=== PATIENT | male | born 1950 | race Caucasian/White ===

== ENCOUNTER 2017-08-05 08:34 | Day surgery (SDC) | payer MEDICARE, OTHER ==
[2017-08-05] MEDS ORDERED: DEXMEDETOMIDINE INJ 80 MCG/20 ML VIAL IV ONE (08:43)
[2017-08-05] MEDS ORDERED: PROPOFOL INJ 200 MG/20 ML VIAL IV ONE ×2 (08:43→10:27)
[2017-08-05] MEDS ORDERED: ONDANSETRON HCL INJ/PF 4 MG/2 ML SDV ONE (10:26)
[2017-08-05] MEDS ORDERED: LIDOCAINE 2% INJ-PF (20 MG/ML) 10 ML AMPUL ONE (10:26)
[2017-08-05] MEDS ORDERED: FENTANYL CITRATE INJ/PF 100 MCG/2 ML AMPUL IV PRN ×3 (11:52)
[2017-08-05] MEDS ORDERED: PROMETHAZINE HCL INJ 25 MG/1 ML VIAL IV PRN (11:52)
[2017-08-05] MEDS ORDERED: DIPHENHYDRAMINE HCL 50 MG/ML VIAL IV PRN (11:52)
--- NOTE | 2017-08-05 12:07 | Operative Report ---
Operative Report DATE OF SURGERY: 08/05/17 Operative Report: The risks, benefits and alternatives of the procedure including risks of bleeding, perforation requiring surgery are explained to the patient in detail and informed consent is obtained. Patient was taken back to the operating room and placed in the left, lateral decubital position. Timeout was called. Propofol medications administered. A rectal examination is done which did not reveal any masses, tears or fissures. An Olympus videoscope was inserted into the patient's rectum. The scope was then carefully advanced all the way to the cecum. The cecum was identified by the usual anatomical landmarks including the ileocecal valve as well as the appendiceal office. Photodocumentation is obtained. The scope was then sequentially pulled back via the various segments of the colon including the ascending colon, hepatic flexure, transverse colon, splenic flexure, descending colon finding to the rectosigmoid portions of the colon. Retroflexion maneuvers performed. PREOPERATIVE DIAGNOSIS: Personal history of polyps POSTOPERATIVE DIAGNOSIS: Ascending colon polyp status post removal and retrieved OPERATION: Colonoscopy with snare polypectomy SURGEON: LEANN ESPOSITO ANESTHESIA: LMAC TISSUE REMOVED OR ALTERED: As noted above. COMPLICATIONS: None. ESTIMATED BLOOD LOSS: None. INTRAOPERATIVE FINDINGS: As noted above. PROCEDURE: Patient tolerated the procedure well. No immediate postprocedure complications are noted. Patient discharged in good condition. Discharge date 08/05/2017. Discharge diet: Regular. Discharge activity: Regular. 2-3 week follow-up to discuss findings. 3-5 year surveillance colonoscopy. Patient is instructed call the office or proceed to the emergency room should there be any further problems or questions. We will wait on pathology.
[2017-08-05 13:49] VITALS: BP 138/79
== END 2017-08-05 13:49 | disposition home or self-care (01) ==
LOC: OROUT 08:34
PROVIDERS: ATTEND Internal Medicine Gastroenterology
PROC: 0DBK8ZX Excision of Ascending Colon, Via Natural or Artificial Opening Endoscopic, Diagnostic (ICD-10-PCS; principal; 2017-08-05 11:00)
DX: Z12.11 Encounter for screening for malignant neoplasm of colon (principal); D12.2 Benign neoplasm of ascending colon; I10 Essential (primary) hypertension; F17.210 Nicotine dependence, cigarettes, uncomplicated; Z79.51 Long term (current) use of inhaled steroids; Z79.899 Other long term (current) drug therapy
CPT/HCPCS: 45385; 88305 ×2; J2405; J2704; J3490 ×2; 811

== ENCOUNTER 2018-05-06 15:33 | Emergency (ER) | payer MEDICARE, OTHER ==
[2018-05-06] MEDS ORDERED: FUROSEMIDE INJ/PF 40 MG/4 ML SDV IV ONE (17:07)
[2018-05-06 17:25] LABS: ABSOLUTE LYMPHOCYTES (AUTO) 0.4 10^3/uL (0.5-4.7); ABSOLUTE MONOCYTES (AUTO) 0.2 10^3/uL (0.1-1.4); BASOPHILS % (AUTO) 0.5 % (0-2); EOSINOPHILS % (AUTO) 0.3 % (0-6); HEMATOCRIT 44.2 % (37.9-51.0); LYMPHOCYTES % (AUTO) 7.1 % (13-45); MEAN CORPUSCULAR HEMOGLOBIN 35.9 pg (27.0-33.4); MEAN CORPUSCULAR HGB CONC 33.8 g/dL (32.0-36.0); MEAN CORPUSCULAR VOLUME 106 fl (80-97); MONOCYTES % (AUTO) 3.7 % (3-13); PLATELET COUNT 265 10^3/uL (150-450); RED BLOOD COUNT 4.16 10^6/uL (4.35-5.55); RED CELL DISTRIBUTION WIDTH 14.8 % (11.5-14.0); SEGMENTED NEUTROPHILS % (AUTO) 88.4 % (42-78); TOTAL CELLS COUNTED % (AUTO) 100 %; WHITE BLOOD COUNT 5.6 10^3/uL (4.0-10.5)
--- NOTE | 2018-05-06 17:34 | ER Document Report ---
ED General - General Chief Complaint: Edema Stated Complaint: BODY SWELLING Time Seen by Provider: 05/06/18 17:05 Notes: Patient has been experiencing difficulty breathing and shortness of breath for the past 6 weeks or so. Now, he is noticing swelling of his lower extremities for the past 4 or 5 days. One contributing factor may be the fact that he is on a special diet off and on over the last month and the diet requires him to drink 64 ounces of water or liquid a day. Patient has been seen by his primary care provider in [place] and was there today and it was noted that he gained 21 pounds in the past 3 weeks and his legs were significantly swollen. His shortness of breath and difficulty breathing is worsened by exertion. He has had a significant cough with congestion and phlegm produced, although it is clear. Denies any chest pains at any time. Denies any fever. Patient is a cigarette smoker of about a pack a day, but says he stopped on Saturday, 3 days ago. History of a cardiac cath 2-3 years ago without significant findings. No stents placed. Hypertension. History of appendectomy and right testicular surgery. Significant abdominal trauma as a child requiring surgical procedure. TRAVEL OUTSIDE OF THE [place] IN LAST 30 DAYS: No - Related Data Allergies/Adverse Reactions: No Known Allergies Allergy (Verified 05/06/18 15:34) Past Medical History - Social History Smoking Status: Current Every Day Smoker - Stopped 3 days ago. Family History: Reviewed & Not Pertinent Patient has suicidal ideation: No Patient has homicidal ideation: No - Past Medical History Cardiac Medical History: Reports: Hx Hypertension, Other - Palpitations - Immunizations Hx Diphtheria, Pertussis, Tetanus Vaccination: No Review of Systems - Review of Systems Notes: REVIEW OF SYSTEMS: CONSTITUTIONAL : Denies fever. EENT: Denies eye, ear, nose or mouth or throat pain or other symptoms. CARDIOVASCULAR: Denies chest pain. Swelling of both lower extremities, see HPI. RESPIRATORY: Denies cough, chest congestion, or shortness of breath. GASTROINTESTINAL: Denies abdominal pain or nausea, vomiting, or diarrhea. GENITOURINARY: Denies difficulty or painful urinating, urinary frequency, blood in urine. MUSCULOSKELETAL: Denies back or neck pain. Denies joint pain or swelling. SKIN: Denies rash or skin lesions. NEUROLOGICAL: Denies LOC or altered mental status. Denies headache. Denies sensory loss or motor deficits. ALL OTHER SYSTEMS REVIEWED AND NEGATIVE. Physical Exam - Vital signs Vitals: Temp Pulse Resp BP Pulse Ox 97.7 F 107 H 20 138/84 H 96 05/06/18 15:38 05/06/18 15:38 05/06/18 15:38 05/06/18 15:38 05/06/18 15:38 Interpretation: Normal, Tachycardic - Minimal at 107. - General General appearance: Appears well, Alert In distress: None - HEENT Head: Normocephalic, Atraumatic Pupils: PERRL - Respiratory Respiratory status: No respiratory distress Chest status: Nontender Breath sounds: Normal, Rales - few in right base - Cardiovascular Rhythm: Regular, Tachycardia - rate 107 Heart sounds: Normal auscultation - Abdominal Inspection: Normal Distension: No distension Bowel sounds: Normal Tenderness: Nontender - Back Back: Normal, Nontender - Extremities General lower extremity: Edema - diffuse bilateral lower leg edema, +2, +3, extends to upper thighs, Normal temperature - good DP and PT pulses bilaterally. No: Normal color - distal feet and toes purple both feet--patient says been that way for long time, Stoero's sign - Neurological Neuro grossly intact: Yes Orientation: AAOx4 Speech: Normal - Psychological Associated symptoms: Normal affect, Normal mood - Skin Skin Temperature: Warm Skin Turgor: Tight Course - Re-evaluation Re-evalutation: 05/06/18 17:35 I got a call from this patient's primary care provider, Dr. Pineda in [place] and he is sending the patient here for some IV diuretic. Plans are to check labs and make sure patient does not have a condition that requires him to be admitted to the hospital. I have given him 40 mg of Lasix IV and plan to send him out on few Lasix for a few days. Also going to advise him to stop drinking so much water with the diet that he is on. 05/06/18 18:45 Patient has had a good diuresis, 1500 mL already. Went over all of his lab studies and results. Patient's troponin was 0.077, indeterminate. Patient does not have symptoms that make me think he is having an [place]. I do not think it is necessary to repeat this study. His EKG shows a complete left bundle branch block, but has had this finding on previous EKG. Patient's BNP is slightly elevated but not very much. Patient's chest x-ray shows right pleural effusion and radiologist as he cannot tell whether there is an infiltrate present or not. I told the patient and told him I do not think he has pneumonia. He has no fever. He has no elevation of his white count. Patient already has Lasix and I told him that he should probably take 40 mg every other day for the next week and then may be 3 times a week for another week after that, as needed to get rid of some of this fluid accumulation. I have strongly encouraged him to not go back to smoking. Also recommended he start some aerobic exercise program. I have advised the patient and his that the patient needs to have another chest x-ray done in a couple weeks to see that this fluid is cleared out of his lungs and that there is nothing residual. - Vital Signs Vital signs: Temp Pulse Resp BP Pulse Ox 97.7 F 107 H 23 H 141/108 H 91 L 05/06/18 15:38 05/06/18 15:38 05/06/18 18:01 05/06/18 18:01 05/06/18 18:01 - Laboratory Result Diagrams: 05/06/18 17:08 05/06/18 17:08 Laboratory results interpreted by me: 05/06/18 05/06/18 05/06/18 17:08 17:08 17:08 RBC 4.16 L MCV 106 H MCH 35.9 H RDW 14.8 H Seg Neutrophils % 88.4 H Lymphocytes % 7.1 L Absolute Lymphocytes 0.4 L Total Bilirubin 1.7 H Direct Bilirubin 0.6 H NT-Pro-B Natriuret Pep 4020 H Urine Ketones 05/06/18 17:48 RBC MCV MCH RDW Seg Neutrophils % Lymphocytes % Absolute Lymphocytes Total Bilirubin Direct Bilirubin NT-Pro-B Natriuret Pep Urine Ketones TRACE H - Diagnostic Test Radiology results interpreted by me: 05/06/18 18:47 Chest x-ray with mild cardiomegaly. Right pleural effusion. - EKG Interpretation by Me EKG shows normal: Sinus rhythm Rate: Tachycardia - Very slight at 104. Rhythm: NSR [place]/QRS: LBBB Additional EKG results interpreted by me: 05/06/18 18:44 Patient's EKG is not significantly different than a previous EKG in 2013. Patient has a left bundle branch block. Discharge - Discharge Clinical Impression: Peripheral edema Condition: Stable Disposition: HOME, SELF-CARE Additional Instructions: Edema, Peripheral You have swelling in your legs. This is called peripheral edema. It can be caused by "leaky capillaries," inflammation, disease of the leg veins, or excess salt and water in your body. Edema may be a sign of heart, kidney, or liver disease. A medical evaluation can determine if there is a serious underlying cause for your edema. Avoid prolonged standing. If you must sit for a long time, occasionally get up and walk around or elevate your legs. Support stockings can be helpful in limiting swelling. Often diuretic or water pills are used to remove excess salt and water from your body. Call the doctor or return if you develop increased swelling, pain, or redness, shortness of breath, chest pain, or any other significant change. Mild congestive Heart Failure You have been diagnosed as having congestive heart failure (CHF). CHF occurs when the heart is unable to pump blood efficiently, leading to fluid buildup in the veins and lungs. Typical symptoms are swelling of the legs, shortness of breath on minor exertion, and fatigue. CHF is treated with salt restriction, medicine to eliminate excess water and salt from the body, and medication to help the heart contract more efficiently. Eliminate added salt and salty foods in your diet. Decrease your activity until excess fluid has been eliminated. It will also be helpful to raise the head of your bed so you can sleep more easily. Keep a daily record of your weight. This will help your physician monitor your progress. Once extra water has been eliminated, light aerobic exercise daily -- such as walking -- will be helpful (unless your physician has told you to restrict activity for other reasons). Be sure to follow up with the physician as instructed. Contact the doctor at once if you worsen in any way. You have some mild congestive heart failure and fluid accumulation in your lower extremities and also in your lungs. Do not drink as much fluid as you have been drinking. With your special diet. Take your Lasix pills every other day, not every day in a row. It may take a week or 2 to get this excess fluid back to a manageable amount. At that time, starting light exercise program of walking short distances and increasing those distances each week or so. Stop Smoking You should stop smoking. The tar and chemicals in cigarette smoke are harmful. Smoking has been shown to cause: Emphysema and chronic bronchitis Lung cancer Cancer of the mouth, larynx, stomach, and pancreas Heart disease and stroke Stillbirths and miscarriage Premature aging In addition, smoking increases the chances of respiratory infections and ear infections in children of smokers, and increases the risk of cancer in persons exposed to second-hand smoke. Classes are available to help you stop smoking. If you are serious about wanting to quit, we can help arrange this therapy for you, or you can contact the local lung or cancer association. Follow-up with Dr. Pineda and have a repeat chest x-ray done in about 2 weeks. At any time, if you get worsening swelling, worsening shortness of breath, chest pains, etc., come back for us to reassess your situation. Referrals: LV PINEDA MD [Primary Care Provider] - Follow up as needed
[2018-05-06 17:40] LABS: ALANINE AMINOTRANSFERASE 24 U/L (21-72); ALBUMIN 3.9 g/dL (3.5-5.0); ALKALINE PHOSPHATASE 78 U/L (38-126); ANION GAP 12 (5-19); ASPARTATE AMINO TRANSFERASE 29 U/L (17-59); BILIRUBIN,DIRECT 0.6 mg/dL (0.0-0.4); BILIRUBIN,TOTAL 1.7 mg/dL (0.2-1.3); BLOOD UREA NITROGEN 17 mg/dL (7-20); CALCIUM 9.5 mg/dL (8.4-10.2); CARBON DIOXIDE 26 mmol/L (22-30); CHLORIDE 103 mmol/L (98-107); GLUCOSE 98 mg/dL (75-110); SODIUM 141.3 mmol/L (137-145); TOTAL PROTEIN 6.9 g/dL (6.3-8.2)
--- NOTE | 2018-05-06 17:55 | RADIOLOGY REPORT (SQ) ---
EXAM DESCRIPTION: CHEST 2 VIEWS COMPLETED DATE/TIME: 05/06/2018 5:42 pm REASON FOR STUDY: Short of breath, 20 pound weight gain in 3 weeks COMPARISON: None. EXAM PARAMETERS: NUMBER OF VIEWS: two views TECHNIQUE: Digital Frontal and Lateral radiographic views of the chest acquired. RADIATION DOSE: NA LIMITATIONS: none FINDINGS: LUNGS AND PLEURA: Right pleural effusion. There is ill-defined opacification in the right base. MEDIASTINUM AND HILAR STRUCTURES: No masses or contour abnormalities. HEART AND VASCULAR STRUCTURES: Cardiomegaly. BONES: No acute findings. HARDWARE: None in the chest. OTHER: No other significant finding. IMPRESSION: Cardiomegaly without [place] pulmonary edema. Right pleural effusion. Can't exclude limi sotero right lower lobe pneumonia. TECHNICAL DOCUMENTATION: JOB ID: [id number] [employer]- All Rights Reserved Reading location - IP/workstation name: [email or web address]
[2018-05-06 18:01] LABS: TROPONIN I 0.077 ng/mL
[2018-05-06 18:11] LABS: APPEARANCE,URINE CLEAR; BILIRUBIN,URINE NEGATIVE (NEGATIVE); COLOR,URINE STRAW; GLUCOSE, URINE NEGATIVE (NEGATIVE); KETONES,URINE TRACE mg/dL (NEGATIVE); LEUKOCYTE ESTERASE,URINE NEGATIVE (NEGATIVE); NITRITE,URINE NEGATIVE (NEGATIVE); PROTEIN,URINE NEGATIVE (NEGATIVE); URINE SPECIFIC GRAVITY 1.006; UROBILINOGEN,URINE NEGATIVE mg/dL (<2.0)
[2018-05-06 18:25] VITALS: BP 141/108
--- NOTE | 2018-05-06 21:07 | EKG REPORT ---
SEVERITY:- ABNORMAL ECG - SINUS TACHYCARDIA PROBABLE LEFT ATRIAL ABNORMALITY LEFT BUNDLE BRANCH BLOCK : Confirmed by: Angeli Cummings MD 06-May-2018 21:06:46
== END 2018-05-06 19:00 | disposition home or self-care (01) ==
LOC: ER 15:33
DX: I11.9 Hypertensive heart disease without heart failure (principal); R60.0 Localized edema; J90 Pleural effusion, not elsewhere classified; R06.02 Shortness of breath; R05 Cough; R00.0 Tachycardia, unspecified; R09.89 Other specified symptoms and signs involving the circulatory and respiratory systems; I44.7 Left bundle-branch block, unspecified; Z87.891 Personal history of nicotine dependence
CPT/HCPCS: 93005; 99285; 96374; 36415; 85025; 80053; 81001; 84484; 83880; 71046; 93010; J1940

== ENCOUNTER 2018-05-23 13:21 | Observation (INO) | payer MEDICARE, OTHER ==
[2018-05-23] MEDS ORDERED: ASPIRIN 81 MG TABLET, CHEWABLE PO ONE (13:38)
--- NOTE | 2018-05-23 13:45 | ER Document Report ---
ED Medical Screen (RME) - General Chief Complaint: CHF Exacerbation Stated Complaint: SHORTNESS OF BREATH Time Seen by Provider: 05/23/18 13:37 Mode of Arrival: Ambulatory Information source: Patient Notes: 68 years old male was brought into the ED because of bilateral lower leg swelling. He was sent over here by the primary care physician for" IV Lasix". He has not been having any shortness of breath or chest pain. No fever chills or other constitutional symptoms. Bilateral lower leg shows some erythema and 3+ pitting edema. Slightly warm to touch. Lungs clear TRAVEL OUTSIDE OF THE [place] IN LAST 30 DAYS: No - Related Data Allergies/Adverse Reactions: No Known Allergies Allergy (Verified 05/23/18 13:23) Past Medical History - Past Medical History Cardiac Medical History: Reports: Hx Congestive Heart Failure, Hx Hypertension Renal/ Medical History: Denies: Hx Peritoneal Dialysis - Immunizations Hx Diphtheria, Pertussis, Tetanus Vaccination: No Physical Exam - Vital signs Vitals: Temp Pulse Resp BP Pulse Ox 97.6 F 98 24 H 123/91 H 98 05/23/18 13:25 05/23/18 13:25 05/23/18 13:25 05/23/18 13:25 05/23/18 13:25 Course - Vital Signs Vital signs: Temp Pulse Resp BP Pulse Ox 97.6 F 98 24 H 123/91 H 98 05/23/18 13:25 05/23/18 13:25 05/23/18 13:25 05/23/18 13:25 05/23/18 13:25 Doctor's Discharge - Discharge Referrals: LV PINEDA MD [Primary Care Provider] - Follow up as needed
[2018-05-23 14:11] LABS: ABSOLUTE BASOPHILS # (AUTO) 0.1 10^3/uL (0.0-0.2); ABSOLUTE EOSINOPHILS # (AUTO) 0.1 10^3/uL (0.0-0.6); ABSOLUTE LYMPHOCYTES (AUTO) 1.2 10^3/uL (0.5-4.7); ABSOLUTE MONOCYTES (AUTO) 0.8 10^3/uL (0.1-1.4); ABSOLUTE NEUT (AUTO) 3.7 10^3/uL (1.7-8.2); EOSINOPHILS % (AUTO) 1.5 % (0-6); HEMATOCRIT 43.4 % (37.9-51.0); HEMOGLOBIN 14.7 g/dL (13.5-17.0); LYMPHOCYTES % (AUTO) 21.1 % (13-45); MEAN CORPUSCULAR HEMOGLOBIN 35.5 pg (27.0-33.4); MEAN CORPUSCULAR HGB CONC 33.9 g/dL (32.0-36.0); MEAN CORPUSCULAR VOLUME 105 fl (80-97); MONOCYTES % (AUTO) 13.7 % (3-13); PLATELET COUNT 215 10^3/uL (150-450); RED BLOOD COUNT 4.15 10^6/uL (4.35-5.55); RED CELL DISTRIBUTION WIDTH 15.8 % (11.5-14.0); SEGMENTED NEUTROPHILS % (AUTO) 62.7 % (42-78); TOTAL CELLS COUNTED % (AUTO) 100 %; WHITE BLOOD COUNT 5.9 10^3/uL (4.0-10.5)
[2018-05-23 14:18] LABS: INTERNATIONAL RATION (INR) 1.17; PROTHROMBIN TIME 15.5 SEC (11.4-15.4)
--- NOTE | 2018-05-23 14:18 | RADIOLOGY REPORT (SQ) ---
EXAM DESCRIPTION: CHEST SINGLE VIEW COMPLETED DATE/TIME: 05/23/2018 2:07 pm REASON FOR STUDY: sob COMPARISON: Two-view chest 05/06/2018 EXAM PARAMETERS: NUMBER OF VIEWS: One view. TECHNIQUE: Single frontal radiographic view of the chest acquired. RADIATION DOSE: NA LIMITATIONS: None. FINDINGS: LUNGS AND PLEURA: Decrease in right pleural effusion compared to 05/06/2018. Minimal bibasilar atelectasis. No pleural effusions, no pneumothorax MEDIASTINUM AND HILAR STRUCTURES: No masses. Contour normal. HEART AND VASCULAR STRUCTURES: Stable moderate to marked cardiomegaly BONES: Old left lateral and right lower lateral rib fractures HARDWARE: None in the chest. OTHER: No other significant finding. IMPRESSION: Decrease in right pleural effusion compared to 05/06/2018 Mild bibasilar atelectasis TECHNICAL DOCUMENTATION: JOB ID: [id number] [employer]- All Rights Reserved Reading location - IP/workstation name: [email or web address]
[2018-05-23 14:44] LABS: CREATINE KINASE MB 1.07 ng/mL (<4.55)
[2018-05-23 14:47] LABS: TROPONIN I 0.098 ng/mL
[2018-05-23 15:03] LABS: ALANINE AMINOTRANSFERASE 24 U/L (21-72); ALBUMIN 3.9 g/dL (3.5-5.0); ALKALINE PHOSPHATASE 91 U/L (38-126); ANION GAP 12 (5-19); ASPARTATE AMINO TRANSFERASE 24 U/L (17-59); BILIRUBIN,DIRECT 0.5 mg/dL (0.0-0.4); BILIRUBIN,TOTAL 1.8 mg/dL (0.2-1.3); BLOOD UREA NITROGEN 24 mg/dL (7-20); CARBON DIOXIDE 34 mmol/L (22-30); CHLORIDE 98 mmol/L (98-107); CREATINE KINASE 32 U/L (55-170); GLUCOSE 120 mg/dL (75-110); POTASSIUM 4.8 mmol/L (3.6-5.0); SODIUM 143.6 mmol/L (137-145); TOTAL PROTEIN 6.7 g/dL (6.3-8.2)
[2018-05-23] MEDS ORDERED: FUROSEMIDE INJ/PF 40 MG/4 ML SDV IV ONE (15:06)
--- NOTE | 2018-05-23 15:12 | ER Document Report ---
ED Cardiac - General Chief Complaint: CHF Exacerbation Stated Complaint: SHORTNESS OF BREATH Time Seen by Provider: 05/23/18 13:37 Mode of Arrival: Ambulatory Notes: Patient is a 68-year-old male who presents with chief complaints of increasing lower extremity edema and shortness of breath. He reports that he was seen at Dr. Carias's office for a routine appointment today. He states that Dr. Carias directed him to come to the ER for admission and IV Lasix as he states that the p.o. Lasix is not helping. Patient was newly diagnosed with CHF approximately 3 weeks ago. Patient denies any fever or chest pain. TRAVEL OUTSIDE OF THE [place] IN LAST 30 DAYS: No - Related Data Allergies/Adverse Reactions: No Known Allergies Allergy (Verified 05/23/18 13:23) Past Medical History - General Information source: Patient - Social History Smoking Status: Current Every Day Smoker Family History: Reviewed & Not Pertinent Patient has suicidal ideation: No Patient has homicidal ideation: No - Past Medical History Cardiac Medical History: Reports: Hx Congestive Heart Failure, Hx Hypertension Renal/ Medical History: Denies: Hx Peritoneal Dialysis - Immunizations Hx Diphtheria, Pertussis, Tetanus Vaccination: No Review of Systems - Review of Systems Cardiovascular: Orthopnea Respiratory: Short of breath Musculoskeletal: Ankle swelling - Bilateral Physical Exam - Vital signs Vitals: Temp Pulse Resp BP Pulse Ox 97.6 F 98 24 H 123/91 H 98 05/23/18 13:25 05/23/18 13:25 05/23/18 13:25 05/23/18 13:25 05/23/18 13:25 - Notes Notes: PHYSICAL EXAMINATION: GENERAL: Well-appearing, well-nourished and in no acute distress. HEAD: Atraumatic, normocephalic. EYES: Pupils equal round and reactive to light, extraocular movements intact, sclera anicteric, conjunctiva are normal. ENT: Nares patent, oropharynx clear without exudates. Moist mucous membranes. NECK: Normal range of motion, supple without lymphadenopathy LUNGS: Breath sounds clear to auscultation bilaterally and equal. No wheezes rales or rhonchi. HEART: Regular rate and rhythm without murmurs ABDOMEN: Soft, nontender, nondistended abdomen. No guarding, no rebound. No masses appreciated. Musculoskeletal: Normal range of motion, 2+ pitting edema to bilateral lower extremities. No cyanosis. NEUROLOGICAL: Cranial nerves grossly intact. Normal speech, normal gait. Normal sensory, motor exams PSYCH: Normal mood, normal affect. SKIN: Warm, Dry, normal turgor, no rashes or lesions noted. 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 Apparently patient has been treated outpatient without success as evidenced by a 17 pound weight gain over the last 3 weeks despite taking 20 mg of IV Lasix twice daily. BNP 7,700, Trop 0.098, all labs unremarkable otherwise. Chest x-ray is clear without any evidence of CHF. Patient denies any acute complaints at this time. Vital signs are all stable, will consult hospitalist for admission. 05/23/18 15:35 Dr. Stone accepting patient for admission. He requests that we hold the IV lasix until he sees the patient. - Vital Signs Vital signs: Temp Pulse Resp BP Pulse Ox 97.6 F 98 24 H 123/91 H 98 05/23/18 13:25 05/23/18 13:25 05/23/18 13:25 05/23/18 13:25 05/23/18 14:17 - Laboratory Result Diagrams: 05/23/18 13:55 05/23/18 14:20 Laboratory results interpreted by me: 05/23/18 05/23/18 05/23/18 13:55 13:55 13:55 RBC 4.15 L MCV 105 H MCH 35.5 H RDW 15.8 H Monocytes % 13.7 H PT 15.5 H Carbon Dioxide BUN Glucose Total Bilirubin Direct Bilirubin Creatine Kinase NT-Pro-B Natriuret Pep 7770 H 05/23/18 14:20 RBC MCV MCH RDW Monocytes % PT Carbon Dioxide 34 H BUN 24 H Glucose 120 H Total Bilirubin 1.8 H Direct Bilirubin 0.5 H Creatine Kinase 32 L NT-Pro-B Natriuret Pep Discharge - Discharge Clinical Impression: Orthopnea CHF exacerbation Qualifiers: Heart failure type: unspecified Qualified Code(s): I50.9 - Heart failure, unspecified Condition: Stable Disposition: ADMITTED INPATIENT Admitting Provider: Hospitalist Unit Admitted: Telemetry Referrals: LV PINEDA MD [Primary Care Provider] - Follow up as needed
--- NOTE | 2018-05-23 19:15 | XCELERA REPORT ---
[address] [address] Transthoracic Echocardiogram Report Name: ROBIN ANN Age: 68 yrs Gender: Male : 1950 Patient Status: Inpatient Patient Location: [place] [address]^A Study Date: 05/23/2018 05:33 PM Height: 70 in Weight: 240 lb BSA: 2.3 m2 Reason For Study: CHF exacerbation Ordering Physician: BISI DAHL Performed By: Edilia Sheikh Interpretation Summary Very poor study due to pt's body habitus, respiratory technician did her best. Dilated LV, dilated LA, dilated RA. Low flow through AV. Elevated LVEDP (B notch on AML/MV) LVEF Likely severely diminished. RVSP >45 mm Hg Dilated CM likely diffuse , but unable to visualize all LV segments to assess if globally abnormal or segmentally abnormal. Recommend TONG for more details, or Cardiac MRI and RH cath for [place] catheter monitoring during Rx of CHF. MMode/2D Measurements & Calculations RVDd: 3.0 cm LVIDd: 6.3 cm FS: 10.7 % LA dimension: 4.0 cm IVSd: 1.1 cm LVIDs: 5.7 cm EDV(Teich): 203.9 ml LVPWd: 1.0 cm ESV(Teich): 157.3 ml EF(Teich): 22.8 % Doppler Measurements & Calculations MV E max alan: MV P1/2t max alan: Ao V2 max: LV V1 max P.7 cm/sec 83.3 cm/sec 84.2 cm/sec 1.5 mmHg MV A max alan: MV P1/2t: 59.2 msec Ao max PG: LV V1 max: 54.3 cm/sec MVA(P1/2t): 3.7 cm2 2.8 mmHg 60.9 cm/sec MV E/A: 1.1 MV dec slope: 411.8 cm/sec2 MV dec time: 0.11 sec PA V2 max: PI end-d alan: TR max alan: MV P1/2t-pr_phl: 82.5 cm/sec 131.2 cm/sec 274.2 cm/sec 59.2 msec PA max PG: TR max P.7 mmHg 30.1 mmHg Left Ventricle The left ventricle is severely dilated. LVESD 57mm. Left ventricular systolic function is severely reduced. LVEDP is increased. Doppler measurements suggest pseudonormalized left ventricular relaxation, which is associated with grade II/IV or mild to moderate diastolic dysfunction. Not all wall segments were well visualized. Wall motion cannot be accurately commented on, but no definite regional wall motion abnormalities noted. Very poor visualisation of LV in PLAX, A$ chamber view, and Ap 2 chamber view due to pt 240#, with emphysema,from COPD. The left ventricular apex is not well visualized. Right Ventricle The right ventricle is not well visualized secondary to technical limitations. Atria The right atrium is dilated. The left atrium is severely dilated. M-Mode measured 53mm, no apical 4 and no apical 2 chamber view to visualize.or calculate SHALA. There is no Doppler evidence for an interatrial shunt. Mitral Valve The mitral valve is not well visualized. There is no evidence of mitral valve prolapse. There is no mitral valve stenosis. unable to assess MR by color flow, assumed MR based on LA dilated to 53 mm by m-mode. Aortic Valve The aortic valve is not well visualized secondary to technical limitations. Cannot exclude aortic valvular vegetation. No hemodynamically significant valvular aortic stenosis. normal cusp separation suggest no , peak volcity if sampled correctly at 0.8 m/sec suggest low CO output. No aortic regurgitation is present. Tricuspid Valve The tricuspid valve is not well visualized secondary to technical limitations. RSVP is equal to >45mm Hg. RA mean assumed 15mm due to dilated RA and dilated IVC. Pulmonic Valve There is a trace or physiologic amount of pulmonic regurgitation. Great Vessels The aortic root is not well visualized but is probably normal size. The inferior vena cava appeared dilated and decreased < 50% with respiration (RAP 15-20 mmHg). Effusions Minimal pericardial effusion. I WMSI = 2.67 % Normal = 0 Segments Size X - Cannot 2 - 4 - 1-2 small Interpret 1 - Normal Hypokinetic 3 - AkineticDyskinetic 3-5 moderate 5 - 6-14 large Aneurysmal 15-16 diffuse : BISI DAHL > Dominick Carias
--- NOTE | 2018-05-23 20:50 | PDOC H&P ---
History of Present Illness Admission Date/PCP: 05/23/18 16:42 LV PINEDA MD Patient complains of: SOB History of Present Illness: ROBIN ANN is a 68 year old male Past Medical History Cardiac Medical History: Reports: Congestive Heart Failure, Hypertension Hematology: Denies: Anemia, Sickle Cell Disease Social History Smoking Status: Current Every Day Smoker Family History Family History: Reviewed & Not Pertinent Parental Family History Reviewed: Yes - no premature CAD Children Family History Reviewed: No Sibling(s) Family History Reviewed.: No Medication/Allergy Home Medications: Albuterol Sulfate [Proair HFA Inhalation Aerosol 8.5 gm MDI] 2 puff IH Q6HP PRN 05/23/18 Atorvastatin Calcium [Lipitor 40 mg Tablet] 40 mg PO QHS 05/23/18 Clonidine HCl [Catapres 0.2 mg Tablet] 0.2 mg PO DAILY 05/23/18 Furosemide [Lasix 40 mg Tablet] 40 mg PO .AFTERNOON 05/23/18 Furosemide [Lasix 40 mg Tablet] 60 mg PO QAM 05/23/18 Ipratropium/Albuterol Sulfate [Duoneb 3 ml Ampul] 3 ml NEB Q6 05/23/18 Metformin HCl [Glucophage 500 mg Tablet] 500 mg PO DAILY 05/23/18 Metoprolol Tartrate [Lopressor 50 mg Tablet] 50 mg PO DAILY 05/23/18 Potassium Chloride [Klor-Con M10] 20 meq PO DAILY 05/23/18 Allergies/Adverse Reactions: No Known Allergies Allergy (Verified 05/23/18 13:23) Physical Exam Vital Signs: Temp Pulse Resp BP Pulse Ox 97.6 F 98 31 H 103/88 H 97 05/23/18 13:25 05/23/18 13:25 05/23/18 19:00 05/23/18 18:01 05/23/18 19:00 Results Laboratory Results: 05/23/18 18:48 Troponin I 0.096 Impressions: Chest X-Ray 05/23/18 13:38 IMPRESSION: Decrease in right pleural effusion compared to 05/06/2018 Mild bibasilar atelectasis
--- NOTE | 2018-05-23 20:51 | PDOC TRANSFER SUMMARY ---
General Admission Date/PCP: 05/23/18 16:42 LV PINEDA MD - Transfer Diagnosis (1) CHF exacerbation Is this a current diagnosis for this admission?: Yes - Transfer Medications Home Medications: Albuterol Sulfate [Proair HFA Inhalation Aerosol 8.5 gm MDI] 2 puff IH Q6HP PRN 05/23/18 Atorvastatin Calcium [Lipitor 40 mg Tablet] 40 mg PO QHS 05/23/18 Clonidine HCl [Catapres 0.2 mg Tablet] 0.2 mg PO DAILY 05/23/18 Furosemide [Lasix 40 mg Tablet] 40 mg PO .AFTERNOON 05/23/18 Furosemide [Lasix 40 mg Tablet] 60 mg PO QAM 05/23/18 Ipratropium/Albuterol Sulfate [Duoneb 3 ml Ampul] 3 ml NEB Q6 05/23/18 Metformin HCl [Glucophage 500 mg Tablet] 500 mg PO DAILY 05/23/18 Metoprolol Tartrate [Lopressor 50 mg Tablet] 50 mg PO DAILY 05/23/18 Potassium Chloride [Klor-Con M10] 20 meq PO DAILY 05/23/18 Transfer Medications: Current Medications Furosemide (Lasix Inj/Pf 40 Mg/4 Ml Sdv) 40 mg IV DAILY RITU Stop: 06/23/18 09:59 Heparin Sodium (Porcine) (Heparin Inj 5,000 Units/Ml 1 Ml Syringe) 5,000 unit SUBCUT Q8 RITU Stop: 06/22/18 21:59 Potassium Chloride (Klor-Con 10 Meq Capsule Er) 20 meq PO DAILY RITU Stop: 06/23/18 09:59 Sodium Chloride (Saline Flush 2.5 Ml Monoject Prefil Syrin) 2.5 ml IV Q8 RITU Stop: 06/22/18 21:59 - Allergies Allergies/Adverse Reactions: No Known Allergies Allergy (Verified 05/23/18 13:23) Hospital Course Hospital Course: Mr. Rehman is a 68 yr old male with a past medical history of CAD with prior But no intervention or stenting done, hypertension, history of asbestos exposure and reportedly recent diagnosis of CHF. Patient was apparently lost to follow-up with Dr. Carias, 1 of the local cardiologists and [place]. Patient has been seeing his PCP and has been complaining of worsening pedal edema and increasing shortness of breath in the past 4 months. He was sent back to Dr. Tian who saw him in the clinic today. He was noted to have grade 3 pedal edema and abdominal and lumbar swelling. His set up mechanic stamping machines sent him to the ER for diuresis. Discussed with Dr. Tian and as an echo was ordered. Per Dr. Carias, echo was suboptimal but showed severely reduced ejection fraction and dilated RA and pulmonary hypertension. Cardio recommended transferring patient to tertiary center for right-sided catheterization and also recommended judicious use of diuretics due to suspicion of both left and right-sided heart failure exacerbation. Discussed with Dr. Banks, set up mechanic stamping machines at [facility] who accepted the transfer. Discussed with Dr. Ambriz, accepting hospitalist. Physical Exam Vital Signs: Temp Pulse Resp BP Pulse Ox 97.4 F 100 20 126/94 H 98 05/23/18 19:45 05/23/18 19:45 05/23/18 19:45 05/23/18 19:45 05/23/18 19:45 Intake & Output 05/22/18 05/23/18 05/24/18 06:59 06:59 06:59 Weight 241 lb 6.499 oz General appearance: PRESENT: no acute distress, obese Head exam: PRESENT: atraumatic, normocephalic Eye exam: PRESENT: conjunctiva pink, EOMI, PERRLA. ABSENT: scleral icterus Ear exam: PRESENT: normal external ear exam Mouth exam: PRESENT: moist, tongue midline Neck exam: ABSENT: carotid bruit, JVD, lymphadenopathy, thyromegaly Respiratory exam: PRESENT: rales - Mild rales on the basis. ABSENT: rhonchi, wheezes Cardiovascular exam: PRESENT: RRR, systolic murmur Pulses: PRESENT: normal dorsalis pedis pul GI/Abdominal exam: PRESENT: distended - Slightly distended, normal bowel sounds , soft, other - Number of lumbosacral edema. ABSENT: guarding, mass, organolmegaly, rebound, tenderness Rectal exam: PRESENT: deferred Extremities exam: PRESENT: other - 3+ bilateral edema Neurological exam: PRESENT: alert, awake, oriented to person, oriented to place , oriented to time, oriented to situation, CN II-XII grossly intact. ABSENT: motor sensory deficit Results Laboratory Results: 05/23/18 18:48 Troponin I 0.096 Impressions: Chest X-Ray 05/23/18 13:38 IMPRESSION: Decrease in right pleural effusion compared to 05/06/2018 Mild bibasilar atelectasis
[2018-05-23] MEDS ORDERED: HEPARIN SOD (PORCINE) 5,000 UNIT/ML 1 ML SYRINGE SUBCUT SCH (22:00)
[2018-05-23 23:51] VITALS: BP 110/85
[2018-05-24] MEDS ORDERED: NICOTINE 7 MG/24 HR PATCH.TD24 TD ONE (00:30)
--- NOTE | 2018-05-24 09:10 | EKG REPORT ---
SEVERITY:- ABNORMAL ECG - SINUS RHYTHM PROBABLE LEFT ATRIAL ABNORMALITY LEFT BUNDLE BRANCH BLOCK : Confirmed by: Madeleine Raymond 24-May-2018 09:10:07
[2018-05-24] MEDS ORDERED: POTASSIUM CHLORIDE 10 MEQ CAPSULE.ER PO SCH (10:00)
[2018-05-24] MEDS ORDERED: FUROSEMIDE INJ/PF 40 MG/4 ML SDV IV SCH (10:00)
== END 2018-05-24 01:15 | disposition short-term general hospital (02) ==
LOC: ER 13:21 → EH 16:42 → INTOOBSV 16:42 → 5 19:55
PROVIDERS: ADMIT Internal Medicine; ATTEND Internal Medicine
DX: I11.0 Hypertensive heart disease with heart failure (principal); I50.9 Heart failure, unspecified; I25.10 Atherosclerotic heart disease of native coronary artery without angina pectoris; I27.20 Pulmonary hypertension, unspecified; F17.200 Nicotine dependence, unspecified, uncomplicated; Z77.090 Contact with and (suspected) exposure to asbestos; Z79.899 Other long term (current) drug therapy; Z79.84 Long term (current) use of oral hypoglycemic drugs
CPT/HCPCS: 93005; 99285; 36415; 82553; 82550; 85025; 85610; 80053; 84484; 83880; 93306; 71045; 93010; G0378 ×3; A9270; J1644; J3490 ×2

== ENCOUNTER → 2018-06-06 | Outpatient (CLI) | payer MEDICARE, OTHER ==
--- NOTE | 2018-06-06 08:24 | RADIOLOGY REPORT (SQ) ---
EXAM DESCRIPTION: CHEST 2 VIEWS COMPLETED DATE/TIME: 06/06/2018 7:58 am REASON FOR STUDY: LLL ABSENT BREATH SOUNDS COMPARISON: Chest films 05/23/2018, 05/06/2018 EXAM PARAMETERS: NUMBER OF VIEWS: two views TECHNIQUE: Digital Frontal and Lateral radiographic views of the chest acquired. RADIATION DOSE: NA LIMITATIONS: none FINDINGS: LUNGS AND PLEURA: No opacities, masses or pneumothorax. No pleural effusion. MEDIASTINUM AND HILAR STRUCTURES: No masses or contour abnormalities. HEART AND VASCULAR STRUCTURES: Heart normal size. No evidence for failure. BONES: Old healed left lateral rib fractures HARDWARE: None in the chest. OTHER: No other significant finding. IMPRESSION: NO ACUTE RADIOGRAPHIC FINDING IN THE CHEST. TECHNICAL DOCUMENTATION: JOB ID: [id number] [employer]- All Rights Reserved Reading location - IP/workstation name: [email or web address]
== END ==
LOC: RAD 07:42
PROVIDERS: ATTEND Internal Medicine Cardiovascular Disease
DX: R09.89 Other specified symptoms and signs involving the circulatory and respiratory systems (principal)
CPT/HCPCS: 71046

== ENCOUNTER → 2018-06-18 | Outpatient (CLI) | payer MEDICARE, OTHER ==
[2018-06-18 08:55] LABS: ALANINE AMINOTRANSFERASE 37 U/L (21-72); ALBUMIN 4.6 g/dL (3.5-5.0); ALKALINE PHOSPHATASE 81 U/L (38-126); ANION GAP 14 (5-19); ASPARTATE AMINO TRANSFERASE 36 U/L (17-59); BILIRUBIN,DIRECT 0.3 mg/dL (0.0-0.4); BILIRUBIN,TOTAL 1.3 mg/dL (0.2-1.3); BLOOD UREA NITROGEN 53 mg/dL (7-20); CALCIUM 10.5 mg/dL (8.4-10.2); CARBON DIOXIDE 25 mmol/L (22-30); CHLORIDE 93 mmol/L (98-107); GLUCOSE 123 mg/dL (75-110); POTASSIUM 5.3 mmol/L (3.6-5.0); SODIUM 132.3 mmol/L (137-145); URIC ACID 5.1 mg/dL (3.5-8.5)
== END ==
LOC: LAB 08:01
PROVIDERS: ATTEND Internal Medicine Cardiovascular Disease
DX: I11.0 Hypertensive heart disease with heart failure (principal); I50.22 Chronic systolic (congestive) heart failure; M10.271 Drug-induced gout, right ankle and foot; Z79.899 Other long term (current) drug therapy; R06.02 Shortness of breath
CPT/HCPCS: 36415; 80048; 80076; 83735; 83880; 84550

== ENCOUNTER → 2018-06-23 | Outpatient (CLI) | payer MEDICARE, OTHER ==
[2018-06-24 09:14] LABS: ANION GAP 12 (5-19); BLOOD UREA NITROGEN 39 mg/dL (7-20); CARBON DIOXIDE 29 mmol/L (22-30); CHLORIDE 91 mmol/L (98-107); GLUCOSE 113 mg/dL (75-110); SODIUM 131.5 mmol/L (137-145)
== END ==
LOC: LAB 08:25
PROVIDERS: ATTEND Internal Medicine Cardiovascular Disease
DX: I10 Essential (primary) hypertension (principal)
CPT/HCPCS: 36415; 80048

== ENCOUNTER → 2018-09-03 | Outpatient (CLI) | payer MEDICARE, OTHER ==
--- NOTE | 2018-09-03 09:54 | RADIOLOGY REPORT (SQ) ---
EXAM DESCRIPTION: U/S LTD DUPLEX ART/HARI FLOW COMPLETED DATE/TIME: 09/03/2018 9:25 am REASON FOR STUDY: I50.9 HEART FAILURE, UNSPECIFIED I50.9 HEART FAILURE, UNSPECIFIED COMPARISON: None. TECHNIQUE: Realtime and static grayscale images acquired. Selected color Doppler, velocities and spe ctral images recorded. LIMITATIONS: None. FINDINGS: RIGHT KIDNEY: RENAL ARTERY VELOCITIES: 201 cm/sec. Segmental artery velocity 100 cm/sec. RENAL VEIN: Color doppler flow present, patent. VELOCITY RATIO: 2.5. Normal waveforms. KIDNEY: Normal size. No significant pathology. LEFT KIDNEY: RENAL ARTERY VELOCITIES: 124 cm/sec. Segmental artery velocity 91 cm/sec. RENAL VEIN: Color doppler flow present, patent. VELOCITY RATIO: 1.6. Normal waveforms. KIDNEY: Normal size. No significant pathology. BLADDER: Normal. OTHER: No other significant finding. IMPRESSION: NO DOPPLER EVIDENCE OF HEMODYNAMICALLY SIGNIFICANT RENAL ARTERY STENOSIS. COMMENT: NORMAL RENAL ARTERY/AORTA VELOCITY RATIO IS LESS THAN OR EQUAL TO 3.5. TECHNICAL DOCUMENTATION: JOB ID: [id number] [employer]- All Rights Reserved Reading location - IP/workstation name: [email or web address]
== END ==
LOC: RAD 08:10
PROVIDERS: ATTEND Family Medicine
DX: I50.9 Heart failure, unspecified (principal)
CPT/HCPCS: 93976

== ENCOUNTER → 2018-09-25 | Outpatient (CLI) | payer MEDICARE, OTHER ==
[2018-09-25 09:35] LABS: ANION GAP 10 (5-19); BLOOD UREA NITROGEN 20 mg/dL (7-20); CALCIUM 9.8 mg/dL (8.4-10.2); CARBON DIOXIDE 27 mmol/L (22-30); CHLORIDE 102 mmol/L (98-107); GLUCOSE 93 mg/dL (75-110); POTASSIUM 4.2 mmol/L (3.6-5.0); SODIUM 138.8 mmol/L (137-145)
== END ==
LOC: LAB 08:55
PROVIDERS: ATTEND Internal Medicine Cardiovascular Disease
DX: R60.9 Edema, unspecified (principal); I50.22 Chronic systolic (congestive) heart failure; R06.02 Shortness of breath
CPT/HCPCS: 36415; 80048; 83880

== ENCOUNTER → 2018-11-06 | Outpatient (CLI) | payer MEDICARE, OTHER ==
[2018-11-06 10:08] LABS: ALANINE AMINOTRANSFERASE 33 U/L (21-72); ALBUMIN 4.5 g/dL (3.5-5.0); ALKALINE PHOSPHATASE 72 U/L (38-126); ANION GAP 13 (5-19); ASPARTATE AMINO TRANSFERASE 29 U/L (17-59); BILIRUBIN,DIRECT 0.3 mg/dL (0.0-0.4); BILIRUBIN,TOTAL 0.8 mg/dL (0.2-1.3); BLOOD UREA NITROGEN 27 mg/dL (7-20); CALCIUM 10.2 mg/dL (8.4-10.2); CARBON DIOXIDE 24 mmol/L (22-30); CHLORIDE 102 mmol/L (98-107); CHOLESTEROL 133.96 mg/dL (0-200); GLUCOSE 78 mg/dL (75-110); POTASSIUM 4.5 mmol/L (3.6-5.0); SODIUM 138.6 mmol/L (137-145); TOTAL PROTEIN 7.3 g/dL (6.3-8.2); TRIGLYCERIDES 99 mg/dL (<150)
[2018-11-06 10:32] LABS: DIRECT LDL 78 mg/dL (<100)
== END ==
LOC: LAB 09:05
PROVIDERS: ATTEND Internal Medicine Cardiovascular Disease
DX: I11.0 Hypertensive heart disease with heart failure (principal); I50.22 Chronic systolic (congestive) heart failure; E78.5 Hyperlipidemia, unspecified; Z79.899 Other long term (current) drug therapy
CPT/HCPCS: 36415; 80048; 80061; 80076; 83880

== ENCOUNTER → 2019-01-07 | Outpatient (CLI) | payer MEDICARE, OTHER ==
[2019-01-07 08:07] LABS: ALANINE AMINOTRANSFERASE 34 U/L (21-72); ALBUMIN 4.6 g/dL (3.5-5.0); ALKALINE PHOSPHATASE 57 U/L (38-126); ASPARTATE AMINO TRANSFERASE 28 U/L (17-59); BILIRUBIN,DIRECT 0.3 mg/dL (0.0-0.4); BILIRUBIN,TOTAL 0.9 mg/dL (0.2-1.3); CHOLESTEROL 131.55 mg/dL (0-200); TOTAL PROTEIN 7.2 g/dL (6.3-8.2); TRIGLYCERIDES 171 mg/dL (<150)
[2019-01-07 08:18] LABS: DIRECT LDL 61 mg/dL (<100)
[2019-01-07 08:22] LABS: VLDL CHOLESTEROL 34.2 mg/dL (10-31)
== END ==
LOC: LAB 07:38
PROVIDERS: ATTEND Internal Medicine Cardiovascular Disease
DX: E78.5 Hyperlipidemia, unspecified (principal); Z79.899 Other long term (current) drug therapy
CPT/HCPCS: 36415; 80061; 80076

== ENCOUNTER 2019-07-03 15:31 | Inpatient (IN) | payer MEDICARE, OTHER ==
[2019-07-03] MEDS ORDERED: NORMAL SALINE 1000 ML 1,000 ML IV PRN (15:38)
[2019-07-03] MEDS ORDERED: NORMAL SALINE 1000 ML 1,000 ML IV ONE ×2 (16:01→17:08)
[2019-07-03] MEDS ORDERED: LORAZEPAM INJ 2 MG/1 ML VIAL IV ONE (16:02)
--- NOTE | 2019-07-03 16:20 | ER Document Report ---
ED Syncope and Near Syncope - General Chief Complaint: Syncope Stated Complaint: POSSIBLE SYNCOPE Primary Care Provider: BRAD WEI MD [EMERITUS] - Follow up as needed Mode of Arrival: Medic Information source: Patient, Relative - Notes: 69-year-old man presents to the emergency department history of seen at a local physician's office in [facility], patient apparently was noted to have some shaking and then unresponsiveness. EMS was called to the scene and found the patient to be hypotensive. Patient admits to heavy drinking and no intake of alcohol since yesterday. He has had a history of withdrawal in the past and thinks that he is withdrawing now. There is also been a history of some blood noted in his stools. He denies pain at this time and is shaky. TRAVEL OUTSIDE OF THE [place] IN LAST 30 DAYS: No - Related Data Allergies/Adverse Reactions: No Known Allergies Allergy (Verified 05/23/18 13:23) Past Medical History - Social History Smoking Status: Current Every Day Smoker Family History: Reviewed & Not Pertinent - Past Medical History Cardiac Medical History: Reports: Hx Congestive Heart Failure, Hx Hypertension Renal/ Medical History: Denies: Hx Peritoneal Dialysis Psychiatric Medical History: Denies: Hx Depression - Immunizations Hx Diphtheria, Pertussis, Tetanus Vaccination: No Review of Systems - Review of Systems Notes: Constitutional: Negative for fever. HENT: Negative for sore throat. Eyes: Negative for visual changes. Cardiovascular: Negative for chest pain. Respiratory: Negative for shortness of breath. Gastrointestinal: + Dark stools, specks of red noted, negative abdominal pain, vomiting or diarrhea. Genitourinary: Negative for dysuria. Musculoskeletal: Negative for back pain. Skin: Negative for rash. Neurological: + Shakiness +jitteriness 10 point ROS negative except as marked above and in HPI. Physical Exam - Vital signs Vitals: Resp Pulse Ox 27 H 100 07/03/19 15:38 07/03/19 15:38 - Notes Notes: PHYSICAL EXAMINATION: Physical Exam: General: Chronically ill-appearing 69-year-old male in no acute distress HEENT: NC/AT, pupils equal round and reactive to light, MM moist,nares clear, Neck: supple, no adenopathy, no masses. Lungs: clear, no wheezing, no rales no rhonchi CVS: Regular rate and rhythm no murmur gallop or rub Abdomen: Soft active nontender, no masses, no hepatosplenomegaly, heme positive brown stool Ext: No edema clubbing or cyanosis. Neuro: Alert and responsive, moving all 4 extremities on command, cranial nerves intact, tremulous, shakiness, jitteriness. Skin: Intact no open lesions, no rash PSYCH: Normal mood, normal affect. Course - Re-evaluation Re-evalutation: 07/03/19 18:51 Differential diagnosis Electrolyte imbalance, alcohol withdrawal, alcohol withdrawal seizure, DTs, GI bleed 07/03/19 20:24 Discussed the patient with the hospitalist, requests further test be done troponin, also concerns regarding the patient going onto the floor due to withdrawals and elevated baseline troponin and history of cardiac disease. The landscape horticulture instructor is contacted a review of the patient condition was discussed and the patient will be seen in the emergency department. - Vital Signs Vital signs: Temp Pulse Resp BP Pulse Ox 25 H 105/84 98 07/03/19 19:31 07/03/19 19:31 07/03/19 19:31 - Laboratory Result Diagrams: 07/03/19 15:38 07/03/19 15:38 Laboratory results interpreted by me: 07/03/19 07/03/19 07/03/19 15:38 15:38 19:38 WBC 3.9 L RBC 3.37 L MCV 118 H MCH 39.9 H RDW 15.9 H Plt Count 105 L Seg Neuts % (Manual) 40 L Band Neutrophils % 1 L Monocytes % (Manual) 26 H Abs Neuts (Manual) 1.6 L Sodium 134.9 L Chloride 89 L BUN 65 H Creatinine 2.60 H Est GFR ( Amer) 30 L Est GFR (MDRD) Non-Af 25 L Direct Bilirubin 0.6 H AST 137 H Urine Protein 30 H Urine Glucose (UA) 50 H Urine Ketones 20 H Urine Blood MODERATE H - Diagnostic Test Radiology reviewed: Pending - CT head noncontrast: Chronic atrophic changes with microvascular disease, no acute CVA or hemorrhage. Chest x-ray: No acute infiltrate or effusion., Image reviewed, Reports reviewed - EKG Interpretation by Me EKG shows normal: Sinus rhythm - No acute findings. Discharge - Discharge Clinical Impression: BELLA (acute kidney injury), Guaiac positive stools Syncope Qualifiers: Syncope type: unspecified Qualified Code(s): R55 - Syncope and collapse Alcohol withdrawal Qualifiers: Complication of substance-induced condition: uncomplicated Qualified Code(s): F10.230 - Alcohol dependence with withdrawal, uncomplicated Condition: Good Disposition: ADMITTED INPATIENT Admitting Provider: Aung (Oil Dispatcher) Unit Admitted: ICU Referrals: BRAD WEI MD [EMERITUS] - Follow up as needed
[2019-07-03 16:37] LABS: INTERNATIONAL RATION (INR) 0.96; PARTIAL THROMBOPLASTIN TIME 27.7 SEC (23.5-35.8); PROTHROMBIN TIME 12.7 SEC (11.4-15.4)
[2019-07-03 16:40] LABS: HEMATOCRIT 39.7 % (37.9-51.0); HEMOGLOBIN 13.5 g/dL (13.5-17.0); MEAN CORPUSCULAR HEMOGLOBIN 39.9 pg (27.0-33.4); MEAN CORPUSCULAR HGB CONC 33.9 g/dL (32.0-36.0); PLATELET COUNT 105 10^3/uL (150-450); RED BLOOD COUNT 3.37 10^6/uL (4.35-5.55); RED CELL DISTRIBUTION WIDTH 15.9 % (11.5-14.0); WHITE BLOOD COUNT 3.9 10^3/uL (4.0-10.5)
[2019-07-03 16:50] LABS: ALBUMIN 3.9 g/dL (3.5-5.0); ALKALINE PHOSPHATASE 89 U/L (38-126); ANION GAP 18 (5-19); ASPARTATE AMINO TRANSFERASE 137 U/L (17-59); BILIRUBIN,DIRECT 0.6 mg/dL (0.0-0.4); BILIRUBIN,TOTAL 0.6 mg/dL (0.2-1.3); BLOOD UREA NITROGEN 65 mg/dL (7-20); CALCIUM 9.5 mg/dL (8.4-10.2); CARBON DIOXIDE 28 mmol/L (22-30); CHLORIDE 89 mmol/L (98-107); GLUCOSE 88 mg/dL (75-110); POTASSIUM 4.4 mmol/L (3.6-5.0); TOTAL PROTEIN 6.9 g/dL (6.3-8.2)
[2019-07-03 16:54] LABS: ALCOHOL < 10 mg/dL (NONE DETECTED)
[2019-07-03 16:59] LABS: ABSOLUTE LYMPHOCYTES# (MANUAL) 1.3 10^3/uL (0.5-4.7); BAND NEUTROPHILS % (MANUAL) 1 % (3-5); BASOPHILS % (MANUAL) 0 % (0-2); EOSINOPHILS % (MANUAL) 0 % (0-6); LYMPHOCYTES % (MANUAL) 31 % (13-45); SEGMENTED NEUTROPHILS % (MAN) 40 % (42-78); TOTAL CELLS COUNTED 100
[2019-07-03 17:01] LABS: ANISOCYTOSIS 1+; STOMATOCYTES 1+
[2019-07-03 17:02] LABS: MEAN CORPUSCULAR VOLUME 118 fl (80-97); MONOCYTES % (MANUAL) 26 % (3-13); PLATELET COMMENT DECREASED
--- NOTE | 2019-07-03 17:21 | RADIOLOGY REPORT (SQ) ---
EXAM DESCRIPTION: CT HEAD WITHOUT COMPLETED DATE/TIME: 07/03/2019 5:11 pm REASON FOR STUDY: syncope COMPARISON: None. TECHNIQUE: Axial images acquired through the brain without intravenous contrast. Images reviewed wi th bone, brain and subdural windows. Additional sagittal and coronal reconstructions were generated. Images stored on PACS. All CT scanners at this facility use dose modulation, iterative reconstruction, and/or weight based d osing when appropriate to reduce radiation dose to as low as reasonably achievable (ALARA). [facility]: Dose Right [facility]: CareDose [facility]: Dose Right [facility]: Teradose 4D [facility]: [email or web address] RADIATION DOSE: CT Rad equipment meets quality standard of care and radiation dose reduction techniq ues were employed. CTDIvol: 53.2 mGy. DLP: 1044 mGy-cm. mGy. LIMITATIONS: Patient motion. FINDINGS: VENTRICLES: Prominent. CEREBRUM: No masses. No hemorrhage. No midline shift. Areas of low density in the white matter mos t likely due to chronic micro-vascular ischemic change. No evidence for acute infarction. CEREBELLUM: No masses. No hemorrhage. No alteration of density. No evidence for acute infarction. EXTRAAXIAL SPACES: Mild age-related involutional change. No fluid collections. No masses. ORBITS AND GLOBE: No intra- or extraconal masses. Normal contour of globe without masses. CALVARIUM: No fracture. PARANASAL SINUSES: No fluid or mucosal thickening. SOFT TISSUES: No mass or hematoma. OTHER: No other significant finding. IMPRESSION: MILD CHRONIC CHANGES OF ATROPHY AND MICROVASCULAR ISCHEMIA. NO ACUTE PROCESS. EVIDENCE OF ACUTE STROKE: NO. TECHNICAL DOCUMENTATION: JOB ID: [id number] Quality ID # [id number]: Final reports with documentation of one or more dose reduction techniques (e.g., Au tomated exposure control, adjustment of the mA and/or kV according to patient size, use of iterative reconstruction technique) 2010 [employer]- All Rights Reserved Reading location - IP/workstation name: [email or web address]
--- NOTE | 2019-07-03 17:26 | RADIOLOGY REPORT (SQ) ---
EXAM DESCRIPTION: CHEST SINGLE VIEW COMPLETED DATE/TIME: 07/03/2019 5:08 pm REASON FOR STUDY: syncope COMPARISON: 06/06/2018 EXAM PARAMETERS: NUMBER OF VIEWS: One view. TECHNIQUE: Single frontal radiographic view of the chest acquired. RADIATION DOSE: NA LIMITATIONS: None. FINDINGS: LUNGS AND PLEURA: No opacities, masses or pneumothorax. No pleural effusion. MEDIASTINUM AND HILAR STRUCTURES: No masses. Contour normal. HEART AND VASCULAR STRUCTURES: Heart normal in size. Normal vasculature. BONES: No acute findings. HARDWARE: None in the chest. OTHER: No other significant finding. IMPRESSION: NO ACUTE RADIOGRAPHIC FINDING IN THE CHEST. TECHNICAL DOCUMENTATION: JOB ID: [id number] [employer]- All Rights Reserved Reading location - IP/workstation name: [email or web address]
[2019-07-03] MEDS ORDERED: NORMAL SALINE 1000 ML 1,000 ML with POTASSIUM CHLORIDE 20 MEQ, MAGNESIUM SULFATE 8 MEQ,... IV SCH ×5 (18:00)
[2019-07-03] MEDS ORDERED: NICOTINE 14 MG/24 HR PATCH.TD24 TD ONE (18:17)
[2019-07-03] MEDS ORDERED: THIAMINE HCL INJ 200 MG/2 ML VIAL IM ONE (19:10)
[2019-07-03 19:54] LABS: APPEARANCE,URINE CLEAR; BILIRUBIN,URINE NEGATIVE (NEGATIVE); COLOR,URINE YELLOW; GLUCOSE, URINE 50 mg/dL (NEGATIVE); KETONES,URINE 20 mg/dL (NEGATIVE); LEUKOCYTE ESTERASE,URINE NEGATIVE (NEGATIVE); NITRITE,URINE NEGATIVE (NEGATIVE); PROTEIN,URINE 30 mg/dL (NEGATIVE); URINE SPECIFIC GRAVITY 1.011; UROBILINOGEN,URINE NEGATIVE mg/dL (<2.0)
[2019-07-03 20:04] LABS: CREATINE KINASE MB 1.54 ng/mL (<4.55)
[2019-07-03 20:06] LABS: TROPONIN I 0.116 ng/mL
[2019-07-03 20:13] LABS: URINE AMPHETAMINES SCREEN NEGATIVE; URINE BARBITURATES SCREEN NEGATIVE; URINE BENZODIAZEPINES SCREEN NEGATIVE; URINE COCAINE SCREEN NEGATIVE; URINE MARIJUANA (THC) SCREEN NEGATIVE; URINE METHADONE SCREEN NEGATIVE; URINE PHENCYCLIDINE SCREEN NEGATIVE
[2019-07-03] MEDS ORDERED: RINGERS SOLUTION,LACTATED 1,000 ML IV PRN (21:15)
--- NOTE | 2019-07-03 21:23 | EKG REPORT ---
SEVERITY:- ABNORMAL ECG - SINUS RHYTHM LEFT BUNDLE BRANCH BLOCK : Confirmed by: Angeli Cummings MD 03-Jul-2019 21:22:25
--- NOTE | 2019-07-03 21:24 | EKG REPORT ---
SEVERITY:- DEFECTIVE ECG - ATRIAL FIBRILLATION VENTRICULAR BIGEMINY NONSPECIFIC INTRAVENTRICULAR CONDUCTION DELAY PROBABLE LVH WITH SECONDARY REPOL ABNRM SEVERE BASELINE ARTIFACT : Confirmed by: Angeli Cummings MD 03-Jul-2019 21:23:35
[2019-07-03] MEDS ORDERED: NORMAL SALINE 1000 ML 1,000 ML with POTASSIUM CHLORIDE 20 MEQ, MAGNESIUM SULFATE 8 MEQ,... IV ONE ×5 (21:30)
[2019-07-03] MEDS ORDERED: LORAZEPAM INJ 2 MG/1 ML VIAL IV PRN (21:39)
[2019-07-03 22:12] LABS: PHOSPHORUS 3.7 mg/dL (2.5-4.5)
[2019-07-04] MEDS: LORAZEPAM INJ 2 MG/1 ML VIAL IV PRN ×7 (00:02→23:43)
[2019-07-04] MEDS: HEPARIN SOD (PORCINE) 5,000 UNIT/ML 1 ML VIAL SUBCUT SCH ×4 (00:06→21:47)
[2019-07-04] MEDS: MAGNESIUM SULFATE/D5W 1 GM/100 ML RTUPB IV SCH ×6 (00:17→21:47)
[2019-07-04] MEDS ORDERED: LORAZEPAM INJ 2 MG/1 ML VIAL ONE ×3 (00:29→06:15)
[2019-07-04 01:39] LABS: ABSOLUTE LYMPHOCYTES (AUTO) 0.8 10^3/uL (0.5-4.7); ABSOLUTE MONOCYTES (AUTO) 0.5 10^3/uL (0.1-1.4); ABSOLUTE NEUT (AUTO) 1.8 10^3/uL (1.7-8.2); BASOPHILS % (AUTO) 0.7 % (0-2); EOSINOPHILS % (AUTO) 1.1 % (0-6); HEMATOCRIT 32.8 % (37.9-51.0); LYMPHOCYTES % (AUTO) 25.4 % (13-45); MEAN CORPUSCULAR HEMOGLOBIN 40.4 pg (27.0-33.4); MEAN CORPUSCULAR HGB CONC 34.7 g/dL (32.0-36.0); MEAN CORPUSCULAR VOLUME 117 fl (80-97); MONOCYTES % (AUTO) 16.1 % (3-13); RED BLOOD COUNT 2.82 10^6/uL (4.35-5.55); RED CELL DISTRIBUTION WIDTH 15.7 % (11.5-14.0); SEGMENTED NEUTROPHILS % (AUTO) 56.7 % (42-78); TOTAL CELLS COUNTED % (AUTO) 100 %; WHITE BLOOD COUNT 3.1 10^3/uL (4.0-10.5)
[2019-07-04 01:41] LABS: HEMOGLOBIN 11.4 g/dL (13.5-17.0); PLATELET COUNT 69 10^3/uL (150-450)
[2019-07-04] MEDS ORDERED: LORAZEPAM INJ 2 MG/1 ML VIAL IV ONE ×3 (01:43→06:16)
[2019-07-04 02:00] LABS: ANISOCYTOSIS 1+; PLATELET COMMENT DECREASED
[2019-07-04 02:31] LABS: ALBUMIN 2.9 g/dL (3.5-5.0); ALKALINE PHOSPHATASE 69 U/L (38-126); ANION GAP 13 (5-19); ASPARTATE AMINO TRANSFERASE 107 U/L (17-59); BILIRUBIN,DIRECT 0.5 mg/dL (0.0-0.4); BILIRUBIN,TOTAL 0.5 mg/dL (0.2-1.3); BLOOD UREA NITROGEN 58 mg/dL (7-20); CALCIUM 7.5 mg/dL (8.4-10.2); CARBON DIOXIDE 25 mmol/L (22-30); CHLORIDE 97 mmol/L (98-107); GLUCOSE 107 mg/dL (75-110); POTASSIUM 3.5 mmol/L (3.6-5.0); TOTAL PROTEIN 5.7 g/dL (6.3-8.2)
--- NOTE | 2019-07-04 03:55 | CRITICAL CARE ADMISSION REPORT ---
HPI Date:: 07/04/19 Time:: 00:15 Reason for ICU Reason:: ETOH withdrawal, withdrawal seizure, hypotension HPI: Mr. Rehman is a 69yr old M with PMHx of chonic daily ETOH abuse with reported 2L daily drinking, heart failure with stenting in 05/2018, CHF, HTN, remoted his of trach with decannulation at age 11 from pneumonia, likely SAGAR per and pt reports previous hx of withdrawal seizures that he is just admitting to on exam to this provider with family in the room. states that she was with pt to see his PCP today when she witnessed pt "stiffen up" and fall back in the chair and become unresponsive for 15-20 seconds. Pt was hypotensive when EMS arrived. Pt states he recently decided to quit drinking and has cut down on is intake from 2L to 1L per day recently and did not drink anything this AM. On assessment in the ED, and daughter at bedside. Pt is sitting up in bed eating a sandwich with assistance from . Pt has visible tremors and when asked he states he has had these tremors for ~3yrs; states they are only slightly worse today. Pt dose admit to previous withdrawal seizures but states he has never attempted to quit drinking before, only tried to decrease the amount of intake. He states he wants to quit drinking and go to rehab. states he is noncompliant with his angular js developer in regards to appointments and testing recomm endations; TONG, echo, sleep study, follow up appointments, etc. Pt states he takes him medications daily. Pt will be admitted to ICU for treatment of alcohol withdrawal, hypotension and monitoring for withdrawal seizures. History obtained from:: patient and family - Diagnosis/Plan (1) Withdrawal seizures Is this a current diagnosis for this admission?: Yes (2) Hypotension Is this a current diagnosis for this admission?: Yes (3) Alcohol dependence Is this a current diagnosis for this admission?: Yes (4) BELLA (acute kidney injury) Is this a current diagnosis for this admission?: Yes (5) Alcohol withdrawal Qualifiers: Complication of substance-induced condition: uncomplicated Qualified Code(s): F10.230 - Alcohol dependence with withdrawal, uncomplicated Is this a current diagnosis for this admission?: Yes (6) CHF exacerbation Qualifiers: Heart failure type: unspecified Qualified Code(s): I50.9 - Heart failure, unspecified Is this a current diagnosis for this admission?: Yes - . Plan Summary: Pulm: * maintain continuous pulse ox monitoring - provide supplemental O2 if needed * repeat chest Xray in the AM to monitor * likely hx of SAGAR - monitor closely with the use of benzos and assess the need for HFNC or BiPAP CV: * Continuous tele * hx of HF with low EF - most recent echo at this facility in 05/2018 with EF of ~25% - echo and carotid dopplers pending * Hx of CHF - avoid unnecessary IV fluids, continue diuretics as needed * Hx of HTN - currently hypotensive - monitor for rebound tachycardia while home meds held, restart when able * follow trops - elevated on initial in ED Neuro: * ETOH abuse/dependence with witnessed seizure - alcohol level in ED negative, CIWA with ativan Q2h, thiamine, folate, seizure precautions * CT head negative * neuro assessments Q2h to monitor for acute changes - and pt report tremors have been present X3yrs * Ammonia level stable on admission Renal: * BELLA - Cr 2.6 with baseline ~0.6 - continue IV fluids and monitor response * Strict I&O, trend renal indices, replace lytes PRN * Mag 1.1 replaced - pending redraw * continue diuretics as needed while monitoring renal indices GI: * elevated lipase/amylase - Abd US pending * NPO at this time * no indication for GI ppx at this time Endo: * monitor POC BG while NPO to avoid episodes of hypoglycemia * elevated TSH without known hx of thyroid diagnosis - T3 and T4 pending ID: * no acute concerns - will continue to monitor Msk/skin * reported concerns with developing pressure sore on lateral right ankle and lateral right hip as pt lays on this side mostly - continue to monitor * Turn Q2 Dispo: pt expressed a desire to go to inpatient rehab facility and a desire to stop drinking Past Medical History Past Medical History: as per HPI Cardiac Medical History: Reports: Congestive Heart Failure, Hypertension Psychiatric Medical History: Denies: Depression Hematology: Denies: Anemia, Sickle Cell Disease Social/Family History - Social History Smoking Status: Current Every Day Smoker Frequency of Alcohol Use: Heavy Hx Recreational Drug Use: No Drugs: None Hx Prescription Drug Abuse: No - Medication/Allergies Home Medications: Albuterol Sulfate [Proair HFA Inhalation Aerosol 8.5 gm MDI] 2 puff IH Q6HP PRN 05/23/18 Atorvastatin Calcium [Lipitor 40 mg Tablet] 40 mg PO QHS 05/23/18 Furosemide [Lasix 40 mg Tablet] 40 mg PO QAM 05/23/18 Metformin HCl [Glucophage 500 mg Tablet] 500 mg PO BID 05/23/18 Allopurinol [Zyloprim 300 mg Tablet] 300 mg PO DAILY 07/03/19 Aspirin [Ecotrin 81 mg EC Tablet] 81 mg PO DAILY 07/03/19 Cyanocobalamin (Vitamin B-12) [Vitamin B-12] 1,000 mcg PO BID 07/03/19 Ezetimibe 10 mg PO DAILY 07/03/19 Ibuprofen [Advil] 400 mg PO DAILY 07/03/19 Ibuprofen/Diphenhydramine HCl [Advil Pm Liqui-Gels] 1 each PO QHS 07/03/19 Metoprolol Succinate [Toprol Xl 25 mg Tab.sr] 25 mg PO DAILY 07/03/19 Sacubitril/Valsartan [Entresto 24 mg/26 mg Tablet] 1 tab PO Q12 07/03/19 Spironolactone [Aldactone 25 mg Tablet] 25 mg PO DAILY 07/03/19 Allergies/Adverse Reactions: No Known Allergies Allergy (Verified 05/23/18 13:23) Review of Systems All systems: reviewed and no additional remarkable complaints except as stated - as stated in HPI and plan of care Physical Exam Vital Signs: Temp Pulse Resp BP Pulse Ox 98.9 F 19 95/72 L 98 07/03/19 22:55 07/03/19 22:51 07/03/19 22:51 07/03/19 22:51 Intake & Output 07/02/19 07/03/19 07/04/19 06:59 06:59 06:59 Intake Total 2000 Output Total 620 Balance 1380 Weight 92.8 kg Weight/Height Weight 92.8 kg Height 5 ft 10 in General appearance: PRESENT: no acute distress, obese Head exam: PRESENT: atraumatic, normocephalic Eye exam: PRESENT: conjunctiva pale, EOMI, PERRLA Ear exam: PRESENT: normal external ear exam Mouth exam: PRESENT: moist, other - tremulous tongue Neck exam: PRESENT: JVD, other - previous trach decannulation with small amount of exudate and erythema from the area. ABSENT: tracheal deviation Respiratory exam: PRESENT: crackles - bilateral, tachypnea. ABSENT: accessory muscle use, chest wall tenderness, wheezes Cardiovascular exam: PRESENT: RRR, +S1, +S2 Pulses: PRESENT: normal radial pulses, normal dorsalis pedis pul Vascular exam: PRESENT: normal capillary refill GI/Abdominal exam: PRESENT: distended, normal bowel sounds, soft. ABSENT: orga nolmegaly, tenderness Rectal exam: PRESENT: deferred Extremities exam: PRESENT: +1 edema Neurological exam: PRESENT: alert, awake, oriented to person, oriented to place, oriented to time, oriented to situation, other - moderate tremors to bilaterally arms and face Psychiatric exam: PRESENT: normal mood Skin exam: PRESENT: dry, warm Laboratory/Radiographs Laboratory Results: 07/03/19 15:38 07/03/19 15:38 07/03/19 07/03/19 07/03/19 15:38 15:38 15:38 WBC 3.9 L RBC 3.37 L Hgb 13.5 Hct 39.7 MCV 118 H MCH 39.9 H MCHC 33.9 RDW 15.9 H Plt Count 105 L Seg Neutrophils % Not Reportable Sodium 134.9 L Potassium 4.4 Chloride 89 L Carbon Dioxide 28 Anion Gap 18 BUN 65 H Creatinine 2.60 H Est GFR ( Amer) 30 L Glucose 88 Calcium 9.5 Phosphorus Magnesium Total Bilirubin 0.6 AST 137 H Alkaline Phosphatase 89 Ammonia Total Protein 6.9 Albumin 3.9 Amylase Lipase TSH Urine Color Urine Appearance Urine pH Ur Specific [place] Urine Protein Urine Glucose (UA) Urine Ketones Urine Blood Urine Nitrite Ur Leukocyte Esterase Urine WBC (Auto) Urine RBC (Auto) Blood Type A NEGATIVE Antibody Screen NEGATIVE 07/03/19 07/03/19 07/03/19 15:38 15:38 19:38 WBC RBC Hgb Hct MCV MCH MCHC RDW Plt Count Seg Neutrophils % Sodium Potassium Chloride Carbon Dioxide Anion Gap BUN Creatinine Est GFR ( Amer) Glucose Calcium Phosphorus 3.7 Magnesium 1.1 L* Total Bilirubin AST Alkaline Phosphatase Ammonia Total Protein Albumin Amylase 123 H Lipase 1138.0 H TSH 7.92 H Urine Color YELLOW Urine Appearance CLEAR Urine pH 6.0 Ur Specific [place] 1.011 Urine Protein 30 H Urine Glucose (UA) 50 H Urine Ketones 20 H Urine Blood MODERATE H Urine Nitrite NEGATIVE Ur Leukocyte Esterase NEGATIVE Urine WBC (Auto) 4 Urine RBC (Auto) 0 Blood Type Antibody Screen 07/03/19 23:42 WBC RBC Hgb Hct MCV MCH MCHC RDW Plt Count Seg Neutrophils % Sodium Potassium Chloride Carbon Dioxide Anion Gap BUN Creatinine Est GFR ( Amer) Glucose Calcium Phosphorus Magnesium Total Bilirubin AST Alkaline Phosphatase Ammonia < 8.7 L Total Protein Albumin Amylase Lipase TSH Urine Color Urine Appearance Urine pH Ur Specific [place] Urine Protein Urine Glucose (UA) Urine Ketones Urine Blood Urine Nitrite Ur Leukocyte Esterase Urine WBC (Auto) Urine RBC (Auto) Blood Type Antibody Screen 07/03/19 07/03/19 15:38 15:38 Creatine Kinase 107 CK-MB (CK-2) 1.54 Troponin I 0.116 Impressions: Chest X-Ray 07/03/19 16:17 IMPRESSION: NO ACUTE RADIOGRAPHIC FINDING IN THE CHEST. Head CT 07/03/19 16:17 IMPRESSION: MILD CHRONIC CHANGES OF ATROPHY AND MICROVASCULAR ISCHEMIA. NO ACUTE PROCESS. EVIDENCE OF ACUTE STROKE: NO. Critical Time Critical Time (minutes): 45 -: The care of a critically ill patient is dynamic. This note represents a static moment in the admission process. Orders and treatments may be given simultaneously and urgently, and time is not benefits representative of the treatment process. This patient requires Critical Care secondary to life threatening organ or limb dysfunction. Without Critical Care services, the patient is at risk for increased mortality and morbidity.
[2019-07-04] MEDS ORDERED: DEXTROSE 50%-WATER 25 GM/50 ML DISP.SYRIN IV PRN ×2 (03:56)
[2019-07-04] MEDS ORDERED: GLUCAGON,HUMAN RECOMB 1 MG INJ SUBCUT PRN (03:56)
[2019-07-04] MEDS ORDERED: DEXTROSE 40% GEL 15 GM TUBE PO PRN ×2 (03:56)
--- NOTE | 2019-07-04 05:28 | RADIOLOGY REPORT (SQ) ---
EXAM DESCRIPTION: US ABDOMEN COMPLETED DATE/TME: 07/04/2019 00:00 CLINICAL HISTORY: 69 years Male, ? pancreatitis Comparison: None. LIMITATIONS: None. FINDINGS: Gallbladder is decompressed/partially obscured, negative sonographic Sargent's test, moderate hepatic steatosis, a 0.3-cm diameter common bile duct, no intrahepatic ductal dilation, hepatopetal patent flow of the portal vein, mildly heterogeneous spleen, 12-cm left kidney, 12-cm right kidney, partially obscured echogenic pancreas, visualized vasculature/abdominal aorta, and no significant ascites appear otherwise unremarkable. IMPRESSION: No acute findings. Hepatic steatosis. Limitation.
[2019-07-04 06:07] LABS: ABSOLUTE EOSINOPHILS # (AUTO) 0.1 10^3/uL (0.0-0.6); ABSOLUTE LYMPHOCYTES (AUTO) 0.8 10^3/uL (0.5-4.7); ABSOLUTE MONOCYTES (AUTO) 0.4 10^3/uL (0.1-1.4); ABSOLUTE NEUT (AUTO) 2.1 10^3/uL (1.7-8.2); BASOPHILS % (AUTO) 0.7 % (0-2); EOSINOPHILS % (AUTO) 2.3 % (0-6); HEMATOCRIT 33.5 % (37.9-51.0); HEMOGLOBIN 11.6 g/dL (13.5-17.0); LYMPHOCYTES % (AUTO) 22.9 % (13-45); MEAN CORPUSCULAR HEMOGLOBIN 40.3 pg (27.0-33.4); MEAN CORPUSCULAR HGB CONC 34.5 g/dL (32.0-36.0); MEAN CORPUSCULAR VOLUME 117 fl (80-97); MONOCYTES % (AUTO) 11.3 % (3-13); RED BLOOD COUNT 2.87 10^6/uL (4.35-5.55); RED CELL DISTRIBUTION WIDTH 15.5 % (11.5-14.0); SEGMENTED NEUTROPHILS % (AUTO) 62.8 % (42-78); TOTAL CELLS COUNTED % (AUTO) 100 %; WHITE BLOOD COUNT 3.4 10^3/uL (4.0-10.5)
[2019-07-04 06:12] LABS: PLATELET COUNT 75 10^3/uL (150-450)
[2019-07-04 06:14] LABS: INTERNATIONAL RATION (INR) 0.94; PROTHROMBIN TIME 12.5 SEC (11.4-15.4)
[2019-07-04 06:15] LABS: PARTIAL THROMBOPLASTIN TIME 28.2 SEC (23.5-35.8)
[2019-07-04] MEDS ORDERED: RINGERS SOLUTION,LACTATED 1,000 ML IV PRN ×3 (06:26→20:23)
[2019-07-04 06:32] LABS: ANISOCYTOSIS 1+; PLATELET COMMENT DECREASED
[2019-07-04 06:34] LABS: ALBUMIN 2.9 g/dL (3.5-5.0); ALKALINE PHOSPHATASE 76 U/L (38-126); ANION GAP 12 (5-19); ASPARTATE AMINO TRANSFERASE 106 U/L (17-59); BILIRUBIN,DIRECT 0.4 mg/dL (0.0-0.4); BILIRUBIN,TOTAL 0.4 mg/dL (0.2-1.3); BLOOD UREA NITROGEN 52 mg/dL (7-20); CALCIUM 7.4 mg/dL (8.4-10.2); CARBON DIOXIDE 27 mmol/L (22-30); CHLORIDE 97 mmol/L (98-107); GLUCOSE 96 mg/dL (75-110); PHOSPHORUS 2.8 mg/dL (2.5-4.5); POTASSIUM 3.5 mmol/L (3.6-5.0); TOTAL PROTEIN 5.7 g/dL (6.3-8.2)
[2019-07-04 06:41] LABS: CREATINE KINASE MB 2.95 ng/mL (<4.55); TROPONIN I 0.071 ng/mL
[2019-07-04 06:48] LABS: FREE T3 2.28 pg/mL (2.77-5.27); FREE T4 (FREE THYROXINE) 0.74 ng/dL (0.78-2.19)
--- NOTE | 2019-07-04 09:05 | RADIOLOGY REPORT (SQ) ---
EXAM DESCRIPTION: CHEST SINGLE VIEW COMPLETED DATE/TIME: 07/04/2019 5:50 am REASON FOR STUDY: abnormal breath sounds COMPARISON: 07/03/2019 EXAM PARAMETERS: NUMBER OF VIEWS: One view. TECHNIQUE: Single frontal radiographic view of the chest acquired. RADIATION DOSE: NA LIMITATIONS: None. FINDINGS: LUNGS AND PLEURA: No opacities, masses or pneumothorax. No pleural effusion. MEDIASTINUM AND HILAR STRUCTURES: No masses. Contour normal. HEART AND VASCULAR STRUCTURES: Heart normal in size. Normal vasculature. BONES: No acute findings. HARDWARE: None in the chest. OTHER: No other significant finding. IMPRESSION: NO ACUTE RADIOGRAPHIC FINDING IN THE CHEST. TECHNICAL DOCUMENTATION: JOB ID: [id number] [employer]- All Rights Reserved Reading location - IP/workstation name: [email or web address]
[2019-07-04] MEDS ORDERED: POTASSIUM CHLORIDE 10 MEQ TABLET.ER PO ONE (09:30)
[2019-07-04] MEDS ORDERED: LEVOTHYROXINE SODIUM 0.025 MG TABLET PO SCH (10:00)
[2019-07-04] MEDS ORDERED: THIAMINE HCL 100 MG, FOLIC ACID 1 MG in NORMAL SALINE 250 ML IV SCH (10:00)
[2019-07-04] MEDS ORDERED: THIAMINE HCL 100 MG in NORMAL SALINE 50 ML IV SCH (10:00)
[2019-07-04] MEDS ORDERED: FOLIC ACID INJ 5 MG/1 ML 10 ML VIAL IV SCH (10:00)
[2019-07-04] MEDS ORDERED: FOLIC ACID 1 MG in NORMAL SALINE 50 ML IV SCH (10:00)
[2019-07-04] MEDS: POTASSI CL 20 MEQ/50 ML RIDER 20 MEQ/50 ML RTUPB IV SCH ×2 (11:42→12:57)
[2019-07-04 19:04] LABS: ANION GAP 12 (5-19); CALCIUM 7.4 mg/dL (8.4-10.2); CARBON DIOXIDE 26 mmol/L (22-30); CHLORIDE 98 mmol/L (98-107); GLUCOSE 80 mg/dL (75-110); POTASSIUM 3.7 mmol/L (3.6-5.0)
[2019-07-04 19:19] LABS: BLOOD UREA NITROGEN 32 mg/dL (7-20)
[2019-07-05] MEDS: LORAZEPAM INJ 2 MG/1 ML VIAL IV PRN ×6 (04:34→21:47)
[2019-07-05 05:02] LABS: ANION GAP 13 (5-19); BLOOD UREA NITROGEN 23 mg/dL (7-20); CARBON DIOXIDE 30 mmol/L (22-30); CHLORIDE 95 mmol/L (98-107); GLUCOSE 85 mg/dL (75-110); PHOSPHORUS 1.6 mg/dL (2.5-4.5); POTASSIUM 3.4 mmol/L (3.6-5.0)
[2019-07-05 05:15] LABS: CALCIUM 6.9 mg/dL (8.4-10.2)
[2019-07-05] MEDS: HEPARIN SOD (PORCINE) 5,000 UNIT/ML 1 ML VIAL SUBCUT SCH ×3 (06:20→21:45)
[2019-07-05] MEDS: MAGNESIUM SULFATE/D5W 1 GM/100 ML RTUPB IV SCH ×6 (06:26→21:44)
[2019-07-05] MEDS ORDERED: NORMAL SALINE IV ONE (08:00)
[2019-07-05] MEDS ORDERED: POTASSIUM PHOS M BASIC D BASIC IV ONE (08:00)
[2019-07-05] MEDS ORDERED: CALCIUM CHLORIDE 10% PF/INJ 1000 MG/10 ML SDV IV PRN (08:40)
[2019-07-05] MEDS: NYSTATIN CREAM 15 GM TP SCH ×2 (10:00→17:32)
[2019-07-05] MEDS: RINGERS SOLUTION,LACTATED 1,000 ML IV PRN (10:10)
--- NOTE | 2019-07-05 10:18 | PDOC CRITICAL CARE PROG REPORT ---
General Date:: 07/05/19 ICU Day:: 2 Resuscitation Status: Full Code Events in the past 12 to 24 Hours:: Patient continues to be treated for his alcohol withdrawal. He has a very noticeable tremor that the reports he has at baseline. In addition, he has had slurred speech for a while and an ataxic gate. Overnight he received 2mg Ativan multiple times which keeps him sedated but arousable. Reason for ICU Addmission:: ETOH withdrawal, withdrawal seizure, hypotension - Medications: Medications reviewed and adjusted accordingly: Yes Physical Exam Vital Signs: Temp Pulse Resp BP Pulse Ox 100.8 F H 101 H 29 H 94/77 L 100 07/05/19 07:48 07/05/19 07:48 07/05/19 07:48 07/05/19 07:48 07/05/19 07:48 Intake & Output 07/04/19 07/05/19 07/06/19 06:59 06:59 06:59 Intake Total 4403 671.2 100 Output Total 620 4035 25 Balance 3783 -3363.8 75 Weight 96.3 kg 92.2 kg Weight/Height Weight 92.2 kg Height 5 ft 10 in General appearance: PRESENT: mild distress Head exam: PRESENT: atraumatic, normocephalic Eye exam: PRESENT: conjunctiva pale, EOMI, PERRLA. ABSENT: nystagmus, scleral icterus Ear exam: PRESENT: normal external ear exam Mouth exam: PRESENT: moist, tongue midline Throat exam: ABSENT: post pharyngeal erythema Neck exam: PRESENT: full ROM, other - skin at healed trach site with erythematous, plaque covered rash concerning for fungal infection. ABSENT: carotid bruit, JVD, lymphadenopathy Respiratory exam: PRESENT: crackles, symmetrical. ABSENT: accessory muscle use, chest wall tenderness, rales, retraction, rhonchi, stridor, unlabored, wheezes Cardiovascular exam: PRESENT: tachycardia. ABSENT: diastolic murmur, systolic murmur Pulses: PRESENT: normal carotid pulses, normal femoral pulses Vascular exam: PRESENT: normal capillary refill GI/Abdominal exam: PRESENT: distended, normal bowel sounds, soft. ABSENT: guarding, tenderness Rectal exam: PRESENT: deferred Gentrourinary exam: PRESENT: indwelling catheter Extremities exam: PRESENT: full ROM. ABSENT: calf tenderness, pedal edema Musculoskeletal exam: PRESENT: full ROM Neurological exam: PRESENT: altered, awake, oriented to person, oriented to place, CN II-XII grossly intact, other - noticeable tremor with very uncoordinated movements. ABSENT: oriented to time, oriented to situation Skin exam: PRESENT: dry, rash - erythematous, splotchy, fungal type rash on feet and in old, healed trach site., warm Laboratory/Radiographs Laboratory Results: 07/04/19 05:55 07/05/19 04:22 07/04/19 07/05/19 18:36 04:22 Sodium 135.8 L 137.8 Potassium 3.7 3.4 L Chloride 98 95 L Carbon Dioxide 26 30 Anion Gap 12 13 BUN 32 H D 23 H Creatinine 0.99 0.80 Est GFR ( Amer) > 60 > 60 Glucose 80 85 Calcium 7.4 L 6.9 L* Phosphorus 1.6 L Magnesium 1.5 L 1.5 L 07/03/19 07/03/19 07/04/19 15:38 15:38 05:55 Creatine Kinase 107 233 H CK-MB (CK-2) 1.54 Troponin I 0.116 07/04/19 05:55 Creatine Kinase CK-MB (CK-2) 2.95 Troponin I 0.071 Impressions: Head CT 07/03/19 16:17 IMPRESSION: MILD CHRONIC CHANGES OF ATROPHY AND MICROVASCULAR ISCHEMIA. NO ACUTE PROCESS. EVIDENCE OF ACUTE STROKE: NO. Abdomen Ultrasound 07/04/19 00:00 IMPRESSION: No acute findings. Hepatic steatosis. Limitation. All labs, radiographs, diagnostic studies and EKGs were personally reviewed: Yes In addition, reports of radiographic and diagnostic studies were read: Yes Assessment and Plan - Diagnosis (1) Wernicke encephalopathy Is this a current diagnosis for this admission?: Yes Plan: Patient's describes a constant tremor recently along with ataxic gate/more frequent falls. Additoinally, his speech has become more garbled and difficult to understand. He has an extensive alchol history and there is concern for wernicke's encephalopathy. All of these symptoms were present even before he stopped drinking alcohol. Will change thiamine to high dose (500mg) TID. Taper over the next few days. (2) BELLA (acute kidney injury) Is this a current diagnosis for this admission?: Yes Plan: resolved--creatinine normal today with copious urine output (3) Alcohol dependence Qualifiers: Substance use status: in withdrawal Complication of substance-induced condition: with delirium Qualified Code(s): F10.231 - Alcohol dependence with withdrawal delirium Is this a current diagnosis for this admission?: Yes Plan: Continue ativan and close monitoring in ICU. See plan below. (4) Alcohol withdrawal Qualifiers: Complication of substance-induced condition: with delirium Qualified Code(s): F10.231 - Alcohol dependence with withdrawal delirium Is this a current diagnosis for this admission?: Yes Plan: Patient continues to be mildly agitated but is fairly comfortable on current ativan regimen. He is not alert enough to transition to oral meds. Will monitor closely and adjust CIWA dosing should it be necessary. Patient has expressed desire to enter a treatment program the last few weeks while at home and social work has been made aware. (5) Guaiac positive stools Is this a current diagnosis for this admission?: Yes Plan: NTD at this time. Positive sample was done via [facility] in ER so may have been false positive related to traumatic collection. Patient put on GI ulcer ppx and hemoglobin stable. Follow up with PCM after hospital stay. (6) Hypotension Qualifiers: Hypotension type: unspecified hypotension type Qualified Code(s): I95.9 - Hypotension, unspecified Is this a current diagnosis for this admission?: Yes Plan: Fluid hyrdation and electrolyed correction has helped return pressure to a more normal range. Will continue monitoring closely. (7) Syncope Qualifiers: Syncope type: unspecified Qualified Code(s): R55 - Syncope and collapse Is this a current diagnosis for this admission?: Yes Plan: Occurred in outpatient office. No recurrence since admission. (8) Withdrawal seizures Is this a current diagnosis for this admission?: Yes Plan: Occurred just before ER arrival--no recurrence in hospital. Will monitor closely and increase ativan dosing should they recur. Critical Time Critical Time (minutes): 60 Level of Care: ICU -: 1. The care of a critical patient is a dynamic process. This note is a textile machinery sales representative synopsis but static in nature. The timeframe for treatments given in order is not necessarily the actual time these treatments may have been done. 2. This patient requires critical care secondary to ongoing requirements for therapy not offered or safe outside the critical care environment. Transfer to a lower level of care will result in altered life or limb morbidity and mortality. 3. Multidisciplinary rounds completed. 4. ABCDE bundle addressed.
--- NOTE | 2019-07-05 10:28 | RADIOLOGY REPORT (SQ) ---
EXAM DESCRIPTION: CHEST SINGLE VIEW COMPLETED DATE/TIME: 07/05/2019 6:18 am REASON FOR STUDY: abnormal breath sounds COMPARISON: 07/04/2019 NUMBER OF VIEWS: One view. TECHNIQUE: Single frontal radiographic view of the chest acquired. LIMITATIONS: None. FINDINGS: LUNGS AND PLEURA: No opacities, masses or pneumothorax. No pleural effusion. MEDIASTINUM AND HILAR STRUCTURES: No masses. Contour normal. HEART AND VASCULAR STRUCTURES: Heart normal in size. Normal vasculature. BONES: No acute findings. HARDWARE: None in the chest. OTHER: No other significant finding. IMPRESSION: NO SIGNIFICANT RADIOGRAPHIC FINDING IN THE CHEST. TECHNICAL DOCUMENTATION: JOB ID: [id number] [employer]- All Rights Reserved Reading location - IP/workstation name: [email or web address]
[2019-07-05] MEDS: PANTOPRAZOLE SODIUM 40 MG VIAL IV SCH (10:46)
[2019-07-05] MEDS: THIAMINE HCL 500 MG in NORMAL SALINE 250 ML IV SCH ×3 (11:09→17:32)
[2019-07-05 11:11] LABS: ARTERIAL BLOOD BASE EXCESS 5.6 mmol/L; ARTERIAL BLOOD FIO2 2L; ARTERIAL BLOOD H2CO3 1.36 mmol/L (1.05-1.35); ARTERIAL BLOOD HCO3 30.4 mmol/L (20-24); ARTERIAL BLOOD O2 SATURATION 96.4 % (94-98); ARTERIAL BLOOD PCO2 45.3 mmHg (35-45); ARTERIAL BLOOD PH 7.45 (7.35-7.45); ARTERIAL BLOOD TOTAL CO2 31.8 mmol/L (23-27)
[2019-07-05] MEDS ORDERED: CALCIUM GLUCONATE 1000 MG/10 ML INJ IV ONE ×2 (11:18→19:15)
[2019-07-05 12:28] LABS: ANION GAP 10 (5-19); BLOOD UREA NITROGEN 17 mg/dL (7-20); CARBON DIOXIDE 34 mmol/L (22-30); CHLORIDE 93 mmol/L (98-107); GLUCOSE 110 mg/dL (75-110); PHOSPHORUS 2.4 mg/dL (2.5-4.5); POTASSIUM 3.6 mmol/L (3.6-5.0)
[2019-07-05 12:39] LABS: CALCIUM 6.8 mg/dL (8.4-10.2)
[2019-07-05] MEDS ORDERED: POTASSIUM PHOS,M-BASIC-D-BASIC 40 MMOL in NORMAL SALINE 1000 ML 1,000 ML IV ONE ×2 (12:56→14:00)
[2019-07-05] MEDS ORDERED: FUROSEMIDE INJ/PF 40 MG/4 ML SDV IV ONE (15:45)
[2019-07-05 18:21] LABS: ANION GAP 11 (5-19); BLOOD UREA NITROGEN 15 mg/dL (7-20); CARBON DIOXIDE 33 mmol/L (22-30); CHLORIDE 93 mmol/L (98-107); GLUCOSE 101 mg/dL (75-110); PHOSPHORUS 3.5 mg/dL (2.5-4.5); POTASSIUM 3.6 mmol/L (3.6-5.0)
[2019-07-05 18:33] LABS: CALCIUM 6.5 mg/dL (8.4-10.2)
[2019-07-05] MEDS: POTASSI CL 20 MEQ/50 ML RIDER 20 MEQ/50 ML RTUPB IV SCH ×2 (19:28→21:06)
[2019-07-05] MEDS ORDERED: ALBUTEROL SULFATE 0.083% NEB 2.5 MG/3 ML AMPUL NEB PRN (19:44)
[2019-07-05] MEDS ORDERED: GLYCOPYRROLATE INJ 0.4 MG/2 ML VIAL IM ONE (19:51)
[2019-07-05] MEDS: IPRATROPIUM/ALBUTEROL 0.5-2.5 MG/3 ML AMPUL NEB SCH (20:34)
[2019-07-05] MEDS ORDERED: GLYCOPYRROLATE INJ 0.4 MG/2 ML VIAL ONE (20:59)
[2019-07-05] MEDS ORDERED: MORPHINE SULFATE 10 MG/ML INJ IV ONE (21:50)
[2019-07-06 01:15] LABS: ANION GAP 9 (5-19); BLOOD UREA NITROGEN 13 mg/dL (7-20); CARBON DIOXIDE 33 mmol/L (22-30); CHLORIDE 96 mmol/L (98-107); GLUCOSE 103 mg/dL (75-110); PHOSPHORUS 3.2 mg/dL (2.5-4.5); POTASSIUM 3.8 mmol/L (3.6-5.0)
[2019-07-06 01:40] LABS: CALCIUM 6.6 mg/dL (8.4-10.2)
[2019-07-06] MEDS: IPRATROPIUM/ALBUTEROL 0.5-2.5 MG/3 ML AMPUL NEB SCH ×4 (02:53→20:45)
[2019-07-06] MEDS: RINGERS SOLUTION,LACTATED 1,000 ML IV PRN ×2 (04:56→20:12)
[2019-07-06] MEDS: LORAZEPAM INJ 2 MG/1 ML VIAL IV PRN (05:08)
[2019-07-06] MEDS: HEPARIN SOD (PORCINE) 5,000 UNIT/ML 1 ML VIAL SUBCUT SCH ×3 (05:11→21:46)
[2019-07-06 07:05] LABS: ANION GAP 11 (5-19); BLOOD UREA NITROGEN 12 mg/dL (7-20); CARBON DIOXIDE 33 mmol/L (22-30); CHLORIDE 94 mmol/L (98-107); GLUCOSE 106 mg/dL (75-110); PHOSPHORUS 2.5 mg/dL (2.5-4.5)
[2019-07-06 07:21] LABS: CALCIUM 6.6 mg/dL (8.4-10.2)
[2019-07-06] MEDS ORDERED: CALCIUM GLUCONATE 1000 MG/10 ML INJ IV ONE (07:38)
--- NOTE | 2019-07-06 08:36 | RADIOLOGY REPORT (SQ) ---
EXAM DESCRIPTION: CHEST SINGLE VIEW COMPLETED DATE/TIME: 07/06/2019 6:11 am REASON FOR STUDY: abnormal breath sounds COMPARISON: None. EXAM PARAMETERS: NUMBER OF VIEWS: One view. TECHNIQUE: An AP view of the chest was obtained. RADIATION DOSE: NA LIMITATIONS: None. FINDINGS: LUNGS AND PLEURA: Low inspiratory lung volumes with patchy opacities in the inferior left hemithorax that could represent either atelectasis or pneumonia. There is no sizable pleural effusio n or pneumothorax. MEDIASTINUM AND HILAR STRUCTURES: No mediastinal or hilar contour abnormality. HEART AND VASCULAR STRUCTURES: The cardiac silhouette is borderline enlarged. The pulmonary vasculat ure is within normal limits. BONES: Chronic fracture deformity of the left posterior 7th rib. HARDWARE: None in the chest. OTHER: No other finding. IMPRESSION: Low inspiratory lung volumes with patchy opacities in the inferior left hemithorax that could represent either atelectasis or pneumonia. TECHNICAL DOCUMENTATION: JOB ID: [id number] [employer]- All Rights Reserved Reading location - IP/workstation name: [email or web address]
--- NOTE | 2019-07-06 08:53 | PDOC CRITICAL CARE PROG REPORT ---
General Date:: 07/06/19 ICU Day:: 2 Hospital Day:: 2 Resuscitation Status: Full Code Events in the past 12 to 24 Hours:: Less agitated, no seizures noted. Review of systems relevant to events:: Neuro, CV Reason for ICU Addmission:: ETOH withdrawal, withdrawal seizure, hypotension. Concern for cardiac status. - Medications: Medications reviewed and adjusted accordingly: Yes Vasopressors:: None Sedation:: None. Physical Exam Vital Signs: Temp Pulse Resp BP Pulse Ox 102.0 F H 105 H 27 H 112/80 99 07/06/19 08:00 07/06/19 08:00 07/06/19 08:00 07/06/19 08:00 07/06/19 08:00 Intake & Output 07/05/19 07/06/19 07/07/19 06:59 06:59 06:59 Intake Total 771.2 4159.3333 Output Total 4035 3350 170 Balance -3263.8 809.3333 -170 Weight 92.2 kg 91.3 kg Weight/Height Weight 91.3 kg Height 5 ft 10 in General appearance: PRESENT: no acute distress Head exam: PRESENT: atraumatic, normocephalic Eye exam: PRESENT: conjunctiva pink, EOMI, PERRLA. ABSENT: scleral icterus Ear exam: PRESENT: normal external ear exam Mouth exam: PRESENT: dry mucosa Respiratory exam: PRESENT: crackles - at R base. Clears with cough. Cardiovascular exam: PRESENT: tachycardia Vascular exam: PRESENT: normal capillary refill GI/Abdominal exam: PRESENT: normal bowel sounds, soft. ABSENT: distended, guarding, mass, organolmegaly, rebound, tenderness Rectal exam: PRESENT: deferred Gentrourinary exam: PRESENT: indwelling catheter Extremities exam: PRESENT: full ROM. ABSENT: calf tenderness, clubbing, pedal edema Musculoskeletal exam: PRESENT: normal inspection Neurological exam: PRESENT: altered, other - Sedated with ativan. Skin exam: PRESENT: dry, intact, warm. ABSENT: cyanosis, rash Laboratory/Radiographs Laboratory Results: 07/04/19 05:55 07/06/19 06:30 07/05/19 07/05/19 07/05/19 10:57 11:53 17:48 Carbonic Acid 1.36 H HCO3/H2CO3 Ratio 22:1 ABG pH 7.45 ABG pCO2 45.3 H ABG pO2 82.0 ABG HCO3 30.4 H ABG O2 Saturation 96.4 ABG Base Excess 5.6 FiO2 2L Sodium 137.4 136.7 L Potassium 3.6 3.6 Chloride 93 L 93 L Carbon Dioxide 34 H 33 H Anion Gap 10 11 BUN 17 15 Creatinine 0.70 0.69 Est GFR ( Amer) > 60 > 60 Glucose 110 101 Calcium 6.8 L* 6.5 L* Ionized Calcium Chuck Phosphorus 2.4 L 3.5 Magnesium 1.9 1.3 L 07/05/19 07/06/19 07/06/19 17:48 00:38 06:30 Carbonic Acid HCO3/H2CO3 Ratio ABG pH ABG pCO2 ABG pO2 ABG HCO3 ABG O2 Saturation ABG Base Excess FiO2 Sodium 137.9 138.3 Potassium 3.8 4.0 Chloride 96 L 94 L Carbon Dioxide 33 H 33 H Anion Gap 9 11 BUN 13 12 Creatinine 0.69 0.66 Est GFR ( Amer) > 60 > 60 Glucose 103 106 Calcium 6.6 L* 6.6 L* Ionized Calcium Chukc 0.88 L Phosphorus 3.2 2.5 Magnesium 1.7 1.3 L 07/03/19 07/03/19 07/04/19 15:38 15:38 05:55 Creatine Kinase 107 233 H CK-MB (CK-2) 1.54 Troponin I 0.116 07/04/19 05:55 Creatine Kinase CK-MB (CK-2) 2.95 Troponin I 0.071 Impressions: Head CT 07/03/19 16:17 IMPRESSION: MILD CHRONIC CHANGES OF ATROPHY AND MICROVASCULAR ISCHEMIA. NO ACUTE PROCESS. EVIDENCE OF ACUTE STROKE: NO. Abdomen Ultrasound 07/04/19 00:00 IMPRESSION: No acute findings. Hepatic steatosis. Limitation. Chest X-Ray 07/06/19 06:00 IMPRESSION: Low inspiratory lung volumes with patchy opacities in the inferior left hemithorax that could represent either atelectasis or pneumonia. All labs, radiographs, diagnostic studies and EKGs were personally reviewed: Yes In addition, reports of radiographic and diagnostic studies were read: Yes Assessment and Plan - Diagnosis (1) Alcohol dependence Qualifiers: Substance use status: in withdrawal Complication of substance-induced cond ition: with delirium Qualified Code(s): F10.231 - Alcohol dependence with withdrawal delirium Is this a current diagnosis for this admission?: Yes Plan: Patient has been drinking heavily for fourty years or more according to daughter. When stable with WD, he wishes rehab. Not ready yet. Still needs ICU until mental status improves. (2) Alcohol withdrawal Qualifiers: Complication of substance-induced condition: with delirium Qualified Code(s): F10.231 - Alcohol dependence with withdrawal delirium Is this a current diagnosis for this admission?: Yes Plan: Seems to be doing well with ativan. No apparent seizures. (3) Hypomagnesemia Is this a current diagnosis for this admission?: Yes Plan: Magnesium 4G ordered. (4) Hypophosphatemia Is this a current diagnosis for this admission?: Yes Plan: Patient to get Pot-phos. today. (5) Hypocalcemia Is this a current diagnosis for this admission?: Yes Plan: Total and ionized calcium low. To receive 2 gms today. (6) Nutrition deficiency due to insufficient food Is this a current diagnosis for this admission?: Yes Plan: Patient has been essentially NPO going into 3rd day. May need supplementation if this state continues more than a day or 2. (7) Aspiration into airway Qualifiers: Encounter type: initial encounter Qualified Code(s): T17.908A - Unspecified foreign body in respiratory tract, part unspecified causing other injury, initial encounter Is this a current diagnosis for this admission?: Yes Plan: This is presumed. Given his mental status and no other obvious source, his fever of 102 may be due to occult aspiration as evidenced by R basilar lung crackles. (8) BELLA (acute kidney injury) Is this a current diagnosis for this admission?: Yes Plan: Resolved (9) Hypotension Qualifiers: Hypotension type: unspecified hypotension type Qualified Code(s): I95.9 - Hypotension, unspecified Is this a current diagnosis for this admission?: Yes Plan: Resolved (10) Wernicke encephalopathy Is this a current diagnosis for this admission?: Yes Plan: Difficult to assess in his present state. Continue high dose thiamine. Plan Summary: IV and PO ativan when appropriate. Feed or supplement in the next few days. Critical Time Critical Time (minutes): 35 Level of Care: ICU Anticipated discharge: Other - Alcohol rehab Within: Other - When stable from medical detox. -: 1. The care of a critical patient is a dynamic process. This note is a metals sales representative synopsis but static in nature. The timeframe for treatments given in order is not necessarily the actual time these treatments may have been done. 2. This patient requires critical care secondary to ongoing requirements for t herapy not offered or safe outside the critical care environment. Transfer to a lower level of care will result in altered life or limb morbidity and mortality. 3. Multidisciplinary rounds completed. 4. ABCDE bundle addressed.
[2019-07-06] MEDS ORDERED: MAGNESIUM SULFATE 4 GM/100 ML RTUPB IV ONE (09:00)
[2019-07-06] MEDS: THIAMINE HCL 500 MG in NORMAL SALINE 250 ML IV SCH ×3 (09:12→17:52)
[2019-07-06] MEDS: NYSTATIN CREAM 15 GM TP SCH ×2 (09:14→18:31)
[2019-07-06] MEDS: PANTOPRAZOLE SODIUM 40 MG VIAL IV SCH (09:14)
[2019-07-06] MEDS ORDERED: CALCIUM GLUCONATE 2,000 MG in DEXTROSE 5%-WATER 100 ML IV ONE (09:30)
[2019-07-06] MEDS ORDERED: POTASSIUM PHOS,M-BASIC-D-BASIC 30 MMOL in NORMAL SALINE 500 ML IV ONE (09:30)
[2019-07-06 11:34] LABS: PATH REVIEW PATHOLOGIST REVIEWED
[2019-07-06] MEDS: FOLIC ACID 1 MG in NORMAL SALINE 50 ML IV SCH (13:03)
[2019-07-06] MEDS: ACETAMINOPHEN 650 MG SUPP.RECT PR PRN ×2 (18:30→22:42)
--- NOTE | 2019-07-06 19:29 | RADIOLOGY REPORT (SQ) ---
EXAM DESCRIPTION: CAROTID DOPPLER COMPLETED DATE/TIME: 07/06/2019 7:17 pm REASON FOR STUDY: Seizure/unresponsive COMPARISON: None. TECHNIQUE: Grayscale ultrasound, Doppler velocity and spectra, and color Doppler images acquired of the extra-cranial carotid and vertebral arteries. Images stored on PACS. LIMITATIONS: None. FINDINGS: RIGHT CAROTID CCA Velocities: Within normal limits. ICA Velocities Peak systolic 78 cm/s. End diastolic 33 cm/s. Proximal ICA/CCA peak systolic ratio 1.7. Soft plaque is noted. Tortuous ICA. LEFT CAROTID CCA Velocities: Within normal limits. ICA Velocities Peak systolic 82 cm/s. End diastolic 39 cm/s. Proximal ICA/CCA peak systolic ratio 1.6. Soft plaque. Tortuous ICA. VERTEBRAL ARTERIES: Antegrade flow. Normal waveforms. SUBCLAVIAN ARTERIES: No finding. OTHER: No other significant finding. IMPRESSION: NO HEMODYNAMICALLY SIGNIFICANT STENOSIS. COMMENT: Quality ID #[id number]: Velocity criteria are extrapolated from the diameter data as defined by t he Society of Radiologists in Ultrasound Consensus Conference. Radiology 2003: 229; 340-346. TECHNICAL DOCUMENTATION: JOB ID: [id number] [employer]- All Rights Reserved Reading location - IP/workstation name: [email or web address]
[2019-07-06] MEDS ORDERED: DEXMEDETOMIDINE IN 0.9 % NACL 400 MCG/100 ML RTUPB IV ONE (23:17)
[2019-07-06] MEDS: DEXMEDETOMIDINE IN 0.9 % NACL 400 MCG/100 ML RTUPB IV PRN (23:33)
[2019-07-07] MEDS ORDERED: LORAZEPAM INJ 2 MG/1 ML VIAL IV ONE ×2 (01:54→03:08)
[2019-07-07] MEDS ORDERED: LORAZEPAM INJ 2 MG/1 ML VIAL ONE (02:03)
[2019-07-07] MEDS: IPRATROPIUM/ALBUTEROL 0.5-2.5 MG/3 ML AMPUL NEB SCH ×4 (02:17→20:52)
[2019-07-07] MEDS: LORAZEPAM INJ 2 MG/1 ML VIAL IV PRN (03:10)
[2019-07-07 04:28] LABS: ABSOLUTE LYMPHOCYTES (AUTO) 0.5 10^3/uL (0.5-4.7); ABSOLUTE MONOCYTES (AUTO) 0.5 10^3/uL (0.1-1.4); ABSOLUTE NEUT (AUTO) 2.8 10^3/uL (1.7-8.2); BASOPHILS % (AUTO) 0.5 % (0-2); EOSINOPHILS % (AUTO) 0.6 % (0-6); HEMATOCRIT 35.5 % (37.9-51.0); HEMOGLOBIN 12.1 g/dL (13.5-17.0); MEAN CORPUSCULAR HEMOGLOBIN 39.7 pg (27.0-33.4); MEAN CORPUSCULAR HGB CONC 34.2 g/dL (32.0-36.0); MEAN CORPUSCULAR VOLUME 116 fl (80-97); MONOCYTES % (AUTO) 13.8 % (3-13); RED BLOOD COUNT 3.06 10^6/uL (4.35-5.55); RED CELL DISTRIBUTION WIDTH 16.1 % (11.5-14.0); SEGMENTED NEUTROPHILS % (AUTO) 73.1 % (42-78); TOTAL CELLS COUNTED % (AUTO) 100 %; WHITE BLOOD COUNT 3.8 10^3/uL (4.0-10.5)
[2019-07-07 04:34] LABS: ANION GAP 8 (5-19); BLOOD UREA NITROGEN 11 mg/dL (7-20); CARBON DIOXIDE 33 mmol/L (22-30); CHLORIDE 98 mmol/L (98-107); GLUCOSE 114 mg/dL (75-110); PLATELET COUNT 98 10^3/uL (150-450); POTASSIUM 4.3 mmol/L (3.6-5.0)
[2019-07-07 04:37] LABS: ANISOCYTOSIS 2+; OVALOCYTES 1+; PLATELET COMMENT DECREASED; POIKILOCYTOSIS 1+; TEAR DROP CELLS SLIGHT; TOXIC GRANULATION 1+
[2019-07-07] MEDS ORDERED: CALCIUM GLUCONATE 1000 MG/10 ML INJ IV ONE (04:52)
[2019-07-07 04:59] LABS: CALCIUM 6.8 mg/dL (8.4-10.2)
[2019-07-07] MEDS ORDERED: CALCIUM GLUCONATE 1000 MG/10 ML INJ IV PRN (05:16)
[2019-07-07] MEDS: HEPARIN SOD (PORCINE) 5,000 UNIT/ML 1 ML VIAL SUBCUT SCH ×3 (05:30→21:10)
[2019-07-07] MEDS ORDERED: DEXTROSE 5% IV ONE (05:30)
[2019-07-07] MEDS ORDERED: CALCIUM GLUCONATE IV ONE (05:30)
[2019-07-07] MEDS ORDERED: WATER IV ONE (05:30)
[2019-07-07] MEDS: MAGNESIUM SULFATE/D5W 1 GM/100 ML RTUPB IV SCH ×4 (05:30→11:01)
[2019-07-07] MEDS: DEXMEDETOMIDINE IN 0.9 % NACL 400 MCG/100 ML RTUPB IV PRN (05:47)
[2019-07-07] MEDS: RINGERS SOLUTION,LACTATED 1,000 ML IV PRN (06:29)
[2019-07-07] MEDS ORDERED: SODIUM PHOS,M-BASIC-D-BASIC 30 MMOL in NORMAL SALINE 250 ML IV ONE ×2 (08:00→10:00)
--- NOTE | 2019-07-07 09:15 | PDOC CRITICAL CARE PROG REPORT ---
General Date:: 07/07/19 ICU Day:: 5 Hospital Day:: 5 Resuscitation Status: Full Code Events in the past 12 to 24 Hours:: Still needs occasional ativan. Also on precedex. Review of systems relevant to events:: Neuro and CV. Reason for ICU Addmission:: ETOH withdrawal, withdrawal seizure, hypotension. Concern for cardiac status. - Medications: Medications reviewed and adjusted accordingly: Yes Vasopressors:: None Sedation:: Precedex. Physical Exam Vital Signs: Temp Pulse Resp BP Pulse Ox 101.7 F H 114 H 36 H 101/74 99 07/07/19 08:00 07/07/19 08:52 07/07/19 08:52 07/07/19 08:00 07/07/19 08:52 Intake & Output 07/06/19 07/07/19 07/08/19 06:59 06:59 06:59 Intake Total 4159.3333 2684 3 Output Total 3350 2175 150 Balance 809.3333 509 -147 Weight 91.3 kg 93 kg Weight/Height Weight 93 kg Height 5 ft 10 in General appearance: PRESENT: no acute distress Head exam: PRESENT: atraumatic, normocephalic Eye exam: PRESENT: conjunctiva pink, EOMI, PERRLA. ABSENT: scleral icterus Ear exam: PRESENT: normal external ear exam Mouth exam: PRESENT: dry mucosa Respiratory exam: PRESENT: decreased breath sounds, rhonchi, other - Exhibiting some mild Josse-Cohen breathing with stimulation. Cardiovascular exam: PRESENT: tachycardia GI/Abdominal exam: PRESENT: normal bowel sounds, soft. ABSENT: distended, guarding, mass, organolmegaly, rebound, tenderness Rectal exam: PRESENT: deferred Gentrourinary exam: PRESENT: indwelling catheter Extremities exam: PRESENT: full ROM. ABSENT: calf tenderness, clubbing, pedal edema Musculoskeletal exam: PRESENT: normal inspection Neurological exam: PRESENT: altered Psychiatric exam: PRESENT: agitated - Occassionally Skin exam: PRESENT: dry, intact, warm. ABSENT: cyanosis, rash Laboratory/Radiographs Laboratory Results: 07/07/19 03:54 07/07/19 03:54 07/07/19 07/07/19 07/07/19 03:54 03:54 03:54 WBC RBC Hgb Hct MCV MCH MCHC RDW Plt Count Seg Neutrophils % Sodium 138.5 Potassium 4.3 Chloride 98 Carbon Dioxide 33 H Anion Gap 8 BUN 11 Creatinine 0.64 Est GFR ( Amer) > 60 Glucose 114 H Calcium 6.8 L* Ionized Calcium Chuck 0.90 L Phosphorus 2.7 Magnesium 1.2 L* 07/07/19 03:54 WBC 3.8 L RBC 3.06 L Hgb 12.1 L Hct 35.5 L MCV 116 H MCH 39.7 H MCHC 34.2 RDW 16.1 H Plt Count 98 L Seg Neutrophils % 73.1 Sodium Potassium Chloride Carbon Dioxide Anion Gap BUN Creatinine Est GFR ( Amer) Glucose Calcium Ionized Calcium Chuck Phosphorus Magnesium 07/03/19 07/03/19 07/04/19 15:38 15:38 05:55 Creatine Kinase 107 233 H CK-MB (CK-2) 1.54 Troponin I 0.116 07/04/19 05:55 Creatine Kinase CK-MB (CK-2) 2.95 Troponin I 0.071 Impressions: Head CT 07/03/19 16:17 IMPRESSION: MILD CHRONIC CHANGES OF ATROPHY AND MICROVASCULAR ISCHEMIA. NO ACUTE PROCESS. EVIDENCE OF ACUTE STROKE: NO. Abdomen Ultrasound 07/04/19 00:00 IMPRESSION: No acute findings. Hepatic steatosis. Limitation. Carotid Doppler Study 07/06/19 00:00 IMPRESSION: NO HEMODYNAMICALLY SIGNIFICANT STENOSIS. Chest X-Ray 07/06/19 06:00 IMPRESSION: Low inspiratory lung volumes with patchy opacities in the inferior left hemithorax that could represent either atelectasis or pneumonia. All labs, radiographs, diagnostic studies and EKGs were personally reviewed: Yes In addition, reports of radiographic and diagnostic studies were read: Yes Assessment and Plan - Diagnosis (1) Alcohol dependence Qualifiers: Substance use status: in withdrawal Complication of substance-induced condition: with delirium Qualified Code(s): F10.231 - Alcohol dependence with withdrawal delirium Is this a current diagnosis for this admission?: Yes Plan: confirms >40 years of problem/alcoholic drinking and his desire to quit. (2) Alcohol withdrawal Qualifiers: Complication of substance-induced condition: with delirium Qualified Code(s): F10.231 - Alcohol dependence with withdrawal delirium Is this a current diagnosis for this admission?: Yes Plan: Still requiring ativan and precedex. Said to be more oriented when more awake. (3) Hypomagnesemia Is this a current diagnosis for this admission?: Yes Plan: Still low after 4gms. 8 ordered for later. (4) Hypophosphatemia Is this a current diagnosis for this admission?: Yes Plan: Currently resolved (5) Hypocalcemia Is this a current diagnosis for this admission?: Yes Plan: Both ionized and total still low. 4 gms ordered. (6) Nutrition deficiency due to insufficient food Is this a current diagnosis for this admission?: Yes Plan: It does not appear he carmen be awake enough to eat today. Will try TF if he will keep NG in. (7) Aspiration into airway Qualifiers: Encounter type: initial encounter Qualified Code(s): T17.908A - Unspecified foreign body in respiratory tract, part unspecified causing other injury, initial encounter Is this a current diagnosis for this admission?: Yes Plan: This does not appear to be the case. Fever due to alcohol WD. No infectious source identified. (8) BELLA (acute kidney injury) Is this a current diagnosis for this admission?: Yes (9) Hypotension Qualifiers: Hypotension type: unspecified hypotension type Qualified Code(s): I95.9 - Hypotension, unspecified Is this a current diagnosis for this admission?: Yes Plan: Resolved (10) Wernicke encephalopathy Is this a current diagnosis for this admission?: Yes Plan: Continue thiamine Plan Summary: Start NG feeds. Not safe for the floor. Critical Time Critical Time (minutes): 35 Level of Care: ICU Anticipated discharge: SNF Within: Other - Too soon to tell. -: 1. The care of a critical patient is a dynamic process. This note is a cash application representative synopsis but static in nature. The timeframe for treatments given in order is not necessarily the actual time these treatments may have been done. 2. This patient requires critical care secondary to ongoing requirements for therapy not offered or safe outside the critical care environment. Transfer to a lower level of care will result in altered life or limb morbidity and mortality. 3. Multidisciplinary rounds completed. 4. ABCDE bundle addressed.
[2019-07-07] MEDS: THIAMINE HCL 500 MG in NORMAL SALINE 250 ML IV SCH ×3 (09:58→17:46)
[2019-07-07] MEDS: PANTOPRAZOLE SODIUM 40 MG VIAL IV SCH (10:00)
[2019-07-07] MEDS: NYSTATIN CREAM 15 GM TP SCH ×2 (10:01→17:46)
[2019-07-07] MEDS ORDERED: RINGERS SOLUTION,LACTATED 1,000 ML IV PRN (10:23)
[2019-07-07] MEDS ORDERED: PHARMACY COMMUNICATION ORDER MC NR (10:30)
[2019-07-07] MEDS ORDERED: MAGNESIUM SULFATE 4 GM/100 ML RTUPB IV ONE (12:00)
[2019-07-07] MEDS: FOLIC ACID 1 MG in NORMAL SALINE 50 ML IV SCH (12:32)
--- NOTE | 2019-07-07 12:34 | RADIOLOGY REPORT (SQ) ---
EXAM DESCRIPTION: KUB/ABDOMEN (SINGLE VIEW) COMPLETED DATE/TIME: 07/07/2019 11:43 am REASON FOR STUDY: Check Placement of NG Tube COMPARISON: None. NUMBER OF VIEWS: One view. TECHNIQUE: Supine radiographic image of the upper abdomen acquired. LIMITATIONS: None. FINDINGS: BOWEL GAS PATTERN: Normal bowel gas pattern. No dilated loops. CALCIFICATIONS: No suspicious calcifications. SOFT TISSUES: No gross mass or suggestion of organomegaly. HARDWARE: Nasogastric tube, distal end in the stomach. BONES: No acute fracture. Degenerative changes in the spine. No worrisome bone lesions. OTHER: No other significant finding. IMPRESSION: DISTAL END OF THE NASOGASTRIC TUBE IS IN THE STOMACH. TECHNICAL DOCUMENTATION: JOB ID: [id number] [employer]- All Rights Reserved Reading location - IP/workstation name: [email or web address]
--- NOTE | 2019-07-07 18:56 | XCELERA REPORT ---
[address] [address] Transthoracic Echocardiogram Report Name: ROBIN ANN Age: 69 yrs Gender: Male : 1950 Patient Status: Inpatient Patient Location: ICU^601^A Study Date: 07/06/2019 05:05 PM Height: 70 in Weight: 204 lb BSA: 2.1 m2 Reason For Study: hx of poor EF, reported seizure today Ordering Physician: GANESH HOWELL Performed By: Edilia Sheikh Interpretation Summary Very poor study, with poor Apical 4 and very poor Apical 2 chamber views such that no biplane EF can be drawn nor canit be visually estimated. On basis of one PLAX view, the LVEF may be guestimated as <<35%. Min post pericardial effusion. Ao root is sclerotic,not enlarged. AV is mild sclerosis, no stenosis, trace AR, and severe LV enlargement LVESD 52 mm. MV showed no MS, no MVP, and only mild mitral annular calcification, and no LA enlargement per PLAX view. LV is severely diseased and enlarged with multiple akinetic segments (IVS, basal PW, Inferior wall, and hypokinetic lateral and ant wall, not all segments can be evaluated. LVEF is severe systolic dysfunction and there is diastolic dysfunction. RH is also poorly visualised, mild TR with no pulm hypertension based on sampled TR, R heart sizeappears enlarged from PLAX view. Summary= severe LVSD, with severe LV enlargement, multiple segmental wall motion akinesis raising suspicion of ischemic and non-ischemic (ETOH by history) CM. MMode/2D Measurements & Calculations RVDd: 2.2 cm LVIDd: 6.3 cm FS: 17.5 % Ao root diam: 3.6 cm IVSd: 1.0 cm LVIDs: 5.2 cm EDV(Teich): 201.1 ml LVPWd: 0.98 cm ESV(Teich): 129.3 ml Ao root area: 9.9 cm2 LA dimension: 2.6 cm EF(Teich): 35.7 % Doppler Measurements & Calculations MV E max alan: MV P1/2t max alan: Ao V2 max: LV V1 max P.0 cm/sec 128.0 cm/sec 126.0 cm/sec 3.7 mmHg MV P1/2t: 53.0 msec Ao max PG: LV V1 max: MVA(P1/2t): 4.2 cm2 6.3 mmHg 95.8 cm/sec MV dec slope: 707.3 cm/sec2 MV dec time: 0.11 sec PA V2 max: PI end-d alan: TR max alan: MV P1/2t-pr_phl: 93.1 cm/sec 128.0 cm/sec 268.6 cm/sec 53.0 msec PA max P.5 mmHg TR max P.9 mmHg I WMSI = 2.63 % Normal = 0 Segments Size X - Cannot 2 - 4 - 1-2 small Interpret 1 - Normal Hypokinetic 3 - AkineticDyskinetic 3-5 moderate 5 - 6-14 large Aneurysmal 15-16 diffuse : GANESH HOWELL Andre
[2019-07-07] MEDS ORDERED: PROPRANOLOL HCL 10 MG TABLET NG ONE (21:00)
[2019-07-07] MEDS: ACETAMINOPHEN SOLN 325 MG/10.15 ML UDCUP NG PRN (23:47)
[2019-07-08] MEDS ORDERED: LORAZEPAM 1 MG TABLET NG ONE (00:31)
[2019-07-08] MEDS ORDERED: ALBUMIN HUMAN 500 ML IV ONE ×4 (01:25→23:07)
[2019-07-08 01:46] LABS: ANION GAP 7 (5-19); BLOOD UREA NITROGEN 13 mg/dL (7-20); CALCIUM 7.5 mg/dL (8.4-10.2); CARBON DIOXIDE 31 mmol/L (22-30); CHLORIDE 100 mmol/L (98-107); GLUCOSE 137 mg/dL (75-110); PHOSPHORUS 2.4 mg/dL (2.5-4.5); POTASSIUM 4.4 mmol/L (3.6-5.0)
[2019-07-08 01:48] LABS: URINE CREATININE 254.1 mg/dL (22-328)
[2019-07-08] MEDS: MAGNESIUM SULFATE/D5W 1 GM/100 ML RTUPB IV SCH ×2 (02:45→03:35)
[2019-07-08] MEDS: IPRATROPIUM/ALBUTEROL 0.5-2.5 MG/3 ML AMPUL NEB SCH ×4 (02:46→20:17)
[2019-07-08] MEDS: PHOSPHORUS #1 250 MG TABLET NG SCH ×4 (03:35→21:21)
[2019-07-08] MEDS: HEPARIN SOD (PORCINE) 5,000 UNIT/ML 1 ML VIAL SUBCUT SCH ×3 (05:24→21:21)
[2019-07-08] MEDS ORDERED: SODIUM PHOS,M-BASIC-D-BASIC 30 MMOL in NORMAL SALINE 250 ML IV ONE ×2 (08:00→09:00)
[2019-07-08 09:00] LABS: ALBUMIN 2.9 g/dL (3.5-5.0); ALKALINE PHOSPHATASE 87 U/L (38-126); ANION GAP 8 (5-19); ASPARTATE AMINO TRANSFERASE 46 U/L (17-59); BILIRUBIN,DIRECT 0.8 mg/dL (0.0-0.4); BILIRUBIN,TOTAL 1.1 mg/dL (0.2-1.3); BLOOD UREA NITROGEN 16 mg/dL (7-20); CALCIUM 7.7 mg/dL (8.4-10.2); CARBON DIOXIDE 33 mmol/L (22-30); CHLORIDE 99 mmol/L (98-107); GLUCOSE 150 mg/dL (75-110); POTASSIUM 4.5 mmol/L (3.6-5.0)
[2019-07-08] MEDS: THIAMINE HCL 500 MG in NORMAL SALINE 250 ML IV SCH ×3 (09:18→17:33)
[2019-07-08] MEDS: NYSTATIN CREAM 15 GM TP SCH ×2 (09:19→17:32)
[2019-07-08] MEDS: PANTOPRAZOLE SODIUM 40 MG VIAL IV SCH (09:19)
--- NOTE | 2019-07-08 11:21 | PDOC CRITICAL CARE PROG REPORT ---
General Date:: 07/08/19 ICU Day:: 5 Hospital Day:: 5 Resuscitation Status: Full Code Events in the past 12 to 24 Hours:: No ativan. Still sleepy. Review of systems relevant to events:: Neurological, CV. Reason for ICU Addmission:: ETOH withdrawal, withdrawal seizure, hypotension. Concern for cardiac status. - Medications: Medications reviewed and adjusted accordingly: Yes Vasopressors:: None Sedation:: PRN ativan Physical Exam Vital Signs: Temp Pulse Resp BP Pulse Ox 100.2 F 107 H 34 H 91/66 L 98 07/08/19 10:00 07/08/19 10:00 07/08/19 10:00 07/08/19 10:00 07/08/19 10:00 Intake & Output 07/07/19 07/08/19 07/09/19 06:59 06:59 06:59 Intake Total 2989 3772.2 Output Total 2175 1635 65 Balance 814 2137.2 -65 Weight 93 kg 96.4 kg Weight/Height Weight 96.4 kg Height 5 ft 10 in General appearance: PRESENT: no acute distress Head exam: PRESENT: atraumatic, normocephalic Eye exam: PRESENT: conjunctiva pink, EOMI, PERRLA. ABSENT: scleral icterus Ear exam: PRESENT: normal external ear exam Mouth exam: PRESENT: moist, tongue midline Respiratory exam: PRESENT: clear to auscultation nathaniel, decreased breath sounds, tachypnea Cardiovascular exam: PRESENT: tachycardia Vascular exam: PRESENT: normal capillary refill GI/Abdominal exam: PRESENT: normal bowel sounds, soft. ABSENT: distended, guarding, mass, organolmegaly, rebound, tenderness Rectal exam: PRESENT: deferred Gentrourinary exam: PRESENT: indwelling catheter Extremities exam: PRESENT: full ROM. ABSENT: calf tenderness, clubbing, pedal edema Musculoskeletal exam: PRESENT: normal inspection Neurological exam: PRESENT: altered, other - More sedated than would be expected with no ativan X 36 hours. Psychiatric exam: PRESENT: unusual affect Skin exam: PRESENT: dry, intact, warm. ABSENT: cyanosis, rash Laboratory/Radiographs Laboratory Results: 07/07/19 03:54 07/08/19 08:33 07/08/19 07/08/19 07/08/19 01:16 01:16 08:33 Sodium 137.7 139.7 Potassium 4.4 4.5 Chloride 100 99 Carbon Dioxide 31 H 33 H Anion Gap 7 8 BUN 13 16 Creatinine 0.67 0.63 Est GFR ( Amer) > 60 > 60 Glucose 137 H 150 H Calcium 7.5 L 7.7 L Ionized Calcium Chuck 1.07 L Phosphorus 2.4 L Magnesium 1.9 Total Bilirubin 1.1 AST 46 Alkaline Phosphatase 87 Ammonia Total Protein 6.0 L Albumin 2.9 L 07/08/19 08:33 Sodium Potassium Chloride Carbon Dioxide Anion Gap BUN Creatinine Est GFR ( Amer) Glucose Calcium Ionized Calcium Chuck Phosphorus Magnesium Total Bilirubin AST Alkaline Phosphatase Ammonia 23.7 Total Protein Albumin 07/03/19 07/03/19 07/04/19 15:38 15:38 05:55 Creatine Kinase 107 233 H CK-MB (CK-2) 1.54 Troponin I 0.116 07/04/19 05:55 Creatine Kinase CK-MB (CK-2) 2.95 Troponin I 0.071 Impressions: Head CT 07/03/19 16:17 IMPRESSION: MILD CHRONIC CHANGES OF ATROPHY AND MICROVASCULAR ISCHEMIA. NO ACUTE PROCESS. EVIDENCE OF ACUTE STROKE: NO. Abdomen Ultrasound 07/04/19 00:00 IMPRESSION: No acute findings. Hepatic steatosis. Limitation. Carotid Doppler Study 07/06/19 00:00 IMPRESSION: NO HEMODYNAMICALLY SIGNIFICANT STENOSIS. Chest X-Ray 07/06/19 06:00 IMPRESSION: Low inspiratory lung volumes with patchy opacities in the inferior left hemithorax that could represent either atelectasis or pneumonia. KUB X-Ray 07/07/19 10:18 IMPRESSION: DISTAL END OF THE NASOGASTRIC TUBE IS IN THE STOMACH. All labs, radiographs, diagnostic studies and EKGs were personally reviewed: Yes In addition, reports of radiographic and diagnostic studies were read: Yes Assessment and Plan - Diagnosis (1) Alcohol dependence Qualifiers: Substance use status: in withdrawal Complication of substance-induced condition: with delirium Qualified Code(s): F10.231 - Alcohol dependence with withdrawal delirium Is this a current diagnosis for this admission?: Yes Plan: Drinking X 40 years and is in a prolonged WD state. (2) Alcohol withdrawal Qualifiers: Complication of substance-induced condition: with delirium Qualified Code(s): F10.231 - Alcohol dependence with withdrawal delirium Is this a current diagnosis for this admission?: Yes Plan: His withdrawal is prolonged certainly due to the length of drinking history. He has normal LFTs and low ammonia. He is not acting like a stroke but we will check a dry CT of head today. (3) Hypomagnesemia Is this a current diagnosis for this admission?: Yes Plan: Up somewhat today with tube feeds started yesterday. Beware of refeeding syndrome. Check levels again in AM. (4) Hypophosphatemia Is this a current diagnosis for this admission?: Yes Plan: Again recheck levels in AM looking for refeeding syndrome. (5) Hypocalcemia Is this a current diagnosis for this admission?: Yes Plan: Recheck levels in AM. (6) Nutrition deficiency due to insufficient food Is this a current diagnosis for this admission?: Yes Plan: So far he is tolerating TF. Increase to 50cc/hr for goal. (7) Aspiration into airway Qualifiers: Encounter type: initial encounter Qualified Code(s): T17.908A - Unspecified foreign body in respiratory tract, part unspecified causing other injury, initial encounter Is this a current diagnosis for this admission?: Yes Plan: CXR clear. No aspiration. (8) Wernicke encephalopathy Is this a current diagnosis for this admission?: Yes Plan: Despite high dose thiamine and folate this is a risk and may be impacting his mental status. Plan Summary: Labs normal, check CT and try to avoid further mind altering substances. Critical Time Critical Time (minutes): 35 Level of Care: ICU Anticipated discharge: Other - Alcohol rehab. Within: Other - When more lucid. -: 1. The care of a critical patient is a dynamic process. This note is a solar manufacturer's representative synopsis but static in nature. The timeframe for treatments given in order is not necessarily the actual time these treatments may have been done. 2. This patient requires critical care secondary to ongoing requirements for therapy not offered or safe outside the critical care environment. Transfer to a lower level of care will result in altered life or limb morbidity and mortality. 3. Multidisciplinary rounds completed. 4. ABCDE bundle addressed.
[2019-07-08] MEDS: FOLIC ACID 1 MG in NORMAL SALINE 50 ML IV SCH (11:48)
--- NOTE | 2019-07-08 13:49 | RADIOLOGY REPORT (SQ) ---
EXAM DESCRIPTION: CT HEAD WITHOUT COMPLETED DATE/TIME: 07/08/2019 1:32 pm REASON FOR STUDY: Alcohol WD. Not waking up no NH3 or ativan. COMPARISON: 07/03/2019 TECHNIQUE: Axial images acquired through the brain without intravenous contrast. Images reviewed wi th bone, brain and subdural windows. Additional sagittal and coronal reconstructions were generated. Images stored on PACS. All CT scanners at this facility use dose modulation, iterative reconstruction, and/or weight based d osing when appropriate to reduce radiation dose to as low as reasonably achievable (ALARA). [facility]: Dose Right [facility]: CareDose [facility]: Dose Right [facility]: Teradose 4D [facility]: PharmaGen RADIATION DOSE: CT Rad equipment meets quality standard of care and radiation dose reduction techniq ues were employed. CTDIvol: 48.7 mGy. DLP: 1028 mGy-cm. mGy. LIMITATIONS: None. FINDINGS: VENTRICLES: Prominent. CEREBRUM: No masses. No hemorrhage. No midline shift. Areas of low density in the white matter mos t likely due to chronic micro-vascular ischemic change. No evidence for acute infarction. CEREBELLUM: No masses. No hemorrhage. No alteration of density. No evidence for acute infarction. EXTRAAXIAL SPACES: Mild age-related involutional change. No fluid collections. No masses. ORBITS AND GLOBE: No intra- or extraconal masses. Normal contour of globe without masses. CALVARIUM: No fracture. PARANASAL SINUSES: No fluid or mucosal thickening. SOFT TISSUES: No mass or hematoma. OTHER: No other significant finding. IMPRESSION: MILD CHRONIC CHANGES OF ATROPHY AND MICROVASCULAR ISCHEMIA. NO ACUTE PROCESS. EVIDENCE OF ACUTE STROKE: NO. TECHNICAL DOCUMENTATION: JOB ID: [id number] Quality ID # [id number]: Final reports with documentation of one or more dose reduction techniques (e.g., Au tomated exposure control, adjustment of the mA and/or kV according to patient size, use of iterative reconstruction technique) 2010 [employer]- All Rights Reserved Reading location - IP/workstation name: [email or web address]
[2019-07-08 14:27] LABS: ARTERIAL BLOOD FIO2 5 L; ARTERIAL BLOOD H2CO3 2.66 mmol/L (1.05-1.35); ARTERIAL BLOOD HCO3 33.9 mmol/L (20-24); ARTERIAL BLOOD O2 SATURATION 92.2 % (94-98); ARTERIAL BLOOD PO2 79.5 mmHg (80-100); ARTERIAL BLOOD TOTAL CO2 36.6 mmol/L (23-27)
[2019-07-08 14:29] LABS: ARTERIAL BLOOD PCO2 88.5 mmHg (35-45)
[2019-07-08] MEDS ORDERED: ETOMIDATE INJ/PF 20 MG/10 ML SDV IV ONE ×2 (14:49→15:05)
[2019-07-08] MEDS ORDERED: DEXMEDETOMIDINE IN 0.9 % NACL 400 MCG/100 ML RTUPB IV ONE (15:00)
[2019-07-08] MEDS ORDERED: DEXMEDETOMIDINE IN 0.9 % NACL 400 MCG/100 ML RTUPB IV PRN (15:11)
[2019-07-08] MEDS ORDERED: PHARMACY COMMUNICATION ORDER MC NR (15:15)
--- NOTE | 2019-07-08 16:13 | RADIOLOGY REPORT (SQ) ---
EXAM DESCRIPTION: CHEST SINGLE VIEW COMPLETED DATE/TIME: 07/08/2019 3:55 pm REASON FOR STUDY: S/P intubation COMPARISON: 07/06/2019 EXAM PARAMETERS: NUMBER OF VIEWS: One view. TECHNIQUE: Single frontal radiographic view of the chest acquired. RADIATION DOSE: NA LIMITATIONS: None. FINDINGS: LUNGS AND PLEURA: Endotracheal tube and NG tube are now in place. Both are in satisfactor y position. There is linear atelectasis in the left base. No pneumothorax. MEDIASTINUM AND HILAR STRUCTURES: No masses. Contour normal. HEART AND VASCULAR STRUCTURES: Stable in appearance. BONES: No acute findings. HARDWARE: None in the chest. OTHER: No other significant finding. IMPRESSION: Interval placement of endotracheal tube and NG tube. Both are in satisfactory position. Endotracheal tube tip lies 3.5 cm above the isaac. TECHNICAL DOCUMENTATION: JOB ID: [id number] [employer]- All Rights Reserved Reading location - IP/workstation name: [email or web address]
[2019-07-08] MEDS: RINGERS SOLUTION,LACTATED 1,000 ML IV PRN ×2 (16:38→21:22)
--- NOTE | 2019-07-08 17:19 | Progress Note ---
Provider Note Provider Note: Patients ABG shows pH 7.2 with pCO2 88. Due to aspiration risk with bipap patient intubated with no sedation with a #8 ETT and placed on SIMV. CXR shows tube high barely in chest cavity despite being at 25cm at lips. Tube advanced 2 cm. No air leak, breath sounds bilateral. Critical care time 30 minutes.
[2019-07-08 17:21] LABS: ARTERIAL BLOOD BASE EXCESS 3.7 mmol/L; ARTERIAL BLOOD H2CO3 1.38 mmol/L (1.05-1.35); ARTERIAL BLOOD HCO3 28.8 mmol/L (20-24); ARTERIAL BLOOD O2 SATURATION 94.6 % (94-98); ARTERIAL BLOOD PCO2 45.8 mmHg (35-45); ARTERIAL BLOOD PH 7.42 (7.35-7.45); ARTERIAL BLOOD TOTAL CO2 30.2 mmol/L (23-27)
[2019-07-08 17:22] LABS: ARTERIAL BLOOD FIO2 45
[2019-07-08] MEDS: ACETAMINOPHEN SOLN 325 MG/10.15 ML UDCUP NG PRN (17:30)
[2019-07-08] MEDS ORDERED: MIDAZOLAM 2 MG/2 ML INJ ONE (19:48)
[2019-07-08] MEDS ORDERED: MIDAZOLAM 2 MG/2 ML INJ IV ONE (20:00)
[2019-07-08] MEDS ORDERED: FENTANYL CITRATE INJ/PF 100 MCG/2 ML AMPUL ONE (20:32)
[2019-07-08] MEDS ORDERED: FENTANYL CITRATE INJ/PF 100 MCG/2 ML AMPUL IV ONE (20:45)
[2019-07-08] MEDS: FENTANYL CITRATE/PF 600 MCG/60 ML BAG IV PRN (23:19)
[2019-07-09 02:55] LABS: ARTERIAL BLOOD BASE EXCESS 0.7 mmol/L; ARTERIAL BLOOD H2CO3 1.26 mmol/L (1.05-1.35); ARTERIAL BLOOD HCO3 25.6 mmol/L (20-24); ARTERIAL BLOOD O2 SATURATION 98.4 % (94-98); ARTERIAL BLOOD PCO2 41.8 mmHg (35-45); ARTERIAL BLOOD PH 7.41 (7.35-7.45); ARTERIAL BLOOD PO2 119.9 mmHg (80-100); ARTERIAL BLOOD TOTAL CO2 26.9 mmol/L (23-27)
[2019-07-09 02:56] LABS: HEMATOCRIT 33.5 % (37.9-51.0); HEMOGLOBIN 11.3 g/dL (13.5-17.0); MEAN CORPUSCULAR HEMOGLOBIN 39.7 pg (27.0-33.4); MEAN CORPUSCULAR HGB CONC 33.8 g/dL (32.0-36.0); MEAN CORPUSCULAR VOLUME 117 fl (80-97); PLATELET COUNT 113 10^3/uL (150-450); RED BLOOD COUNT 2.85 10^6/uL (4.35-5.55); RED CELL DISTRIBUTION WIDTH 15.8 % (11.5-14.0); WHITE BLOOD COUNT 3.5 10^3/uL (4.0-10.5)
[2019-07-09 03:02] LABS: ARTERIAL BLOOD FIO2 45%
[2019-07-09] MEDS: IPRATROPIUM/ALBUTEROL 0.5-2.5 MG/3 ML AMPUL NEB SCH ×4 (03:04→20:38)
[2019-07-09 03:11] LABS: ANION GAP 10 (5-19); BLOOD UREA NITROGEN 23 mg/dL (7-20); CALCIUM 7.5 mg/dL (8.4-10.2); CARBON DIOXIDE 30 mmol/L (22-30); CHLORIDE 101 mmol/L (98-107); CREATINE KINASE 144 U/L (55-170); GLUCOSE 123 mg/dL (75-110); PHOSPHORUS 3.2 mg/dL (2.5-4.5); POTASSIUM 4.1 mmol/L (3.6-5.0)
[2019-07-09 03:17] LABS: ANISOCYTOSIS 1+; PLATELET COMMENT DECREASED
[2019-07-09] MEDS ORDERED: RINGERS SOLUTION,LACTATED 250 ML IV ONE (03:41)
[2019-07-09] MEDS: MAGNESIUM SULFATE/D5W 1 GM/100 ML RTUPB IV SCH ×3 (04:12→05:55)
[2019-07-09] MEDS: RINGERS SOLUTION,LACTATED 1,000 ML IV PRN ×3 (04:13→18:46)
[2019-07-09] MEDS: HEPARIN SOD (PORCINE) 5,000 UNIT/ML 1 ML VIAL SUBCUT SCH ×3 (05:55→21:38)
[2019-07-09] MEDS: PHOSPHORUS #1 250 MG TABLET NG SCH ×3 (05:55→17:32)
--- NOTE | 2019-07-09 07:39 | EKG REPORT ---
SEVERITY:- ABNORMAL ECG - SINUS TACHYCARDIA INCOMPLETE LEFT BUNDLE BRANCH BLOCK LOW VOLTAGE IN FRONTAL LEADS : Confirmed by: Dominick Carias MD 09-Jul-2019 07:38:35
--- NOTE | 2019-07-09 09:31 | PDOC CRITICAL CARE PROG REPORT ---
General Date:: 07/09/19 ICU Day:: 6 Ventilator Day:: 1 Hospital Day:: 6 Resuscitation Status: Full Code Events in the past 12 to 24 Hours:: Intubated. Now on fentanyl. Review of systems relevant to events:: Neurologic, CV. Reason for ICU Addmission:: ETOH withdrawal, withdrawal seizure, hypotension. Concern for cardiac status. - Medications: Medications reviewed and adjusted accordingly: Yes Vasopressors:: None. Sedation:: Fentanyl drip. Physical Exam Vital Signs: Temp Pulse Resp BP Pulse Ox 98.8 F 121 H 20 94/69 L 97 07/09/19 05:13 07/09/19 07:59 07/09/19 07:59 07/09/19 05:59 07/09/19 07:59 Intake & Output 07/08/19 07/09/19 07/10/19 06:59 06:59 06:59 Intake Total 3772.2 4250.2 Output Total 1635 450 Balance 2137.2 3800.2 Weight 96.4 kg 96 kg Weight/Height Weight 96 kg Height 5 ft 10 in General appearance: PRESENT: no acute distress Head exam: PRESENT: atraumatic, normocephalic Eye exam: PRESENT: conjunctiva pink, EOMI, PERRLA. ABSENT: scleral icterus Ear exam: PRESENT: normal external ear exam Mouth exam: PRESENT: other - ETT & NG Respiratory exam: PRESENT: crackles, decreased breath sounds, rhonchi Cardiovascular exam: PRESENT: tachycardia GI/Abdominal exam: PRESENT: normal bowel sounds, soft. ABSENT: distended, guarding, mass, organolmegaly, rebound, tenderness Rectal exam: PRESENT: deferred Extremities exam: PRESENT: full ROM. ABSENT: calf tenderness, clubbing, pedal edema Musculoskeletal exam: PRESENT: normal inspection Neurological exam: PRESENT: altered, other - Sedated. Skin exam: PRESENT: dry, intact, warm. ABSENT: cyanosis, rash Tubes/Lines: PRESENT: Endotracheal Tube, Nasogastic Tube Laboratory/Radiographs Laboratory Results: 07/09/19 02:30 07/09/19 02:30 07/07/19 07/08/19 07/08/19 03:54 08:33 08:33 WBC RBC Hgb Hct MCV MCH MCHC RDW Plt Count Seg Neutrophils % Carbonic Acid HCO3/H2CO3 Ratio ABG pH ABG pCO2 ABG pO2 ABG HCO3 ABG O2 Saturation ABG Base Excess FiO2 Sodium 139.7 Potassium 4.5 Chloride 99 Carbon Dioxide 33 H Anion Gap 8 BUN 16 Creatinine 0.63 Est GFR ( Amer) > 60 Glucose 150 H Lactic Acid Calcium 7.7 L Ionized Calcium Chuck Phosphorus Magnesium 1.2 L* Total Bilirubin 1.1 AST 46 Alkaline Phosphatase 87 Ammonia 23.7 Total Protein 6.0 L Albumin 2.9 L 07/08/19 07/08/19 07/09/19 14:20 17:04 02:15 WBC RBC Hgb Hct MCV MCH MCHC RDW Plt Count Seg Neutrophils % Carbonic Acid 2.66 H 1.38 H HCO3/H2CO3 Ratio 12:1 20:1 ABG pH 7.20 L* 7.42 ABG pCO2 88.5 H* 45.8 H ABG pO2 79.5 L 72.0 L ABG HCO3 33.9 H 28.8 H ABG O2 Saturation 92.2 L 94.6 ABG Base Excess 3.0 3.7 FiO2 5 L 45 Sodium Potassium Chloride Carbon Dioxide Anion Gap BUN Creatinine Est GFR ( Amer) Glucose Lactic Acid Calcium Ionized Calcium Chuck Phosphorus Magnesium Total Bilirubin AST Alkaline Phosphatase Ammonia Total Protein Albumin 07/09/19 07/09/19 07/09/19 02:30 02:30 02:30 WBC 3.5 L RBC 2.85 L Hgb 11.3 L Hct 33.5 L MCV 117 H MCH 39.7 H MCHC 33.8 RDW 15.8 H Plt Count 113 L Seg Neutrophils % Not Reportable Carbonic Acid HCO3/H2CO3 Ratio ABG pH ABG pCO2 ABG pO2 ABG HCO3 ABG O2 Saturation ABG Base Excess FiO2 Sodium Potassium Chloride Carbon Dioxide Anion Gap BUN Creatinine Est GFR ( Amer) Glucose Lactic Acid Calcium Cancelled Ionized Calcium Chuck 1.03 L Phosphorus Magnesium Total Bilirubin AST Alkaline Phosphatase Ammonia Total Protein Albumin 07/09/19 07/09/19 07/09/19 02:30 02:30 02:46 WBC RBC Hgb Hct MCV MCH MCHC RDW Plt Count Seg Neutrophils % Carbonic Acid 1.26 HCO3/H2CO3 Ratio 20:1 ABG pH 7.41 ABG pCO2 41.8 ABG pO2 119.9 H ABG HCO3 25.6 H ABG O2 Saturation 98.4 H ABG Base Excess 0.7 FiO2 45% Sodium 141.2 Potassium 4.1 Chloride 101 Carbon Dioxide 30 Anion Gap 10 BUN 23 H Creatinine 0.82 Est GFR ( Amer) > 60 Glucose 123 H Lactic Acid 2.0 Calcium 7.5 L Ionized Calcium Chuck Phosphorus 3.2 Magnesium 1.7 Total Bilirubin AST Alkaline Phosphatase Ammonia Total Protein Albumin 07/03/19 07/03/19 07/04/19 15:38 15:38 05:55 Creatine Kinase 107 233 H CK-MB (CK-2) 1.54 Troponin I 0.116 07/04/19 07/09/19 07/09/19 05:55 02:30 02:30 Creatine Kinase 144 CK-MB (CK-2) 2.95 Troponin I 0.071 0.065 Impressions: Abdomen Ultrasound 07/04/19 00:00 IMPRESSION: No acute findings. Hepatic steatosis. Limitation. Carotid Doppler Study 07/06/19 00:00 IMPRESSION: NO HEMODYNAMICALLY SIGNIFICANT STENOSIS. KUB X-Ray 07/07/19 10:18 IMPRESSION: DISTAL END OF THE NASOGASTRIC TUBE IS IN THE STOMACH. Chest X-Ray 07/08/19 00:00 IMPRESSION: Interval placement of endotracheal tube and NG tube. Both are in satisfactory position. Endotracheal tube tip lies 3.5 cm above the isaac. Head CT 07/08/19 00:00 IMPRESSION: MILD CHRONIC CHANGES OF ATROPHY AND MICROVASCULAR ISCHEMIA. NO ACUTE PROCESS. EVIDENCE OF ACUTE STROKE: NO. All labs, radiographs, diagnostic studies and EKGs were personally reviewed: Yes In addition, reports of radiographic and diagnostic studies were read: Yes Assessment and Plan - Diagnosis (1) Alcohol dependence Qualifiers: Substance use status: in withdrawal Complication of substance-induced condition: with delirium Qualified Code(s): F10.231 - Alcohol dependence with withdrawal delirium Is this a current diagnosis for this admission?: Yes Plan: I believe he has been through the worst of WD. We are lightening up his ativan. Precedex stopped. (2) Alcohol withdrawal Qualifiers: Complication of substance-induced condition: with delirium Qualified Code(s): F10.231 - Alcohol dependence with withdrawal delirium Is this a current diagnosis for this admission?: Yes Plan: Same. (3) Hypomagnesemia Is this a current diagnosis for this admission?: Yes Plan: In normal range for now. Does not seem to be refeeding. Restart TF. (4) Hypophosphatemia Is this a current diagnosis for this admission?: Yes (5) Hypocalcemia Is this a current diagnosis for this admission?: Yes Plan: Still low bolus 2 gms. (6) Nutrition deficiency due to insufficient food Is this a current diagnosis for this admission?: Yes Plan: Tube feeds to continue. (7) Aspiration into airway Qualifiers: Encounter type: initial encounter Qualified Code(s): T17.908A - Unspecified foreign body in respiratory tract, part unspecified causing other injury, initial encounter Is this a current diagnosis for this admission?: Yes Plan: Resolved (8) Wernicke encephalopathy Is this a current diagnosis for this admission?: Yes Plan: Does not seem to be the case with his pCO2 at 88 before intubation. (9) Acute respiratory failure Qualifiers: Respiratory failure complication: hypercapnia Qualified Code(s): J96.02 - Acute respiratory failure with hypercapnia Is this a current diagnosis for this admission?: Yes Plan: With a pH 7.2 and a PCO2 of 88 he qualifies for acute respiratory failure. Mst likely from undiagnosed COPD and the shifting of the PCO2 curve to a higher level than it normally is. (10) COPD (chronic obstructive pulmonary disease) Qualifiers: COPD type: emphysema Emphysema type: centrilobular Qualified Code(s): J43.2 - Centrilobular emphysema Is this a current diagnosis for this admission?: Yes Plan: He has smoked for 45 years and has decreased BS. Both hallmarks of COPD. His hypercabia was likely aggravated by ativan which he needed. Plan Summary: Lighten up and wean. Probably not extubatable today. Continue to asses neuro status. Critical Time Critical Time (minutes): 40 Level of Care: ICU Anticipated discharge: Home Within: Other - Too soon to tell. -: 1. The care of a critical patient is a dynamic process. This note is a medical sales representative synopsis but static in nature. The timeframe for treatments given in order is not necessarily the actual time these treatments may have been done. 2. This patient requires critical care secondary to ongoing requirements for therapy not offered or safe outside the critical care environment. Transfer to a lower level of care will result in altered life or limb morbidity and mortality. 3. Multidisciplinary rounds completed. 4. ABCDE bundle addressed.
[2019-07-09] MEDS: THIAMINE HCL 500 MG in NORMAL SALINE 250 ML IV SCH ×3 (10:08→17:31)
[2019-07-09] MEDS: PANTOPRAZOLE SODIUM 40 MG VIAL IV SCH (10:09)
[2019-07-09] MEDS: LORAZEPAM INJ 2 MG/1 ML VIAL IV PRN ×4 (10:09→22:32)
[2019-07-09] MEDS: NYSTATIN CREAM 15 GM TP SCH ×2 (10:16→17:32)
[2019-07-09] MEDS: QUETIAPINE FUMARATE 25 MG TABLET PO SCH (10:35)
[2019-07-09] MEDS: FOLIC ACID 1 MG in NORMAL SALINE 50 ML IV SCH (11:57)
[2019-07-09] MEDS: FENTANYL CITRATE/PF 600 MCG/60 ML BAG IV PRN ×2 (14:06→23:47)
[2019-07-09] MEDS ORDERED: VANCOMYCIN HCL INJ 1000 MG VIAL IV ONE (15:35)
[2019-07-09] MEDS: VANCOMYCIN HCL 1,500 MG in DEXTROSE 5%-WATER 250 ML IV SCH (21:38)
[2019-07-09] MEDS ORDERED: METOPROLOL TARTRATE PF/INJ 5 MG/5 ML SDV IV ONE ×2 (22:59→23:59)
[2019-07-10] MEDS: IPRATROPIUM/ALBUTEROL 0.5-2.5 MG/3 ML AMPUL NEB SCH ×4 (02:31→21:19)
[2019-07-10] MEDS: RINGERS SOLUTION,LACTATED 1,000 ML IV PRN ×3 (03:05→23:00)
[2019-07-10] MEDS: ACETAMINOPHEN SOLN 325 MG/10.15 ML UDCUP NG PRN (03:11)
[2019-07-10 04:50] LABS: CALCIUM 7.1 mg/dL (8.4-10.2); PHOSPHORUS 2.6 mg/dL (2.5-4.5)
[2019-07-10] MEDS: HEPARIN SOD (PORCINE) 5,000 UNIT/ML 1 ML VIAL SUBCUT SCH ×3 (05:34→21:55)
[2019-07-10] MEDS ORDERED: ACETAMINOPHEN 1,000 MG/100 ML RTUPB IV ONE ×2 (06:00→20:30)
[2019-07-10] MEDS: FENTANYL CITRATE/PF 600 MCG/60 ML BAG IV PRN (07:09)
[2019-07-10] MEDS: PANTOPRAZOLE SODIUM 40 MG VIAL IV SCH (09:47)
[2019-07-10] MEDS: THIAMINE HCL 500 MG in NORMAL SALINE 250 ML IV SCH ×3 (09:47→17:22)
[2019-07-10] MEDS: VANCOMYCIN HCL 1,500 MG in DEXTROSE 5%-WATER 250 ML IV SCH (09:48)
[2019-07-10] MEDS: QUETIAPINE FUMARATE 25 MG TABLET PO SCH (09:48)
[2019-07-10] MEDS: NYSTATIN CREAM 15 GM TP SCH ×2 (09:49→17:23)
[2019-07-10] MEDS: PHOSPHORUS #1 250 MG TABLET NG SCH ×3 (09:49→21:55)
--- NOTE | 2019-07-10 11:22 | PDOC CRITICAL CARE PROG REPORT ---
General Date:: 07/10/19 ICU Day:: 6 Ventilator Day:: 2 Hospital Day:: 6 Resuscitation Status: Full Code Events in the past 12 to 24 Hours:: Only on fentanyl. Sputum C7S MSSA Review of systems relevant to events:: Respiratory, CV, Neuro. Reason for ICU Addmission:: ETOH withdrawal, withdrawal seizure, hypotension. Concern for cardiac status. - Medications: Medications reviewed and adjusted accordingly: Yes Vasopressors:: None. Sedation:: Fentanyl Physical Exam Vital Signs: Temp Pulse Resp BP Pulse Ox 100.8 F H 104 H 29 H 100/62 93 07/10/19 10:00 07/10/19 10:00 07/10/19 10:00 07/10/19 10:00 07/10/19 10:00 Intake & Output 07/09/19 07/10/19 07/11/19 06:59 06:59 06:59 Intake Total 4250.2 4165.2 1000 Output Total 450 1120 100 Balance 3800.2 3045.2 900 Weight 96 kg 102.8 kg Weight/Height Weight 102.8 kg Height 5 ft 10 in General appearance: PRESENT: no acute distress, obese Head exam: PRESENT: atraumatic, normocephalic Eye exam: PRESENT: conjunctiva pink, EOMI, PERRLA. ABSENT: scleral icterus Ear exam: PRESENT: normal external ear exam Mouth exam: PRESENT: moist, tongue midline Respiratory exam: PRESENT: clear to auscultation nathaniel, other - Some rhonchi before suctioning.. ABSENT: rales, rhonchi, wheezes Cardiovascular exam: PRESENT: tachycardia Vascular exam: PRESENT: normal capillary refill GI/Abdominal exam: PRESENT: normal bowel sounds, soft. ABSENT: distended, guarding, mass, organolmegaly, rebound, tenderness Rectal exam: PRESENT: deferred Gentrourinary exam: PRESENT: indwelling catheter Extremities exam: PRESENT: pedal edema, other - Patchy areas of reddish porlonged capillary refill. Warm. Neurological exam: PRESENT: altered, other - Sedated. Skin exam: PRESENT: mottled - Both legs mottled in a honeycomb pattern with cooling blanket. Reddish area that sumi with prolonged capillary refill. Tubes/Lines: PRESENT: Endotracheal Tube, Nasogastic Tube Laboratory/Radiographs Laboratory Results: 07/09/19 02:30 07/09/19 02:30 07/08/19 07/10/19 07/10/19 01:16 04:02 04:02 Calcium 7.1 L Ionized Calcium Chuck 1.00 L Phosphorus 2.6 Magnesium 1.7 Calcitonin <2.0 07/08/19 20:00 Hu Catheter Urine Culture - Final NO GROWTH 2 DAYS 07/08/19 19:14 Sputum Gram Stain - Final 07/03/19 07/03/19 07/04/19 15:38 15:38 05:55 Creatine Kinase 107 233 H CK-MB (CK-2) 1.54 Troponin I 0.116 07/04/19 07/09/19 07/09/19 05:55 02:30 02:30 Creatine Kinase 144 CK-MB (CK-2) 2.95 Troponin I 0.071 0.065 Impressions: Abdomen Ultrasound 07/04/19 00:00 IMPRESSION: No acute findings. Hepatic steatosis. Limitation. Carotid Doppler Study 07/06/19 00:00 IMPRESSION: NO HEMODYNAMICALLY SIGNIFICANT STENOSIS. KUB X-Ray 07/07/19 10:18 IMPRESSION: DISTAL END OF THE NASOGASTRIC TUBE IS IN THE STOMACH. Chest X-Ray 07/08/19 00:00 IMPRESSION: Interval placement of endotracheal tube and NG tube. Both are in satisfactory position. Endotracheal tube tip lies 3.5 cm above the isaac. Head CT 07/08/19 00:00 IMPRESSION: MILD CHRONIC CHANGES OF ATROPHY AND MICROVASCULAR ISCHEMIA. NO ACUTE PROCESS. EVIDENCE OF ACUTE STROKE: NO. All labs, radiographs, diagnostic studies and EKGs were personally reviewed: Yes In addition, reports of radiographic and diagnostic studies were read: Yes Assessment and Plan - Diagnosis (1) Alcohol dependence Qualifiers: Substance use status: in withdrawal Complication of substance-induced condition: with delirium Qualified Code(s): F10.231 - Alcohol dependence with withdrawal delirium Is this a current diagnosis for this admission?: Yes Plan: To speak to him about desire far alcohol rehab. (2) Alcohol withdrawal Qualifiers: Complication of substance-induced condition: with delirium Qualified Code(s): F10.231 - Alcohol dependence with withdrawal delirium Is this a current diagnosis for this admission?: Yes Plan: Seems to have largely run its course minimize ativan and lighten fentanyl. (3) Hypomagnesemia Is this a current diagnosis for this admission?: Yes Plan: Resolved (4) Hypophosphatemia Is this a current diagnosis for this admission?: Yes Plan: Resolved (5) Hypocalcemia Is this a current diagnosis for this admission?: Yes Plan: Still slightly low. (6) Nutrition deficiency due to insufficient food Is this a current diagnosis for this admission?: Yes Plan: Continue TF at 30cc/hr which is goal. (7) Aspiration into airway Qualifiers: Encounter type: initial encounter Qualified Code(s): T17.908A - Unspecified foreign body in respiratory tract, part unspecified causing other injury, initial encounter Is this a current diagnosis for this admission?: Yes Plan: Resolved (8) Wernicke encephalopathy Is this a current diagnosis for this admission?: Yes Plan: A possibility, continue thiamine. (9) Acute respiratory failure Qualifiers: Respiratory failure complication: hypercapnia Qualified Code(s): J96.02 - Acute respiratory failure with hypercapnia Is this a current diagnosis for this admission?: Yes (10) COPD (chronic obstructive pulmonary disease) Qualifiers: COPD type: emphysema Emphysema type: centrilobular Qualified Code(s): J43.2 - Centrilobular emphysema Is this a current diagnosis for this admission?: Yes Plan: Again, presumed. No wheezing. No high vent pressures. (11) Pneumonia of both lungs due to methicillin susceptible Staphylococcus aureus (MSSA) Qualifiers: Lung location: unspecified part of lung Qualified Code(s): J15.211 - Pneumonia due to Methicillin susceptible Staphylococcus aureus Is this a current diagnosis for this admission?: Yes Plan: With continued fever and presumed end point of alcohol WD, I believe his cont inued fever is from an actual infection. Cultur of sputum now showing MSSA. Vanco changed to cefazolin 2gms IV q8. Plan Summary: Lighten up sedation. Secretions are limiting extubation along with mental status. Keep on antibiotics, cefazolin, and he should defervesce. Critical Time Critical Time (minutes): 40 Level of Care: ICU Anticipated discharge: SNF Within: Other - Too soon to tell. -: 1. The care of a critical patient is a dynamic process. This note is a scheduling representative synopsis but static in nature. The timeframe for treatments given in order is not necessarily the actual time these treatments may have been done. 2. This patient requires critical care secondary to ongoing requirements for therapy not offered or safe outside the critical care environment. Transfer to a lower level of care will result in altered life or limb morbidity and mortality. 3. Multidisciplinary rounds completed. 4. ABCDE bundle addressed.
[2019-07-10] MEDS: FOLIC ACID 1 MG in NORMAL SALINE 50 ML IV SCH (12:19)
[2019-07-10] MEDS: CEFAZOLIN SODIUM 2 GM in DEXTROSE 5%-WATER 100 ML IV SCH ×2 (13:38→22:10)
[2019-07-11] MEDS: IPRATROPIUM/ALBUTEROL 0.5-2.5 MG/3 ML AMPUL NEB SCH ×4 (02:10→19:40)
[2019-07-11] MEDS: PHOSPHORUS #1 250 MG TABLET NG SCH ×4 (04:09→21:08)
[2019-07-11] MEDS: FENTANYL CITRATE/PF 600 MCG/60 ML BAG IV PRN (05:24)
[2019-07-11] MEDS: CEFAZOLIN SODIUM 2 GM in DEXTROSE 5%-WATER 100 ML IV SCH ×3 (06:52→21:08)
[2019-07-11] MEDS: HEPARIN SOD (PORCINE) 5,000 UNIT/ML 1 ML VIAL SUBCUT SCH ×3 (06:53→21:08)
[2019-07-11] MEDS ORDERED: VANCOMYCIN HCL INJ 1000 MG VIAL IV ONE (08:08)
[2019-07-11] MEDS: THIAMINE HCL 500 MG in NORMAL SALINE 250 ML IV SCH ×3 (09:33→17:03)
[2019-07-11] MEDS: ACETAMINOPHEN SOLN 325 MG/10.15 ML UDCUP NG PRN ×2 (09:34→20:02)
[2019-07-11] MEDS: QUETIAPINE FUMARATE 100 MG TABLET PO SCH (09:35)
[2019-07-11] MEDS: PANTOPRAZOLE SODIUM 40 MG VIAL IV SCH (09:35)
[2019-07-11] MEDS: NYSTATIN CREAM 15 GM TP SCH ×2 (09:36→17:02)
[2019-07-11 10:22] LABS: VANCOMYCIN,TROUGH 7.8 ug/mL (5.0-20.0)
[2019-07-11] MEDS: FOLIC ACID 1 MG in NORMAL SALINE 50 ML IV SCH (11:16)
[2019-07-11] MEDS: VANCOMYCIN HCL 1,500 MG in DEXTROSE 5%-WATER 250 ML IV SCH ×2 (11:16→22:45)
--- NOTE | 2019-07-11 12:22 | PDOC CRITICAL CARE PROG REPORT ---
General Date:: 07/11/19 ICU Day:: 8 Ventilator Day:: 4 Hospital Day:: 8 Resuscitation Status: Full Code Events in the past 12 to 24 Hours:: Secretions still high, lower fever, not waking up much, off fentanyl. Review of systems relevant to events:: Neurologic and pulmonary. Reason for ICU Addmission:: ETOH withdrawal, withdrawal seizure, hypotension. Concern for cardiac status. Physical Exam Vital Signs: Temp Pulse Resp BP Pulse Ox 102.0 F H 99 29 H 120/73 94 07/11/19 12:00 07/11/19 10:00 07/11/19 12:00 07/11/19 11:52 07/11/19 12:00 Intake & Output 07/10/19 07/11/19 07/12/19 06:59 06:59 06:59 Intake Total 4165.2 4071.2 Output Total 1120 1890 800 Balance 3045.2 2181.2 -800 Weight 102.8 kg 106.2 kg Weight/Height Weight 106.2 kg Height 5 ft 10 in General appearance: PRESENT: no acute distress Head exam: PRESENT: atraumatic Eye exam: PRESENT: conjunctiva pink, EOMI, PERRLA. ABSENT: scleral icterus Ear exam: PRESENT: normal external ear exam Respiratory exam: PRESENT: crackles, decreased breath sounds, rhonchi Cardiovascular exam: PRESENT: tachycardia GI/Abdominal exam: PRESENT: normal bowel sounds, soft. ABSENT: distended, guarding, mass, organolmegaly, rebound, tenderness Rectal exam: PRESENT: deferred Gentrourinary exam: PRESENT: indwelling catheter Extremities exam: PRESENT: pedal edema Neurological exam: PRESENT: altered Skin exam: PRESENT: dry, erythema Tubes/Lines: PRESENT: Endotracheal Tube, Nasogastic Tube Laboratory/Radiographs Laboratory Results: 07/09/19 02:30 07/09/19 02:30 07/08/19 19:14 Sputum Gram Stain - Final 07/08/19 19:14 Sputum Sputum Culture - Final Staphylococcus Aureus Reduced Normal Araceli 07/08/19 20:00 Hu Catheter Urine Culture - Final NO GROWTH 2 DAYS 07/03/19 07/03/19 07/04/19 15:38 15:38 05:55 Creatine Kinase 107 233 H CK-MB (CK-2) 1.54 Troponin I 0.116 07/04/19 07/09/1907/09/20 05:55 02:30 02:30 Creatine Kinase 144 CK-MB (CK-2) 2.95 Troponin I 0.071 0.065 Impressions: Abdomen Ultrasound 07/04/19 00:00 IMPRESSION: No acute findings. Hepatic steatosis. Limitation. Carotid Doppler Study 07/06/19 00:00 IMPRESSION: NO HEMODYNAMICALLY SIGNIFICANT STENOSIS. KUB X-Ray 07/07/19 10:18 IMPRESSION: DISTAL END OF THE NASOGASTRIC TUBE IS IN THE STOMACH. Chest X-Ray 07/08/19 00:00 IMPRESSION: Interval placement of endotracheal tube and NG tube. Both are in satisfactory position. Endotracheal tube tip lies 3.5 cm above the isaac. Head CT 07/08/19 00:00 IMPRESSION: MILD CHRONIC CHANGES OF ATROPHY AND MICROVASCULAR ISCHEMIA. NO ACUTE PROCESS. EVIDENCE OF ACUTE STROKE: NO. All labs, radiographs, diagnostic studies and EKGs were personally reviewed: Yes In addition, reports of radiographic and diagnostic studies were read: Yes Assessment and Plan - Diagnosis (1) Alcohol dependence Qualifiers: Substance use status: in withdrawal Complication of substance-induced condition: with delirium Qualified Code(s): F10.231 - Alcohol dependence with withdrawal delirium Is this a current diagnosis for this admission?: Yes Plan: Same, awaiting recovery for rehab. (2) Alcohol withdrawal Qualifiers: Complication of substance-induced condition: with delirium Qualified Code(s): F10.231 - Alcohol dependence with withdrawal delirium Is this a current diagnosis for this admission?: Yes Plan: I believe this has run most of its course now. (3) Hypomagnesemia Is this a current diagnosis for this admission?: Yes Plan: Resolved for now. (4) Hypophosphatemia Is this a current diagnosis for this admission?: Yes Plan: Resolved for now. (5) Hypocalcemia Is this a current diagnosis for this admission?: Yes Plan: Ionized and total calcium still low. Add replacement. (6) Nutrition deficiency due to insufficient food Is this a current diagnosis for this admission?: Yes Plan: Continue TF (7) Aspiration into airway Qualifiers: Encounter type: initial encounter Qualified Code(s): T17.908A - Unspecified foreign body in respiratory tract, part unspecified causing other injury, initial encounter Is this a current diagnosis for this admission?: Yes (8) Wernicke encephalopathy Is this a current diagnosis for this admission?: Yes (9) Acute respiratory failure Qualifiers: Respiratory failure complication: hypercapnia Qualified Code(s): J96.02 - Acute respiratory failure with hypercapnia Is this a current diagnosis for this admission?: Yes Plan: Sill needs ventilator support due to mental status and secretions. (10) COPD (chronic obstructive pulmonary disease) Qualifiers: COPD type: emphysema Emphysema type: centrilobular Qualified Code(s): J43.2 - Centrilobular emphysema Is this a current diagnosis for this admission?: Yes Plan: Stable, no wheezing. (11) Pneumonia of both lungs due to methicillin susceptible Staphylococcus aureus (MSSA) Qualifiers: Lung location: unspecified part of lung Qualified Code(s): J15.211 - Pneumonia due to Methicillin susceptible Staphylococcus aureus Is this a current diagnosis for this admission?: Yes Plan: Vancomycin readded due to continued secretions and fever on cefazolin. Plan Summary: Stop fentanyl to assess awake state with no medications. Critical Time Critical Time (minutes): 35 Level of Care: ICU Anticipated discharge: SNF Within: Other - Too soon to tell. -: 1. The care of a critical patient is a dynamic process. This note is a sales and service representative synopsis but static in nature. The timeframe for treatments given in order is not necessarily the actual time these treatments may have been done. 2. This patient requires critical care secondary to ongoing requirements for therapy not offered or safe outside the critical care environment. Transfer to a lower level of care will result in altered life or limb morbidity and mortality. 3. Multidisciplinary rounds completed. 4. ABCDE bundle addressed.
[2019-07-11] MEDS: RINGERS SOLUTION,LACTATED 1,000 ML IV PRN (14:45)
[2019-07-11 15:36] LABS: C DIFFICILE GDH POSITIVE (NEGATIVE)
[2019-07-11] MEDS ORDERED: METOPROLOL TARTRATE PF/INJ 5 MG/5 ML SDV IV PRN (16:51)
[2019-07-11] MEDS ORDERED: METOPROLOL TARTRATE PF/INJ 5 MG/5 ML SDV IV ONE (16:51)
[2019-07-11] MEDS ORDERED: RINGERS SOLUTION,LACTATED 1,000 ML IV PRN (19:51)
[2019-07-11] MEDS: AMINO AC/PROTEIN HYDR/WHEY PRO 11 GM/45 ML PKT NG SCH (21:06)
[2019-07-12] MEDS: IPRATROPIUM/ALBUTEROL 0.5-2.5 MG/3 ML AMPUL NEB SCH ×4 (02:01→19:38)
[2019-07-12] MEDS: PHOSPHORUS #1 250 MG TABLET NG SCH ×4 (02:02→23:33)
[2019-07-12 02:25] LABS: ABSOLUTE LYMPHOCYTES (AUTO) 0.6 10^3/uL (0.5-4.7); ABSOLUTE MONOCYTES (AUTO) 0.4 10^3/uL (0.1-1.4); BASOPHILS % (AUTO) 0.5 % (0-2); EOSINOPHILS % (AUTO) 0.5 % (0-6); HEMATOCRIT 27.8 % (37.9-51.0); HEMOGLOBIN 9.8 g/dL (13.5-17.0); LYMPHOCYTES % (AUTO) 12.3 % (13-45); MEAN CORPUSCULAR HEMOGLOBIN 40.3 pg (27.0-33.4); MEAN CORPUSCULAR HGB CONC 35.3 g/dL (32.0-36.0); MONOCYTES % (AUTO) 7.2 % (3-13); PLATELET COUNT 129 10^3/uL (150-450); RED BLOOD COUNT 2.44 10^6/uL (4.35-5.55); RED CELL DISTRIBUTION WIDTH 16.3 % (11.5-14.0); SEGMENTED NEUTROPHILS % (AUTO) 79.5 % (42-78); TOTAL CELLS COUNTED % (AUTO) 100 %; WHITE BLOOD COUNT 5.1 10^3/uL (4.0-10.5)
[2019-07-12 02:27] LABS: MEAN CORPUSCULAR VOLUME 114 fl (80-97)
[2019-07-12 02:31] LABS: ANISOCYTOSIS 1+; POIKILOCYTOSIS 1+; TOXIC GRANULATION 1+; TOXIC VACUOLATION PRESENT
[2019-07-12 02:32] LABS: OVALOCYTES SLIGHT; PLATELET COMMENT ADEQUATE; TEAR DROP CELLS SLIGHT
[2019-07-12] MEDS ORDERED: CALCIUM GLUCONATE 1000 MG/10 ML INJ IV ONE (03:00)
[2019-07-12 05:27] LABS: ANION GAP 9 (5-19); BLOOD UREA NITROGEN 18 mg/dL (7-20); CALCIUM 7.8 mg/dL (8.4-10.2); CARBON DIOXIDE 28 mmol/L (22-30); CHLORIDE 100 mmol/L (98-107); GLUCOSE 81 mg/dL (75-110); PHOSPHORUS 4.2 mg/dL (2.5-4.5); POTASSIUM 3.2 mmol/L (3.6-5.0)
[2019-07-12] MEDS: CEFAZOLIN SODIUM 2 GM in DEXTROSE 5%-WATER 100 ML IV SCH ×3 (05:28→22:29)
[2019-07-12] MEDS: HEPARIN SOD (PORCINE) 5,000 UNIT/ML 1 ML VIAL SUBCUT SCH ×3 (05:28→22:29)
[2019-07-12] MEDS: MAGNESIUM SULFATE/D5W 1 GM/100 ML RTUPB IV SCH ×6 (06:42→13:00)
[2019-07-12] MEDS: POTASSIUM CHLORIDE 20 MEQ PACKET NG SCH ×2 (06:42→12:52)
[2019-07-12] MEDS: VANCOMYCIN HCL 1,500 MG in DEXTROSE 5%-WATER 250 ML IV SCH ×3 (08:59→23:23)
[2019-07-12] MEDS: QUETIAPINE FUMARATE 100 MG TABLET PO SCH (08:59)
[2019-07-12] MEDS: AMINO AC/PROTEIN HYDR/WHEY PRO 11 GM/45 ML PKT NG SCH ×3 (09:00→20:33)
--- NOTE | 2019-07-12 12:05 | PDOC CRITICAL CARE PROG REPORT ---
General Date:: 07/12/19 ICU Day:: 9 Ventilator Day:: 5 Hospital Day:: 9 Resuscitation Status: Full Code Events in the past 12 to 24 Hours:: Slowly awakening. Still not extubatable. Review of systems relevant to events:: Neurological and respiratory. Reason for ICU Addmission:: ETOH withdrawal, withdrawal seizure, hypotension. Concern for cardiac status. Still on ventilator for 5 days. - Medications: Medications reviewed and adjusted accordingly: Yes Vasopressors:: None Sedation:: None Physical Exam Vital Signs: Temp Pulse Resp BP Pulse Ox 102.4 F H 102 H 31 H 122/75 94 07/12/19 10:00 07/12/19 08:08 07/12/19 10:00 07/12/19 09:52 07/12/19 10:00 Intake & Output 07/11/19 07/12/19 07/13/19 06:59 06:59 06:59 Intake Total 4071.2 2715.2 100 Output Total 1890 2780 400 Balance 2181.2 -64.8 -300 Weight 106.2 kg 106.1 kg Weight/Height Weight 106.1 kg Height 5 ft 10 in General appearance: PRESENT: no acute distress Head exam: PRESENT: atraumatic, normocephalic Eye exam: PRESENT: conjunctiva pink, EOMI, PERRLA. ABSENT: scleral icterus Ear exam: PRESENT: normal external ear exam Mouth exam: PRESENT: moist, tongue midline Respiratory exam: PRESENT: clear to auscultation nathaniel, crackles - Crackles heard louder over L base as opposed to L.. ABSENT: rales, rhonchi, wheezes Cardiovascular exam: PRESENT: tachycardia GI/Abdominal exam: PRESENT: normal bowel sounds, soft. ABSENT: distended, guarding, mass, organolmegaly, rebound, tenderness Rectal exam: PRESENT: deferred Gentrourinary exam: PRESENT: indwelling catheter Extremities exam: PRESENT: pedal edema Musculoskeletal exam: PRESENT: normal inspection Neurological exam: PRESENT: altered, other - Sedated. Skin exam: PRESENT: dry, pallor Tubes/Lines: PRESENT: Endotracheal Tube, Nasogastic Tube Laboratory/Radiographs Laboratory Results: 07/12/19 01:56 07/12/19 04:40 07/11/19 07/12/19 07/12/19 10:45 01:56 01:56 WBC 5.1 RBC 2.44 L Hgb 9.8 L Hct 27.8 L MCV 114 H MCH 40.3 H MCHC 35.3 RDW 16.3 H Plt Count 129 L Seg Neutrophils % 79.5 H Sodium Cancelled Potassium Cancelled Chloride Cancelled Carbon Dioxide Cancelled Anion Gap Cancelled BUN Cancelled Creatinine Cancelled Est GFR ( Amer) Cancelled Est GFR (Non-Af Amer) Cancelled Glucose Cancelled Calcium Cancelled Ionized Calcium Chuck Phosphorus Cancelled Magnesium Cancelled Stl C.difficile Tox PCR NEGATIVE 07/12/19 07/12/19 07/12/19 01:56 03:23 04:40 WBC RBC Hgb Hct MCV MCH MCHC RDW Plt Count Seg Neutrophils % Sodium Cancelled 137.4 Potassium Cancelled 3.2 L Chloride Cancelled 100 Carbon Dioxide Cancelled 28 Anion Gap Cancelled 9 BUN Cancelled 18 Creatinine Cancelled 0.77 Est GFR ( Amer) Cancelled > 60 Est GFR (Non-Af Amer) Cancelled Glucose Cancelled 81 Calcium Cancelled 7.8 L Ionized Calcium Chuck 0.83 L Phosphorus Cancelled 4.2 Magnesium Cancelled 1.3 L Stl C.difficile Tox PCR 07/03/19 07/03/19 07/04/19 15:38 15:38 05:55 Creatine Kinase 107 233 H CK-MB (CK-2) 1.54 Troponin I 0.116 07/04/19 07/09/19 07/09/19 05:55 02:30 02:30 Creatine Kinase 144 CK-MB (CK-2) 2.95 Troponin I 0.071 0.065 Impressions: Abdomen Ultrasound 07/04/19 00:00 IMPRESSION: No acute findings. Hepatic steatosis. Limitation. Carotid Doppler Study 07/06/19 00:00 IMPRESSION: NO HEMODYNAMICALLY SIGNIFICANT STENOSIS. KUB X-Ray 07/07/19 10:18 IMPRESSION: DISTAL END OF THE NASOGASTRIC TUBE IS IN THE STOMACH. Chest X-Ray 07/08/19 00:00 IMPRESSION: Interval placement of endotracheal tube and NG tube. Both are in satisfactory position. Endotracheal tube tip lies 3.5 cm above the isaac. Head CT 07/08/19 00:00 IMPRESSION: MILD CHRONIC CHANGES OF ATROPHY AND MICROVASCULAR ISCHEMIA. NO ACUTE PROCESS. EVIDENCE OF ACUTE STROKE: NO. All labs, radiographs, diagnostic studies and EKGs were personally reviewed: Yes In addition, reports of radiographic and diagnostic studies were read: Yes Assessment and Plan - Diagnosis (1) Alcohol dependence Qualifiers: Substance use status: in withdrawal Complication of substance-induced condition: with delirium Qualified Code(s): F10.231 - Alcohol dependence with withdrawal delirium Is this a current diagnosis for this admission?: Yes Plan: [facility] and wanting rehab after this. He will likely need physical rehab before alcohol rehab. (2) Alcohol withdrawal Qualifiers: Complication of substance-induced condition: with delirium Qualified Code(s): F10.231 - Alcohol dependence with withdrawal delirium Is this a current diagnosis for this admission?: Yes Plan: I think pretty much this has run course (3) Hypomagnesemia Is this a current diagnosis for this admission?: Yes Plan: Once again low and being repleted. (4) Hypophosphatemia Is this a current diagnosis for this admission?: Yes Plan: Still in normal range. (5) Hypocalcemia Is this a current diagnosis for this admission?: Yes Plan: Ionized calcium and total still low, needs repletion. (6) Nutrition deficiency due to insufficient food Is this a current diagnosis for this admission?: Yes Plan: Continue TF. (7) Aspiration into airway Qualifiers: Encounter type: initial encounter Qualified Code(s): T17.908A - Unspecified foreign body in respiratory tract, part unspecified causing other injury, initial encounter Is this a current diagnosis for this admission?: Yes Plan: Resolved (8) Wernicke encephalopathy Is this a current diagnosis for this admission?: Yes (9) Acute respiratory failure Qualifiers: Respiratory failure complication: hypercapnia Qualified Code(s): J96.02 - Acute respiratory failure with hypercapnia Is this a current diagnosis for this admission?: Yes Plan: He can still not protect airway well. Has weak cough and much secretions. In this regard he will fail extubation although bt ABG he is not in respiratory failure. (10) COPD (chronic obstructive pulmonary disease) Qualifiers: COPD type: emphysema Emphysema type: centrilobular Qualified Code(s): J43.2 - Centrilobular emphysema Is this a current diagnosis for this admission?: Yes Plan: Stable (11) Pneumonia of both lungs due to methicillin susceptible Staphylococcus aureus (MSSA) Qualifiers: Lung location: unspecified part of lung Qualified Code(s): J15.211 - Pneumonia due to Methicillin susceptible Staphylococcus aureus Is this a current diagnosis for this admission?: Yes Plan: No doubt this is the cause of secretions worsened by COPD Plan Summary: Continue to hold sedation as he is waking up slowly. Keep intubated until secretions are down and he can better able to protect airway. Critical Time Critical Time (minutes): 35 Level of Care: ICU Anticipated discharge: SNF Within: Other - Too soon to tell -: 1. The care of a critical patient is a dynamic process. This note is a clearance representative synopsis but static in nature. The timeframe for treatments given in order is not necessarily the actual time these treatments may have been done. 2. This patient requires critical care secondary to ongoing requirements for therapy not offered or safe outside the critical care environment. Transfer to a lower level of care will result in altered life or limb morbidity and mortality. 3. Multidisciplinary rounds completed. 4. ABCDE bundle addressed.
[2019-07-12] MEDS: ACETAMINOPHEN SOLN 325 MG/10.15 ML UDCUP NG PRN ×2 (12:55→22:50)
[2019-07-12] MEDS: FOLIC ACID 1 MG in NORMAL SALINE 50 ML IV SCH (12:56)
[2019-07-12] MEDS ORDERED: FUROSEMIDE INJ/PF 40 MG/4 ML SDV IV ONE (14:56)
[2019-07-12] MEDS ORDERED: SODIUM BICARBONATE 8.4% INJ 50 MEQ/50 ML DISP.SYRIN IV ONE (21:00)
[2019-07-12] MEDS ORDERED: LIPASE/PROTEASE/AMYLASE 1 CAP CAPSULE.DR PO ONE (21:00)
[2019-07-12] MEDS ORDERED: MIDAZOLAM 2 MG/2 ML INJ ONE (21:53)
[2019-07-12] MEDS ORDERED: MIDAZOLAM 2 MG/2 ML INJ IV ONE (22:40)
[2019-07-12 22:58] LABS: VANCOMYCIN,TROUGH 14.6 ug/mL (5.0-20.0)
--- NOTE | 2019-07-12 23:13 | RADIOLOGY REPORT (SQ) ---
EXAM DESCRIPTION: XR ABDOMEN 1 VIEW (KUB) COMPLETED DATE/TME: 07/12/2019 00:00 CLINICAL HISTORY: 69 years, Male, new feeding tube placement confirmation COMPARISON: None. NUMBER OF VIEWS: 1 TECHNIQUE: AP abdomen LIMITATIONS: None. FINDINGS: Duotube with the distal tip likely in the distal stomach or proximal small bowel, to the right of midline. The bowel gas pattern is nonspecific IMPRESSION: Tip of the duotube in the distal stomach or proximal small bowel copyright 2011 [employer]- All Rights Reserved
[2019-07-13] MEDS: IPRATROPIUM/ALBUTEROL 0.5-2.5 MG/3 ML AMPUL NEB SCH ×4 (01:37→19:29)
[2019-07-13 05:01] LABS: ANION GAP 7 (5-19); BLOOD UREA NITROGEN 18 mg/dL (7-20); CALCIUM 7.4 mg/dL (8.4-10.2); CARBON DIOXIDE 32 mmol/L (22-30); CHLORIDE 96 mmol/L (98-107); GLUCOSE 93 mg/dL (75-110); POTASSIUM 3.3 mmol/L (3.6-5.0)
[2019-07-13] MEDS ORDERED: POTASSIUM CHLORIDE 20 MEQ PACKET NG ONE (05:37)
[2019-07-13] MEDS ORDERED: MAGNESIUM SULFATE/D5W 2 GM/200 ML RTUPB IV ONE (05:44)
[2019-07-13] MEDS: MAGNESIUM SULFATE/D5W 1 GM/100 ML RTUPB IV SCH ×2 (06:04→08:37)
[2019-07-13] MEDS: CEFAZOLIN SODIUM 2 GM in DEXTROSE 5%-WATER 100 ML IV SCH ×3 (06:04→21:13)
[2019-07-13] MEDS: HEPARIN SOD (PORCINE) 5,000 UNIT/ML 1 ML VIAL SUBCUT SCH ×3 (06:04→21:13)
[2019-07-13] MEDS: MULTIVITAMIN TABLET PO SCH ×2 (10:12→10:14)
[2019-07-13] MEDS: THIAMINE HCL 100 MG TABLET PO SCH (10:12)
[2019-07-13] MEDS: FOLIC ACID 1 MG TABLET PO SCH (10:12)
--- NOTE | 2019-07-13 10:27 | RADIOLOGY REPORT (SQ) ---
EXAM DESCRIPTION: VENOUS BILATERAL UPPER COMPLETED DATE/TIME: 07/13/2019 10:08 am REASON FOR STUDY: BUE edema; left erythematous; r/o DVT COMPARISON: None. TECHNIQUE: Dynamic and static chao scale and color images acquired of the right and left arm venous system. Selected spectral images acquired with additional compression and augmentation maneuvers. The contralateral subclavian vein and internal jugular vein were also imaged. Images stored on PACS. LIMITATIONS: None. FINDINGS: INTERNAL JUGULAR VEIN: Normal phasicity, compression, augmentation. No visualized echogeni c material on chao scale. No defects on color images. Comparison opposite side normal. SUBCLAVIAN VEIN: Normal compression, augmentation. No visualized echogenic material on chao scale. No defects on color images. AXILLARY VEIN: Normal compression, augmentation. No visualized echogenic material on chao scale. No d efects on color images. BRACHIAL VEIN: Normal compression, augmentation. No visualized echogenic material on chao scale. No d efects on color images. BASILIC VEIN: Normal compression, augmentation. No visualized echogenic material on chao scale. No de fects on color images. CEPHALIC VEIN: There is acute thrombus in both the right and left cephalic veins. OTHER: No other significant finding. CONTRALATERAL SUBCLAVIAN VEIN AND INTERNAL JUGULAR VEIN: Normal phasicity, compression and augmentation. No visualized echogenic material on chao scale. No de fects on color images. IMPRESSION: Short segment acute SVT involving the right and left cephalic veins. Deep venous system is patent bilaterally. COMMENT: This report was called to the patient's nurse [id number] hours on 07/13/2019. The report was c alled by the ophthalmic medical technologist. TECHNICAL DOCUMENTATION: JOB ID: [id number] [employer]- All Rights Reserved Reading location - IP/workstation name: CLINICAL [email or web address] [email or web address]
--- NOTE | 2019-07-13 10:38 | PDOC CRITICAL CARE PROG REPORT ---
General Date:: 07/13/19 - Critical Care Attending Note Resuscitation Status: Full Code Events in the past 12 to 24 Hours:: Pt has been extubated. Remains confused. DHT inserted overnight. Reason for ICU Addmission:: ETOH withdrawal, withdrawal seizure, hypotension. Concern for cardiac status. Still on ventilator for 5 days. Physical Exam Vital Signs: Temp Pulse Resp BP Pulse Ox 101.5 F H 95 26 H 110/78 97 07/13/19 08:00 07/13/19 09:16 07/13/19 09:16 07/13/19 08:00 07/13/19 09:16 Intake & Output 07/12/19 07/13/19 07/14/19 06:59 06:59 06:59 Intake Total 2715.2 2350.2 100 Output Total 2780 4425 175 Balance -64.8 -2074.8 -75 Weight 106.1 kg 100.1 kg Weight/Height Weight 100.1 kg Height 5 ft 10 in General appearance: PRESENT: no acute distress, well-developed, well-nourished, other - awake, lethargic, confused Head exam: PRESENT: atraumatic, normocephalic Respiratory exam: PRESENT: rhonchi, unlabored Cardiovascular exam: PRESENT: RRR GI/Abdominal exam: PRESENT: soft Gentrourinary exam: PRESENT: indwelling catheter Extremities exam: PRESENT: +1 edema Neurological exam: PRESENT: other - confused, lethargic Laboratory/Radiographs Laboratory Results: 07/12/19 01:56 07/13/19 04:17 07/13/19 07/13/19 04:17 04:17 Sodium 135.3 L Potassium 3.3 L Chloride 96 L Carbon Dioxide 32 H Anion Gap 7 BUN 18 Creatinine 0.78 Est GFR ( Amer) > 60 Glucose 93 Calcium 7.4 L Ionized Calcium Chuck 1.06 L Magnesium 1.8 07/03/19 07/03/19 07/04/19 15:38 15:38 05:55 Creatine Kinase 107 233 H CK-MB (CK-2) 1.54 Troponin I 0.116 07/04/19 07/09/19 07/09/19 05:55 02:30 02:30 Creatine Kinase 144 CK-MB (CK-2) 2.95 Troponin I 0.071 0.065 Impressions: Abdomen Ultrasound 07/04/19 00:00 IMPRESSION: No acute findings. Hepatic steatosis. Limitation. Carotid Doppler Study 07/06/19 00:00 IMPRESSION: NO HEMODYNAMICALLY SIGNIFICANT STENOSIS. Head CT 07/08/19 00:00 IMPRESSION: MILD CHRONIC CHANGES OF ATROPHY AND MICROVASCULAR ISCHEMIA. NO ACUTE PROCESS. EVIDENCE OF ACUTE STROKE: NO. KUB X-Ray 07/12/19 00:00 IMPRESSION: Tip of the duotube in the distal stomach or proximal small bowel copyright 2010 [employer]- All Rights Reserved Assessment and Plan - Diagnosis (1) Acute respiratory failure Qualifiers: Respiratory failure complication: hypercapnia Qualified Code(s): J96.02 - Acute respiratory failure with hypercapnia Is this a current diagnosis for this admission?: Yes (2) Pneumonia of both lungs due to methicillin susceptible Staphylococcus aureus (MSSA) Qualifiers: Lung location: unspecified part of lung Qualified Code(s): J15.211 - Pneumonia due to Methicillin susceptible Staphylococcus aureus Is this a current diagnosis for this admission?: Yes (3) Alcohol withdrawal Qualifiers: Complication of substance-induced condition: with delirium Qualified Code(s): F10.231 - Alcohol dependence with withdrawal delirium Is this a current diagnosis for this admission?: Yes (4) COPD (chronic obstructive pulmonary disease) Qualifiers: COPD type: emphysema Emphysema type: centrilobular Qualified Code(s): J43.2 - Centrilobular emphysema Is this a current diagnosis for this admission?: Yes (5) Encephalopathy Is this a current diagnosis for this admission?: Yes Plan Summary: Assessment: Critically ill 69yo man with acute respiratory failure, MSSA PNA, alcohol withdrawal, encephalopathy, COPD, thromboytopenia, aspiration. Plan: 1. Respiratory: acute respiratory failure. Pt extubated 07/12. Is on nasal cannula. Still with copious respiratory secretions. Continue pulmonary toiletin g. 2. Pulmonary: MSSA PNA, COPD. Continue ancef and duonebs. Will check CXR. 3. CV: heart rate and BP acceptable 4. ID: MSSA PNA. Continue Ancef, d/c vanc 5. Pscyh: ETOH withdrawal, encephalopathy. MVI, folic acid, thiamine 6. Nutrition: tube feeds via DHT. Repeat swallow eval when mental status imp roves 7. Endocrine: repeat thyroid studies. SSI 8. Prophylaxis: sq heparin 9. PT/OT consulted 10. Continue to monitor in ICU 11. at bedside. Updated on pt condition and plan of care. Critical Time Critical Time (minutes): 0 - no critical care time billed today. Level 3 hospital follow-up Level of Care: ICU -: 1. The care of a critical patient is a dynamic process. This note is a commercial representative synopsis but static in nature. The timeframe for treatments given in order is not necessarily the actual time these treatments may have been done. 2. This patient requires critical care secondary to ongoing requirements for therapy not offered or safe outside the critical care environment. Transfer to a lower level of care will result in altered life or limb morbidity and mortality. 3. Multidisciplinary rounds completed. 4. ABCDE bundle addressed.
--- NOTE | 2019-07-13 11:17 | RADIOLOGY REPORT (SQ) ---
EXAM DESCRIPTION: CHEST SINGLE VIEW COMPLETED DATE/TIME: 07/13/2019 10:33 am REASON FOR STUDY: PNA COMPARISON: 07/08/2019 EXAM PARAMETERS: NUMBER OF VIEWS: One view. TECHNIQUE: Single frontal radiographic view of the chest acquired. RADIATION DOSE: NA LIMITATIONS: None. FINDINGS: LUNGS AND PLEURA: The patient has been extubated. Enteric tube remains in place. Bluntin g of both costophrenic angles consistent with small effusions. Bibasilar atelectasis. MEDIASTINUM AND HILAR STRUCTURES: No masses. Contour normal. HEART AND VASCULAR STRUCTURES: Heart normal in size. Normal vasculature. BONES: No acute findings. HARDWARE: None in the chest. OTHER: No other significant finding. IMPRESSION: Small effusions and basilar atelectasis following extubation. TECHNICAL DOCUMENTATION: JOB ID: [id number] [employer]- All Rights Reserved Reading location - IP/workstation name: [email or web address]
[2019-07-13] MEDS: ACETAMINOPHEN SOLN 325 MG/10.15 ML UDCUP NG PRN ×2 (11:22→22:41)
[2019-07-13 14:46] LABS: PATH REVIEW PATHOLOGIST REVIEWED
[2019-07-14] MEDS: IPRATROPIUM/ALBUTEROL 0.5-2.5 MG/3 ML AMPUL NEB SCH ×4 (02:00→21:00)
[2019-07-14 05:06] LABS: HEMATOCRIT 28.1 % (37.9-51.0); HEMOGLOBIN 9.8 g/dL (13.5-17.0); MEAN CORPUSCULAR HEMOGLOBIN 39.8 pg (27.0-33.4); MEAN CORPUSCULAR HGB CONC 34.9 g/dL (32.0-36.0); MEAN CORPUSCULAR VOLUME 114 fl (80-97); PLATELET COUNT 156 10^3/uL (150-450); RED BLOOD COUNT 2.46 10^6/uL (4.35-5.55); RED CELL DISTRIBUTION WIDTH 16.3 % (11.5-14.0); WHITE BLOOD COUNT 5.3 10^3/uL (4.0-10.5)
[2019-07-14 05:24] LABS: ANION GAP 7 (5-19); BLOOD UREA NITROGEN 17 mg/dL (7-20); CALCIUM 7.8 mg/dL (8.4-10.2); CARBON DIOXIDE 32 mmol/L (22-30); CHLORIDE 95 mmol/L (98-107); GLUCOSE 85 mg/dL (75-110); POTASSIUM 3.5 mmol/L (3.6-5.0)
[2019-07-14 05:40] LABS: FREE T4 (FREE THYROXINE) 0.96 ng/dL (0.78-2.19)
[2019-07-14] MEDS: CEFAZOLIN SODIUM 2 GM in DEXTROSE 5%-WATER 100 ML IV SCH ×3 (05:45→21:33)
[2019-07-14] MEDS: HEPARIN SOD (PORCINE) 5,000 UNIT/ML 1 ML VIAL SUBCUT SCH ×3 (05:45→21:33)
[2019-07-14 05:54] LABS: THYROID STIMULATING HORMONE 5.23 uIU/mL (0.47-4.68)
[2019-07-14] MEDS ORDERED: POTASSIUM CHLORIDE 20 MEQ PACKET PO ONE (08:30)
[2019-07-14] MEDS ORDERED: FUROSEMIDE INJ/PF 40 MG/4 ML SDV IV ONE (08:33)
[2019-07-14] MEDS: METOPROLOL TARTRATE 25 MG TABLET PO SCH ×2 (09:46→21:33)
[2019-07-14] MEDS: ASPIRIN 81 MG TABLET, CHEWABLE PO SCH (09:46)
[2019-07-14] MEDS: THIAMINE HCL 100 MG TABLET PO SCH (09:46)
[2019-07-14] MEDS: FOLIC ACID 1 MG TABLET PO SCH (09:46)
[2019-07-14] MEDS: SPIRONOLACTONE 25 MG TABLET PO SCH (09:46)
[2019-07-14] MEDS: MULTIVITAMIN TABLET PO SCH (09:47)
--- NOTE | 2019-07-14 10:23 | PDOC CRITICAL CARE PROG REPORT ---
General Date:: 07/14/19 - Critical Care Attending Note Resuscitation Status: Full Code Events in the past 12 to 24 Hours:: Pt continues to have fevers. Is more awake and alert this am. Had some h ypertension overnight. Reason for ICU Addmission:: ETOH withdrawal, withdrawal seizure, hypotension. Concern for cardiac status. Still on ventilator for 5 days. - Medications: Medications reviewed and adjusted accordingly: Yes Physical Exam Vital Signs: Temp Pulse Resp BP Pulse Ox 101.3 F H 91 25 H 143/90 H 99 07/14/19 08:00 07/14/19 08:00 07/14/19 08:00 07/14/19 08:00 07/14/19 08:00 Intake & Output 07/13/19 07/14/19 07/15/19 06:59 06:59 06:59 Intake Total 2350.2 2919 Output Total 4425 1840 150 Balance -2074.8 1079 -150 Weight 100.1 kg 100.5 kg Weight/Height Weight 100.5 kg Height 5 ft 10 in General appearance: PRESENT: no acute distress, well-developed, well-nourished Respiratory exam: PRESENT: rhonchi, unlabored Cardiovascular exam: PRESENT: RRR GI/Abdominal exam: PRESENT: soft Extremities exam: PRESENT: +1 edema Neurological exam: PRESENT: alert, altered Laboratory/Radiographs Laboratory Results: 07/14/19 04:16 07/14/19 04:16 07/14/19 07/14/19 07/14/19 04:16 04:16 04:16 WBC 5.3 RBC 2.46 L Hgb 9.8 L Hct 28.1 L MCV 114 H MCH 39.8 H MCHC 34.9 RDW 16.3 H Plt Count 156 Sodium 134.4 L Potassium 3.5 L Chloride 95 L Carbon Dioxide 32 H Anion Gap 7 BUN 17 Creatinine 0.65 Est GFR ( Amer) > 60 Glucose 85 Calcium 7.8 L TSH 5.23 H Free T4 0.96 07/08/19 19:52 Blood Blood Culture - Final NO GROWTH IN 5 DAYS 07/08/19 19:05 Blood Blood Culture - Final NO GROWTH IN 5 DAYS 07/03/19 07/03/19 07/04/19 15:38 15:38 05:55 Creatine Kinase 107 233 H CK-MB (CK-2) 1.54 Troponin I 0.116 07/04/19 07/09/19 07/09/19 05:55 02:30 02:30 Creatine Kinase 144 CK-MB (CK-2) 2.95 Troponin I 0.071 0.065 Impressions: Abdomen Ultrasound 07/04/19 00:00 IMPRESSION: No acute findings. Hepatic steatosis. Limitation. Carotid Doppler Study 07/06/19 00:00 IMPRESSION: NO HEMODYNAMICALLY SIGNIFICANT STENOSIS. Head CT 07/08/19 00:00 IMPRESSION: MILD CHRONIC CHANGES OF ATROPHY AND MICROVASCULAR ISCHEMIA. NO ACUTE PROCESS. EVIDENCE OF ACUTE STROKE: NO. KUB X-Ray 07/12/19 00:00 IMPRESSION: Tip of the duotube in the distal stomach or proximal small bowel copyright 2010 [employer]- All Rights Reserved Venous Doppler Study 07/13/19 00:00 IMPRESSION: Short segment acute SVT involving the right and left cephalic veins. Deep venous system is patent bilaterally. Chest X-Ray 07/13/19 08:47 IMPRESSION: Small effusions and basilar atelectasis following extubation. Assessment and Plan - Diagnosis (1) Acute respiratory failure Qualifiers: Respiratory failure complication: hypercapnia Qualified Code(s): J96.02 - Acute respiratory failure with hypercapnia Is this a current diagnosis for this admission?: Yes (2) Pneumonia of both lungs due to methicillin susceptible Staphylococcus aureus (MSSA) Qualifiers: Lung location: unspecified part of lung Qualified Code(s): J15.211 - Pneumonia due to Methicillin susceptible Staphylococcus aureus Is this a current diagnosis for this admission?: Yes (3) Alcohol withdrawal Qualifiers: Complication of substance-induced condition: with delirium Qualified Code(s): F10.231 - Alcohol dependence with withdrawal delirium Is this a current diagnosis for this admission?: Yes (4) COPD (chronic obstructive pulmonary disease) Qualifiers: COPD type: emphysema Emphysema type: centrilobular Qualified Code(s): J43.2 - Centrilobular emphysema Is this a current diagnosis for this admission?: Yes (5) Encephalopathy Is this a current diagnosis for this admission?: Yes Plan Summary: Assessment: Critically ill 69yo man with acute respiratory failure, MSSA PNA, alcohol withdrawal, encephalopathy, COPD, thromboytopenia, aspiration. Plan: 1. Respiratory: acute respiratory failure. Pt extubated 07/12. Stable on nasal cannula. Wean to RA as tolerated. 2. Pulmonary: MSSA PNA, COPD. Continue ancef and duonebs. 3. CV: HTN, h/o CHF. Will give lasix today. Restart home meds: spironolactone, entresto, lopressor. Will consult his workforce development vice president per 's request. 4. ID: MSSA PNA. Continue ancef. Remains febrile. Will repeat blood cultures. 5. Pscyh: ETOH withdrawal, encephalopathy-resolving.. MVI, folic acid, thiamine 6. Nutrition: tube feeds via DHT. speech therapy for swallow eval 7. Endocrine: SSI. TSH mildly elevated, T4 normal. 8. Vascular: bilateral superficial venous thrombosis involving bilateral cephalic veins. No need for anticoagulation. 8. Prophylaxis: sq heparin 9. PT/OT consulted 10. Stable for transfer to [facility] 11. at bedside. Updated on pt condition and plan of care. Critical Time Critical Time (minutes): 0 Level of Care: [facility] -: 1. The care of a critical patient is a dynamic process. This note is a training representative synopsis but static in nature. The timeframe for treatments given in order is not necessarily the actual time these treatments may have been done. 2. This patient requires critical care secondary to ongoing requirements for therapy not offered or safe outside the critical care environment. Transfer to a lower level of care will result in altered life or limb morbidity and mortality. 3. Multidisciplinary rounds completed. 4. ABCDE bundle addressed.
[2019-07-14] MEDS: SACUBITRIL/VALSARTAN 24 MG/26 MG TABLET PO SCH ×2 (12:35→18:23)
--- NOTE | 2019-07-14 19:56 | PDOC CONSULTATION ---
Consultation Consult Date: 07/14/19 Provider Consulted: SLOAN CLEMENT Consult reason:: Heart Failure, Alcoholic Cardiomyopathy History of Present Illness Admission Date/PCP: 07/03/19 21:12 LV PINEDA MD History of Present Illness: ROBIN ANN is a 69 year old male admitted approximately 2 weeks ago after syncopal episode while at PCP office. Was noted that patient was shaking and had reportedly abstained from etoh since the day prior. He is well known to me from our cardiology office. Longstanding history of alcohol abuse and CHF. For months now, his HF has been stable on Toprol ER 25 daily and Entresto 24-26 bid and his BP has been stable. ETOH has been his biggest problem of late and was recently advised to enter into a rehab program. Was to return in the next week for follow up. Today, HF is stable and is about to be started back on his Entresto. Is awaiting bed in step-down unit. He is alert but confused and is at bedside. 07/06/19 Echo - Poor study. Poor apical 4 & apical 2 chamber views, such that no biplane EF could be visually estimated. Min PPE. Ao root is sclerotic, not enlarged. Mild AV sclerosis, no stenosis. Trace AR and severe LVE, LVESD 52mm No MS, no MVP, only mild mitral annular calcification, and no LAE, per PLAX view. LV is severely diseased w/multiple akinetic segs-IVS, basal PW, and hypokinetic lateral and ant wall. Not all segs can be evaluated. Severe systolic & diastolic dysfunction. RH poorly visualized. Mild TR w/no PHTN based on sampled TR. RH size appears enlarged from PLAX view. SUMMARY: Severe LVSD w/severe LVE. Multiple seg wall motion akinesis raising suspicion of ischemic and non-ischemic CM (ETOH by hx) 08/27/18- Holter- Basic rhythm was sinuses with HR 72-117 BPM. Rare PAC's, no PAT, no PA fib. PVC's frequent during hours 11pm -> 6 am. &9-215/hour and less frequent at other hours, no NSVT. no symptom. low PVC burden <1% will tolerate. Summary: Frequent PVC's during sleep hours rule out SAGAR. Total PVC burden as low <1% no medical treament or AAD. 08/15/18-IV OLYA- Myocardial perfusion imaging is very abnormal in terms of severe cardiomegaly. There is no reversible ischemia but a large fixed perfusion defect in the inferior wall. Overall left ventricular systolic function was severely reduced to 14 %. EF 14%, TID 0.90. No prior study for comparison. RECOMMENDATION: to rule out multivessel disease by left heart catheterization, then treat as heart failure with reduced ejection fraction. 05/26/18 R&L HC - Mildly reduced Raul cardiac output @ 4.76, and index of 2.12. Markedly elevated LVEDP of 38 and PAP 52/30 w/mean of 37. Mod PHTN secondary to elevated L heart filling pressures. RCA(dom) w/PDA and mod PLV branch. Minor luminal irreg in RCA. LM (NL), LAD min luminal irreg w/30% stenosis before D3, similar to prior angio. LCx min luminal irreg. No sig CAD. Minor nonobst dis in all three vessels 11/17/14 Cath showed mild CAD 30-40% stenosis, but LVSD EF 45% and global hypokinesis, LVEDP 24mm hence need diuretics and Rx HF and based on his ETOH consumption Past Medical History Cardiac Medical History: Reports: Congestive Heart Failure, Hypertension Psychiatric Medical History: Denies: Depression Hematology: Denies: Anemia, Sickle Cell Disease Social History Smoking Status: Current Every Day Smoker Electronic Cigarette use?: Yes - Quit using Last Time Smoked: 07/03/19 Frequency of Alcohol Use: Heavy Hx Recreational Drug Use: No Drugs: None Hx Prescription Drug Abuse: No - Advance Directive Resuscitation Status: Full Code Family History Family History: Reviewed & Not Pertinent Parental Family History Reviewed: Yes Children Family History Reviewed: Yes Sibling(s) Family History Reviewed.: Yes Medication/Allergy Home Medications: Albuterol Sulfate [Proair HFA Inhalation Aerosol 8.5 gm MDI] 2 puff IH Q6HP PRN 05/23/18 Atorvastatin Calcium [Lipitor 40 mg Tablet] 40 mg PO QHS 05/23/18 Furosemide [Lasix 40 mg Tablet] 40 mg PO QAM 05/23/18 Metformin HCl [Glucophage 500 mg Tablet] 500 mg PO BID 05/23/18 Allopurinol [Zyloprim 300 mg Tablet] 300 mg PO DAILY 07/03/19 Aspirin [Ecotrin 81 mg EC Tablet] 81 mg PO DAILY 07/03/19 Cyanocobalamin (Vitamin B-12) [Vitamin B-12] 1,000 mcg PO BID 07/03/19 Ezetimibe 10 mg PO DAILY 07/03/19 Ibuprofen [Advil] 400 mg PO DAILY 07/03/19 Ibuprofen/Diphenhydramine HCl [Advil Pm Liqui-Gels] 1 each PO QHS 07/03/19 Metoprolol Succinate [Toprol Xl 25 mg Tab.sr] 25 mg PO DAILY 07/03/19 Sacubitril/Valsartan [Entresto 24 mg/26 mg Tablet] 1 tab PO Q12 07/03/19 Spironolactone [Aldactone 25 mg Tablet] 25 mg PO DAILY 07/03/19 Allergies/Adverse Reactions: No Known Allergies Allergy (Verified 05/23/18 13:23) Review of Systems ROS unobtainable: Due to mental status - per , had fever and has hand swelling Constitutional: ABSENT: chills, fever(s), headache(s), weight gain, weight loss Eyes: ABSENT: visual disturbances Ears: ABSENT: hearing changes Cardiovascular: ABSENT: chest pain, dyspnea on exertion, edema, orthropnea, palpitations Respiratory: ABSENT: cough, hemoptysis Gastrointestinal: ABSENT: abdominal pain, constipation, diarrhea, hematemesis, hematochezia, nausea, vomiting Genitourinary: ABSENT: dysuria, hematuria Musculoskeletal: ABSENT: joint swelling Integumentary: ABSENT: rash, wounds Neurological: ABSENT: abnormal gait, abnormal speech, confusion, dizziness, focal weakness, syncope Psychiatric: ABSENT: anxiety, depression, homidical ideation, suicidal ideation Endocrine: ABSENT: cold intolerance, heat intolerance, polydipsia, polyuria Hematologic/Lymphatic: ABSENT: easy bleeding, easy bruising Physical Exam Vital Signs: Temp Pulse Resp BP Pulse Ox 101.3 F H 87 26 H 124/77 96 07/14/19 12:00 07/14/19 12:00 07/14/19 12:00 07/14/19 12:07/14/19 12:00 Intake & Output 07/13/19 07/14/19 07/15/19 06:59 06:59 06:59 Intake Total 2350.2 2919 Output Total 4470 1840 600 Balance -2074.8 1079 -600 Weight 100.1 kg 100.5 kg General appearance: PRESENT: cooperative, well-developed, well-nourished Head exam: PRESENT: atraumatic, normocephalic Eye exam: PRESENT: conjunctiva pink, EOMI, PERRLA. ABSENT: scleral icterus Ear exam: PRESENT: normal external ear exam Mouth exam: PRESENT: moist, tongue midline Neck exam: ABSENT: carotid bruit, JVD, lymphadenopathy, thyromegaly Respiratory exam: PRESENT: rhonchi - scattered. ABSENT: rales, wheezes Cardiovascular exam: PRESENT: RRR. ABSENT: diastolic murmur, rubs, systolic murmur Pulses: PRESENT: normal radial pulses, normal dorsalis pedis pul Vascular exam: PRESENT: normal capillary refill GI/Abdominal exam: PRESENT: normal bowel sounds, soft. ABSENT: distended, guarding, mass, organolmegaly, rebound, tenderness Rectal exam: PRESENT: deferred Extremities exam: PRESENT: full ROM, +1 edema - bilateral hands only. ABSENT: calf tenderness, clubbing, pedal edema Neurological exam: PRESENT: alert, altered, awake, CN II-XII grossly intact. ABSENT: motor sensory deficit Psychiatric exam: PRESENT: appropriate affect, normal mood. ABSENT: homicidal ideation, suicidal ideation Skin exam: PRESENT: dry, intact, warm. ABSENT: cyanosis, rash Results Laboratory Results: 07/14/19 04:16 07/14/19 04:16 07/14/19 07/14/19 07/14/19 04:16 04:16 04:16 WBC 5.3 RBC 2.46 L Hgb 9.8 L Hct 28.1 L MCV 114 H MCH 39.8 H MCHC 34.9 RDW 16.3 H Plt Count 156 Sodium 134.4 L Potassium 3.5 L Chloride 95 L Carbon Dioxide 32 H Anion Gap 7 BUN 17 Creatinine 0.65 Est GFR ( Amer) > 60 Glucose 85 Calcium 7.8 L TSH 5.23 H Free T4 0.96 07/08/19 19:52 Blood Blood Culture - Final NO GROWTH IN 5 DAYS 07/08/19 19:05 Blood Blood Culture - Final NO GROWTH IN 5 DAYS 07/03/19 07/03/19 07/04/19 15:38 15:38 05:55 Creatine Kinase 107 233 H CK-MB (CK-2) 1.54 Troponin I 0.116 07/04/19 07/09/19 07/09/19 05:55 02:30 02:30 Creatine Kinase 144 CK-MB (CK-2) 2.95 Troponin I 0.071 0.065 Impressions: Abdomen Ultrasound 07/04/19 00:00 IMPRESSION: No acute findings. Hepatic steatosis. Limitation. Carotid Doppler Study 07/06/19 00:00 IMPRESSION: NO HEMODYNAMICALLY SIGNIFICANT STENOSIS. Head CT 07/08/19 00:00 IMPRESSION: MILD CHRONIC CHANGES OF ATROPHY AND MICROVASCULAR ISCHEMIA. NO ACUTE PROCESS. EVIDENCE OF ACUTE STROKE: NO. KUB X-Ray 07/12/19 00:00 IMPRESSION: Tip of the duotube in the distal stomach or proximal small bowel copyright 2011 [employer]- All Rights Reserved Venous Doppler Study 07/13/19 00:00 IMPRESSION: Short segment acute SVT involving the right and left cephalic veins. Deep venous system is patent bilaterally. Chest X-Ray 07/13/19 08:47 IMPRESSION: Small effusions and basilar atelectasis following extubation. Assessment & Plan - Diagnosis (1) Heart failure Qualifiers: Heart failure type: systolic Heart failure chronicity: chronic Qualified Code(s): I50.22 - Chronic systolic (congestive) heart failure Is this a current diagnosis for this admission?: Yes Plan: To start back on Entresto 24-26 bid today and will continue other meds as ordered. Consider restarting his PO Lasix 40mg if HF begins to worsen. (2) Alcoholic cardiomyopathy Is this a current diagnosis for this admission?: Yes Plan: He will need to abstain from etoh upon discharge. I have been discussing with pt and his in clinic appointments and here today with that he will need a 30day rehab facility upon discharge. This will be imperative to staying involved with patient's medical care moving forward. His understands and agrees with this but will have this discussion with patient when he is more coherent. (3) Hypertension Qualifiers: Hypertension type: essential hypertension Qualified Code(s): I10 - Essential (primary) hypertension Is this a current diagnosis for this admission?: Yes Plan: Did have HYPOtension initially, Lasix continues to be held. Entresto 24-26mg bid is to be started back today. BP today 124/77, stable. (4) Acute respiratory failure Qualifiers: Respiratory failure complication: hypercapnia Qualified Code(s): J96.02 - Acute respiratory failure with hypercapnia Is this a current diagnosis for this admission?: Yes Plan: Was extubated on 07/12. Pt tolerating NC and to be weaned to RA. (5) Encephalopathy Is this a current diagnosis for this admission?: Yes Plan: Currently alert, confused but per notes is improving. Thought to be alcohol withdrawal. CT w/o acute findings. (6) Pneumonia of both lungs due to methicillin susceptible Staphylococcus aureus (MSSA) Qualifiers: Lung location: unspecified part of lung Qualified Code(s): J15.211 - Pneumonia due to Methicillin susceptible Staphylococcus aureus Is this a current diagnosis for this admission?: Yes Plan: Currently on Ancef, still febrile at 101.3
[2019-07-14] MEDS ORDERED: NICOTINE 21 MG/24 HR PATCH.TD24 ONE (22:50)
[2019-07-14] MEDS ORDERED: NICOTINE 21 MG/24 HR PATCH.TD24 TD ONE (23:30)
[2019-07-15] MEDS: IPRATROPIUM/ALBUTEROL 0.5-2.5 MG/3 ML AMPUL NEB SCH ×4 (02:04→20:54)
[2019-07-15 04:26] LABS: HEMATOCRIT 26.5 % (37.9-51.0); HEMOGLOBIN 9.2 g/dL (13.5-17.0); MEAN CORPUSCULAR HEMOGLOBIN 39.9 pg (27.0-33.4); MEAN CORPUSCULAR HGB CONC 34.8 g/dL (32.0-36.0); PLATELET COUNT 157 10^3/uL (150-450); RED BLOOD COUNT 2.31 10^6/uL (4.35-5.55); RED CELL DISTRIBUTION WIDTH 16.2 % (11.5-14.0); WHITE BLOOD COUNT 6.2 10^3/uL (4.0-10.5)
[2019-07-15 04:42] LABS: ANION GAP 6 (5-19); BLOOD UREA NITROGEN 14 mg/dL (7-20); CALCIUM 7.5 mg/dL (8.4-10.2); CARBON DIOXIDE 32 mmol/L (22-30); CHLORIDE 95 mmol/L (98-107); GLUCOSE 95 mg/dL (75-110); POTASSIUM 3.6 mmol/L (3.6-5.0)
[2019-07-15 04:53] LABS: MEAN CORPUSCULAR VOLUME 115 fl (80-97)
[2019-07-15] MEDS: CEFAZOLIN SODIUM 2 GM in DEXTROSE 5%-WATER 100 ML IV SCH (06:06)
[2019-07-15] MEDS: HEPARIN SOD (PORCINE) 5,000 UNIT/ML 1 ML VIAL SUBCUT SCH ×3 (06:07→21:25)
--- NOTE | 2019-07-15 09:15 | PDOC CRITICAL CARE PROG REPORT ---
General Date:: 07/15/19 - Critical Care Attending Resuscitation Status: Full Code Events in the past 12 to 24 Hours:: reports that pt was confused overnight. Reason for ICU Addmission:: ETOH withdrawal, withdrawal seizure, hypotension. Concern for cardiac status. Still on ventilator for 5 days. Physical Exam Vital Signs: Temp Pulse Resp BP Pulse Ox 101.7 F H 87 28 H 111/79 97 07/15/19 07:48 07/15/19 08:27 07/15/19 08:27 07/15/19 07:48 07/15/19 08:27 Intake & Output 07/14/19 07/15/19 07/16/19 06:59 06:59 06:59 Intake Total 3019 1428 Output Total 1840 1550 Balance 1179 -122 Weight 100.5 kg 97.4 kg Weight/Height Weight 97.4 kg Height 5 ft 10 in General appearance: PRESENT: no acute distress, well-developed, well-nourished Head exam: PRESENT: atraumatic, normocephalic Respiratory exam: PRESENT: clear to auscultation nathaniel, unlabored Cardiovascular exam: PRESENT: RRR GI/Abdominal exam: PRESENT: soft Gentrourinary exam: PRESENT: indwelling catheter Extremities exam: PRESENT: +1 edema Neurological exam: PRESENT: altered Laboratory/Radiographs Laboratory Results: 07/15/19 03:55 07/15/19 03:55 07/15/19 07/15/19 07/15/19 03:55 03:55 03:55 WBC 6.2 RBC 2.31 L Hgb 9.2 L Hct 26.5 L MCV 115 H MCH 39.9 H MCHC 34.8 RDW 16.2 H Plt Count 157 Sodium 133.1 L Potassium 3.6 Chloride 95 L Carbon Dioxide 32 H Anion Gap 6 BUN 14 Creatinine 0.58 Est GFR ( Amer) > 60 Glucose 95 Calcium 7.5 L Albumin 2.3 L 07/03/19 07/03/19 07/04/19 15:38 15:38 05:55 Creatine Kinase 107 233 H CK-MB (CK-2) 1.54 Troponin I 0.116 07/04/19 07/09/19 07/09/19 05:55 02:30 02:30 Creatine Kinase 144 CK-MB (CK-2) 2.95 Troponin I 0.071 0.065 Impressions: Abdomen Ultrasound 07/04/19 00:00 IMPRESSION: No acute findings. Hepatic steatosis. Limitation. Carotid Doppler Study 07/06/19 00:00 IMPRESSION: NO HEMODYNAMICALLY SIGNIFICANT STENOSIS. Head CT 07/08/19 00:00 IMPRESSION: MILD CHRONIC CHANGES OF ATROPHY AND MICROVASCULAR ISCHEMIA. NO ACU TE PROCESS. EVIDENCE OF ACUTE STROKE: NO. KUB X-Ray 07/12/19 00:00 IMPRESSION: Tip of the duotube in the distal stomach or proximal small bowel copyright 2011 [employer]- All Rights Reserved Venous Doppler Study 07/13/19 00:00 IMPRESSION: Short segment acute SVT involving the right and left cephalic veins. Deep venous system is patent bilaterally. Chest X-Ray 07/13/19 08:47 IMPRESSION: Small effusions and basilar atelectasis following extubation. All labs, radiographs, diagnostic studies and EKGs were personally reviewed: Yes Assessment and Plan - Diagnosis (1) Acute respiratory failure Qualifiers: Respiratory failure complication: hypercapnia Qualified Code(s): J96.02 - Acute respiratory failure with hypercapnia Is this a current diagnosis for this admission?: Yes (2) Pneumonia of both lungs due to methicillin susceptible Staphylococcus aureus (MSSA) Qualifiers: Lung location: unspecified part of lung Qualified Code(s): J15.211 - Pneumonia due to Methicillin susceptible Staphylococcus aureus Is this a current diagnosis for this admission?: Yes (3) Alcohol withdrawal Qualifiers: Complication of substance-induced condition: with delirium Qualified Code(s): F10.231 - Alcohol dependence with withdrawal delirium Is this a current diagnosis for this admission?: Yes (4) COPD (chronic obstructive pulmonary disease) Qualifiers: COPD type: emphysema Emphysema type: centrilobular Qualified Code(s): J 43.2 - Centrilobular emphysema Is this a current diagnosis for this admission?: Yes (5) Encephalopathy Is this a current diagnosis for this admission?: Yes Plan Summary: Assessment: Critically ill 69yo man with acute respiratory failure, MSSA PNA, alcohol withdrawal, encephalopathy, COPD, thromboytopenia, aspiration. Plan: 1. Respiratory: acute respiratory failure. Pt extubated 07/12. Stable on nasal cannula. Wean to RA as tolerated. 2. Pulmonary: MSSA PNA, COPD. Pt remains febrile. Will d/c ancef and start zosyn. 3. CV: HTN, h/o CHF. Home meds restarted yesterday: spironolactone, entresto, lopressor. IV lasix yesterday. Will resume home po lasix. Cardilogy consulted. 4. ID: MSSA PNA. ATBX day 6. Remains febrile. Will d/c ancef and start zosyn. Repeat culutres pending. 5. Pscyh: ETOH withdrawal, encephalopathy. MVI, folic acid, thiamine. May need seroquel for his encephalopathy 6. Nutrition: Passed swallow eval yesterday. Will start mechanical soft diet 7. Endocrine: SSI. TSH mildly elevated, T4 normal. 8. Vascular: bilateral superficial venous thrombosis involving bilateral cephal ic veins. No need for anticoagulation. 8. Prophylaxis: sq heparin 9. PT/OT consulted 10. Awaiting transfer to [facility] 11. at bedside. Updated on pt condition and plan of care. Critical Time Critical Time (minutes): 0 Level of Care: [facility] -: 1. The care of a critical patient is a dynamic process. This note is a customer engagement representative synopsis but static in nature. The timeframe for treatments given in order is not necessarily the actual time these treatments may have been done. 2. This patient requires critical care secondary to ongoing requirements for therapy not offered or safe outside the critical care environment. Transfer to a lower level of care will result in altered life or limb morbidity and mortality. 3. Multidisciplinary rounds completed. 4. ABCDE bundle addressed.
[2019-07-15] MEDS: METOPROLOL TARTRATE 25 MG TABLET PO SCH (09:18)
[2019-07-15] MEDS: FOLIC ACID 1 MG TABLET PO SCH (09:18)
[2019-07-15] MEDS: THIAMINE HCL 100 MG TABLET PO SCH (09:18)
[2019-07-15] MEDS: ASPIRIN 81 MG TABLET, CHEWABLE PO SCH (09:18)
[2019-07-15] MEDS: MULTIVITAMIN TABLET PO SCH (09:18)
[2019-07-15] MEDS: PIPERACILLIN SODIUM/TAZOBACTAM 3.375 GM in NORMAL SALINE 100 ML IV SCH ×3 (09:18→21:25)
[2019-07-15] MEDS: SPIRONOLACTONE 25 MG TABLET PO SCH (09:18)
[2019-07-15] MEDS: NICOTINE 21 MG/24 HR PATCH.TD24 TD SCH (09:50)
[2019-07-15] MEDS: FUROSEMIDE 40 MG TABLET PO SCH (09:50)
[2019-07-15] MEDS: SACUBITRIL/VALSARTAN 24 MG/26 MG TABLET PO SCH ×2 (09:50→21:26)
[2019-07-15] MEDS: QUETIAPINE FUMARATE 25 MG TABLET PO SCH (15:21)
--- NOTE | 2019-07-15 20:50 | PDOC PROGRESS REPORT ---
Subjective Progress Note for:: 07/15/19 Subjective:: HF stable, has resumed home meds with exception of his Metoprolol Succ 25mg daily dosage. He is currently on Metoprolol Tart 25 bid. Will change that today back to his home dose of Metoprolol Succ 25mg daily. Reason For Visit: HYPOTENSION,ETOH WITHDRAWAL Physical Exam Vital Signs: Temp Pulse Resp BP Pulse Ox 100.9 F H 87 27 H 106/85 96 07/15/19 11:00 07/15/19 08:27 07/15/19 11:00 07/15/19 10:55 07/15/19 11:00 Intake & Output 07/14/19 07/15/19 07/16/19 06:59 06:59 06:59 Intake Total 3019 1428 Output Total 1840 1550 175 Balance 1179 -122 -175 Weight 100.5 kg 97.4 kg General appearance: PRESENT: no acute distress - tremulous, morbidly obese, well-developed Head exam: PRESENT: atraumatic, normocephalic Eye exam: PRESENT: EOMI, PERRLA Mouth exam: PRESENT: dry mucosa Respiratory exam: PRESENT: rhonchi, unlabored Cardiovascular exam: PRESENT: RRR - intermittent PACs, systolic murmur - 1/6 Vascular exam: PRESENT: normal capillary refill GI/Abdominal exam: PRESENT: normal bowel sounds, soft. ABSENT: distended, guarding, mass, organolmegaly, rebound, tenderness Extremities exam: PRESENT: pedal edema - Trace Musculoskeletal exam: PRESENT: full ROM Neurological exam: PRESENT: altered, awake, oriented to person Skin exam: PRESENT: intact Results Laboratory Results: 07/15/19 03:55 07/15/19 03:55 07/15/19 07/15/19 07/15/19 03:55 03:55 03:55 WBC 6.2 RBC 2.31 L Hgb 9.2 L Hct 26.5 L MCV 115 H MCH 39.9 H MCHC 34.8 RDW 16.2 H Plt Count 157 Sodium 133.1 L Potassium 3.6 Chloride 95 L Carbon Dioxide 32 H Anion Gap 6 BUN 14 Creatinine 0.58 Est GFR ( Amer) > 60 Glucose 95 Calcium 7.5 L Albumin 2.3 L 07/03/19 07/03/19 07/04/19 15:38 15:38 05:55 Creatine Kinase 107 233 H CK-MB (CK-2) 1.54 Troponin I 0.116 07/04/19 07/09/19 07/09/19 05:55 02:30 02:30 Creatine Kinase 144 CK-MB (CK-2) 2.95 Troponin I 0.071 0.065 Impressions: Abdomen Ultrasound 07/04/19 00:00 IMPRESSION: No acute findings. Hepatic steatosis. Limitation. Carotid Doppler Study 07/06/19 00:00 IMPRESSION: NO HEMODYNAMICALLY SIGNIFICANT STENOSIS. Head CT 07/08/19 00:00 IMPRESSION: MILD CHRONIC CHANGES OF ATROPHY AND MICROVASCULAR ISCHEMIA. NO ACUTE PROCESS. EVIDENCE OF ACUTE STROKE: NO. KUB X-Ray 07/12/19 00:00 IMPRESSION: Tip of the duotube in the distal stomach or proximal small bowel copyright 2011 [email or web address]- All Rights Reserved Venous Doppler Study 07/13/19 00:00 IMPRESSION: Short segment acute SVT involving the right and left cephalic vei ns. Deep venous system is patent bilaterally. Chest X-Ray 07/13/19 08:47 IMPRESSION: Small effusions and basilar atelectasis following extubation. Assessment & Plan - Diagnosis (1) Heart failure Qualifiers: Heart failure type: systolic Heart failure chronicity: chronic Qualified Code(s): I50.22 - Chronic systolic (congestive) heart failure Is this a current diagnosis for this admission?: Yes Plan: HF has been stable. Has resumed home meds with exception of home dose of Metop Succ 25 daily which will be started tomorrow. Check NTBNP. (2) Alcoholic cardiomyopathy Is this a current diagnosis for this admission?: Yes (3) Hypertension Qualifiers: Hypertension type: essential hypertension Qualified Code(s): I10 - Essential (primary) hypertension Is this a current diagnosis for this admission?: Yes Plan: BP has been stable. (4) Acute respiratory failure Qualifiers: Respiratory failure complication: hypercapnia Qualified Code(s): J96.02 - Acute respiratory failure with hypercapnia Is this a current diagnosis for this admission?: Yes (5) Encephalopathy Is this a current diagnosis for this admission?: Yes (6) Pneumonia of both lungs due to methicillin susceptible Staphylococcus aureus (MSSA) Qualifiers: Lung location: unspecified part of lung Qualified Code(s): J15.211 - P neumonia due to Methicillin susceptible Staphylococcus aureus Is this a current diagnosis for this admission?: Yes (7) Wernicke encephalopathy Is this a current diagnosis for this admission?: Yes Plan: Currently being treated with Thiamine. Will check Vitamin B12 and folate.
[2019-07-16] MEDS: PIPERACILLIN SODIUM/TAZOBACTAM 3.375 GM in NORMAL SALINE 100 ML IV SCH ×4 (02:01→20:07)
[2019-07-16] MEDS: IPRATROPIUM/ALBUTEROL 0.5-2.5 MG/3 ML AMPUL NEB SCH ×4 (02:33→21:25)
[2019-07-16 04:46] LABS: HEMOGLOBIN 9.3 g/dL (13.5-17.0); MEAN CORPUSCULAR HEMOGLOBIN 39.4 pg (27.0-33.4); MEAN CORPUSCULAR HGB CONC 34.4 g/dL (32.0-36.0); MEAN CORPUSCULAR VOLUME 115 fl (80-97); PLATELET COUNT 200 10^3/uL (150-450); RED BLOOD COUNT 2.36 10^6/uL (4.35-5.55)
[2019-07-16 04:56] LABS: ANION GAP 8 (5-19); BLOOD UREA NITROGEN 12 mg/dL (7-20); CALCIUM 7.8 mg/dL (8.4-10.2); CARBON DIOXIDE 34 mmol/L (22-30); CHLORIDE 94 mmol/L (98-107); GLUCOSE 88 mg/dL (75-110); POTASSIUM 3.5 mmol/L (3.6-5.0)
[2019-07-16] MEDS: HEPARIN SOD (PORCINE) 5,000 UNIT/ML 1 ML VIAL SUBCUT SCH ×3 (05:59→21:56)
[2019-07-16] MEDS ORDERED: POTASSIUM CHLORIDE 20 MEQ PACKET PO ONE ×2 (07:11→12:00)
--- NOTE | 2019-07-16 10:25 | PDOC CRITICAL CARE PROG REPORT ---
General Date:: 07/16/19 - Critical Care Attending Note Resuscitation Status: Full Code Events in the past 12 to 24 Hours:: Pt remains in the ICU awaiting an IMCU bed. Had a run on NSVT. tells me that this common for him. also reports that pt slept well after getting the seroquel, but when he woke up, he was agitated and wanted to get out of bed. Reason for ICU Addmission:: ETOH withdrawal, withdrawal seizure, hypotension. Concern for cardiac status. Still on ventilator for 5 days. - Medications: Medications reviewed and adjusted accordingly: Yes Physical Exam Vital Signs: Temp Pulse Resp BP Pulse Ox 100.4 F 92 27 H 127/80 H 97 07/16/19 07:24 07/16/19 08:47 07/16/19 08:47 07/16/19 07:24 07/16/19 08:47 Intake & Output 07/15/19 07/16/19 07/17/19 06:59 06:59 06:59 Intake Total 1428 500 Output Total 1550 1500 Balance -122 -1000 Weight 97.4 kg 96.2 kg Weight/Height Weight 96.2 kg Height 5 ft 10 in General appearance: PRESENT: no acute distress, well-developed, well-nourished, other - somnolent, but arousable. Head exam: PRESENT: atraumatic, normocephalic Respiratory exam: PRESENT: clear to auscultation nathaniel, unlabored Cardiovascular exam: PRESENT: RRR GI/Abdominal exam: PRESENT: soft, other - obese Gentrourinary exam: PRESENT: indwelling catheter Extremities exam: PRESENT: other - trace pre-tibial edema Musculoskeletal exam: PRESENT: normal inspection Laboratory/Radiographs Laboratory Results: 07/16/19 04:29 07/16/19 04:29 07/16/19 07/16/19 07/16/19 04:29 04:29 04:29 WBC 6.0 RBC 2.36 L Hgb 9.3 L Hct 27.0 L MCV 115 H MCH 39.4 H MCHC 34.4 RDW 16.0 H Plt Count 200 Sodium 135.8 L Potassium 3.5 L Chloride 94 L Carbon Dioxide 34 H Anion Gap 8 BUN 12 Creatinine 0.58 Est GFR ( Amer) > 60 Glucose 88 Calcium 7.8 L Magnesium 1.4 L Vitamin B12 > 1000.0 H Folate 16.00 07/14/19 12:07 Blood Blood Culture (PCR) - Final Staphylococcus Species 07/03/19 07/03/19 07/04/19 15:38 15:38 05:55 Creatine Kinase 107 233 H CK-MB (CK-2) 1.54 Troponin I 0.116 NT-Pro-B Natriuret Pep 07/04/19 07/09/19 07/09/19 05:55 02:30 02:30 Creatine Kinase 144 CK-MB (CK-2) 2.95 Troponin I 0.071 0.065 NT-Pro-B Natriuret Pep 07/16/19 04:29 Creatine Kinase CK-MB (CK-2) Troponin I NT-Pro-B Natriuret Pep 3870 H Impressions: Abdomen Ultrasound 07/04/19 00:00 IMPRESSION: No acute findings. Hepatic steatosis. Limitation. Carotid Doppler Study 07/06/19 00:00 IMPRESSION: NO HEMODYNAMICALLY SIGNIFICANT STENOSIS. Head CT 07/08/19 00:00 IMPRESSION: MILD CHRONIC CHANGES OF ATROPHY AND MICROVASCULAR ISCHEMIA. NO ACUTE PROCESS. EVIDENCE OF ACUTE STROKE: NO. KUB X-Ray 07/12/19 00:00 IMPRESSION: Tip of the duotube in the distal stomach or proximal small bowel copyright 2011 [employer]- All Rights Reserved Venous Doppler Study 07/13/19 00:00 IMPRESSION: Short segment acute SVT involving the right and left cephalic veins. Deep venous system is patent bilaterally. Chest X-Ray 07/13/19 08:47 IMPRESSION: Small effusions and basilar atelectasis following extubation. Assessment and Plan - Diagnosis (1) Acute respiratory failure Qualifiers: Respiratory failure complication: hypercapnia Qualified Code(s): J96.02 - Acute respiratory failure with hypercapnia Is this a current diagnosis for this admission?: Yes (2) Pneumonia of both lungs due to methicillin susceptible Staphylococcus aureus (MSSA) Qualifiers: Lung location: unspecified part of lung Qualified Code(s): J15.211 - Pneumonia due to Methicillin susceptible Staphylococcus aureus Is this a current diagnosis for this admission?: Yes (3) Alcohol withdrawal Qualifiers: Complication of substance-induced condition: with delirium Qualified Code(s): F10.231 - Alcohol dependence with withdrawal delirium Is this a current diagnosis for this admission?: Yes (4) COPD (chronic obstructive pulmonary disease) Qualifiers: COPD type: emphysema Emphysema type: centrilobular Qualified Code(s): J43 .2 - Centrilobular emphysema Is this a current diagnosis for this admission?: Yes (5) Encephalopathy Is this a current diagnosis for this admission?: Yes Plan Summary: Assessment: Critically ill 69yo man with acute respiratory failure, MSSA PNA, alcohol withdrawal, encephalopathy, COPD, thromboytopenia, aspiration. Plan: 1. Respiratory: acute respiratory failure. Pt extubated 07/12. Stable on nasal cannula. Wean to RA as tolerated. 2. Pulmonary: MSSA PNA, COPD. ATBX Day 7, Day 2 zosyn. Continue bronchodilators 3. CV: HTN, h/o CHF. Home meds restarted yesterday: spironolactone, entresto, Toprol XL, lasix. NSVT overnight. Replacing potassium and magnesium today. EKG ordered 4. ID: MSSA PNA. ATBX day 7. Remains febrile. Day 2 Zosyn.Repeat blood culture positive for coag neg staph. Probable contaminant. 5. Pscyh: ETOH withdrawal. Toxic-metabolic encephalopathy. Seroquel started yesterday. On MVI, folic acid, thiamine. 6. Nutrition: Passed swallow eval. Mechanical soft diet. Po intake is poor due to somonlence. Staff encouraged to encourage po intake. D/C NGT. 7. Endocrine: SSI. 8. Vascular: bilateral superficial venous thrombosis involving bilateral cephalic veins. No need for anticoagulation. 8. Prophylaxis: sq heparin 9. PT/OT consulted 10. Awaiting transfer to [facility] 11. at bedside. Updated on pt condition and plan of care. Critical Time Critical Time (minutes): 0 Level of Care: [facility] -: 1. The care of a critical patient is a dynamic process. This note is a administrative representative synopsis but static in nature. The timeframe for treatments given in order is not necessarily the actual time these treatments may have been done. 2. This patient requires critical care secondary to ongoing requirements for therapy not offered or safe outside the critical care environment. Transfer to a lower level of care will result in altered life or limb morbidity and mortality. 3. Multidisciplinary rounds completed. 4. ABCDE bundle addressed.
[2019-07-16 11:11] LABS: PATH REVIEW PATHOLOGIST REVIEWED
[2019-07-16] MEDS: SACUBITRIL/VALSARTAN 24 MG/26 MG TABLET PO SCH ×2 (11:43→20:10)
[2019-07-16] MEDS: PHENOL/SODIUM PHENOLATE 100 SPRAY/177 ML BOTTLE PO PRN (11:43)
[2019-07-16] MEDS: NICOTINE 21 MG/24 HR PATCH.TD24 TD SCH (11:43)
[2019-07-16] MEDS: METOPROLOL SUCCINATE 25 MG TAB.SR.24H PO SCH (11:44)
[2019-07-16] MEDS: FUROSEMIDE 40 MG TABLET PO SCH (11:44)
[2019-07-16] MEDS: ASPIRIN 81 MG TABLET, CHEWABLE PO SCH (11:44)
[2019-07-16] MEDS: MULTIVITAMIN TABLET PO SCH (11:44)
[2019-07-16] MEDS: SPIRONOLACTONE 25 MG TABLET PO SCH (11:44)
[2019-07-16] MEDS: FOLIC ACID 1 MG TABLET PO SCH (11:45)
[2019-07-16] MEDS: THIAMINE HCL 100 MG TABLET PO SCH (11:45)
[2019-07-16] MEDS: MAGNESIUM SULFATE/D5W 1 GM/100 ML RTUPB IV SCH ×2 (11:48→15:01)
[2019-07-16] MEDS ORDERED: MAGNESIUM SULFATE/D5W 1 GM/100 ML RTUPB IV SCH (15:00)
[2019-07-16] MEDS ORDERED: POTASSIUM CHLORIDE 10 MEQ TABLET.ER PO ONE (15:00)
--- NOTE | 2019-07-16 19:52 | PDOC PROGRESS REPORT ---
Subjective Progress Note for:: 07/16/19 Subjective:: Unchanged status. Swelling in hands beginning to decrease. Remains on Heparin for superficial venous thrombosis in bilateral cephalic veins. Still confused, taking meds PO now. No labored breathing or leg swelling. Reason For Visit: HYPOTENSION,ETOH WITHDRAWAL Physical Exam Vital Signs: Temp Pulse Resp BP Pulse Ox 100.8 F H 92 22 H 104/73 99 07/16/19 11:00 07/16/19 08:47 07/16/19 11:00 07/16/19 10:55 07/16/19 11:00 Intake & Output 07/15/19 07/16/19 07/17/19 06:59 06:59 06:59 Intake Total 1428 500 Output Total 1550 1500 Balance -122 -1000 Weight 97.4 kg 96.2 kg General appearance: PRESENT: no acute distress, cooperative Head exam: PRESENT: atraumatic, normocephalic Respiratory exam: PRESENT: rhonchi, unlabored Cardiovascular exam: PRESENT: systolic murmur - 1/6 Vascular exam: PRESENT: normal capillary refill Extremities exam: PRESENT: pedal edema - trace, other - bilateral upper hands/forearms with decreased swelling Musculoskeletal exam: PRESENT: full ROM Neurological exam: PRESENT: alert, altered, awake Skin exam: PRESENT: intact Results Laboratory Results: 07/16/19 04:29 07/16/19 04:29 07/16/19 07/16/19 07/16/19 04:29 04:29 04:29 WBC 6.0 RBC 2.36 L Hgb 9.3 L Hct 27.0 L MCV 115 H MCH 39.4 H MCHC 34.4 RDW 16.0 H Plt Count 200 Sodium 135.8 L Potassium 3.5 L Chloride 94 L Carbon Dioxide 34 H Anion Gap 8 BUN 12 Creatinine 0.58 Est GFR ( Amer) > 60 Glucose 88 Calcium 7.8 L Magnesium 1.4 L Vitamin B12 > 1000.0 H Folate 16.00 07/14/19 12:07 Blood Blood Culture (PCR) - Final Staphylococcus Species 07/03/19 07/03/19 07/04/19 15:38 15:38 05:55 Creatine Kinase 107 233 H CK-MB (CK-2) 1.54 Troponin I 0.116 NT-Pro-B Natriuret Pep 07/04/19 07/09/19 07/09/19 05:55 02:30 02:30 Creatine Kinase 144 CK-MB (CK-2) 2.95 Troponin I 0.071 0.065 NT-Pro-B Natriuret Pep 07/16/19 04:29 Creatine Kinase CK-MB (CK-2) Troponin I NT-Pro-B Natriuret Pep 3870 H Impressions: Abdomen Ultrasound 07/04/19 00:00 IMPRESSION: No acute findings. Hepatic steatosis. Limitation. Carotid Doppler Study 07/06/19 00:00 IMPRESSION: NO HEMODYNAMICALLY SIGNIFICANT STENOSIS. Head CT 07/08/19 00:00 IMPRESSION: MILD CHRONIC CHANGES OF ATROPHY AND MICROVASCULAR ISCHEMIA. NO ACUTE PROCESS. EVIDENCE OF ACUTE STROKE: NO. KUB X-Ray 07/12/19 00:00 IMPRESSION: Tip of the duotube in the distal stomach or proximal small bowel copyright 2011 [employer]- All Rights Reserved Venous Doppler Study 07/13/19 00:00 IMPRESSION: Short segment acute SVT involving the right and left cephalic veins. Deep venous system is patent bilaterally. Chest X-Ray 07/13/19 08:47 IMPRESSION: Small effusions and basilar atelectasis following extubation. Assessment & Plan - Diagnosis (1) Heart failure Qualifiers: Heart failure type: systolic Heart failure chronicity: acute on chronic Qualified Code(s): I50.23 - Acute on chronic systolic (congestive) heart failure Is this a current diagnosis for this admission?: Yes Plan: Just resumed home meds, NTBNP elevated from previous, to be expected, was off his regular meds x2wks. Will plan to repeat. (2) Alcoholic cardiomyopathy Is this a current diagnosis for this admission?: Yes Plan: Again, must plan on rehab post-hospital (3) Hypertension Qualifiers: Hypertension type: essential hypertension Qualified Code(s): I10 - Essential (primary) hypertension Is this a current diagnosis for this admission?: Yes Plan: cont current meds, stable (4) Acute respiratory failure Qualifiers: Respiratory failure complication: hypercapnia Qualified Code(s): J96.02 - Acute respiratory failure with hypercapnia Is this a current diagnosis for this admission?: Yes (5) Encephalopathy Is this a current diagnosis for this admission?: Yes Plan: unchanged, remains on Thiamine (6) Pneumonia of both lungs due to methicillin susceptible Staphylococcus aureus (MSSA) Qualifiers: Lung location: unspecified part of lung Qualified Code(s): J15.211 - Pneumonia due to Methicillin susceptible Staphylococcus aureus Is this a current diagnosis for this admission?: Yes (7) Wernicke encephalopathy Is this a current diagnosis for this admission?: Yes Plan: unchanged, remains on Thiamine (8) Thrombophlebitis arm Plan: Continues on Heparin. Bilateral hand/arm swelling beginning to improve. Need to consult hem/onc to determine if patient will need short/exterminator helper termite anticoagulant moving forward.
[2019-07-16] MEDS: QUETIAPINE FUMARATE 25 MG TABLET PO SCH (20:10)
[2019-07-16] MEDS ORDERED: QUETIAPINE FUMARATE 25 MG TABLET PO ONE (21:00)
[2019-07-17] MEDS: PIPERACILLIN SODIUM/TAZOBACTAM 3.375 GM in NORMAL SALINE 100 ML IV SCH ×4 (02:11→21:48)
[2019-07-17] MEDS: IPRATROPIUM/ALBUTEROL 0.5-2.5 MG/3 ML AMPUL NEB SCH ×4 (02:34→20:43)
[2019-07-17 04:30] LABS: HEMATOCRIT 25.1 % (37.9-51.0); HEMOGLOBIN 8.7 g/dL (13.5-17.0); MEAN CORPUSCULAR HEMOGLOBIN 39.8 pg (27.0-33.4); MEAN CORPUSCULAR HGB CONC 34.7 g/dL (32.0-36.0); MEAN CORPUSCULAR VOLUME 115 fl (80-97); PLATELET COUNT 231 10^3/uL (150-450); RED BLOOD COUNT 2.19 10^6/uL (4.35-5.55); RED CELL DISTRIBUTION WIDTH 15.9 % (11.5-14.0); WHITE BLOOD COUNT 5.2 10^3/uL (4.0-10.5)
[2019-07-17 04:40] LABS: ANION GAP 7 (5-19); BLOOD UREA NITROGEN 9 mg/dL (7-20); CARBON DIOXIDE 30 mmol/L (22-30); CHLORIDE 100 mmol/L (98-107); GLUCOSE 88 mg/dL (75-110); POTASSIUM 3.8 mmol/L (3.6-5.0)
[2019-07-17] MEDS: HEPARIN SOD (PORCINE) 5,000 UNIT/ML 1 ML VIAL SUBCUT SCH ×3 (05:15→21:51)
[2019-07-17] MEDS ORDERED: MAGNESIUM SULFATE 4 GM/100 ML RTUPB IV ONE (05:18)
[2019-07-17] MEDS: MAGNESIUM SULFATE/D5W 1 GM/100 ML RTUPB IV SCH ×4 (05:28→09:26)
--- NOTE | 2019-07-17 08:55 | RADIOLOGY REPORT (SQ) ---
EXAM DESCRIPTION: VENOUS BILATERAL LOWER COMPLETED DATE/TIME: 07/16/2019 7:35 pm REASON FOR STUDY: edema COMPARISON: Venous Doppler from 07/13/2019. TECHNIQUE: Dynamic and static chao scale and color images acquired of both lower extremity venous sy stems. Selected spectral images acquired with additional compression and augmentation maneuvers. Imag es stored on PACS. LIMITATIONS: None. FINDINGS: RIGHT LEG COMMON FEMORAL AND FEMORAL: Normal phasicity, compression and augmentation. No visualized echogenic m aterial on chao scale. No defects on color images. POPLITEAL: Normal compression and augmentation. No visualized echogenic material on chao scale. No de fects on color images. CALF VESSELS: Normal compression and augmentation. No visualized echogenic material on chao scale. No defects on color image. GSV AND SSV: Normal compression. No visualized echogenic material on chao scale. No defects on color images. ANY DEEP VENOUS INSUFFICIENCY: No. ANY EVIDENCE OF POPLITEAL CYST: No. OTHER: No other finding. LEFT LEG COMMON FEMORAL AND FEMORAL: Normal phasicity, compression and augmentation. No visualized echogenic m aterial on chao scale. No defects on color images. POPLITEAL: Normal compression and augmentation. No visualized echogenic material on chao scale. No de fects on color images. CALF VESSELS: Normal compression and augmentation. No visualized echogenic material on chao scale. No defects on color images. GSV AND SSV: Normal compression. No visualized echogenic material on chao scale. No defects on color images. ANY DEEP VENOUS INSUFFICIENCY: No. ANY EVIDENCE POPLITEAL CYST: No. OTHER: No other finding. IMPRESSION: NO EVIDENCE DVT OR SVT IN EITHER LEG. TECHNICAL DOCUMENTATION: JOB ID: [id number] [employer]- All Rights Reserved Reading location - IP/workstation name: [email or web address]
[2019-07-17] MEDS: MULTIVITAMIN TABLET PO SCH (09:24)
[2019-07-17] MEDS: SACUBITRIL/VALSARTAN 24 MG/26 MG TABLET PO SCH ×2 (09:24→17:14)
[2019-07-17] MEDS: THIAMINE HCL 100 MG TABLET PO SCH (09:24)
[2019-07-17] MEDS: SPIRONOLACTONE 25 MG TABLET PO SCH (09:24)
[2019-07-17] MEDS: METOPROLOL SUCCINATE 25 MG TAB.SR.24H PO SCH (09:25)
[2019-07-17] MEDS: ASPIRIN 81 MG TABLET, CHEWABLE PO SCH (09:25)
[2019-07-17] MEDS: NICOTINE 21 MG/24 HR PATCH.TD24 TD SCH (09:25)
[2019-07-17] MEDS: FUROSEMIDE 40 MG TABLET PO SCH (09:25)
--- NOTE | 2019-07-17 09:41 | RADIOLOGY REPORT (SQ) ---
EXAM DESCRIPTION: CHEST SINGLE VIEW COMPLETED DATE/TIME: 07/17/2019 9:02 am REASON FOR STUDY: Pneumonia COMPARISON: AP view of the chest from 07/13/2019. EXAM PARAMETERS: NUMBER OF VIEWS: AP view of the chest from 07/13/2019. TECHNIQUE: An AP view of the chest was obtained. RADIATION DOSE: NA LIMITATIONS: None. FINDINGS: LUNGS AND PLEURA: Bibasilar pleural and parenchymal and parenchymal opacities that could r epresent a combination of pleural fluid, atelectasis and or consolidation. There is no pneumothorax. MEDIASTINUM AND HILAR STRUCTURES: Stable mediastinal and hilar contours. HEART AND VASCULAR STRUCTURES: Stable cardiac silhouette. BONES: No acute findings. HARDWARE: The tip of the enteric tube projects past the gastroesophageal junction and outside the fie ld of view of the radiograph. OTHER: No other finding. IMPRESSION: Unchanged radiographic appearance of the chest. TECHNICAL DOCUMENTATION: JOB ID: [id number] [employer]- All Rights Reserved Reading location - IP/workstation name: [email or web address]
[2019-07-17] MEDS: FOLIC ACID 1 MG TABLET PO SCH (09:57)
--- NOTE | 2019-07-17 10:15 | PDOC CRITICAL CARE PROG REPORT ---
General Date:: 07/17/19 - Critical Care Attending Note Resuscitation Status: Full Code Events in the past 12 to 24 Hours:: states pt did better overnight. states pt ambulated with PT today. Reason for ICU Addmission:: ETOH withdrawal, withdrawal seizure, hypotension. Concern for cardiac status. Still on ventilator for 5 days. - Medications: Medications reviewed and adjusted accordingly: Yes Physical Exam Vital Signs: Temp Pulse Resp BP Pulse Ox 98.2 F 84 24 H 111/74 100 07/17/19 08:00 07/17/19 08:00 07/17/19 08:00 07/17/19 08:00 07/17/19 08:00 Intake & Output 07/16/19 07/17/19 07/18/19 06:59 06:59 06:59 Intake Total 500 1150 200 Output Total 1500 3200 210 Balance -999 -2049 Weight 96.2 kg 94.4 kg Weight/Height Weight 94.4 kg Height 5 ft 10 in General appearance: PRESENT: no acute distress, well-developed, well-nourished, other - sleepy but arousable. Head exam: PRESENT: atraumatic, normocephalic Respiratory exam: PRESENT: clear to auscultation nathaniel, unlabored Cardiovascular exam: PRESENT: RRR GI/Abdominal exam: PRESENT: soft Gentrourinary exam: PRESENT: indwelling catheter Extremities exam: PRESENT: other - trace pre-tibial edema Neurological exam: PRESENT: other - asleep, but easily arousable Laboratory/Radiographs Laboratory Results: 07/17/19 03:54 07/17/19 03:54 07/17/19 07/17/19 03:54 03:54 WBC 5.2 RBC 2.19 L Hgb 8.7 L Hct 25.1 L MCV 115 H MCH 39.8 H MCHC 34.7 RDW 15.9 H Plt Count 231 Sodium 137.0 Potassium 3.8 Chloride 100 Carbon Dioxide 30 Anion Gap 7 BUN 9 Creatinine 0.57 Est GFR ( Amer) > 60 Glucose 88 Calcium 8.0 L Magnesium 1.6 07/14/19 12:07 Blood Blood Culture (PCR) - Final Staphylococcus Species 07/03/19 07/03/19 07/04/19 15:38 15:38 05:55 Creatine Kinase 107 233 H CK-MB (CK-2) 1.54 Troponin I 0.116 NT-Pro-B Natriuret Pep 07/04/19 07/09/19 07/09/19 05:55 02:30 02:30 Creatine Kinase 144 CK-MB (CK-2) 2.95 Troponin I 0.071 0.065 NT-Pro-B Natriuret Pep 07/16/19 04:29 Creatine Kinase CK-MB (CK-2) Troponin I NT-Pro-B Natriuret Pep 3870 H Impressions: Abdomen Ultrasound 07/04/19 00:00 IMPRESSION: No acute findings. Hepatic steatosis. Limitation. Carotid Doppler Study 07/06/19 00:00 IMPRESSION: NO HEMODYNAMICALLY SIGNIFICANT STENOSIS. Head CT 07/08/19 00:00 IMPRESSION: MILD CHRONIC CHANGES OF ATROPHY AND MICROVASCULAR ISCHEMIA. NO ACUTE PROCESS. EVIDENCE OF ACUTE STROKE: NO. KUB X-Ray 07/12/19 00:00 IMPRESSION: Tip of the duotube in the distal stomach or proximal small bowel copyright 2011 [employer]- All Rights Reserved Venous Doppler Study 07/16/19 00:00 IMPRESSION: NO EVIDENCE DVT OR SVT IN EITHER LEG. Chest X-Ray 07/17/19 00:00 IMPRESSION: Unchanged radiographic appearance of the chest. All labs, radiographs, diagnostic studies and EKGs were personally reviewed: Yes Assessment and Plan - Diagnosis (1) Acute respiratory failure Qualifiers: Respiratory failure complication: hypercapnia Qualified Code(s): J96.02 - Acute respiratory failure with hypercapnia Is this a current diagnosis for this admission?: Yes (2) Pneumonia of both lungs due to methicillin susceptible Staphylococcus aureus (MSSA) Qualifiers: Lung location: unspecified part of lung Qualified Code(s): J15.211 - Pneumonia due to Methicillin susceptible Staphylococcus aureus Is this a current diagnosis for this admission?: Yes (3) Alcohol withdrawal Qualifiers: Complication of substance-induced condition: with delirium Qualified Code(s): F10.231 - Alcohol dependence with withdrawal delirium Is this a current diagnosis for this admission?: Yes (4) COPD (chronic obstructive pulmonary disease) Qualifiers: COPD type: emphysema Emphysema type: centrilobular Qualified Code(s): J43.2 - Centrilobular emphysema Is this a current diagnosis for this admission?: Yes (5) Encephalopathy Is this a current diagnosis for this admission?: Yes Plan Summary: Assessment: Critically ill 69yo man with acute respiratory failure, MSSA PNA, alcohol withdrawal, encephalopathy, COPD, thromboytopenia, aspiration. Plan: 1. Respiratory: acute respiratory failure. Pt extubated 07/12. Stable on nasal cannula. Wean to RA as tolerated. 2. Pulmonary: MSSA PNA, COPD. ATBX Day 8, Day 3 zosyn. Continue bronchodilators 3. CV: HTN, h/o CHF. On home cardiac med. spironolactone, entresto, Toprol XL, lasix. Cardiology following. 4. ID: MSSA PNA. ATBX day 8. Day 3 Zosyn.Repeat blood culture positive for coag neg staph. Probable contaminant. 5. Pscyh: ETOH withdrawal. Toxic-metabolic encephalopathy, resolving. Continue seroquel. On MVI, folic acid, thiamine. 6. Nutrition: Passed swallow eval. Mechanical soft diet. Po intake is poor due to somonlence. Staff encouraged to encourage po intake. D/C NGT. 7. Endocrine: SSI. 8. Vascular: bilateral superficial venous thrombosis involving bilateral cephalic veins. LE doppler negative for DVT. No need for systemic anticoagulation. 8. Prophylaxis: sq heparin 9. PT/OT consulted 10. Awaiting transfer to [facility]. Awaiting placement to inpt rehab facility. 11. at bedside. Updated on pt condition and plan of care. Critical Time Critical Time (minutes): 0 Level of Care: [facility] -: 1. The care of a critical patient is a dynamic process. This note is a claim representative synopsis but static in nature. The timeframe for treatments given in order is not necessarily the actual time these treatments may have been done. 2. This patient requires critical care secondary to ongoing requirements for therapy not offered or safe outside the critical care environment. Transfer to a lower level of care will result in altered life or limb morbidity and mortality. 3. Multidisciplinary rounds completed. 4. ABCDE bundle addressed.
--- NOTE | 2019-07-17 12:55 | EKG REPORT ---
SEVERITY:- ABNORMAL ECG - SINUS RHYTHM NONSPECIFIC INTRAVENTRICULAR CONDUCTION DELAY : Confirmed by: Madeleine Raymond 17-Jul-2019 12:55:32
[2019-07-17] MEDS: QUETIAPINE FUMARATE 25 MG TABLET PO SCH (21:52)
[2019-07-18] MEDS: IPRATROPIUM/ALBUTEROL 0.5-2.5 MG/3 ML AMPUL NEB SCH ×4 (02:06→20:30)
[2019-07-18] MEDS: PIPERACILLIN SODIUM/TAZOBACTAM 3.375 GM in NORMAL SALINE 100 ML IV SCH ×4 (02:49→21:10)
[2019-07-18] MEDS: HEPARIN SOD (PORCINE) 5,000 UNIT/ML 1 ML VIAL SUBCUT SCH ×3 (05:35→21:10)
[2019-07-18] MEDS: PHENOL/SODIUM PHENOLATE 100 SPRAY/177 ML BOTTLE PO PRN (05:36)
[2019-07-18 05:41] LABS: ANION GAP 8 (5-19); BLOOD UREA NITROGEN 10 mg/dL (7-20); CALCIUM 8.5 mg/dL (8.4-10.2); CARBON DIOXIDE 27 mmol/L (22-30); CHLORIDE 101 mmol/L (98-107); GLUCOSE 91 mg/dL (75-110); POTASSIUM 4.3 mmol/L (3.6-5.0)
[2019-07-18 05:46] LABS: HEMATOCRIT 27.2 % (37.9-51.0); HEMOGLOBIN 9.2 g/dL (13.5-17.0); MEAN CORPUSCULAR HEMOGLOBIN 38.9 pg (27.0-33.4); MEAN CORPUSCULAR HGB CONC 33.9 g/dL (32.0-36.0); MEAN CORPUSCULAR VOLUME 115 fl (80-97); PLATELET COUNT 281 10^3/uL (150-450); RED BLOOD COUNT 2.37 10^6/uL (4.35-5.55); RED CELL DISTRIBUTION WIDTH 16.5 % (11.5-14.0); WHITE BLOOD COUNT 5.1 10^3/uL (4.0-10.5)
[2019-07-18] MEDS: MULTIVITAMIN TABLET PO SCH (09:41)
[2019-07-18] MEDS: METOPROLOL SUCCINATE 25 MG TAB.SR.24H PO SCH (09:41)
[2019-07-18] MEDS: NICOTINE 21 MG/24 HR PATCH.TD24 TD SCH (09:41)
[2019-07-18] MEDS: FOLIC ACID 1 MG TABLET PO SCH (09:41)
[2019-07-18] MEDS: ASPIRIN 81 MG TABLET, CHEWABLE PO SCH (09:41)
[2019-07-18] MEDS: SPIRONOLACTONE 25 MG TABLET PO SCH (09:41)
[2019-07-18] MEDS: FUROSEMIDE 40 MG TABLET PO SCH (09:41)
[2019-07-18] MEDS: THIAMINE HCL 100 MG TABLET PO SCH (09:41)
[2019-07-18] MEDS: SACUBITRIL/VALSARTAN 24 MG/26 MG TABLET PO SCH ×2 (09:41→17:45)
--- NOTE | 2019-07-18 12:45 | PDOC PROGRESS REPORT ---
Subjective Progress Note for:: 07/18/19 Subjective:: Has moved from ICU to step down. Doing much better, more alert and oriented. Has been outside. Afebrile, NTBNP decreasing and BP has been stable. Reason For Visit: HYPOTENSION,ETOH WITHDRAWAL Physical Exam Vital Signs: Temp Pulse Resp BP Pulse Ox 98.7 F 80 16 128/80 H 100 07/18/19 07:58 07/18/19 07:58 07/18/19 07:58 07/18/19 07:58 07/18/19 07:58 Intake & Output 07/17/19 07/18/19 07/19/19 06:59 06:59 06:59 Intake Total 1150 1374 100 Output Total 3200 1210 Balance -205 164 100 Weight 94.4 kg 94.6 kg General appearance: PRESENT: no acute distress, cooperative, well-nourished Head exam: PRESENT: atraumatic, normocephalic Eye exam: PRESENT: EOMI Respiratory exam: PRESENT: clear to auscultation nathaniel, unlabored Cardiovascular exam: PRESENT: RRR, systolic murmur - 1/6 Pulses: PRESENT: normal radial pulses, normal dorsalis pedis pul Vascular exam: PRESENT: normal capillary refill GI/Abdominal exam: PRESENT: normal bowel sounds, soft - obese. ABSENT: guarding, rebound, tenderness Extremities exam: ABSENT: pedal edema Musculoskeletal exam: PRESENT: ambulatory, full ROM Skin exam: PRESENT: abrasion - small bandages on knees bilaterally Results Laboratory Results: 07/18/19 04:31 07/18/19 04:31 07/18/19 07/18/19 04:31 04:31 WBC 5.1 RBC 2.37 L Hgb 9.2 L Hct 27.2 L MCV 115 H MCH 38.9 H MCHC 33.9 RDW 16.5 H Plt Count 281 Sodium 136.4 L Potassium 4.3 Chloride 101 Carbon Dioxide 27 Anion Gap 8 BUN 10 Creatinine 0.58 Est GFR ( Amer) > 60 Glucose 91 Calcium 8.5 Magnesium 1.8 07/14/19 12:07 Blood Blood Culture (PCR) - Final Staphylococcus Species 07/14/19 12:07 Blood Blood Culture - Final Staphylococcus Epidermidis 07/03/19 07/03/19 07/04/19 15:38 15:38 05:55 Creatine Kinase 107 233 H CK-MB (CK-2) 1.54 Troponin I 0.116 NT-Pro-B Natriuret Pep 07/04/19 07/09/19 07/09/19 05:55 02:30 02:30 Creatine Kinase 144 CK-MB (CK-2) 2.95 Troponin I 0.071 0.065 NT-Pro-B Natriuret Pep 07/16/19 07/18/19 04:29 04:31 Creatine Kinase CK-MB (CK-2) Troponin I NT-Pro-B Natriuret Pep 3870 H 2380 H Impressions: Abdomen Ultrasound 07/04/19 00:00 IMPRESSION: No acute findings. Hepatic steatosis. Limitation. Carotid Doppler Study 07/06/19 00:00 IMPRESSION: NO HEMODYNAMICALLY SIGNIFICANT STENOSIS. Head CT 07/08/19 00:00 IMPRESSION: MILD CHRONIC CHANGES OF ATROPHY AND MICROVASCULAR ISCHEMIA. NO ACUTE PROCESS. EVIDENCE OF ACUTE STROKE: NO. KUB X-Ray 07/12/19 00:00 IMPRESSION: Tip of the duotube in the distal stomach or proximal small bowel copyright 2011 [employer]- All Rights Reserved Venous Doppler Study 07/16/19 00:00 IMPRESSION: NO EVIDENCE DVT OR SVT IN EITHER LEG. Chest X-Ray 07/17/19 00:00 IMPRESSION: Unchanged radiographic appearance of the chest. Assessment & Plan - Diagnosis (1) Heart failure Qualifiers: Heart failure type: systolic Heart failure chronicity: acute on chronic Qualified Code(s): I50.23 - Acute on chronic systolic (congestive) heart failure Is this a current diagnosis for this admission?: Yes Plan: NTBNP trending down not that he has resumed home meds. Cont. Recommend NTBNP be checked periodically to ensure downward trend continue. Will sign off for now unless he decompensates. (2) Alcoholic cardiomyopathy Is this a current diagnosis for this admission?: Yes (3) Hypertension Qualifiers: Hypertension type: essential hypertension Qualified Code(s): I10 - Essential (primary) hypertension Is this a current diagnosis for this admission?: Yes Plan: Stable. Cont current meds. (4) Acute respiratory failure Qualifiers: Respiratory failure complication: hypercapnia Qualified Code(s): J96.02 - Acute respiratory failure with hypercapnia Is this a current diagnosis for this admission?: Yes (5) Encephalopathy Is this a current diagnosis for this admission?: Yes Plan: Confusion is much less now. Cont current plan. Will definitely need outpatient rehab for his alcoholism. Discussed again with and patient. (6) Pneumonia of both lungs due to methicillin susceptible Staphylococcus aureus (MSSA) Qualifiers: Lung location: unspecified part of lung Qualified Code(s): J15.211 - Pneumonia due to Methicillin susceptible Staphylococcus aureus Is this a current diagnosis for this admission?: Yes (7) Wernicke encephalopathy Is this a current diagnosis for this admission?: Yes
--- NOTE | 2019-07-18 15:49 | PDOC PROGRESS REPORT ---
Subjective Progress Note for:: 07/18/19 Subjective:: Patient downgraded from ICU to the IMCU on to hospitalist service Briefly, patient is a 69-year-old male with a history of chronic daily alcohol abuse, congestive heart failure, coronary artery disease with stenting 05/2018, hypertension, who presented to [facility] on 07/04/2019 after experiencing a withdrawal seizure at his PCPs office during which he stiffened up and became unresponsive for about 20 seconds. He was hypotensive on arrival. He was subsequently admitted to the ICU for alcohol withdrawal with seizures and delirium tremens. He was started on thiamine, frequent Ativan, Precedex and folic acid. Of note, patient also required intubation after developing acute respiratory failure possibly from aspiration. He was treated with antibiotics for pneumonia with sputum cultures growing MSSA. Received broad-spectrum antibiotics initially and then de-escalated to just Zosyn. Suspected to have COPD and treated with bronchodilators. Subsequently extubated on 07/12/2019. Patient has had improvement of his metabolic encephalopathy. He is also receiving treatment for his congestive heart failure with spironolactone, Entresto, Toprol-XL and Lasix. Patient's withdrawal is improved though still tremulous which is his chronic state and appears very fatigued and debilitated. Patient was transferred to the [facility]. Reason For Visit: HYPOTENSION,ETOH WITHDRAWAL Physical Exam Vital Signs: Temp Pulse Resp BP Pulse Ox 97.7 F 89 16 126/82 H 94 07/18/19 12:20 07/18/19 14:00 07/18/19 13:35 07/18/19 12:20 07/18/19 13:35 Intake & Output 07/17/19 07/18/19 07/19/19 06:59 06:59 06:59 Intake Total 1150 1374 200 Output Total 3200 1210 Balance -205 164 200 Weight 94.4 kg 94.6 kg General appearance: PRESENT: no acute distress, cooperative Neck exam: ABSENT: JVD Respiratory exam: PRESENT: rhonchi, symmetrical, unlabored. ABSENT: tachypnea Cardiovascular exam: PRESENT: RRR, +S1, +S2. ABSENT: tachycardia GI/Abdominal exam: PRESENT: normal bowel sounds, soft. ABSENT: rebound, rigid, tenderness Neurological exam: PRESENT: alert, awake - Appears drowsy, oriented to person, oriented to place, oriented to situation, other - Very tremulous in both upper extremities. ABSENT: oriented to time Psychiatric exam: ABSENT: agitated Results Laboratory Results: 07/18/19 04:31 07/18/19 04:31 07/18/19 07/18/19 04:31 04:31 WBC 5.1 RBC 2.37 L Hgb 9.2 L Hct 27.2 L MCV 115 H MCH 38.9 H MCHC 33.9 RDW 16.5 H Plt Count 281 Sodium 136.4 L Potassium 4.3 Chloride 101 Carbon Dioxide 27 Anion Gap 8 BUN 10 Creatinine 0.58 Est GFR ( Amer) > 60 Glucose 91 Calcium 8.5 Magnesium 1.8 07/03/19 07/03/19 07/04/19 15:38 15:38 05:55 Creatine Kinase 107 233 H CK-MB (CK-2) 1.54 Troponin I 0.116 NT-Pro-B Natriuret Pep 07/04/19 07/09/19 07/09/19 05:55 02:30 02:30 Creatine Kinase 144 CK-MB (CK-2) 2.95 Troponin I 0.071 0.065 NT-Pro-B Natriuret Pep 07/16/19 07/18/19 04:29 04:31 Creatine Kinase CK-MB (CK-2) Troponin I NT-Pro-B Natriuret Pep 3870 H 2380 H Impressions: Abdomen Ultrasound 07/04/19 00:00 IMPRESSION: No acute findings. Hepatic steatosis. Limitation. Carotid Doppler Study 07/06/19 00:00 IMPRESSION: NO HEMODYNAMICALLY SIGNIFICANT STENOSIS. Head CT 07/08/19 00:00 IMPRESSION: MILD CHRONIC CHANGES OF ATROPHY AND MICROVASCULAR ISCHEMIA. NO ACUTE PROCESS. EVIDENCE OF ACUTE STROKE: NO. KUB X-Ray 07/12/19 00:00 IMPRESSION: Tip of the duotube in the distal stomach or proximal small bowel copyright 2011 [employer]- All Rights Reserved Venous Doppler Study 07/16/19 00:00 IMPRESSION: NO EVIDENCE DVT OR SVT IN EITHER LEG. Chest X-Ray 07/17/19 00:00 IMPRESSION: Unchanged radiographic appearance of the chest. Assessment and Plan - Diagnosis (1) Pneumonia of both lungs due to methicillin susceptible Staphylococcus aureus (MSSA) Qualifiers: Lung location: unspecified part of lung Qualified Code(s): J15.211 - Pneumonia due to Methicillin susceptible Staphylococcus aureus Is this a current diagnosis for this admission?: Yes Plan: Has received 8 days of antibiotics. Zosyn day 4. Staph epi noted on initial blood cultures in 1 bottle. Likely contaminant. Will send for repeat blood cultures today. (2) Alcohol withdrawal seizure with delirium Is this a current diagnosis for this admission?: Yes Plan: Withdrawal now in the mild phase. Still very tremulous and somnolent. Patient has been off Precedex and Ativan for a few of days. (3) Metabolic encephalopathy Is this a current diagnosis for this admission?: Yes Plan: Likely secondary to either chronic alcohol use and persisting from alcohol withdrawal. Improving according to prior documentation. Awake and alert today but often drifts back into sleep during conversation. Continue to monitor. (4) Acute on chronic combined systolic and diastolic congestive heart failure Is this a current diagnosis for this admission?: Yes Plan: EF less than 35% with echo also showing diastolic dysfunction Continue Entresto, spironolactone, Toprol-XL, and Lasix. (5) Superficial venous thrombosis of both arms Is this a current diagnosis for this admission?: Yes Plan: Acute thrombosis involving the right and left cephalic veins. No evidence of DVT. Supportive care with warm compresses twice a day. No need for systemic anticoagulation at this time. (6) Acute respiratory failure Qualifiers: Respiratory failure complication: hypercapnia Qualified Code(s): J96.02 - Acute respiratory failure with hypercapnia Is this a current diagnosis for this admission?: Yes Plan: Likely secondary to aspiration as well as pneumonia. Extubated on 07/12/2019. Now on nasal cannula. Wean oxygen as tolerated. 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 He will likely need physical rehab before alcohol rehab. Continue thiamine, folic acid and multivitamins. (8) COPD (chronic obstructive pulmonary disease) Qualifiers: COPD type: emphysema Emphysema type: centrilobular Qualified Code(s): J43.2 - Centrilobular emphysema Is this a current diagnosis for this admission?: Yes Plan: Stable. Nebs as needed (9) Ambulatory dysfunction Is this a current diagnosis for this admission?: Yes Plan: Very weak. Possibly secondary to ICU myopathy as well as chronic debility from excessive alcohol cessation. Will benefit from short-term rehabilitation for 30 days or less at SNF. Discharge planning consulted. - Time Time Spent with patient: 15-24 minutes
[2019-07-18] MEDS ORDERED: CARBOXYMETHYLCELLULOSE SOD 0.5% 0.4 ML DROPERETTE OU PRN (16:57)
[2019-07-18] MEDS ORDERED: LOPERAMIDE HCL 2 MG CAPSULE PO PRN (19:06)
[2019-07-18 19:55] LABS: C DIFFICILE GDH NEGATIVE (NEGATIVE)
[2019-07-18] MEDS: QUETIAPINE FUMARATE 25 MG TABLET PO SCH (21:10)
[2019-07-19] MEDS: PIPERACILLIN SODIUM/TAZOBACTAM 3.375 GM in NORMAL SALINE 100 ML IV SCH ×4 (02:13→21:23)
[2019-07-19] MEDS: IPRATROPIUM/ALBUTEROL 0.5-2.5 MG/3 ML AMPUL NEB SCH ×4 (02:59→21:00)
[2019-07-19 05:12] LABS: HEMATOCRIT 28.2 % (37.9-51.0); HEMOGLOBIN 9.6 g/dL (13.5-17.0); MEAN CORPUSCULAR HEMOGLOBIN 39.1 pg (27.0-33.4); MEAN CORPUSCULAR HGB CONC 34.1 g/dL (32.0-36.0); MEAN CORPUSCULAR VOLUME 115 fl (80-97); PLATELET COUNT 353 10^3/uL (150-450); RED BLOOD COUNT 2.46 10^6/uL (4.35-5.55); WHITE BLOOD COUNT 4.5 10^3/uL (4.0-10.5)
[2019-07-19 05:35] LABS: ANION GAP 10 (5-19); BLOOD UREA NITROGEN 9 mg/dL (7-20); CALCIUM 8.7 mg/dL (8.4-10.2); CARBON DIOXIDE 26 mmol/L (22-30); CHLORIDE 102 mmol/L (98-107); GLUCOSE 89 mg/dL (75-110); POTASSIUM 3.9 mmol/L (3.6-5.0)
[2019-07-19] MEDS: HEPARIN SOD (PORCINE) 5,000 UNIT/ML 1 ML VIAL SUBCUT SCH ×2 (05:53→14:08)
[2019-07-19] MEDS ORDERED: MAGNESIUM OXIDE 400 MG TABLET PO ONE (08:30)
[2019-07-19] MEDS: FOLIC ACID 1 MG TABLET PO SCH (09:30)
[2019-07-19] MEDS: THIAMINE HCL 100 MG TABLET PO SCH (09:30)
[2019-07-19] MEDS: NICOTINE 21 MG/24 HR PATCH.TD24 TD SCH (09:30)
[2019-07-19] MEDS: SACUBITRIL/VALSARTAN 24 MG/26 MG TABLET PO SCH ×2 (09:30→17:25)
[2019-07-19] MEDS: ASPIRIN 81 MG TABLET, CHEWABLE PO SCH (09:30)
[2019-07-19] MEDS: MULTIVITAMIN TABLET PO SCH (09:30)
[2019-07-19] MEDS: FUROSEMIDE 40 MG TABLET PO SCH (09:39)
[2019-07-19] MEDS: SPIRONOLACTONE 25 MG TABLET PO SCH (09:39)
[2019-07-19] MEDS: METOPROLOL SUCCINATE 25 MG TAB.SR.24H PO SCH (09:39)
[2019-07-19] MEDS ORDERED: LEVOTHYROXINE SODIUM 0.15 MG TABLET PO ONE (11:52)
--- NOTE | 2019-07-19 12:06 | PDOC PROGRESS REPORT ---
Subjective Progress Note for:: 07/19/19 Subjective:: Patient requesting shot today. Has no other complaints. Denies shortness of breath. Still having tremors. States that he has been having tremors for several months now from his alcoholism. Reason For Visit: HYPOTENSION,ETOH WITHDRAWAL Physical Exam Vital Signs: Temp Pulse Resp BP Pulse Ox 98.9 F 95 18 136/68 H 92 07/19/19 09:34 07/19/19 09:34 07/19/19 09:34 07/19/19 09:34 07/19/19 09:34 Intake & Output 07/18/19 07/19/19 07/20/19 06:59 06:59 06:59 Intake Total 1374 760 100 Output Total 1210 1100 Balance 164 -340 100 Weight 94.6 kg 93.1 kg General appearance: PRESENT: no acute distress, cooperative Neck exam: ABSENT: JVD Respiratory exam: PRESENT: tachypnea, wheezes. ABSENT: accessory muscle use, retraction, symmetrical, unlabored Cardiovascular exam: PRESENT: RRR, +S1, +S2. ABSENT: tachycardia GI/Abdominal exam: PRESENT: soft. ABSENT: rebound, rigid, tenderness Extremities exam: PRESENT: other - Very tremulous in his extremities. Results Laboratory Results: 07/19/19 04:34 07/19/19 04:34 07/19/19 07/19/19 04:34 04:34 WBC 4.5 RBC 2.46 L Hgb 9.6 L Hct 28.2 L MCV 115 H MCH 39.1 H MCHC 34.1 RDW 16.0 H Plt Count 353 Sodium 137.9 Potassium 3.9 Chloride 102 Carbon Dioxide 26 Anion Gap 10 BUN 9 Creatinine 0.58 Est GFR ( Amer) > 60 Glucose 89 Calcium 8.7 Magnesium 1.5 L 07/03/19 07/03/19 07/04/19 15:38 15:38 05:55 Creatine Kinase 107 233 H CK-MB (CK-2) 1.54 Troponin I 0.116 NT-Pro-B Natriuret Pep 07/04/19 07/09/19 07/09/19 05:55 02:30 02:30 Creatine Kinase 144 CK-MB (CK-2) 2.95 Troponin I 0.071 0.065 NT-Pro-B Natriuret Pep 07/16/19 07/18/19 04:29 04:31 Creatine Kinase CK-MB (CK-2) Troponin I NT-Pro-B Natriuret Pep 3870 H 2380 H Impressions: Abdomen Ultrasound 07/04/19 00:00 IMPRESSION: No acute findings. Hepatic steatosis. Limitation. Carotid Doppler Study 07/06/19 00:00 IMPRESSION: NO HEMODYNAMICALLY SIGNIFICANT STENOSIS. Head CT 07/08/19 00:00 IMPRESSION: MILD CHRONIC CHANGES OF ATROPHY AND MICROVASCULAR ISCHEMIA. NO ACUTE PROCESS. EVIDENCE OF ACUTE STROKE: NO. KUB X-Ray 07/12/19 00:00 IMPRESSION: Tip of the duotube in the distal stomach or proximal small bowel copyright 2011 [employer]- All Rights Reserved Venous Doppler Study 07/16/19 00:00 IMPRESSION: NO EVIDENCE DVT OR SVT IN EITHER LEG. Chest X-Ray 07/17/19 00:00 IMPRESSION: Unchanged radiographic appearance of the chest. Assessment and Plan - Diagnosis (1) Pneumonia of both lungs due to methicillin susceptible Staphylococcus aureus (MSSA) Qualifiers: Lung location: unspecified part of lung Qualified Code(s): J15.211 - Pneumonia due to Methicillin susceptible Staphylococcus aureus Is this a current diagnosis for this admission?: Yes Plan: Has received 8 days of antibiotics. Zosyn day 5. Staph epi noted on initial blood cultures in 1 bottle. Likely contaminant. Follow-up repeat blood culture. (2) Alcohol withdrawal seizure with delirium Is this a current diagnosis for this admission?: Yes Plan: Withdrawal now in the mild phase. Still very tremulous and somnolent. Patient notes that tremors have been present for the past several months serum may be more likely chronic from his alcoholism/possible Wernicke's than simply from his withdrawal. Vital signs within normal limits and no sign of autonomic overdrive (3) Metabolic encephalopathy Is this a current diagnosis for this admission?: Yes Plan: Likely secondary to either chronic alcohol use and persisting from alcohol withdrawal. Improving according to prior documentation. More awake today. Continue to monitor. (4) Acute on chronic combined systolic and diastolic congestive heart failure Is this a current diagnosis for this admission?: Yes Plan: EF less than 35% with echo also showing diastolic dysfunction Continue Entresto, spironolactone, Toprol-XL, and Lasix. Cardiology following. (5) Superficial venous thrombosis of both arms Is this a current diagnosis for this admission?: Yes Plan: Acute thrombosis involving the right and left cephalic veins. No evidence of DVT. Supportive care with warm compresses twice a day. No need for systemic anticoagulation at this time. (6) Acute respiratory failure Qualifiers: Respiratory failure complication: hypercapnia Qualified Code(s): J96.02 - Acute respiratory failure with hypercapnia Is this a current diagnosis for this admission?: Yes Plan: Likely secondary to aspiration as well as pneumonia. Extubated on 07/12/2019. Wean off nasal cannula oxygen as tolerated. 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 He will likely need physical rehab before alcohol rehab. Continue thiamine, folic acid and multivitamins. (8) Abnormal thyroid function test Is this a current diagnosis for this admission?: Yes Plan: TFT done in the setting of critical illness. As such, interpretation is likely to be skewed. I will hold off on initiating thyroid replacement therapy and have patient repeat thyroid function test in about 4 weeks. (9) COPD (chronic obstructive pulmonary disease) Qualifiers: COPD type: emphysema Emphysema type: centrilobular Qualified Code(s): J43.2 - Centrilobular emphysema Is this a current diagnosis for this admission?: Yes Plan: Stable. Nebs as needed (10) Ambulatory dysfunction Is this a current diagnosis for this admission?: Yes Plan: Very weak. Possibly secondary to ICU myopathy as well as chronic debility from excessive alcohol cessation. Will benefit from short-term rehabilitation for 30 days or less at SNF. Discharge planning consulted. - Time Time Spent with patient: Less than 15 minutes
[2019-07-19] MEDS ORDERED: IPRATROPIUM/ALBUTEROL 0.5-2.5 MG/3 ML AMPUL NEB PRN (18:49)
[2019-07-19] MEDS: ACETAMINOPHEN SOLN 325 MG/10.15 ML UDCUP NG PRN (20:51)
[2019-07-19] MEDS ORDERED: PIPERACILLIN/TAZOBACTAM 3.375 GM VIAL IV ONE (20:58)
[2019-07-19] MEDS: QUETIAPINE FUMARATE 25 MG TABLET PO SCH (21:02)
[2019-07-20] MEDS: HEPARIN SOD (PORCINE) 5,000 UNIT/ML 1 ML VIAL SUBCUT SCH ×4 (01:16→21:16)
[2019-07-20] MEDS: PIPERACILLIN SODIUM/TAZOBACTAM 3.375 GM in NORMAL SALINE 100 ML IV SCH ×4 (02:30→21:16)
[2019-07-20] MEDS: IPRATROPIUM/ALBUTEROL 0.5-2.5 MG/3 ML AMPUL NEB SCH ×4 (02:42→20:50)
[2019-07-20] MEDS ORDERED: LEVOTHYROXINE SODIUM 0.15 MG TABLET PO SCH (06:00)
[2019-07-20] MEDS ORDERED: LOPERAMIDE HCL 2 MG CAPSULE PO PRN (08:57)
[2019-07-20] MEDS ORDERED: IPRATROPIUM/ALBUTEROL 0.5-2.5 MG/3 ML AMPUL NEB PRN (09:00)
[2019-07-20] MEDS: FOLIC ACID 1 MG TABLET PO SCH (10:10)
[2019-07-20] MEDS: SPIRONOLACTONE 25 MG TABLET PO SCH (10:10)
[2019-07-20] MEDS: FUROSEMIDE 40 MG TABLET PO SCH (10:10)
[2019-07-20] MEDS: MULTIVITAMIN TABLET PO SCH (10:10)
[2019-07-20] MEDS: SACUBITRIL/VALSARTAN 24 MG/26 MG TABLET PO SCH ×2 (10:10→16:59)
[2019-07-20] MEDS: THIAMINE HCL 100 MG TABLET PO SCH (10:10)
[2019-07-20] MEDS: ASPIRIN 81 MG TABLET, CHEWABLE PO SCH (10:10)
[2019-07-20] MEDS: METOPROLOL SUCCINATE 25 MG TAB.SR.24H PO SCH (10:10)
[2019-07-20] MEDS: NICOTINE 21 MG/24 HR PATCH.TD24 TD SCH (10:10)
--- NOTE | 2019-07-20 10:34 | PDOC PROGRESS REPORT ---
Subjective Progress Note for:: 07/20/19 Subjective:: Patient complains of back pain today. Pain involves bilateral sides of lower back. Denies any shortness of breath. Still quite sleepy. states that he is looking better than prior but had a rough night yesterday because of the back pain. Reason For Visit: HYPOTENSION,ETOH WITHDRAWAL Physical Exam Vital Signs: Temp Pulse Resp BP Pulse Ox 98.3 F 79 18 134/69 H 93 07/20/19 04:00 07/20/19 08:07 07/20/19 08:07 07/20/19 04:00 07/20/19 08:07 Intake & Output 07/19/19 07/20/19 07/21/19 06:59 06:59 06:59 Intake Total 760 760 Output Total 1100 1425 Balance -340 -665 Weight 93.1 kg 91.3 kg General appearance: PRESENT: no acute distress, cooperative Neck exam: ABSENT: JVD Respiratory exam: PRESENT: clear to auscultation nathaniel, symmetrical, unlabored, wheezes. ABSENT: tachypnea Cardiovascular exam: PRESENT: RRR, +S1, +S2. ABSENT: tachycardia GI/Abdominal exam: PRESENT: normal bowel sounds, soft. ABSENT: rebound, rigid, tenderness Musculoskeletal exam: PRESENT: tenderness - Tenderness both sides of lower back Neurological exam: PRESENT: awake - Drowsy but awakens easily to verbal and remains awake for conversation, other - Notably still very tremulous in his arms. Tremors worsened on purposeful movement with moderate amplitude. Some overshooting with [id number] testing. Slow but acceptable rapid hand alternating movement but only mildly disorganized by tremulousness Results Laboratory Results: 07/19/19 04:34 07/19/19 04:34 07/14/19 12:13 Blood Blood Culture - Final NO GROWTH IN 5 DAYS 07/03/19 07/03/19 07/04/19 15:38 15:38 05:55 Creatine Kinase 107 233 H CK-MB (CK-2) 1.54 Troponin I 0.116 NT-Pro-B Natriuret Pep 07/04/19 07/09/19 07/09/19 05:55 02:30 02:30 Creatine Kinase 144 CK-MB (CK-2) 2.95 Troponin I 0.071 0.065 NT-Pro-B Natriuret Pep 07/16/19 07/18/19 04:29 04:31 Creatine Kinase CK-MB (CK-2) Troponin I NT-Pro-B Natriuret Pep 3870 H 2380 H Impressions: Abdomen Ultrasound 07/04/19 00:00 IMPRESSION: No acute findings. Hepatic steatosis. Limitation. Carotid Doppler Study 07/06/19 00:00 IMPRESSION: NO HEMODYNAMICALLY SIGNIFICANT STENOSIS. Head CT 07/08/19 00:00 IMPRESSION: MILD CHRONIC CHANGES OF ATROPHY AND MICROVASCULAR ISCHEMIA. NO ACUTE PROCESS. EVIDENCE OF ACUTE STROKE: NO. KUB X-Ray 07/12/19 00:00 IMPRESSION: Tip of the duotube in the distal stomach or proximal small bowel copyright 2010 [employer]- All Rights Reserved Venous Doppler Study 07/16/19 00:00 IMPRESSION: NO EVIDENCE DVT OR SVT IN EITHER LEG. Chest X-Ray 07/17/19 00:00 IMPRESSION: Unchanged radiographic appearance of the chest. Assessment and Plan - Diagnosis (1) Pneumonia of both lungs due to methicillin susceptible Staphylococcus aureus (MSSA) Qualifiers: Lung location: unspecified part of lung Qualified Code(s): J15.211 - Pneumonia due to Methicillin susceptible Staphylococcus aureus Is this a current diagnosis for this admission?: Yes Plan: Has received 9 days of antibiotics. Zosyn day 6/7. Staph epi noted on initial blood cultures in 1 bottle. Likely contaminant. Follow-up repeat blood culture. (2) Alcohol withdrawal seizure with delirium Is this a current diagnosis for this admission?: Yes Plan: Had alcohol withdrawal with seizures initially on presentation 90 in the ICU. However, patient has been in the hospital for many days now and is completely out of the phase of withdrawal. His remnant tremulousness has been present over the past 4 months and is likely chronic from another etiology rather than alc ohol withdrawal. (3) Metabolic encephalopathy Is this a current diagnosis for this admission?: Yes Plan: His metabolic encephalopathy associated with significant tremulousness of both arms are likely secondary to his chronic alcohol use and possibly even some underlying Warnicke's encephalopathy. Patient notably has mild nystagmus horizontally, still somnolent most of the time and ataxic gait. Continue thiamine supplements. Check MRI of the brain. (4) Acute on chronic combined systolic and diastolic congestive heart failure Is this a current diagnosis for this admission?: Yes Plan: EF less than 35% with echo also showing diastolic dysfunction Continue Entresto, spironolactone, Toprol-XL, and Lasix. Cardiology following. (5) Superficial venous thrombosis of both arms Is this a current diagnosis for this admission?: Yes Plan: Acute thrombosis involving the right and left cephalic veins. No evidence of DVT. Supportive care with warm compresses twice a day. No need for systemic anticoagulation at this time. (6) Acute respiratory failure Qualifiers: Respiratory failure complication: hypercapnia Qualified Code(s): J96.02 - Acute respiratory failure with hypercapnia Is this a current diagnosis for this admission?: Yes Plan: Likely secondary to aspiration as well as pneumonia. Extubated on 07/12/2019. Wean off nasal cannula oxygen as tolerated. (7) Alcohol dependence Qualifiers: Substance use status: in withdrawal Complication of substance-induced condition: with delirium Qualified Code(s): F10.231 - Alcohol dependence with withdrawal delirium Is this a current diagnosis for this admission?: Yes Plan: snf and wanting rehab after this. He will likely need physical rehab before alcohol rehab. Continue thiamine, folic acid and multivitamins. (8) Abnormal thyroid function test Is this a current diagnosis for this admission?: Yes Plan: TFT done in the setting of critical illness. As such, interpretation is likely to be skewed. I will hold off on initiating thyroid replacement therapy and have patient repeat thyroid function test in about 4 weeks. (9) Low back pain Qualifiers: Chronicity: acute Back pain laterality: bilateral Sciatica presence: without sciatica Qualified Code(s): M54.5 - Low back pain Is this a current diagnosis for this admission?: Yes Plan: Lidocaine patch and K pad (10) COPD (chronic obstructive pulmonary disease) Qualifiers: COPD type: emphysema Emphysema type: centrilobular Qualified Code(s): J43.2 - Centrilobular emphysema Is this a current diagnosis for this admission?: Yes (11) Ambulatory dysfunction Is this a current diagnosis for this admission?: Yes - Time Time Spent with patient: 15-24 minutes
[2019-07-20] MEDS: QUETIAPINE FUMARATE 25 MG TABLET PO SCH (21:16)
[2019-07-20] MEDS ORDERED: PHARMACY COMMUNICATION ORDER MC SCH (22:00)
[2019-07-21] MEDS: IPRATROPIUM/ALBUTEROL 0.5-2.5 MG/3 ML AMPUL NEB SCH ×3 (02:42→14:15)
[2019-07-21] MEDS: PIPERACILLIN SODIUM/TAZOBACTAM 3.375 GM in NORMAL SALINE 100 ML IV SCH ×2 (03:55→09:39)
[2019-07-21] MEDS: HEPARIN SOD (PORCINE) 5,000 UNIT/ML 1 ML VIAL SUBCUT SCH ×2 (06:02→13:21)
[2019-07-21] MEDS: SACUBITRIL/VALSARTAN 24 MG/26 MG TABLET PO SCH (09:40)
[2019-07-21] MEDS: FUROSEMIDE 40 MG TABLET PO SCH (09:41)
[2019-07-21] MEDS: MULTIVITAMIN TABLET PO SCH (09:41)
[2019-07-21] MEDS: METOPROLOL SUCCINATE 25 MG TAB.SR.24H PO SCH (09:42)
[2019-07-21] MEDS: FOLIC ACID 1 MG TABLET PO SCH (09:42)
[2019-07-21] MEDS: ASPIRIN 81 MG TABLET, CHEWABLE PO SCH (09:42)
[2019-07-21] MEDS: SPIRONOLACTONE 25 MG TABLET PO SCH (09:42)
[2019-07-21] MEDS: THIAMINE HCL 100 MG TABLET PO SCH (09:42)
[2019-07-21] MEDS: NICOTINE 21 MG/24 HR PATCH.TD24 TD SCH (09:43)
[2019-07-21] MEDS ORDERED: LIDOCAINE 5% (700 MG) TRANSDERMAL ADH..PATCH TP SCH (11:00)
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
[2019-07-21 15:40] VITALS: BP 124/97
== END 2019-07-21 16:50 | DRG 896 ==
LOC: ER 15:31 → EH 21:12 → ICU 23:16 → 3W 07-17 20:18
PROVIDERS: ADMIT Surgery; ATTEND Surgery
PROC: 0BH17EZ Insertion of Endotracheal Airway into Trachea, Via Natural or Artificial Opening (ICD-10-PCS; 2019-07-08)
PROC: 5A1945Z Respiratory Ventilation, 24-96 Consecutive Hours (ICD-10-PCS; principal; 2019-07-12)
DX: F10.231 Alcohol dependence with withdrawal delirium (principal); J15.211 Pneumonia due to Methicillin susceptible Staphylococcus aureus; G93.41 Metabolic encephalopathy; I50.43 Acute on chronic combined systolic (congestive) and diastolic (congestive) heart failure; J96.02 Acute respiratory failure with hypercapnia; I82.613 Acute embolism and thrombosis of superficial veins of upper extremity, bilateral; I42.6 Alcoholic cardiomyopathy; N17.9 Acute kidney failure, unspecified; R56.9 Unspecified convulsions; D69.6 Thrombocytopenia, unspecified; J44.9 Chronic obstructive pulmonary disease, unspecified; E83.39 Other disorders of phosphorus metabolism; E83.51 Hypocalcemia; I11.0 Hypertensive heart disease with heart failure; I95.9 Hypotension, unspecified; T17.908A Unspecified foreign body in respiratory tract, part unspecified causing other injury, initial encounter; R94.6 Abnormal results of thyroid function studies; M54.5 Low back pain; R26.9 Unspecified abnormalities of gait and mobility; I25.10 Atherosclerotic heart disease of native coronary artery without angina pectoris; F17.290 Nicotine dependence, other tobacco product, uncomplicated; E66.9 Obesity, unspecified; R19.5 Other fecal abnormalities; E83.42 Hypomagnesemia; E63.1 Imbalance of constituents of food intake; Z79.82 Long term (current) use of aspirin; Z95.5 Presence of coronary angioplasty implant and graft; Z79.84 Long term (current) use of oral hypoglycemic drugs; Z68.27 Body mass index [BMI] 27.0-27.9, adult
CPT/HCPCS: 31500; 36415; 36600; 70450; 71045; 74018; 76700; 80048; 80053; 80202; 80307; 81001; 82040; 82140; 82150; 82308; 82310; 82330; 82550; 82553; 82570; 82607; 82746; 82803; 82962; 83605; 83690; 83735; 83880; 84100; 84300; 84439; 84443; 84481; 84484; 85025; 85027; 85610; 85730; 86850; 86900; 86901; 87040; 87070; 87077; 87086; 87150; 87186; 87205; 87324; 87449; 87493; 93005; 93010; 93306; 93880; 93970; 94002; 94003; 94640; 96361; 96372; 96374; 99285; 99291; B4155; C9113; J0131; J0610; J0690; J1644; J1940; J2060; J2250; J2270; J2543; J3010; J3370; J3411; J3475; J3480; J3490; J7030; J7040; J7050; J7060; J7120; J7620; P9041

== ENCOUNTER 2019-11-30 13:57 | Inpatient (IN) | payer MEDICARE, OTHER ==
[2019-11-30 14:38] LABS: ABSOLUTE LYMPHOCYTES (AUTO) 0.4 10^3/uL (0.5-4.7); ABSOLUTE MONOCYTES (AUTO) 0.6 10^3/uL (0.1-1.4); ABSOLUTE NEUT (AUTO) 5.7 10^3/uL (1.7-8.2); BASOPHILS % (AUTO) 0.3 % (0-2); HEMATOCRIT 39.7 % (37.9-51.0); HEMOGLOBIN 13.8 g/dL (13.5-17.0); LYMPHOCYTES % (AUTO) 5.7 % (13-45); MEAN CORPUSCULAR HEMOGLOBIN 36.7 pg (27.0-33.4); MEAN CORPUSCULAR HGB CONC 34.8 g/dL (32.0-36.0); MEAN CORPUSCULAR VOLUME 106 fl (80-97); MONOCYTES % (AUTO) 8.5 % (3-13); PLATELET COUNT 174 10^3/uL (150-450); RED BLOOD COUNT 3.76 10^6/uL (4.35-5.55); SEGMENTED NEUTROPHILS % (AUTO) 85.5 % (42-78); TOTAL CELLS COUNTED % (AUTO) 100 %; WHITE BLOOD COUNT 6.7 10^3/uL (4.0-10.5)
[2019-11-30 14:54] LABS: ALBUMIN 4.5 g/dL (3.5-5.0); ALKALINE PHOSPHATASE 88 U/L (38-126); ANION GAP 12 (5-19); ASPARTATE AMINO TRANSFERASE 77 U/L (17-59); BILIRUBIN,TOTAL 1.3 mg/dL (0.2-1.3); BLOOD UREA NITROGEN 20 mg/dL (7-20); CALCIUM 10.1 mg/dL (8.4-10.2); CARBON DIOXIDE 29 mmol/L (22-30); CHLORIDE 98 mmol/L (98-107); GLUCOSE 189 mg/dL (75-110); POTASSIUM 3.4 mmol/L (3.6-5.0); TOTAL PROTEIN 7.7 g/dL (6.3-8.2)
[2019-11-30 15:00] LABS: ACETAMINOPHEN < 10 ug/mL (10-30); ALCOHOL < 10 mg/dL (NONE DETECTED); SALICYLATE < 1.0 mg/dL (2.0-20.0)
[2019-11-30] MEDS ORDERED: LORAZEPAM INJ 2 MG/1 ML VIAL IV ONE ×6 (15:33→21:48)
--- NOTE | 2019-11-30 15:40 | ER Document Report ---
ED General - General Chief Complaint: Alcohol Withdrawl Stated Complaint: WITHDRAWALS Time Seen by Provider: 11/30/19 14:50 Primary Care Provider: LV PINEDA MD [Primary Care Provider] - Follow up as needed TRAVEL OUTSIDE OF THE [place] IN LAST 30 DAYS: No - HPI Notes: Chief complaint: Request for alcohol detox History of Present Illness: ROBIN ANN is a 69 year old male with PMHx of chonic daily ETOH abuse with reported 2L daily drinking, heart failure with stenting in 05/2018, CHF, HTN, remoted his of trach with decannulation at age 11 from pneumonia, likely SAGAR per and pt reports previous hx of withdrawal seizures who is now presenting requesting alcohol detox. Last alcohol intake was greater than 12 hours ago. Patient was previously admitted to critical care unit here and July of this year with severe alcohol withdrawal including multiple seizures. He reports that he had 2 seizures at home this morning. He is nauseated and has dull headache. He denies any auditory visual hallucinations. He denies any suicidal or homicidal ideation. He denies any history of drug abuse. Primary care provider is Dr. Lv Pineda. Home Medications: Albuterol Sulfate [Proair HFA Inhalation Aerosol 8.5 gm MDI] 2 puff IH Q6HP PRN 05/23/18 Atorvastatin Calcium [Lipitor 40 mg Tablet] 40 mg PO QHS 05/23/18 Furosemide [Lasix 40 mg Tablet] 40 mg PO QAM 05/23/18 Allopurinol [Zyloprim 300 mg Tablet] 300 mg PO DAILY 07/03/19 Aspirin [Ecotrin 81 mg EC Tablet] 81 mg PO DAILY 07/03/19 Cyanocobalamin (Vitamin B-12) [Vitamin B-12] 1,000 mcg PO BID 07/03/19 Ezetimibe 10 mg PO DAILY 07/03/19 Metoprolol Succinate [Toprol Xl 25 mg Tab.sr] 25 mg PO DAILY 07/03/19 Sacubitril/Valsartan [Entresto 24 mg/26 mg Tablet] 1 tab PO Q12 07/03/19 Spironolactone [Aldactone 25 mg Tablet] 25 mg PO DAILY 07/03/19 Folic Acid [Folvite 1 mg Tablet] 1 mg PO DAILY tablet 07/21/19 Ipratropium/Albuterol Sulfate [Duoneb 3 ml Ampul] 3 ml NEB RTQ6HP PRN vial.neb 07/21/19 Lidocaine [Lidoderm 5% (700 mg) Transdermal Patch] 2 patch TP DAILY adh..patch 07/21/19 Multivitamin [Tab-A-Laurie (Multiple Vitamin) Tablet] 1 tab PO DAILY tablet 07/21/19 Nicotine [Nicoderm 21 mg/24 Hr Transderm Patch] 1 each TD DAILY patch.td24 07/21/19 Thiamine HCl [Thiamine 100 mg Tablet] 100 mg PO DAILY tablet 07/21/19 - Related Data Allergies/Adverse Reactions: No Known Allergies Allergy (Verified 05/23/18 13:23) Past Medical History - General Information source: Patient, [facility] Records - Social History Smoking Status: Current Every Day Smoker Chew tobacco use (# tins/day): No Frequency of alcohol use: Heavy Drug Abuse: None Family History: Reviewed & Not Pertinent Patient has homicidal ideation: No - Past Medical History Cardiac Medical History: Reports: Hx Congestive Heart Failure, Hx Hypertension Renal/ Medical History: Denies: Hx Peritoneal Dialysis Psychiatric Medical History: Denies: Hx Depression - Immunizations Hx Diphtheria, Pertussis, Tetanus Vaccination: No Review of Systems - Review of Systems Notes: Constitutional: Negative for fever. HENT: Negative for sore throat. Eyes: Negative for visual changes. Cardiovascular: Negative for chest pain. Respiratory: Negative for shortness of breath. Gastrointestinal: As per HPI. Genitourinary: Negative for dysuria. Musculoskeletal: Negative for back pain. Skin: Negative for rash. Neurological: As per HPI. 10 point ROS negative except as marked above and in HPI. Physical Exam - Vital signs Vitals: Temp 98.0 F 11/30/19 13:57 - Notes Notes: GENERAL: Elderly male who appears anxious, diaphoretic and restless. SKIN: Pale and diaphoretic. Good turgor no rashes. HEAD: Normocephalic atraumatic. EYES: PERRLA. EOMI. Conjunctivae and sclerae clear. EARS: CANALS AND TMS CLEAR. NOSE: CLEAR. MOUTH: Moist mucosa. Good dentition. No stridor or edema. No drooling. NECK: Supple. No masses or thyromegaly. No adenopathy. Carotids 2+ without bruits. No JVD. BACK: Symmetrical without tenderness. CHEST: Respirations unlabored. Breath sounds clear and symmetrical. HEART: Tachycardic regular rhythm. No murmur gallop or rub. ABDOMEN: Soft nontender without masses, organomegaly or rebound. Bowel sounds normally active. No bruits. GENITALIA: Deferred. EXTREMITIES: No edema. No calf tenderness. Cap refill less than 1.5 seconds. Dorsalis pedis and posterior tibial pulses 3+ and symmetrical. NEUROLOGICAL: Severe generalized tremor. GCS 15. Alert and oriented x3. Normal gait. Fluent speech. Cranial nerves II through XII intact. Sensorimotor and cerebellar normal. PSYCHIATRIC: Very anxious affect. Course - Re-evaluation Re-evalutation: CIWA-Ar for Alcohol Withdrawal from AF83 on 11/30/2019 All calculations should be rechecked by clinician prior to use RESULT SUMMARY: 23 points Patients with scores ?20 frequently require medication for withdrawal, and may also require admission to the ICU for observation for seizures or development of delirium tremens, and more frequent medication dosing. INPUTS: Nausea/vomiting > 4 = Intermittent nausea with dry heaves Tremor > 4 = Moderate, with patient's arms extended Paroxysmal sweats > 4 = Beads of sweat obvious on forehead Anxiety > 4 = Moderately anxious, or guarded, so anxiety is inferred Agitation > 4 = Moderately fidgety and restless Tactile disturbances > 0 = None Auditory disturbances > 0 = Not present Visual disturbances > 0 = Not present Headache/fullness in head > 2 = Mild Orientation/clouding of sensorium > 1 = Can't do serial additions or is uncertain about date 11/30/19 15:54 11/30/19 16:28 Reevaluation at this time shows the patient is mildly confused trying to crawl out of bed. Interview family indicates he has had full-blown DTs in the past as well as withdrawal seizures. He had 2 seizures at home this morning. I am giving him a CIWA score of 23 at this time. He is still tachycardic to 130. He is already had Ativan 2 mg IV and is receiving a banana bag. I am giving additional Ativan at this time. If we are not able to "cool things off" within the next hour with additional benzodiazepine he will probably require admission to ICU. 11/30/19 20:30 Patient's clinical status is changed very little. Findings have been discussed with ICU team and they agree to admit the patient at this time. - Vital Signs Vital signs: Temp Pulse Resp BP Pulse Ox 98.0 F 25 H 113/69 92 11/30/19 14:06 11/30/19 19:01 11/30/19 19:01 11/30/19 19:01 - Laboratory Result Diagrams: 11/30/19 14:16 11/30/19 14:16 Laboratory results interpreted by me: 11/30/19 11/30/19 11/30/19 14:16 14:16 14:16 RBC 3.76 L MCV 106 H MCH 36.7 H RDW 17.0 H Lymph % (Auto) 5.7 L Absolute Lymphs (auto) 0.4 L Seg Neutrophils % 85.5 H Potassium 3.4 L Glucose 189 H Magnesium 1.2 L* AST 77 H Salicylates < 1.0 L Acetaminophen < 10 L Critical Care Note - Critical Care Note Total time excluding time spent on procedures (mins): 65 - Impending DTs. IV Ativan. Cardiac monitoring. IV banana bag. Serial observation. Discharge - Discharge Clinical Impression: Alcohol withdrawal syndrome, Hypomagnesemia Alcohol dependence Qualifiers: Substance use status: in withdrawal Complication of substance-induced condition: with unspecified complication Qualified Code(s): F10.239 - Alcohol dependence with withdrawal, unspecified Condition: Critical Disposition: ADMITTED INPATIENT Admitting Provider: Deborah (Transfer Machine Operator) Unit Admitted: ICU Referrals: LV PINEDA MD [Primary Care Provider] - Follow up as needed
--- NOTE | 2019-11-30 16:05 | RADIOLOGY REPORT (SQ) ---
EXAM DESCRIPTION: CHEST SINGLE VIEW IMAGES COMPLETED DATE/TIME: 11/30/2019 3:52 pm REASON FOR STUDY: etOH withdrawal COMPARISON: 07/17/2019 EXAM PARAMETERS: NUMBER OF VIEWS: One view. TECHNIQUE: Single frontal radiographic view of the chest acquired. RADIATION DOSE: NA LIMITATIONS: None. FINDINGS: LUNGS AND PLEURA: No opacities, masses or pneumothorax. No pleural effusion. MEDIASTINUM AND HILAR STRUCTURES: No masses. Contour normal. HEART AND VASCULAR STRUCTURES: Heart normal in size. Normal vasculature. BONES: No acute findings. HARDWARE: None in the chest. OTHER: No other significant finding. IMPRESSION: 1. NO ACUTE RADIOGRAPHIC FINDING IN THE CHEST. TECHNICAL DOCUMENTATION: JOB ID: [id number] 2010 [employer]- All Rights Reserved Reading location - IP/workstation name: [email or web address]
[2019-11-30] MEDS: NORMAL SALINE 1000 ML 1,000 ML with POTASSIUM CHLORIDE 20 MEQ, MAGNESIUM SULFATE 8 MEQ,... IV SCH ×5 (16:33)
[2019-11-30] MEDS ORDERED: NORMAL SALINE 1000 ML 1,000 ML with POTASSIUM CHLORIDE 20 MEQ, MAGNESIUM SULFATE 8 MEQ,... IV SCH ×5 (18:00)
--- NOTE | 2019-11-30 19:56 | EKG REPORT ---
SEVERITY:- ABNORMAL ECG - SINUS TACHYCARDIA MULTIFORM VENTRICULAR PREMATURE COMPLEXES LEFT BUNDLE BRANCH BLOCK : Confirmed by: Dominick Carias MD 30-Nov-2019 19:56:26
[2019-11-30] MEDS: HEPARIN SOD (PORCINE) 5,000 UNIT/ML 1 ML VIAL SUBCUT SCH (21:35)
[2019-11-30 21:54] LABS: ARTERIAL BLOOD BASE EXCESS 0.4 mmol/L; ARTERIAL BLOOD FIO2 2L; ARTERIAL BLOOD H2CO3 0.99 mmol/L (1.05-1.35); ARTERIAL BLOOD HCO3 23.4 mmol/L (20-24); ARTERIAL BLOOD O2 SATURATION 95.5 % (94-98); ARTERIAL BLOOD PCO2 32.9 mmHg (35-45); ARTERIAL BLOOD PH 7.47 (7.35-7.45); ARTERIAL BLOOD PO2 71.9 mmHg (80-100); ARTERIAL BLOOD TOTAL CO2 24.4 mmol/L (23-27)
--- NOTE | 2019-11-30 22:55 | CRITICAL CARE ADMISSION REPORT ---
HPI Date:: 11/30/19 Time:: 21:30 Reason for ICU Reason:: Alcohol withdrawal, respiratory distress. Admission Date/Time & PCP: Admission Date/Time: 11/30/19 20:53 Primary Care Provider: LV PINEDA MD HPI: 69-year-old male history of CHF, HTN and chronic EtOH abuse. Patient was recently admitted in July of this year for alcohol withdrawal seizures and required intubation for respiratory failure. By patient's account, he stopped drinking at 1 AM this morning and had 2 episodes of seizures prior to presenting in the emergency department. Patient also complains of nausea and a dull headache. Since being seen in the emergency department, he has required multiple doses of Ativan and has been confused with a reported CIWA score of 23. Upon my evaluation in the emergency room, I found Mr. Rehman to be mildly confused however his visual, auditory and tactile disturbances were minimal. He was calm but had significant tremors. I did find him to be short of breath with bilateral rhonchi worse on the right. We have decided to admit him to the intensive care unit for observation given his history of respiratory failure in similar settings and recent seizure activity in the setting of alcohol withdrawal. Given the patient's standing history of hypertension, he is also relatively hypotensive and mildly tachycardic. History obtained from:: Clinical documentation, patient report. - Diagnosis/Plan (1) Respiratory distress Is this a current diagnosis for this admission?: Yes Plan: Patient had mild tachypnea with rhonchi on examination. ABG has been ordered. Continue to monitor and maintain SPO2 greater than 90%. CXR with no apparent pathology. (2) Alcohol withdrawal seizure with delirium Is this a current diagnosis for this admission?: Yes Plan: Continue Ativan as needed for withdrawal. Plan Summary: Neuro: Persistent tremors. When seen in the emergency department, patient was alert and relatively oriented. Overall CIWAAR score was approximately 8-10. He received 4 mg of Ativan since that time and is now lethargic and unable to follow conversation. * Ativan as needed will be started for seizure activity, however, we will take caution to attempt to avoid respiratory suppression. Pulmonary: Bilateral rhonchi, worse on the right. CXR negative for any infiltrates. Episode of desaturation earlier while in the emergency department. ABG at that time showed mild hypoxemia with a respiratory alkalosis. Patient is a chronic and current smoker with likely history of COPD. * Maintain SPO2 greater than 90%. * Given patient's recent history of intubation in a similar setting, we will attempt to minimize benzodiazepine doses. Cardiovascular: History of CHF. No apparent edema or effusions on CXR. Current SBP in the 120s. Given patient's history of hypertension, his blood pressure is likely relatively low. * Will treat tachycardia and BP with fluids as patient has a history of vomiting this morning and is likely hypovolemic. * If volume resuscitation is needed, we will obtain a proBNP in the a.m. to evaluate fluid tolerance. Heme: H&H 13.8/39.7. This may be consistent with hemoconcentration secondary to COPD versus hypovolemia. * Will volume resuscitate as needed. DVT prophylaxis: Started on subcu heparin Renal: Hypokalemia and hypomagnesemia. Patient received magnesium for a level of 1.2. * Recheck renal panel including magnesium at midnight. * Monitor I's and O's, maintain even fluid balance. Gastrointestinal: Patient reported nausea and vomiting this morning. Possible aspiration given history and bilateral rhonchi worse on the right. * Patient will remain n.p.o. overnight. We will reevaluate feeding status in the morning. ID: No current signs of acute infection other than bilateral rhonchi. No fever, no leukocytosis. * Monitor closely for signs of infection. If evidence of infection, will start Unasyn for aspiration pneumonia coverage. Barriers to discharge from ICU: Ongoing tremors and signs of alcohol withdrawal as well as respiratory compromise. Past Medical History Cardiac Medical History: Reports: Congestive Heart Failure, Hypertension Pulmonary Medical History: Reports: Intubation, Pneumonia Psychiatric Medical History: Denies: Depression Hematology: Denies: Anemia, Sickle Cell Disease Past Surgical History Past Surgical History: Reports: Other - Remote history of tracheostomy tube placement at age 11. Social/Family History - Social History Smoking Status: Current Every Day Smoker Frequency of Alcohol Use: Heavy Hx Recreational Drug Use: No Drugs: None Hx Prescription Drug Abuse: No - Medication/Allergies Home Medications: Albuterol Sulfate [Proair HFA Inhalation Aerosol 8.5 gm MDI] 2 puff IH Q6HP PRN 05/23/18 Atorvastatin Calcium [Lipitor 40 mg Tablet] 40 mg PO QHS 05/23/18 Furosemide [Lasix 40 mg Tablet] 40 mg PO QAM 05/23/18 Allopurinol [Zyloprim 300 mg Tablet] 300 mg PO DAILY 07/03/19 Aspirin [Ecotrin 81 mg EC Tablet] 81 mg PO DAILY 07/03/19 Cyanocobalamin (Vitamin B-12) [Vitamin B-12] 1,000 mcg PO BID 07/03/19 Ezetimibe 10 mg PO DAILY 07/03/19 Metoprolol Succinate [Toprol Xl 25 mg Tab.sr] 25 mg PO DAILY 07/03/19 Sacubitril/Valsartan [Entresto 24 mg/26 mg Tablet] 1 tab PO Q12 07/03/19 Spironolactone [Aldactone 25 mg Tablet] 25 mg PO DAILY 07/03/19 Thiamine HCl [Thiamine 100 mg Tablet] 100 mg PO DAILY tablet 07/21/19 Budesonide/Formoterol Fumarate [Symbicort HFA 160-4.5 mcg Inhaler 6 gm] 2 puff IH Q12 11/30/19 Allergies/Adverse Reactions: No Known Allergies Allergy (Verified 05/23/18 13:23) Review of Systems Constitutional: PRESENT: headache(s), weakness Respiratory: PRESENT: cough Musculoskeletal: PRESENT: muscle weakness Neurological: PRESENT: as per HPI Psychiatric: PRESENT: as per HPI Physical Exam Vital Signs: Temp Pulse Resp BP Pulse Ox 97.8 F 29 H 151/121 H 84 L 11/30/19 20:43 11/30/19 20:31 11/30/19 20:31 11/30/19 20:31 Intake & Output 11/29/19 11/30/19 12/01/19 06:59 06:59 06:59 Weight 94.3 kg Weight/Height Weight 94.3 kg Height 5 ft 10.5 in General appearance: PRESENT: mild distress, obese Head exam: PRESENT: atraumatic Mouth exam: PRESENT: moist, neck supple Neck exam: PRESENT: full ROM. ABSENT: JVD Respiratory exam: PRESENT: rhonchi, tachypnea. ABSENT: wheezes Cardiovascular exam: PRESENT: +S1, +S2, tachycardia Pulses: PRESENT: +1 pedal pulses bilateral GI/Abdominal exam: PRESENT: normal bowel sounds, soft Extremities exam: PRESENT: full ROM. ABSENT: pedal edema Musculoskeletal exam: PRESENT: full ROM, normal inspection Neurological exam: PRESENT: CN II-XII grossly intact, other - Transient level of orientation. Psychiatric exam: ABSENT: agitated, anxious Focused psych exam: PRESENT: flight of ideas Skin exam: PRESENT: pallor, petechiae, warm Laboratory/Radiographs Laboratory Results: 11/30/19 14:16 11/30/19 14:16 11/30/19 11/30/19 11/30/19 14:16 14:16 14:16 WBC 6.7 RBC 3.76 L Hgb 13.8 Hct 39.7 MCV 106 H MCH 36.7 H MCHC 34.8 RDW 17.0 H Plt Count 174 Seg Neutrophils % 85.5 H Sodium 139.1 Cancelled Potassium 3.4 L Cancelled Chloride 98 Cancelled Carbon Dioxide 29 Cancelled Anion Gap 12 Cancelled BUN 20 Cancelled Creatinine 0.73 Cancelled Est GFR ( Amer) > 60 Cancelled Est GFR (Non-Af Amer) Cancelled Glucose 189 H Cancelled Calcium 10.1 Cancelled Magnesium 1.2 L* Total Bilirubin 1.3 Cancelled AST 77 H Cancelled Alkaline Phosphatase 88 Cancelled Total Protein 7.7 Cancelled Albumin 4.5 Cancelled Lipase 178.8 11/30/19 14:16 Creatine Kinase 104 Impressions: Chest X-Ray 11/30/19 15:37 IMPRESSION: 1. NO ACUTE RADIOGRAPHIC FINDING IN THE CHEST. All labs, radiographs, diagnostic studies and EKGs were personally reviewed: Yes In addition, reports of radiographic and diagnostic studies were read: Yes Critical Time Critical Time (minutes): 65 -: The care of a critically ill patient is dynamic. This note represents a static moment in the admission process. Orders and treatments may be given simultaneously and urgently, and time is not circulation sales representative of the treatment process. This patient requires Critical Care secondary to life threatening organ or limb dysfunction. Without Critical Care services, the patient is at risk for increased mortality and morbidity.
[2019-11-30] MEDS ORDERED: RINGERS SOLUTION,LACTATED 1,000 ML IV PRN (23:21)
[2019-12-01 01:00] LABS: ALBUMIN 3.8 g/dL (3.5-5.0); ANION GAP 7 (5-19); BLOOD UREA NITROGEN 20 mg/dL (7-20); CALCIUM 9.1 mg/dL (8.4-10.2); CARBON DIOXIDE 28 mmol/L (22-30); CHLORIDE 103 mmol/L (98-107); GLUCOSE 113 mg/dL (75-110); PHOSPHORUS 3.3 mg/dL (2.5-4.5); POTASSIUM 3.2 mmol/L (3.6-5.0)
[2019-12-01] MEDS ORDERED: MAGNESIUM SULFATE 4 GM/100 ML RTUPB IV ONE ×2 (04:16→04:59)
[2019-12-01 04:40] LABS: HEMATOCRIT 38.4 % (37.9-51.0); HEMOGLOBIN 13.3 g/dL (13.5-17.0); MEAN CORPUSCULAR HEMOGLOBIN 37.1 pg (27.0-33.4); MEAN CORPUSCULAR HGB CONC 34.7 g/dL (32.0-36.0); MEAN CORPUSCULAR VOLUME 107 fl (80-97); PLATELET COUNT 141 10^3/uL (150-450); RED BLOOD COUNT 3.59 10^6/uL (4.35-5.55); RED CELL DISTRIBUTION WIDTH 16.6 % (11.5-14.0); WHITE BLOOD COUNT 7.2 10^3/uL (4.0-10.5)
[2019-12-01 04:50] LABS: ANION GAP 12 (5-19); BLOOD UREA NITROGEN 19 mg/dL (7-20); CALCIUM 9.3 mg/dL (8.4-10.2); CARBON DIOXIDE 25 mmol/L (22-30); CHLORIDE 101 mmol/L (98-107); GLUCOSE 113 mg/dL (75-110); POTASSIUM 3.3 mmol/L (3.6-5.0)
[2019-12-01 04:56] LABS: APPEARANCE,URINE SLIGHTLY-CLOUDY; BILIRUBIN,URINE NEGATIVE (NEGATIVE); COLOR,URINE AMBER; GLUCOSE, URINE 150 mg/dL (NEGATIVE); KETONES,URINE TRACE mg/dL (NEGATIVE); LEUKOCYTE ESTERASE,URINE NEGATIVE (NEGATIVE); NITRITE,URINE NEGATIVE (NEGATIVE); PROTEIN,URINE 100 mg/dL (NEGATIVE); URINE SPECIFIC GRAVITY 1.027
[2019-12-01] MEDS: POTASSI CL 20 MEQ/50 ML RIDER 20 MEQ/50 ML RTUPB IV SCH ×2 (04:56→06:16)
[2019-12-01] MEDS: HEPARIN SOD (PORCINE) 5,000 UNIT/ML 1 ML VIAL SUBCUT SCH ×3 (05:09→21:18)
[2019-12-01 05:12] LABS: URINE AMPHETAMINES SCREEN NEGATIVE; URINE BARBITURATES SCREEN NEGATIVE; URINE BENZODIAZEPINES SCREEN NEGATIVE; URINE COCAINE SCREEN NEGATIVE; URINE MARIJUANA (THC) SCREEN NEGATIVE; URINE METHADONE SCREEN NEGATIVE; URINE PHENCYCLIDINE SCREEN NEGATIVE
[2019-12-01] MEDS: LORAZEPAM INJ 2 MG/1 ML VIAL IV PRN ×4 (05:52→19:54)
[2019-12-01] MEDS ORDERED: METOPROLOL TARTRATE PF/INJ 5 MG/5 ML SDV IV ONE ×2 (06:04→06:28)
--- NOTE | 2019-12-01 07:16 | EKG REPORT ---
SEVERITY:- ABNORMAL ECG - SINUS TACHYCARDIA LEFT BUNDLE BRANCH BLOCK : Confirmed by: Dominick Carias MD 01-Dec-2019 07:16:05
[2019-12-01] MEDS ORDERED: FENTANYL CITRATE INJ/PF 100 MCG/2 ML AMPUL IV ONE (08:00)
[2019-12-01] MEDS ORDERED: PROPOFOL 1,000 MG/100 ML INFUS..BTL IV PRN (08:00)
[2019-12-01] MEDS ORDERED: ROCURONIUM BROMIDE INJ 50 MG/5 ML VIAL IV ONE ×2 (08:00→10:45)
[2019-12-01] MEDS ORDERED: ETOMIDATE INJ/PF 20 MG/10 ML SDV IV ONE ×2 (08:00→08:02)
[2019-12-01] MEDS ORDERED: PHARMACY COMMUNICATION ORDER MC NR (08:00)
[2019-12-01] MEDS ORDERED: FENTANYL CITRATE INJ/PF 100 MCG/2 ML AMPUL ONE (08:02)
[2019-12-01] MEDS ORDERED: NOREPINEPHRINE BITARTRATE INJ/PF 4 MG/4 ML SDV IV ONE ×3 (08:07→20:23)
[2019-12-01] MEDS ORDERED: PROPOFOL 1,000 MG/100 ML INFUS..BTL IV ONE (08:07)
[2019-12-01] MEDS: DEXTROSE 5%-WATER 250 ML with NOREPINEPHRINE BITARTRATE 4 MG IV PRN ×12 (08:19→20:27)
[2019-12-01] MEDS ORDERED: MIDAZOLAM 2 MG/2 ML INJ ONE (08:20)
[2019-12-01] MEDS ORDERED: MIDAZOLAM 2 MG/2 ML INJ IV ONE (08:26)
[2019-12-01 09:08] LABS: ARTERIAL BLOOD BASE EXCESS -3.8 mmol/L; ARTERIAL BLOOD H2CO3 1.51 mmol/L (1.05-1.35); ARTERIAL BLOOD HCO3 23.3 mmol/L (20-24); ARTERIAL BLOOD O2 SATURATION 76.4 % (94-98); ARTERIAL BLOOD PCO2 50.3 mmHg (35-45); ARTERIAL BLOOD PH 7.28 (7.35-7.45); ARTERIAL BLOOD PO2 46.1 mmHg (80-100); ARTERIAL BLOOD TOTAL CO2 24.9 mmol/L (23-27)
[2019-12-01 09:09] LABS: ARTERIAL BLOOD FIO2 60%
[2019-12-01] MEDS ORDERED: MILRINONE LACTATE/D5W 20 MG/100 ML RTUINJ IV PRN (09:26)
--- NOTE | 2019-12-01 09:29 | RADIOLOGY REPORT (SQ) ---
EXAM DESCRIPTION: CHEST SINGLE VIEW IMAGES COMPLETED DATE/TIME: 12/01/2019 6:54 am REASON FOR STUDY: respiratory distress COMPARISON: Chest films 07/08/2019, 07/13/2019, 07/17/2019, 11/30/2019 EXAM PARAMETERS: NUMBER OF VIEWS: One view. TECHNIQUE: Single frontal radiographic view of the chest acquired. RADIATION DOSE: NA LIMITATIONS: None. FINDINGS: LUNGS AND PLEURA: No opacities, masses or pneumothorax. No pleural effusion. MEDIASTINUM AND HILAR STRUCTURES: No masses. Contour normal. HEART AND VASCULAR STRUCTURES: Stable borderline cardiomegaly BONES: Old healed left rib fractures HARDWARE: None in the chest. OTHER: No other significant finding. IMPRESSION: NO ACUTE RADIOGRAPHIC FINDING IN THE CHEST. TECHNICAL DOCUMENTATION: JOB ID: [id number] 2010 [employer]- All Rights Reserved Reading location - IP/workstation name: [email or web address]
[2019-12-01] MEDS ORDERED: DEXMEDETOMIDINE IN 0.9 % NACL 400 MCG/100 ML RTUPB IV ONE (09:51)
[2019-12-01] MEDS: DEXMEDETOMIDINE IN 0.9 % NACL 400 MCG/100 ML RTUPB IV PRN ×4 (09:59→22:35)
[2019-12-01] MEDS ORDERED: THIAMINE HCL 500 MG in NORMAL SALINE 250 ML IV SCH (10:00)
[2019-12-01] MEDS ORDERED: ZINC SULFATE 220 MG CAPSULE PO SCH (10:00)
[2019-12-01] MEDS ORDERED: SACUBITRIL/VALSARTAN 24 MG/26 MG TABLET PO SCH (10:00)
[2019-12-01] MEDS ORDERED: ASPIRIN 81 MG TABLET, ENT COATED PO SCH (10:00)
[2019-12-01] MEDS ORDERED: ALLOPURINOL 300 MG TABLET PO SCH (10:00)
[2019-12-01] MEDS ORDERED: EZETIMIBE 10 MG TABLET PO SCH (10:00)
[2019-12-01] MEDS ORDERED: METOPROLOL SUCCINATE 25 MG TAB.SR.24H PO SCH (10:00)
[2019-12-01] MEDS ORDERED: SPIRONOLACTONE 25 MG TABLET PO SCH (10:00)
[2019-12-01] MEDS ORDERED: FOLIC ACID 1 MG TABLET PO SCH (10:00)
[2019-12-01] MEDS: THIAMINE HCL IV SCH ×2 (11:00→21:17)
[2019-12-01] MEDS: NORMAL SALINE IV SCH ×2 (11:00→21:17)
--- NOTE | 2019-12-01 11:01 | RADIOLOGY REPORT (SQ) ---
EXAM DESCRIPTION: CHEST SINGLE VIEW IMAGES COMPLETED DATE/TIME: 12/01/2019 10:30 am REASON FOR STUDY: Tube and line placement COMPARISON: 12/01/2019 EXAM PARAMETERS: NUMBER OF VIEWS: One view. TECHNIQUE: Single frontal radiographic view of the chest acquired. RADIATION DOSE: NA LIMITATIONS: Patient rotation. FINDINGS: LUNGS AND PLEURA: No opacities, masses or pneumothorax. No pleural effusion. MEDIASTINUM AND HILAR STRUCTURES: Grossly stable. HEART AND VASCULAR STRUCTURES: Grossly stable. BONES: No acute findings. HARDWARE: An enteric tube terminates subdiaphragmatically out of the field of view. Endotracheal tub e terminates approximately 9 cm cranial to the isaac. Right internal jugular vein vascular catheter terminates in the region of the superior vena cava. OTHER: No other significant finding. IMPRESSION: Grossly stable pulmonary examination. Endotracheal tube terminates approximately 9 cm c ranial to the isaac; consider repositioning. Enteric tube and right IJ without evidence of complica tion. TECHNICAL DOCUMENTATION: JOB ID: [id number] 2010 [email or web address]- All Rights Reserved Reading location - IP/workstation name: [email or web address]
--- NOTE | 2019-12-01 11:18 | Operative Report ---
Bedside Procedure - History of Present Illness History of Present Illness: 69-year-old male history of CHF, HTN and chronic EtOH abuse. Patient was recently admitted in July of this year for alcohol withdrawal seizures and required intubation for respiratory failure. By patient's account, he stopped drinking at 1 AM this morning and had 2 episodes of seizures prior to presenting in the emergency department. Patient also complains of nausea and a dull headache. Since being seen in the emergency department, he has required multiple doses of Ativan and has been confused with a reported CIWA score of 23. Patient developed significant hypotension tachycardia delirium and restlessness requiring intervention including intubation, central and arterial access. Indication for Procedure: Hypotension with shock Date: 12/01/19 Provider: TARAS PARADA - Additional Procedures Arterial Line Time performed: 08:00 Notes: Arterial catheter placement: Indication/pre-operative diagnosis: Hypotension with shock Post-Procedure diagnosis: Same Proceduralist: DO Deborah [facility] Anesthesia/Anesthetic: Conscious sedation after recent intubation Location: First attempt at right radial with hypotension unsuccessful successful attempt in the right axillary artery Ultrasound guided?: Yes Consent: Obtained emergently over the phone due to pandemic and patient situation indications, risks, and benefits were explained at length. Emergent. Procedure summary: A timeout was performed. Sterile cleansing of hands occured priot to procedure. Sterile precautions maintained throughout the procedure. Chlorhexidine was used for preparation of the skin and allowed to dry. Anesthesia was achieved using 1% lidocaine. The right axillary was prepped as noted with chlorhexidine. Ultrasound guidance was used Qunkie/Seldinger needle was placed into the artery under sterile ultrasound guidance. Pulsatile blood flow was noted. Next a wire was placed using typical Seldinger technique. After the wire was placed the needle was removed and a 20- gauge long catheter was placed over wire using typical Seldinger technique. The wire was removed and placed back into tube. Pulsatile blood flow was allowed to flow through the catheter to clear debris. Catheter was sutured in place x2 and affixed to transducer tubing. Catheter was zeroed and pulsatile waveforms were noted. EBL 15-18 ml Patient tolerated procedure well No complications Procedure excludes critical care time
[2019-12-01] MEDS: CYANOCOBALAMIN (VITAMIN B-12) 1,000 MCG TABLET PO SCH ×2 (11:25→23:13)
--- NOTE | 2019-12-01 11:39 | Operative Report ---
Bedside Procedure - History of Present Illness History of Present Illness: 69-year-old male history of CHF, HTN and chronic EtOH abuse. Patient was recently admitted in July of this year for alcohol withdrawal seizures and required intubation for respiratory failure. By patient's account, he stopped drinking at 1 AM this morning and had 2 episodes of seizures prior to presenting in the emergency department. Patient also complains of nausea and a dull headache. Since being seen in the emergency department, he has required multiple doses of Ativan and has been confused with a reported CIWA score of 23. Patient developed significant hypotension tachycardia delirium and restlessness requiring intervention including intubation, central and arterial access. Endotracheal Intubation: Indication: Hypoxia and delirium with need for mechanical ventilation Pre-procedure diagnosis: Hypoxia with acute respiratory failure Postprocedure diagnosis: Same Proceduralist: DO Deborah [facility] Anesthesia: Rapid sequence intubation with the use of 1.2 mg/kg of rocuronium as neuromuscular blockade [Emergent] Consent was obtained from prior to the procedure. Indications, risks and benefits were explained at length. Procedure summary: A timeout was performed to ensure that all available equipment was immediately available including laryngoscope glide scope intubating bougie and LMA. Patient was placed on a hemodynamic monitoring including continuous pulse oximetry. Pre-oxygentation was given with nasal cannula and modified bag mask valve. Rapid sequence intubation was induced with 100 Mcg of fentanyl; etomidate 25 mg; rocuronium 1.2 mg/kg. Mask valve ventilation [was] needed . Using a S3 glide scope a size 8 endotracheal tube was placed under a [[place]] grade 1easy view. Thee patient was intubated on the first attempt. The stylette was removed and the cuff balloon was inflated. Appropriate endotracheal tube position was confirmed by direct visualization of vocal cord passage, CO2 colorimetric indicator color change as well as absence of gastric sounds and symmetrical bilateral breath sounds. The tube was secured at 24 and then later 26 centimeters at the lips. Post intubation chest x-ray confirms ET tube at near clavicle and nursing placed at 26 cm. There were no complications. Patient had transient hypoxia which lasted no longer than 2 minutes and improved over time. There was no use of adjunctive equipment needed Patient tolerated procedure well. Procedure excludes critical care time Indication for Procedure: Acute hypoxic respiratory failure Date: 12/01/19 Provider: TARAS PARADA
--- NOTE | 2019-12-01 11:51 | Operative Report ---
Bedside Procedure - History of Present Illness History of Present Illness: 69-year-old male history of CHF, HTN and chronic EtOH abuse. Patient was recently admitted in July of this year for alcohol withdrawal seizures and required intubation for respiratory failure. By patient's account, he stopped drinking at 1 AM this morning and had 2 episodes of seizures prior to presenting in the emergency department. Patient also complains of nausea and a dull headache. Since being seen in the emergency department, he has required multiple doses of Ativan and has been confused with a reported CIWA score of 23. Patient developed significant hypotension tachycardia delirium and restlessness requiring intervention including intubation, central and arterial access. Indication for Procedure: Hypotension with shock Date: 12/01/19 Provider: TARAS PARADA - Central Line Right Internal jugular Time completed: 08:35 Consent obtained: Yes Central line pre-insertion: Sterile PPE donned, Chloraprep applied, Sterile drapes applied Central line lumen type: Triple Ultrasound guided: Yes CM at insertion site: 15 Line secured with sutures: Yes Central line post-insertion: Blood return from lumens, Biopatch applied, Sutured, Sterile dressing applied, Position confirmed w/ CXR, Other - Position confirmed with ultrasound. Wire seen in the lumen of the internal jugular vein Number of attempts: 1 Complications: No Notes: 12/01/19 11:46 The right IJ and right subclavian areas were prepped with chlorhexidine and allowed to dry X 2. Full sterile Regalia was used by this author and full barrier precautions for the patient. Given the emergent nature of this process and the need for accurate right ventricular monitoring the supraclavicular approach was chosen. After sterile prep with chlorhexidine using sterile dynamic ultrasound guidance the Seldinger needle was placed in the supraclavicular region of the internal jugular vein. Venous blood was noted and the wire was able to be placed using typical Seldinger technique. After the wire was placed visualization of the wire within the intraluminal luminal region of the vein was noted. At this point an incision was made in the skin to facilitate placement of the dilator which was done without difficulty. Dilator was placed over wire without difficulty and then removed. Next a 3 lm central venous catheter was placed over wire using typical Seldinger technique without difficulty. Is placed at 15 cm. Wire was removed venous blood was aspirated from all ports and then flushed with sterile saline. Catheter was sutured in place x4. At this point reapplication of chlorhexidine occurred and was allowed to dry. Biopatch was applied and sterile dressing was applied. Total blood loss was less than 5 cc Chest x-ray shows tip at the right atrial SVC junction There was no pneumothorax based on ultrasound and chest x-ray findings There were no complications This procedure excludes critical care time
[2019-12-01] MEDS: ALBUMIN HUMAN 12.5 GM/50 ML RTUINJ IV SCH ×4 (12:21→15:21)
[2019-12-01 12:28] LABS: ANION GAP 10 (5-19); BLOOD UREA NITROGEN 21 mg/dL (7-20); CALCIUM 8.5 mg/dL (8.4-10.2); CARBON DIOXIDE 24 mmol/L (22-30); CHLORIDE 102 mmol/L (98-107); CREATINE KINASE 89 U/L (55-170); GLUCOSE 221 mg/dL (75-110); PHOSPHORUS 4.4 mg/dL (2.5-4.5); POTASSIUM 3.8 mmol/L (3.6-5.0)
[2019-12-01 12:41] LABS: ARTERIAL BLOOD BASE EXCESS -2.4 mmol/L; ARTERIAL BLOOD H2CO3 1.36 mmol/L (1.05-1.35); ARTERIAL BLOOD HCO3 23.6 mmol/L (20-24); ARTERIAL BLOOD O2 SATURATION 59.3 % (94-98); ARTERIAL BLOOD PCO2 45.3 mmHg (35-45); ARTERIAL BLOOD PH 7.33 (7.35-7.45)
[2019-12-01] MEDS ORDERED: VASOPRESSIN INJ 20 UNIT/1 ML VIAL ONE (12:43)
[2019-12-01 12:44] LABS: ARTERIAL BLOOD FIO2 60%
[2019-12-01 12:45] LABS: ARTERIAL BLOOD PO2 33.1 mmHg (80-100)
[2019-12-01] MEDS: DEXTROSE 5%-WATER 250 ML with VASOPRESSIN 100 UNIT IV PRN ×2 (12:50)
[2019-12-01] MEDS: FLUTICASONE/VILANTEROL 200-25 MCG/DOSE IH SCH (13:04)
[2019-12-01 13:44] LABS: FREE T3 5.36 pg/mL (2.77-5.27); FREE T4 (FREE THYROXINE) 1.11 ng/dL (0.78-2.19)
[2019-12-01 13:58] LABS: THYROID STIMULATING HORMONE 4.28 uIU/mL (0.47-4.68)
[2019-12-01] MEDS ORDERED: ACETAMINOPHEN 325 MG TABLET PO PRN (16:29)
[2019-12-01] MEDS ORDERED: ACETAMINOPHEN SOLN 325 MG/10.15 ML UDCUP PO PRN (17:03)
[2019-12-01] MEDS ORDERED: ASCORBIC ACID 500 MG TABLET PO SCH ×2 (17:15→18:00)
[2019-12-01] MEDS ORDERED: ACETAMINOPHEN SOLN 325 MG/10.15 ML UDCUP ONE (17:27)
--- NOTE | 2019-12-01 18:46 | RADIOLOGY REPORT (SQ) ---
EXAM DESCRIPTION: CTA CHEST IMAGES COMPLETED DATE/TIME: 12/01/2019 6:27 pm REASON FOR STUDY: Shock COMPARISON: None. TECHNIQUE: CT scan of the chest performed using helical scanning technique with dynamic intravenous contrast injection. Images reviewed with lung, soft tissue and bone windows. Reconstructed coronal and sagittal MPR images reviewed. Additional 3 dimensional post-processing performed to develop Maximal Intensity Projection images (FL P). All images stored on PACS. All CT scanners at this facility use dose modulation, iterative reconstruction, and/or weight based d osing when appropriate to reduce radiation dose to as low as reasonably achievable (ALARA). [facility]: Dose Right [facility]: CareDose [facility]: Dose Right [facility]: Teradose 4D [facility]: [employer] CONTRAST TYPE AND DOSE: 65 cc Omnipaque 350- low osmolar. Contrast bolus not optimized for the pulmonary arteries. RENAL FUNCTION: BUN 21 creatinine 0.79 RADIATION DOSE: CT Rad equipment meets quality standard of care and radiation dose reduction techniq ues were employed. CTDIvol: 15.7 - 47.9 mGy. DLP: 720 mGy-cm. . LIMITATIONS: Poor opacification of the pulmonary arteries. FINDINGS: LUNGS AND PLEURA: Small bilateral pleural effusion with associated mild atelectatic change s. AORTA AND GREAT VESSELS: No aneurysm. No dissection. HEART: No pericardial effusion. Mild coronary artery calcifications. PULMONARY ARTERIES: Cannot exclude thrombus in the right lower lobe pulmonary arteries. Vessels are poorly opacified. HILAR AND MEDIASTINAL STRUCTURES: No identified masses or abnormal nodes. HARDWARE: Endotracheal tube. NG tube. Right internal jugular catheter. UPPER ABDOMEN: No significant findings. Limited exam. THYROID AND OTHER SOFT TISSUES: No masses. No adenopathy. BONES: No acute or significant finding. 3D MIPS: Confirm above findings. OTHER: No other significant finding. IMPRESSION: 1. No aortic aneurysm or dissection. 2. Cannot exclude thrombus in the right lower lobe pulmonary arteries. Evaluation is limited. 3. Bilateral pleural effusions with some associated atelectatic changes. COMMENT: Quality ID # [id number]: Final reports with documentation of one or more dose reduction techniques (e.g., Automated exposure control, adjustment of the mA and/or kV according to patient size, use of iterative reconstruction technique) TECHNICAL DOCUMENTATION: JOB ID: [id number] 2010 [employer]- All Rights Reserved Reading location - IP/workstation name: [email or web address]
[2019-12-01] MEDS: NORMAL SALINE 1000 ML 1,000 ML with POTASSIUM CHLORIDE 20 MEQ, MAGNESIUM SULFATE 8 MEQ,... IV SCH ×5 (19:33)
[2019-12-01] MEDS ORDERED: ACETAMINOPHEN SOLN 325 MG/10.15 ML UDCUP NG PRN (20:00)
--- NOTE | 2019-12-01 20:02 | EKG REPORT ---
SEVERITY:- ABNORMAL ECG - IDIOVENTRICULAR RHYTHM : Confirmed by: Dominick Carias MD 01-Dec-2019 20:01:58
--- NOTE | 2019-12-01 20:03 | EKG REPORT ---
SEVERITY:- ABNORMAL ECG - IDIOVENTRICULAR RHYTHM : Confirmed by: Dominick Carias MD 01-Dec-2019 20:02:39
[2019-12-01] MEDS: PIPERACILLIN SODIUM/TAZOBACTAM 4.5 GM in NORMAL SALINE 100 ML IV SCH (20:08)
[2019-12-01] MEDS: ATORVASTATIN CALCIUM 40 MG TABLET NG SCH (21:18)
[2019-12-01 22:18] LABS: ARTERIAL BLOOD BASE EXCESS -2.1 mmol/L; ARTERIAL BLOOD H2CO3 1.21 mmol/L (1.05-1.35); ARTERIAL BLOOD HCO3 22.9 mmol/L (20-24); ARTERIAL BLOOD O2 SATURATION 65.7 % (94-98); ARTERIAL BLOOD PCO2 40.1 mmHg (35-45); ARTERIAL BLOOD PO2 34.9 mmHg (80-100); ARTERIAL BLOOD TOTAL CO2 24.2 mmol/L (23-27)
[2019-12-01 22:23] LABS: ARTERIAL BLOOD FIO2 50%
[2019-12-01 22:28] LABS: ARTERIAL BLOOD PH 7.38 (7.35-7.45)
--- NOTE | 2019-12-01 22:55 | XCELERA REPORT ---
[address] [address] Transthoracic Echocardiogram Report Name: ROBIN ANN Age: 69 yrs Gender: Male : 1950 Patient Status: Inpatient Patient Location: ICU^602^A Study Date: 12/01/2019 06:48 PM Height: 71 in Weight: 201 lb BSA: 2.1 m2 Procedure: A two-dimensional transthoracic echocardiogram with color flow and Doppler was performed. Study Quality: Poor. Reason For Study: Shock History: SHOCK. Ordering Physician: TARAS PARADA Performed By: Rosy Glass Interpretation Summary The left ventricle is grossly normal size. PROBABLY SEVERE GLOBAL HYPOKINESIS ( (POOR ENDOCARDIIAL VISUALISATION). PROBABLY LVEF IS SEVERELY REDUCED AT 25%. Doppler measurements suggest impaired left ventricular relaxation, which is associated with grade I/IV or mild diastolic dysfunction Septal motion is consistent with conduction abnormality The right ventricle is moderately dilated. The right ventricular systolic function is moderately reduced. The right atrium is mildly dilated. Right atrium not well visualized secondary to technical limitations The left atrial size is normal. cANNOT ASSESS asd ,vsd , OR pfo SEEN. There is no evidence of mitral valve prolapse. There is no vegetation seen on the mitral valve. There is no mitral valve stenosis. There is a trace amount of mitral regurgitation There is no aortic valve stenosis No aortic regurgitation is present. There is no tricuspid stenosis. There is a trace to mild amount of tricuspid regurgitation MILD pULMONAY HYPERTENSION.RVSP IS AT LEAST 34 MM OF Hg , WITH RA MEAN OF 20.SUSPECT THIS IS UNDERRESTIMATION OF RVSP DUE TO POOR SAMPLING OF TR JET/ There is no pulmonic valvular stenosis. There is a trace amount of pulmonic regurgitation The aortic root is not well visualized but is probably normal size. The inferior vena cava appeared dilated and did not change with respiration (RAP > 20 mmHg) There is no pericardial effusion. MMode/2D Measurements & Calculations RVDd: 3.1 cm LVIDd: 6.5 cm FS: 15.0 % Ao root diam: 3.5 cm IVSd: 1.1 cm LVIDs: 5.5 cm EDV(Teich): 217.9 ml Ao root area: 9.5 cm2 LVPWd: 1.00 cm ESV(Teich): 150.3 ml LA dimension: 3.7 cm EF(Teich): 31.0 % Doppler Measurements & Calculations MV E max alan: MV P1/2t max alan: Ao V2 max: LV V1 max P.5 cm/sec 107.5 cm/sec 93.6 cm/sec 2.4 mmHg MV A max alan: MV P1/2t: 54.9 msec Ao max PG: LV V1 max: 29.6 cm/sec MVA(P1/2t): 4.0 cm2 3.5 mmHg 77.5 cm/sec MV E/A: 2.7 MV dec slope: 573.2 cm/sec2 MV dec time: 0.08 sec PA V2 max: PI end-d alan: TR max alan: MV P1/2t-pr_phl: 70.2 cm/sec 167.6 cm/sec 184.6 cm/sec 54.9 msec PA max PG: TR max P.0 mmHg 13.6 mmHg Left Ventricle The left ventricle is grossly normal size. PROBABLY SEVERE GLOBAL HYPOKINESIS ( (POOR ENDOCARDIIAL VISUALISATION). PROBABLY LVEF IS SEVERELY REDUCED AT 25%. Doppler measurements suggest impaired left ventricular relaxation, which is associated with grade I/IV or mild diastolic dysfunction. Septal motion is consistent with conduction abnormality. Right Ventricle The right ventricle is moderately dilated. The right ventricular systolic function is moderately reduced. Atria The right atrium is mildly dilated. Right atrium not well visualized secondary to technical limitations. The left atrial size is normal. cANNOT ASSESS asd ,vsd , OR pfo SEEN. Mitral Valve There is no evidence of mitral valve prolapse. There is no vegetation seen on the mitral valve. There is no mitral valve stenosis. There is a trace amount of mitral regurgitation. Aortic Valve There is no aortic valve stenosis. No aortic regurgitation is present. Tricuspid Valve There is no tricuspid stenosis. There is a trace to mild amount of tricuspid regurgitation. MILD pULMONAY HYPERTENSION.RVSP IS AT LEAST 34 MM OF Hg , WITH RA MEAN OF 20.SUSPECT THIS IS UNDERRESTIMATION OF RVSP DUE TO POOR SAMPLING OF TR JET/. Pulmonic Valve There is no pulmonic valvular stenosis. There is a trace amount of pulmonic regurgitation. Great Vessels The aortic root is not well visualized but is probably normal size. The inferior vena cava appeared dilated and did not change with respiration (RAP > 20 mmHg). Effusions There is no pericardial effusion. : TARAS PARADA Lakshmi
--- NOTE | 2019-12-01 23:12 | RADIOLOGY REPORT (SQ) ---
EXAM DESCRIPTION: XR CHEST 1 VIEW COMPLETED DATE/TME: 12/01/2019 00:00 CLINICAL HISTORY: 69 years, Male, ETT evaluation COMPARISON: Multiple priors, most recent from earlier the same day NUMBER OF VIEWS: 2 TECHNIQUE: 2 frontal radiographs of the chest were acquired LIMITATIONS: None. FINDINGS: Endotracheal tube tip is located within the trachea, approximately 4.8 cm above the isaac. Right IJ approach central venous catheter tip is located in the SVC. Enteric drainage tube tip projects below the field of view, at least within the gastric body. Cardiac and mediastinal contours are stable. Patchy bibasilar opacity is noted, somewhat improved on the right. No pneumothorax or large pleural effusion. IMPRESSION: Endotracheal tube tip is located within the trachea, approximately 4.8 cm above the isaac. Persistent patchy bibasilar airspace disease, somewhat improved about the right lung base. copyright 2010 [employer]- All Rights Reserved
[2019-12-02] MEDS: DEXTROSE 5%-WATER 250 ML with NOREPINEPHRINE BITARTRATE 4 MG IV PRN ×6 (00:10→21:00)
[2019-12-02] MEDS ORDERED: DEXTROSE 40% GEL 15 GM TUBE PO PRN ×2 (00:12)
[2019-12-02] MEDS ORDERED: GLUCAGON,HUMAN RECOMB 1 MG INJ IM PRN (00:12)
[2019-12-02] MEDS: ASCORBIC ACID 500 MG TABLET NG SCH ×5 (00:12→23:23)
[2019-12-02] MEDS ORDERED: DEXTROSE 50%-WATER 25 GM/50 ML DISP.SYRIN IV PRN ×2 (00:12)
[2019-12-02] MEDS: INSULIN REG, HUMAN 100 UNIT/ML 3 ML VIAL (PYX) SUBCUT SCH ×5 (00:22→23:23)
[2019-12-02] MEDS: PIPERACILLIN SODIUM/TAZOBACTAM 4.5 GM in NORMAL SALINE 100 ML IV SCH ×4 (02:01→20:59)
[2019-12-02] MEDS: DEXMEDETOMIDINE IN 0.9 % NACL 400 MCG/100 ML RTUPB IV PRN ×3 (02:02→14:58)
[2019-12-02 04:19] LABS: ABSOLUTE LYMPHOCYTES (AUTO) 1.7 10^3/uL (0.5-4.7); ABSOLUTE MONOCYTES (AUTO) 0.9 10^3/uL (0.1-1.4); ABSOLUTE NEUT (AUTO) 6.4 10^3/uL (1.7-8.2); BASOPHILS % (AUTO) 0.5 % (0-2); EOSINOPHILS % (AUTO) 0.5 % (0-6); HEMATOCRIT 35.4 % (37.9-51.0); HEMOGLOBIN 12.2 g/dL (13.5-17.0); LYMPHOCYTES % (AUTO) 19.1 % (13-45); MEAN CORPUSCULAR HEMOGLOBIN 37.1 pg (27.0-33.4); MEAN CORPUSCULAR HGB CONC 34.4 g/dL (32.0-36.0); MEAN CORPUSCULAR VOLUME 108 fl (80-97); MONOCYTES % (AUTO) 9.9 % (3-13); PLATELET COUNT 128 10^3/uL (150-450); RED BLOOD COUNT 3.29 10^6/uL (4.35-5.55); RED CELL DISTRIBUTION WIDTH 16.5 % (11.5-14.0); TOTAL CELLS COUNTED % (AUTO) 100 %; WHITE BLOOD COUNT 9.1 10^3/uL (4.0-10.5)
[2019-12-02 04:21] LABS: ARTERIAL BLOOD BASE EXCESS -5.8 mmol/L; ARTERIAL BLOOD H2CO3 0.75 mmol/L (1.05-1.35); ARTERIAL BLOOD HCO3 16.9 mmol/L (20-24); ARTERIAL BLOOD O2 SATURATION 99.4 % (94-98); ARTERIAL BLOOD PCO2 24.9 mmHg (35-45); ARTERIAL BLOOD PH 7.45 (7.35-7.45); ARTERIAL BLOOD PO2 189.7 mmHg (80-100); ARTERIAL BLOOD TOTAL CO2 17.7 mmol/L (23-27)
[2019-12-02 04:24] LABS: ARTERIAL BLOOD FIO2 50%
[2019-12-02 04:30] LABS: INTERNATIONAL RATION (INR) 1.04; PROTHROMBIN TIME 13.6 SEC (11.4-15.4)
[2019-12-02 04:31] LABS: PARTIAL THROMBOPLASTIN TIME 34.7 SEC (23.5-35.8)
[2019-12-02 04:38] LABS: ANION GAP 7 (5-19); BLOOD UREA NITROGEN 20 mg/dL (7-20); CARBON DIOXIDE 26 mmol/L (22-30); CHLORIDE 102 mmol/L (98-107); GLUCOSE 175 mg/dL (75-110); POTASSIUM 3.4 mmol/L (3.6-5.0)
[2019-12-02 04:39] LABS: PHOSPHORUS 2.9 mg/dL (2.5-4.5)
[2019-12-02] MEDS: MILRINONE LACTATE/D5W 20 MG/100 ML RTUINJ IV PRN (06:22)
[2019-12-02] MEDS: HEPARIN SOD (PORCINE) 5,000 UNIT/ML 1 ML VIAL SUBCUT SCH ×3 (06:22→21:00)
[2019-12-02] MEDS: POTASSIUM CHLORIDE 20 MEQ/50 ML RTU IV SCH ×2 (06:23→07:54)
[2019-12-02] MEDS: LORAZEPAM INJ 2 MG/1 ML VIAL IV PRN ×5 (06:59→23:16)
--- NOTE | 2019-12-02 08:54 | PDOC CRITICAL CARE PROG REPORT ---
General Date:: 12/01/19 ICU Day:: 1 Hospital Day:: 1 Resuscitation Status: Full Code Medical Power of Restorative Rehab Aide: Bambi Events in the past 12 to 24 Hours:: 12.01.2019: Patient extremely restless dyspneic with hypoxia this morning. Required urgent intubation. Cephalopathy and delirium more significant. Patient required emergent intubation for impending respiratory failure. Active resuscitation for hypotension ensued with placement of central access and arterial access. Patient is extremely diaphoretic and unstable with improved with the use of Levophed and milrinone. Bedside critical care basic echo showed an ejection fraction approaching 10-15% which improved slightly with Levophed. Pulse pressure was narrow. With the use of milrinone and Levophed patient has improved. Precedex was used for Lucitropic and tranquility effect. Review of systems relevant to events:: 12.01.2019: Significant diaphoresis. Blood pressure 90/60 with tachycardia of 125. Notable liquid aspirations at bedside. Reason for ICU Addmission:: Alcohol withdrawal, respiratory distress. - Medications: Medications reviewed and adjusted accordingly: Yes Vasopressors:: Levophed started prior to intubation for hypotension, milrinone. Sedation:: Rapid sequence intubation. Hypotension precluded propofol use so 5 mg of Versed was ordered. On Dexmetadomidine. Physical Exam Vital Signs: Temp Pulse Resp BP Pulse Ox 98.4 F 101 H 27 H 105/79 97 12/01/19 06:00 12/01/19 06:00 12/01/19 06:07 12/01/19 06:07 12/01/19 06:07 Intake & Output 11/30/19 12/01/19 12/02/19 06:59 06:59 06:59 Intake Total 1411 Output Total 350 Balance 1061 Weight 91.5 kg Weight/Height Weight 91.5 kg Height 5 ft 11 in General appearance: PRESENT: obese, severe distress Exam: Older appearing 69-year-old male who is toxic appearing chao with delirium and diaphoretic. Head exam: PRESENT: atraumatic Eye exam: PRESENT: conjunctival injection, PERRLA. ABSENT: nystagmus, scleral icterus Ear exam: PRESENT: normal external ear exam. ABSENT: bleeding Mouth exam: PRESENT: moist, tongue midline Teeth exam: PRESENT: edentulous Throat exam: ABSENT: post pharyngeal erythema, tonsillar exudate, tonsillogmegaly Neck exam: ABSENT: carotid bruit, JVD, lymphadenopathy, thyromegaly, tracheal deviation Respiratory exam: PRESENT: accessory muscle use, crackles, decreased breath sounds, rhonchi, tachypnea. ABSENT: unlabored Cardiovascular exam: PRESENT: tachycardia Vascular exam: PRESENT: normal capillary refill GI/Abdominal exam: PRESENT: normal bowel sounds, soft. ABSENT: ascites, distended, guarding, mass, organolmegaly, rebound, tenderness Rectal exam: PRESENT: deferred Gentrourinary exam: ABSENT: lesions, scrotal swelling Extremities exam: PRESENT: pedal edema Neurological exam: PRESENT: altered, other - Patient is moving all extremities without any isolated focal deficits. He has delirium but is oriented to person and place only. Active tremors noted with mild asterixis. ABSENT: motor sensory deficit Psychiatric exam: PRESENT: agitated, anxious Focused psych exam: PRESENT: psychomotor agitation, restlessness Skin exam: PRESENT: cyanosis, pallor Laboratory/Radiographs Laboratory Results: 12/01/19 03:58 12/01/19 03:58 11/30/19 11/30/19 11/30/19 04:28 14:16 14:16 WBC 6.7 RBC 3.76 L Hgb 13.8 Hct 39.7 MCV 106 H MCH 36.7 H MCHC 34.8 RDW 17.0 H Plt Count 174 Seg Neutrophils % 85.5 H Carbonic Acid HCO3/H2CO3 Ratio ABG pH ABG pCO2 ABG pO2 ABG HCO3 ABG O2 Saturation ABG Base Excess FiO2 Sodium 139.1 Potassium 3.4 L Chloride 98 Carbon Dioxide 29 Anion Gap 12 BUN 20 Creatinine 0.73 Est GFR ( Amer) > 60 Est GFR (Non-Af Amer) Glucose 189 H Calcium 10.1 Phosphorus Magnesium Total Bilirubin 1.3 AST 77 H Alkaline Phosphatase 88 Total Protein 7.7 Albumin 4.5 Lipase Urine Color JORY Urine Appearance SLIGHTLY-CLOUDY Urine pH 5.0 Ur Specific [place] 1.027 Urine Protein 100 H Urine Glucose (UA) 150 H Urine Ketones TRACE H Urine Blood NEGATIVE Urine Nitrite NEGATIVE Ur Leukocyte Esterase NEGATIVE Urine WBC (Auto) 1 Urine RBC (Auto) 1 11/30/19 11/30/19 12/01/19 14:16 21:02 00:27 WBC RBC Hgb Hct MCV MCH MCHC RDW Plt Count Seg Neutrophils % Carbonic Acid 0.99 L HCO3/H2CO3 Ratio 23:1 ABG pH 7.47 H ABG pCO2 32.9 L ABG pO2 71.9 L ABG HCO3 23.4 ABG O2 Saturation 95.5 ABG Base Excess 0.4 FiO2 2L Sodium Cancelled 137.8 Potassium Cancelled 3.2 L Chloride Cancelled 103 Carbon Dioxide Cancelled 28 Anion Gap Cancelled 7 BUN Cancelled 20 Creatinine Cancelled 0.55 Est GFR ( Amer) Cancelled > 60 Est GFR (Non-Af Amer) Cancelled Glucose Cancelled 113 H Calcium Cancelled 9.1 Phosphorus 3.3 Magnesium 1.2 L* 1.6 Total Bilirubin Cancelled AST Cancelled Alkaline Phosphatase Cancelled Total Protein Cancelled Albumin Cancelled 3.8 Lipase 178.8 Urine Color Urine Appearance Urine pH Ur Specific [place] Urine Protein Urine Glucose (UA) Urine Ketones Urine Blood Urine Nitrite Ur Leukocyte Esterase Urine WBC (Auto) Urine RBC (Auto) 12/01/19 12/01/19 03:58 03:58 WBC 7.2 RBC 3.59 L Hgb 13.3 L Hct 38.4 MCV 107 H MCH 37.1 H MCHC 34.7 RDW 16.6 H Plt Count 141 L Seg Neutrophils % Carbonic Acid HCO3/H2CO3 Ratio ABG pH ABG pCO2 ABG pO2 ABG HCO3 ABG O2 Saturation ABG Base Excess FiO2 Sodium 138.3 Potassium 3.3 L Chloride 101 Carbon Dioxide 25 Anion Gap 12 BUN 19 Creatinine 0.62 Est GFR ( Amer) > 60 Est GFR (Non-Af Amer) Glucose 113 H Calcium 9.3 Phosphorus Magnesium 1.6 Total Bilirubin AST Alkaline Phosphatase Total Protein Albumin Lipase Urine Color Urine Appearance Urine pH Ur Specific [place] Urine Protein Urine Glucose (UA) Urine Ketones Urine Blood Urine Nitrite Ur Leukocyte Esterase Urine WBC (Auto) Urine RBC (Auto) 11/30/19 12/01/19 12/01/19 14:16 03:58 07:00 Creatine Kinase 104 Troponin I 0.815 0.775 All labs, radiographs, diagnostic studies and EKGs were personally reviewed: Yes In addition, reports of radiographic and diagnostic studies were read: Yes Assessment and Plan - Diagnosis (1) Acute respiratory failure with hypoxemia Is this a current diagnosis for this admission?: Yes (2) Alcohol withdrawal delirium Is this a current diagnosis for this admission?: Yes (3) Acute metabolic encephalopathy Is this a current diagnosis for this admission?: Yes (4) Hypotension (arterial) Qualifiers: Hypotension type: hypotension due to drug Qualified Code(s): I95.2 - Hypotension due to drugs Is this a current diagnosis for this admission?: Yes (5) Asterixis Is this a current diagnosis for this admission?: Yes (6) Alcohol withdrawal delirium, acute, hyperactive Is this a current diagnosis for this admission?: Yes (7) Alcohol abuse Is this a current diagnosis for this admission?: Yes Plan Summary: 12.01.2019: Respiratory: Patient has acute hypoxic respiratory failure requiring intubation for mechanical ventilation. He has excessive secretions and this may be related to over cardiogenic heart failure. Will provide respiratory support and provide for adequate oxygenation. We will utilize low tidal volume strategy to protect lung parenchyma. Will check sputum studies to rule out microbiologic processes. There was excessive secretions noted during the intubation. Infectious: At this point no infectious process appears to be present. We will continue to monitor and screen accordingly. Patient is at risk for aspiration pneumonia. Cardiac: Patient has a history of left bundle branch block which is present on EKGs on admission here. Troponin has only slightly elevated raising the suspicion for alcohol withdrawal related cardiomyopathy. Have continue the patient on aspirin and statin therapy. His bedside basic critical care echo showed marked reduction in ejection fraction and will obtain a more formal echocardiogram. His ejection fraction is significantly altered that we placed him on milrinone. His mixed venous blood gas shows an oxygen saturation of 74% and we will re-check this for validity. Central venous pressure monitoring, although not used for exact static numbers will be used for dynamic hemodynamic evaluation. Patient does have some improvement with passive leg raise and have added colloid therapy. Will wean therapy as his clinical situation improves. Above all this appears to be a alcohol withdrawal related cardiac dysfunction leading to cardiogenic shock. There is no evidence to support that this is an acute myocardial infarction however we will monitor accordingly. Hematologic: Patient at risk for anemia and other hematologic processes. We will continue to monitor. Endocrine: Monitor glucose, thyroid and cortisol function Renal: Continue to monitor GFR and creatinine during shock process. Metabolic: Patient has expected hypomagnesemia and hypokalemia related to alcohol use. Replace accordingly. Alimentary: Will be vigilant to provide nutritional support and watch for ketoacidosis. Neurologic: Patient has delirium tremens from alcohol withdrawal which is quite significant. Mortality is quite high and his prognosis is guarded given his already altered cardiac function present prior to admission. Have discussed case with his and will continue to be in discussion with him. Continue Precedex for both tranquility effect and also to provide Lucitropic support to control heart rate. Sedation: Precedex Lines/Tubes: Central line and arterial catheter placed 12/01/2019 Other: Discussion with family over phone Addendum: Critical Time Critical Time (minutes): 120 Level of Care: ICU -: 1. The care of a critical patient is a dynamic process. This note is a sales representative facility services synopsis but static in nature. The timeframe for treatments given in order is not necessarily the actual time these treatments may have been done. 2. This patient requires critical care secondary to ongoing requirements for therapy not offered or safe outside the critical care environment. Transfer to a lower level of care will result in altered life or limb morbidity and mortality. 3. Multidisciplinary rounds completed. 4. ABCDE bundle addressed.
[2019-12-02] MEDS: ASPIRIN 81 MG TABLET, CHEWABLE NG SCH (09:31)
[2019-12-02] MEDS: CYANOCOBALAMIN (VITAMIN B-12) 1,000 MCG TABLET NG SCH ×2 (09:31→17:21)
[2019-12-02] MEDS: ALLOPURINOL 300 MG TABLET NG SCH (09:32)
[2019-12-02] MEDS: FOLIC ACID 1 MG TABLET NG SCH (09:32)
[2019-12-02] MEDS: FLUTICASONE/VILANTEROL 200-25 MCG/DOSE IH SCH (09:32)
[2019-12-02] MEDS: HYDROCORTISONE SOD SUCCINATE INJ/PF 100 MG/2 ML SDV IV SCH ×2 (09:33→17:20)
[2019-12-02] MEDS: ZINC SULFATE 220 MG CAPSULE NG SCH (09:33)
[2019-12-02] MEDS: THIAMINE HCL IV SCH ×2 (09:33→21:00)
[2019-12-02] MEDS: NORMAL SALINE IV SCH ×2 (09:33→21:00)
--- NOTE | 2019-12-02 10:24 | RADIOLOGY REPORT (SQ) ---
EXAM DESCRIPTION: CHEST SINGLE VIEW IMAGES COMPLETED DATE/TIME: 12/02/2019 6:17 am REASON FOR STUDY: Hypoxic respiratory failure COMPARISON: CT chest 12/01/2019 Chest films 12/01/2019, 11/30/2019, 07/08/2019 EXAM PARAMETERS: NUMBER OF VIEWS: One view. TECHNIQUE: Single frontal radiographic view of the chest acquired. RADIATION DOSE: NA LIMITATIONS: Portable film, rotated towards the [place] position FINDINGS: LUNGS AND PLEURA: No focal infiltrates. No pleural effusion. No pneumothorax. MEDIASTINUM AND HILAR STRUCTURES: No masses. Contour normal. HEART AND VASCULAR STRUCTURES: No gross cardiomegaly BONES: No acute findings. HARDWARE: Endotracheal tube tip 5 cm above the isaac. Nasogastric 2 tip and side port below the hem idiaphragms. Right jugular central line tip superior vena cava OTHER: No other significant finding. IMPRESSION: Tubes and lines in good positioning. No focal infiltrates TECHNICAL DOCUMENTATION: JOB ID: [id number] 2010 [employer]- All Rights Reserved Reading location - IP/workstation name: [email or web address]
[2019-12-02] MEDS ORDERED: FAMOTIDINE INJ/PF 20 MG/2 ML SDV IV SCH (11:00)
[2019-12-02 14:23] LABS: ARTERIAL BLOOD HCO3 24.4 mmol/L (20-24); ARTERIAL BLOOD O2 SATURATION 55.3 % (94-98); ARTERIAL BLOOD PCO2 43.2 mmHg (35-45); ARTERIAL BLOOD PH 7.37 (7.35-7.45); ARTERIAL BLOOD TOTAL CO2 25.7 mmol/L (23-27)
[2019-12-02 14:30] LABS: ARTERIAL BLOOD FIO2 40%
[2019-12-02 14:32] LABS: ARTERIAL BLOOD PO2 30.1 mmHg (80-100)
[2019-12-02] MEDS: NORMAL SALINE 1000 ML 1,000 ML with POTASSIUM CHLORIDE 20 MEQ, MAGNESIUM SULFATE 8 MEQ,... IV SCH ×5 (17:22)
--- NOTE | 2019-12-02 17:37 | PDOC CRITICAL CARE PROG REPORT ---
General Date:: 12/02/19 ICU Day:: 2 Ventilator Day:: 1 Hospital Day:: 2 Resuscitation Status: Full Code Medical Power of [employer] Hand: , Bambi Events in the past 12 to 24 Hours:: 12.02.2019: Patient had significant events which started yesterday morning. He required urgent intubation because of impending respiratory failure. He appeared to have active delirium with withdrawal and cardiovascular compromise. He had a period of unstable and is requiring vasopressor support and modification of ventilator to support oxygenation. Echocardiogram done showed an ejection fraction approaches 20-25% but this is after the initiation of milrinone. Her bedside original baseline echo showed ejection fraction approximately 10 to 15%. Notably his mixed venous oxygen gas showed a saturation of 54% and he was placed on milrinone. He has been improving. Levophed is at 12 and vasopressin is off. Milrinone was at 0.125 with an acceptable oxygen saturation of 65%. 12.01.2019: Patient extremely restless dyspneic with hypoxia this morning. Required urgent intubation. Cephalopathy and delirium more significant. Patient required emergent intubation for impending respiratory failure. Active resuscitation for hypotension ensued with placement of central access and arterial access. Patient is extremely diaphoretic and unstable with improved with the use of Levophed and milrinone. Bedside critical care basic echo showed an ejection fraction approaching 10-15% which improved slightly with Levophed. Pulse pressure was narrow. With the use of milrinone and Levophed patient has improved. Precedex was used for Lucitropic and tranquility effect. Review of systems relevant to events:: 12.02.2019: Chest x-ray is clear. Patient has been started on broad-spectrum antibiotics because of fever that may be related to alcohol withdrawal effects. Cultures and Gram stain are still pending. Milrinone has been reduced to 0.075 mics per kilogram. There is no further diaphoresis and his hemodynamic status has been non-labile. 12.01.2019: Significant diaphoresis. Blood pressure 90/60 with tachycardia of 125. Notable liquid aspirations at bedside. Reason for ICU Addmission:: Alcohol withdrawal, respiratory distress. - Medications: Medications reviewed and adjusted accordingly: Yes Vasopressors:: Levophed @12, Milrinone at 0.075 mcg/kg/min. Sedation:: Precedex, prn fentanyl Physical Exam Vital Signs: Temp Pulse Resp BP Pulse Ox 100.2 F 83 20 92/64 L 100 12/02/19 08:00 12/02/19 08:27 12/02/19 08:00 12/02/19 08:00 12/02/19 08:27 Intake & Output 12/01/19 12/02/19 12/03/19 06:59 06:59 06:59 Intake Total 1411 3354 158 Output Total 350 605 30 Balance 1061 2749 128 Weight 91.5 kg 97 kg Weight/Height Weight 97 kg Height 5 ft 11 in General appearance: PRESENT: no acute distress, morbidly obese Exam: Intubated, obese somewhat disheveled nontoxic older appearing 69-year-old male no active distress. He is appropriately sedated. Eye exam: PRESENT: PERRLA. ABSENT: conjunctival injection, nystagmus, scleral icterus Mouth exam: PRESENT: dry mucosa Teeth exam: PRESENT: edentulous Respiratory exam: PRESENT: clear to auscultation nathaniel, unlabored. ABSENT: accessory muscle use, rales, rhonchi, tachypnea, wheezes Cardiovascular exam: PRESENT: RRR, +S1, +S2 Vascular exam: PRESENT: normal capillary refill. ABSENT: pallor GI/Abdominal exam: PRESENT: normal bowel sounds, soft. ABSENT: ascites, distended, guarding, mass, organolmegaly, rebound, tenderness Rectal exam: PRESENT: deferred Gentrourinary exam: PRESENT: indwelling catheter Musculoskeletal exam: ABSENT: deformity, dislocation Neurological exam: PRESENT: altered, other - Moves extremities to noxious stimulus. He does follow commands but not consistently. There are no focal motor deficits. Psychiatric exam: PRESENT: agitated - When examined Skin exam: PRESENT: dry, intact, warm. ABSENT: cyanosis, mottled, rash Tubes/Lines: PRESENT: Endotracheal Tube, Central Line, Other - Arterial catheter right axillary Laboratory/Radiographs Laboratory Results: 12/02/19 04:08 12/02/19 04:08 12/01/19 12/01/19 12/01/19 07:00 09:00 11:44 WBC RBC Hgb Hct MCV MCH MCHC RDW Plt Count Seg Neutrophils % Carbonic Acid 1.51 H HCO3/H2CO3 Ratio 15:1 ABG pH 7.28 L ABG pCO2 50.3 H ABG pO2 46.1 L ABG HCO3 23.3 ABG O2 Saturation 76.4 L ABG Base Excess -3.8 FiO2 60% Sodium 135.8 L Potassium 3.8 Chloride 102 Carbon Dioxide 24 Anion Gap 10 BUN 21 H Creatinine 0.79 Est GFR ( Amer) > 60 Glucose 221 H Lactic Acid Calcium 8.5 Phosphorus 4.4 Magnesium 2.2 Ammonia Triglycerides 79 TSH Free T4 Free T3 pg/mL 12/01/19 12/01/19 12/01/19 12:30 12:56 12:56 WBC RBC Hgb Hct MCV MCH MCHC RDW Plt Count Seg Neutrophils % Carbonic Acid 1.36 H HCO3/H2CO3 Ratio 17:1 ABG pH 7.33 L ABG pCO2 45.3 H ABG pO2 33.1 L* ABG HCO3 23.6 ABG O2 Saturation 59.3 L ABG Base Excess -2.4 FiO2 60% Sodium Potassium Chloride Carbon Dioxide Anion Gap BUN Creatinine Est GFR ( Amer) Glucose Lactic Acid 1.3 Calcium Phosphorus Magnesium Ammonia Triglycerides TSH 4.28 Free T4 1.11 Free T3 pg/mL 5.36 H 12/01/19 12/02/19 12/02/19 22:07 04:08 04:08 WBC 9.1 RBC 3.29 L Hgb 12.2 L Hct 35.4 L MCV 108 H MCH 37.1 H MCHC 34.4 RDW 16.5 H Plt Count 128 L Seg Neutrophils % 70.0 Carbonic Acid 1.21 HCO3/H2CO3 Ratio 18:1 ABG pH 7.38 ABG pCO2 40.1 ABG pO2 34.9 L* ABG HCO3 22.9 ABG O2 Saturation 65.7 L ABG Base Excess -2.1 FiO2 50% Sodium Potassium Chloride Carbon Dioxide Anion Gap BUN Creatinine Est GFR ( Amer) Glucose Lactic Acid Calcium Phosphorus 2.9 Magnesium 2.3 Ammonia Triglycerides TSH Free T4 Free T3 pg/mL 12/02/19 12/02/19 12/02/19 04:08 04:08 04:08 WBC RBC Hgb Hct MCV MCH MCHC RDW Plt Count Seg Neutrophils % Carbonic Acid 0.75 L HCO3/H2CO3 Ratio 22:1 ABG pH 7.45 ABG pCO2 24.9 L ABG pO2 189.7 H ABG HCO3 16.9 L ABG O2 Saturation 99.4 H ABG Base Excess -5.8 FiO2 50% Sodium 135.3 L Potassium 3.4 L Chloride 102 Carbon Dioxide 26 Anion Gap 7 BUN 20 Creatinine 0.59 Est GFR ( Amer) > 60 Glucose 175 H Lactic Acid Calcium 8.0 L Phosphorus Magnesium Ammonia < 8.7 L Triglycerides TSH Free T4 Free T3 pg/mL 11/30/19 12/01/19 12/01/19 14:16 03:58 07:00 Creatine Kinase 104 Troponin I 0.815 0.775 12/01/19 11:44 Creatine Kinase 89 Troponin I Impressions: Chest/Abdomen CTA 12/01/19 00:00 IMPRESSION: 1. No aortic aneurysm or dissection. 2. Cannot exclude thrombus in the right lower lobe pulmonary arteries. Evaluation is limited. 3. Bilateral pleural effusions with some associated atelectatic changes. All labs, radiographs, diagnostic studies and EKGs were personally reviewed: Yes In addition, reports of radiographic and diagnostic studies were read: Yes Assessment and Plan - Diagnosis (1) Cardiogenic shock Is this a current diagnosis for this admission?: Yes (2) Acute respiratory failure with hypoxemia Is this a current diagnosis for this admission?: Yes (3) Alcohol withdrawal delirium Is this a current diagnosis for this admission?: Yes (4) Acute metabolic encephalopathy Is this a current diagnosis for this admission?: Yes (5) Hypotension (arterial) Qualifiers: Hypotension type: hypotension due to drug Qualified Code(s): I95.2 - Hypotension due to drugs Is this a current diagnosis for this admission?: Yes (6) Asterixis Is this a current diagnosis for this admission?: Yes (7) Cardiomyopathy, alcoholic Is this a current diagnosis for this admission?: Yes (8) Alcohol withdrawal delirium, acute, hyperactive Is this a current diagnosis for this admission?: Yes (9) Alcohol abuse Is this a current diagnosis for this admission?: Yes Plan Summary: 12.02.2019: Respiratory: Given the patient's cardiac instability will wean slowly from mechanical ventilation as his situation improves. Continue providing low tidal volume strategy to prevent lung injury. He had evidence of aspiration changes on CT scan we will continue antibiotics pending cultures. Patient also had atelectatic changes and these appear improved on x-ray. Infectious: Seen at current dosing. Continue to monitor and follow Gram stain and cultures. Will de-escalate as quickly as possible Cardiac: Patient appears to have pre-admission cardiomyopathy which is been worsening for by his active alcohol withdrawal. This is a cardiogenic shock which resulted from acute delirium tremens which is altered his physiology and basic metabolic rate. Plan for today is to reintroduce vasopressin given his right-sided changes and reduce Levophed. Will attempt to wean milrinone and follow mixed venous blood gas as a surrogate marker of success. At this point it does not appear that patient has any active coronary disease but it would be highly likely and he is on aspirin and statin therapy. No EKG changes exist except for new right bundle branch block. He is at risk for advanced heart block and will be vigilant in monitoring his situation. Of note I have used Dexmedetomidine for tranquility and sedation and its known side effect bradycardia has been helpful for the lucitropic effect that we need for his heart. We will introduce beta-kathy therapy as soon as his hemodynamics with support Hematologic: Continue to monitor no active issues Endocrine: Patient on steroid therapy. He has relative adrenal insufficiency with a cortisol level 14 and an active hypotensive crisis. Continue Solu- Cortef. Renal: No active renal issues. Limit the use of sodium chloride and use lactated Ringer's or other suitable physiologically based pH for any hydration. Will monitor for suitability for diuresis. His CVP which we have been trending is running between 8-12. Passive leg raise exam today did not improve blood pressure significantly. Metabolic: Replace and monitor electrolytes given his acute status. Alimentary: We will begin trophic feeds to allow for appropriate nutritional support and prevent bacterial overgrowth. Neurologic: Continue to keep sedate and tranquil with Precedex. Watch for seizures and alcohol withdrawal symptomatology. Sedation: Continue with Dexmedetomidine Lines/Tubes: Intubated, central line and arterial catheter 12-01-2019 Other: Updated family. 12.01.2019: Respiratory: Patient has acute hypoxic respiratory failure requiring intubation for mechanical ventilation. He has excessive secretions and this may be related to over cardiogenic heart failure. Will provide respiratory support and provide for adequate oxygenation. We will utilize low tidal volume strategy to protect lung parenchyma. Will check sputum studies to rule out microbiologic processes. There was excessive secretions noted during the intubation. Infectious: At this point no infectious process appears to be present. We will continue to monitor and screen accordingly. Patient is at risk for aspiration pneumonia. Cardiac: Patient has a history of left bundle branch block which is present on EKGs on admission here. Troponin has only slightly elevated raising the suspicion for alcohol withdrawal related cardiomyopathy. Have continue the patient on aspirin and statin therapy. His bedside basic critical care echo showed marked reduction in ejection fraction and will obtain a more formal echocardiogram. His ejection fraction is significantly altered that we placed him on milrinone. His mixed venous blood gas shows an oxygen saturation of 74% and we will re-check this for validity. Central venous pressure monitoring, although not used for exact static numbers will be used for dynamic hemodynamic evaluation. Patient does have some improvement with passive leg raise and have added colloid therapy. Will wean therapy as his clinical situation improves. Above all this appears to be a alcohol withdrawal related cardiac dysfunction leading to cardiogenic shock. There is no evidence to support that this is an acute myocardial infarction however we will monitor accordingly. Hematologic: Patient at risk for anemia and other hematologic processes. We will continue to monitor. Endocrine: Monitor glucose, thyroid and cortisol function Renal: Continue to monitor GFR and creatinine during shock process. Metabolic: Patient has expected hypomagnesemia and hypokalemia related to alcohol use. Replace accordingly. Alimentary: Will be vigilant to provide nutritional support and watch for ketoacidosis. Neurologic: Patient has delirium tremens from alcohol withdrawal which is quite significant. Mortality is quite high and his prognosis is guarded given his already altered cardiac function present prior to admission. Have discussed case with his and will continue to be in discussion with him. Continue Precedex for both tranquility effect and also to provide Lucitropic support to control heart rate. Sedation: Precedex Lines/Tubes: Central line and arterial catheter placed 12/01/2019 Other: Discussion with family over phone Critical Time Critical Time (minutes): 60 Level of Care: ICU -: 1. The care of a critical patient is a dynamic process. This note is a banking representative synopsis but static in nature. The timeframe for treatments given in order is not necessarily the actual time these treatments may have been done. 2. This patient requires critical care secondary to ongoing requirements for therapy not offered or safe outside the critical care environment. Transfer to a lower level of care will result in altered life or limb morbidity and mortality. 3. Multidisciplinary rounds completed. 4. ABCDE bundle addressed.
[2019-12-02] MEDS ORDERED: ATROPINE SULFATE INJ 1 MG/10 ML DISP.SYRIN IV ONE ×2 (19:30→19:31)
[2019-12-02] MEDS: ATORVASTATIN CALCIUM 40 MG TABLET NG SCH (21:00)
[2019-12-02] MEDS: FAMOTIDINE 40 MG/5 ML SUSP 50 ML PO SCH (21:11)
[2019-12-02] MEDS ORDERED: FENTANYL CITRATE INJ/PF 100 MCG/2 ML AMPUL ONE (22:44)
[2019-12-03] MEDS ORDERED: NORMAL SALINE INJ/PF 0.9% 10 ML SDV IV PRN (00:36)
[2019-12-03] MEDS ORDERED: FENTANYL CITRATE INJ/PF 100 MCG/2 ML AMPUL IV ONE (00:45)
[2019-12-03] MEDS: HYDROCORTISONE SOD SUCCINATE INJ/PF 100 MG/2 ML SDV IV SCH ×3 (01:03→18:08)
[2019-12-03] MEDS: PIPERACILLIN SODIUM/TAZOBACTAM 4.5 GM in NORMAL SALINE 100 ML IV SCH ×4 (02:05→20:18)
[2019-12-03] MEDS: LORAZEPAM INJ 2 MG/1 ML VIAL IV PRN ×6 (02:15→18:07)
[2019-12-03 03:48] LABS: ABSOLUTE LYMPHOCYTES (AUTO) 0.6 10^3/uL (0.5-4.7); ABSOLUTE MONOCYTES (AUTO) 0.4 10^3/uL (0.1-1.4); ABSOLUTE NEUT (AUTO) 6.6 10^3/uL (1.7-8.2); BASOPHILS % (AUTO) 0.1 % (0-2); HEMATOCRIT 33.7 % (37.9-51.0); HEMOGLOBIN 11.4 g/dL (13.5-17.0); LYMPHOCYTES % (AUTO) 8.4 % (13-45); MEAN CORPUSCULAR HEMOGLOBIN 37.1 pg (27.0-33.4); MEAN CORPUSCULAR HGB CONC 33.8 g/dL (32.0-36.0); MEAN CORPUSCULAR VOLUME 110 fl (80-97); MONOCYTES % (AUTO) 5.9 % (3-13); PLATELET COUNT 132 10^3/uL (150-450); RED BLOOD COUNT 3.07 10^6/uL (4.35-5.55); RED CELL DISTRIBUTION WIDTH 16.2 % (11.5-14.0); SEGMENTED NEUTROPHILS % (AUTO) 85.6 % (42-78); TOTAL CELLS COUNTED % (AUTO) 100 %; WHITE BLOOD COUNT 7.7 10^3/uL (4.0-10.5)
[2019-12-03 03:56] LABS: ARTERIAL BLOOD BASE EXCESS -4.3 mmol/L; ARTERIAL BLOOD HCO3 19.8 mmol/L (20-24); ARTERIAL BLOOD O2 SATURATION 99.2 % (94-98); ARTERIAL BLOOD PCO2 33.2 mmHg (35-45); ARTERIAL BLOOD PH 7.39 (7.35-7.45); ARTERIAL BLOOD PO2 179.3 mmHg (80-100); ARTERIAL BLOOD TOTAL CO2 20.8 mmol/L (23-27)
[2019-12-03 04:00] LABS: ARTERIAL BLOOD FIO2 40%
[2019-12-03 04:02] LABS: ANION GAP 9 (5-19); BLOOD UREA NITROGEN 21 mg/dL (7-20); CARBON DIOXIDE 22 mmol/L (22-30); CHLORIDE 106 mmol/L (98-107); GLUCOSE 205 mg/dL (75-110); PHOSPHORUS 2.8 mg/dL (2.5-4.5); POTASSIUM 3.7 mmol/L (3.6-5.0)
[2019-12-03 05:11] LABS: ARTERIAL BLOOD BASE EXCESS -1.3 mmol/L; ARTERIAL BLOOD HCO3 23.5 mmol/L (20-24); ARTERIAL BLOOD O2 SATURATION 71.4 % (94-98); ARTERIAL BLOOD PH 7.39 (7.35-7.45); ARTERIAL BLOOD TOTAL CO2 24.7 mmol/L (23-27)
[2019-12-03 05:12] LABS: ARTERIAL BLOOD FIO2 35%
[2019-12-03 05:13] LABS: ARTERIAL BLOOD PO2 37.9 mmHg (80-100)
[2019-12-03] MEDS: INSULIN REG, HUMAN 100 UNIT/ML 3 ML VIAL (PYX) SUBCUT SCH ×3 (05:32→18:08)
[2019-12-03] MEDS: HEPARIN SOD (PORCINE) 5,000 UNIT/ML 1 ML VIAL SUBCUT SCH ×3 (05:32→21:21)
[2019-12-03] MEDS: ASCORBIC ACID 500 MG TABLET NG SCH ×3 (05:56→18:09)
[2019-12-03] MEDS: DEXTROSE 5%-WATER 250 ML with NOREPINEPHRINE BITARTRATE 4 MG IV PRN ×2 (07:47)
[2019-12-03] MEDS: CYANOCOBALAMIN (VITAMIN B-12) 1,000 MCG TABLET NG SCH ×2 (11:12→18:09)
[2019-12-03] MEDS: ZINC SULFATE 220 MG CAPSULE NG SCH (11:12)
[2019-12-03] MEDS: ASPIRIN 81 MG TABLET, CHEWABLE NG SCH (11:12)
[2019-12-03] MEDS: ALLOPURINOL 300 MG TABLET NG SCH (11:12)
[2019-12-03] MEDS: FLUTICASONE/VILANTEROL 200-25 MCG/DOSE IH SCH (11:12)
[2019-12-03] MEDS: FAMOTIDINE 40 MG/5 ML SUSP 50 ML PO SCH (11:12)
[2019-12-03] MEDS: FOLIC ACID 1 MG TABLET NG SCH (11:12)
[2019-12-03 13:42] LABS: ARTERIAL BLOOD BASE EXCESS -1.6 mmol/L; ARTERIAL BLOOD H2CO3 1.14 mmol/L (1.05-1.35); ARTERIAL BLOOD HCO3 22.9 mmol/L (20-24); ARTERIAL BLOOD O2 SATURATION 55.7 % (94-98); ARTERIAL BLOOD PCO2 37.8 mmHg (35-45)
[2019-12-03 13:44] LABS: ARTERIAL BLOOD H2CO3 0.85 mmol/L (1.05-1.35); ARTERIAL BLOOD HCO3 19.8 mmol/L (20-24); ARTERIAL BLOOD O2 SATURATION 98.7 % (94-98); ARTERIAL BLOOD PCO2 28.1 mmHg (35-45); ARTERIAL BLOOD PH 7.47 (7.35-7.45); ARTERIAL BLOOD PO2 123.8 mmHg (80-100); ARTERIAL BLOOD TOTAL CO2 20.6 mmol/L (23-27)
[2019-12-03 13:45] LABS: ARTERIAL BLOOD FIO2 30%
[2019-12-03 13:47] LABS: ARTERIAL BLOOD FIO2 30%
[2019-12-03 13:48] LABS: ARTERIAL BLOOD PO2 29.2 mmHg (80-100)
[2019-12-03] MEDS: DEXMEDETOMIDINE IN 0.9 % NACL 400 MCG/100 ML RTUPB IV PRN (14:24)
--- NOTE | 2019-12-03 14:30 | RADIOLOGY REPORT (SQ) ---
EXAM DESCRIPTION: CHEST SINGLE VIEW IMAGES COMPLETED DATE/TIME: 12/03/2019 1:40 pm REASON FOR STUDY: pneumonia COMPARISON: 12/02/2019. EXAM PARAMETERS: NUMBER OF VIEWS: One view. TECHNIQUE: Single frontal radiographic view of the chest acquired. RADIATION DOSE: NA LIMITATIONS: None. FINDINGS: LUNGS AND PLEURA: No opacities, masses or pneumothorax. No pleural effusion. MEDIASTINUM AND HILAR STRUCTURES: No masses. Contour normal. HEART AND VASCULAR STRUCTURES: Stable mild cardiomegaly. BONES: No acute findings. Degenerative changes in the spine. HARDWARE: Stable endotracheal tube, nasogastric tube, and central line. OTHER: No other significant finding. IMPRESSION: NO CHANGE IN APPEARANCE OF THE CHEST. TECHNICAL DOCUMENTATION: JOB ID: [id number] 2010 [employer]- All Rights Reserved Reading location - IP/workstation name: [email or web address]
--- NOTE | 2019-12-03 16:30 | RADIOLOGY REPORT (SQ) ---
EXAM DESCRIPTION: KUB/ABDOMEN (SINGLE VIEW) IMAGES COMPLETED DATE/TIME: 12/03/2019 4:17 pm REASON FOR STUDY: tube placement COMPARISON: 07/12/2019. NUMBER OF VIEWS: One view. TECHNIQUE: Supine radiographic image of the upper abdomen acquired. LIMITATIONS: None. FINDINGS: BOWEL GAS PATTERN: Normal bowel gas pattern. No dilated loops. CALCIFICATIONS: No suspicious calcifications. SOFT TISSUES: No gross mass or suggestion of organomegaly. HARDWARE: Nasogastric tube, tip in the stomach. BONES: No acute fracture. Degenerative changes in the spine. No worrisome bone lesions. OTHER: No other significant finding. IMPRESSION: TIP OF THE NASOGASTRIC TUBE IS IN THE STOMACH. NO RADIOGRAPHIC EVIDENCE FOR ACUTE ABDOM INAL DISEASE. TECHNICAL DOCUMENTATION: JOB ID: [id number] 2010 [employer]- All Rights Reserved Reading location - IP/workstation name: [email or web address]
[2019-12-03] MEDS ORDERED: NICOTINE 21 MG/24 HR PATCH.TD24 TD ONE (16:45)
--- NOTE | 2019-12-03 17:48 | PDOC CRITICAL CARE PROG REPORT ---
General Date:: 12/03/19 ICU Day:: 3 Ventilator Day:: 2 Hospital Day:: 3 Resuscitation Status: Full Code Medical Power of Teacher Aide: , Bambi Events in the past 12 to 24 Hours:: 12.03.2019: Patient was hemodynamic status has improved with titration of milrinone and vasopressor therapy. He developed significant bradycardia yesterday necessitating reduction and Precedex. He had some diaphoresis requiring Ativan. Today he is more awake and responsive. He is being maintained on vasopressin, Levophed and low-dose milrinone which eventually was discontinued overnight. 12.02.2019: Patient had significant events which started yesterday morning. He required urgent intubation because of impending respiratory failure. He appeared to have active delirium with withdrawal and cardiovascular compromise. He had a period of unstable and is requiring vasopressor support and modification of ventilator to support oxygenation. Echocardiogram done showed an ejection fraction approaches 20-25% but this is after the initiation of milrinone. Her bedside original baseline echo showed ejection fraction approximately 10 to 15%. Notably his mixed venous oxygen gas showed a saturation of 54% and he was placed on milrinone. He has been improving. Levophed is at 12 and vasopressin is off. Milrinone was at 0.125 with an acceptable oxygen saturation of 65%. 12.01.2019: Patient extremely restless dyspneic with hypoxia this morning. Required urgent intubation. Cephalopathy and delirium more significant. Patient required emergent intubation for impending respiratory failure. Active resuscitation for hypotension ensued with placement of central access and arterial access. Patient is extremely diaphoretic and unstable with improved with the use of Levophed and milrinone. Bedside critical care basic echo showed an ejection fraction approaching 10-15% which improved slightly with Levophed. Pulse pressure was narrow. With the use of milrinone and Levophed patient has improved. Precedex was used for Lucitropic and tranquility effect. Review of systems relevant to events:: 12.03.2019: Patient had some significant diarrhea this morning requiring bowel management system. Chest x-ray is improved. Mixed venous gas has improved 12.02.2019: Chest x-ray is clear. Patient has been started on broad-spectrum antibiotics because of fever that may be related to alcohol withdrawal effects. Cultures and Gram stain are still pending. Milrinone has been reduced to 0.075 mics per kilogram. There is no further diaphoresis and his hemodynamic status has been non-labile. 12.01.2019: Significant diaphoresis. Blood pressure 90/60 with tachycardia of 125. Notable liquid aspirations at bedside. Reason for ICU Addmission:: Alcohol withdrawal, respiratory distress. - Medications: Vasopressors:: Levophed 1, Milrinone off, vasopressin at 0.04 u/min Sedation:: Precedex, prn fentanyl Physical Exam Vital Signs: Temp Pulse Resp BP Pulse Ox 99.9 F 90 27 H 113/77 100 12/03/19 16:00 12/03/19 16:00 12/03/19 16:00 12/03/19 16:00 12/03/19 16:00 Intake & Output 12/02/19 12/03/19 12/04/19 06:59 06:59 06:59 Intake Total 3354 2382 310 Output Total 605 540 280 Balance 2749 1842 30 Weight 97 kg 104.9 kg Weight/Height Weight 104.9 kg Height 5 ft 11 in General appearance: PRESENT: no acute distress, morbidly obese, other Exam: Intubated obese appearing nontoxic 69-year-old male in no active distress agitated when stimulated. Head exam: PRESENT: atraumatic Eye exam: PRESENT: conjunctival injection, PERRLA. ABSENT: nystagmus, scleral icterus Mouth exam: PRESENT: dry mucosa Teeth exam: PRESENT: edentulous Neck exam: PRESENT: other - Right tunneled jugular central venous catheter clean dry intact. ABSENT: carotid bruit, JVD, lymphadenopathy, thyromegaly Respiratory exam: PRESENT: clear to auscultation nathaniel, unlabored. ABSENT: accessory muscle use, rales, rhonchi, tachypnea, wheezes Cardiovascular exam: PRESENT: RRR, +S1, +S2 Pulses: PRESENT: +1 pedal pulses bilateral Vascular exam: PRESENT: normal capillary refill. ABSENT: pallor GI/Abdominal exam: PRESENT: normal bowel sounds, soft. ABSENT: ascites, distended, guarding, mass, organolmegaly, rebound, tenderness Rectal exam: PRESENT: deferred Gentrourinary exam: PRESENT: indwelling catheter Extremities exam: PRESENT: pedal edema Musculoskeletal exam: ABSENT: deformity, dislocation Neurological exam: PRESENT: altered, other - Patient lifts head on command. Moving all extremities no focal deficits. ABSENT: motor sensory deficit Psychiatric exam: PRESENT: agitated - When examined Focused psych exam: PRESENT: psychomotor agitation - When examined, restlessness Skin exam: PRESENT: dry, intact, warm. ABSENT: cyanosis, mottled, pallor, rash Tubes/Lines: PRESENT: Endotracheal Tube, Central Line, Arterial Catheter, Other - Orogastric tube, Hu Laboratory/Radiographs Laboratory Results: 12/03/19 03:35 12/03/19 03:35 12/03/19 12/03/19 12/03/19 03:35 03:35 03:35 WBC 7.7 RBC 3.07 L Hgb 11.4 L Hct 33.7 L MCV 110 H MCH 37.1 H MCHC 33.8 RDW 16.2 H Plt Count 132 L Seg Neutrophils % 85.6 H Carbonic Acid 1.00 L HCO3/H2CO3 Ratio 19:1 ABG pH 7.39 ABG pCO2 33.2 L ABG pO2 179.3 H ABG HCO3 19.8 L ABG O2 Saturation 99.2 H ABG Base Excess -4.3 FiO2 40% Sodium 136.7 L Potassium 3.7 Chloride 106 Carbon Dioxide 22 Anion Gap 9 BUN 21 H Creatinine 0.55 Est GFR ( Amer) > 60 Glucose 205 H Calcium 8.0 L Phosphorus 2.8 Magnesium 2.3 12/03/19 12/03/19 12/03/19 05:00 13:10 13:15 WBC RBC Hgb Hct MCV MCH MCHC RDW Plt Count Seg Neutrophils % Carbonic Acid 1.20 0.85 L 1.14 HCO3/H2CO3 Ratio 19:1 23:1 20:1 ABG pH 7.39 7.47 H 7.40 ABG pCO2 40.0 28.1 L 37.8 ABG pO2 37.9 L* 123.8 H 29.2 L* ABG HCO3 23.5 19.8 L 22.9 ABG O2 Saturation 71.4 L 98.7 H 55.7 L ABG Base Excess -1.3 -3.0 -1.6 FiO2 35% 30% 30% Sodium Potassium Chloride Carbon Dioxide Anion Gap BUN Creatinine Est GFR ( Amer) Glucose Calcium Phosphorus Magnesium 12/01/19 13:55 Tracheal Aspirate Gram Stain - Final 12/01/19 13:55 Tracheal Aspirate Sputum Culture - Final Corynebacterium Striatum Normal Araceli 12/01/19 20:02 Hu Catheter Urine Culture - Final NO GROWTH 2 DAYS 11/30/19 12/01/19 12/01/19 14:16 03:58 07:00 Creatine Kinase 104 Troponin I 0.815 0.775 12/01/19 11:44 Creatine Kinase 89 Troponin I Impressions: Chest/Abdomen CTA 12/01/19 00:00 IMPRESSION: 1. No aortic aneurysm or dissection. 2. Cannot exclude thrombus in the right lower lobe pulmonary arteries. Evaluation is limited. 3. Bilateral pleural effusions with some associated atelectatic changes. Chest X-Ray 12/03/19 00:00 IMPRESSION: NO CHANGE IN APPEARANCE OF THE CHEST. KUB X-Ray 12/03/19 00:00 IMPRESSION: TIP OF THE NASOGASTRIC TUBE IS IN THE STOMACH. NO RADIOGRAPHIC EVIDENCE FOR ACUTE ABDOMINAL DISEASE. All labs, radiographs, diagnostic studies and EKGs were personally reviewed: Yes In addition, reports of radiographic and diagnostic studies were read: Yes Assessment and Plan - Diagnosis (1) Cardiogenic shock Is this a current diagnosis for this admission?: Yes (2) Acute respiratory failure with hypoxemia Is this a current diagnosis for this admission?: Yes (3) Alcohol withdrawal delirium Is this a current diagnosis for this admission?: Yes (4) Acute metabolic encephalopathy Is this a current diagnosis for this admission?: Yes (5) Hypotension (arterial) Qualifiers: Hypotension type: hypotension due to drug Qualified Code(s): I95.2 - Hypotension due to drugs Is this a current diagnosis for this admission?: Yes (6) Asterix[employer] Is this a current diagnosis for this admission?: Yes (7) Cardiomyopathy, alcoholic Is this a current diagnosis for this admission?: Yes (8) Alcohol withdrawal delirium, acute, hyperactive Is this a current diagnosis for this admission?: Yes (9) Alcohol abuse Is this a current diagnosis for this admission?: Yes Plan Summary: 12.03.2019: Respiratory: Patient appears to be suitable for mechanical ventilation liberation. Will assure appropriate blood gas. His chest x-ray is improved. Infectious: Patient on Zosyn for aspiration pneumonitis. He was hypotensive on admission the concern was sepsis in addition cardiogenic shock. Continue to follow cultures de-escalate as Cardiac: Patient's cardiogenic shock has improved. We will begin the process of weaning vasopressor therapy. He may be a candidate for digoxin but will need to follow his heart rate prior to doing this. He has combined right ventricular and left ventricular dysfunction which appear to be chronic and related to chronic alcohol use. Although digoxin may be helpful it may not be a good drug for someone who may continue to drink alcohol. Will need to consider prior to discharge. Will involve cardiology prior to transfer from the ICU Hematologic: Continue to monitor for white count elevation. Patient has perfunctory MCV elevated anemia brought on by excessive alcohol use. He is on folate and will add B12. Endocrine: Continue to monitor. TSH acceptable. Glucose is elevated as a result of this. Continue to provide subcutaneous coverage of insulin Renal: GFR has continued to remain normal despite shock like state. Continue to monitor and adjust accordingly. Metabolic: Continue to monitor electrolyte profile. Alimentary: Place NG tube prior to extubation to assure appropriate nutrition and p.o. intake Neurologic: Patient is on high-dose thiamine therapy to prevent worsening encephalopathy. His delirium has improved and will continue to monitor and provide supportive care. Sedation/analgesia: Precedex has been weaned to off. No analgesia is currently required Lines/Tubes: Has central and arterial access placed 12.01.2019 will evaluate for removal as needed. Other/family: Updated . 12.02.2019: Respiratory: Given the patient's cardiac instability will wean slowly from mechanical ventilation as his situation improves. Continue providing low tidal volume strategy to prevent lung injury. He had evidence of aspiration changes on CT scan we will continue antibiotics pending cultures. Patient also had atelectatic changes and these appear improved on x-ray. Infectious: Seen at current dosing. Continue to monitor and follow Gram stain and cultures. Will de-escalate as quickly as possible Cardiac: Patient appears to have pre-admission cardiomyopathy which is been worsening for by his active alcohol withdrawal. This is a cardiogenic shock which resulted from acute delirium tremens which is altered his physiology and basic metabolic rate. Plan for today is to reintroduce vasopressin given his right-sided changes and reduce Levophed. Will attempt to wean milrinone and follow mixed venous blood gas as a surrogate marker of success. At this point it does not appear that patient has any active coronary disease but it would be highly likely and he is on aspirin and statin therapy. No EKG changes exist except for new right bundle branch block. He is at risk for advanced heart block and will be vigilant in monitoring his situation. Of note I have used Dexmedetomidine for tranquility and sedation and its known side effect bradycardia has been helpful for the lucitropic effect that we need for his heart. We will introduce beta-kathy therapy as soon as his hemodynamics with support Hematologic: Continue to monitor no active issues Endocrine: Patient on steroid therapy. He has relative adrenal insufficiency with a cortisol level 14 and an active hypotensive crisis. Continue Solu- Cortef. Renal: No active renal issues. Limit the use of sodium chloride and use la ctated Ringer's or other suitable physiologically based pH for any hydration. Will monitor for suitability for diuresis. His CVP which we have been trending is running between 8-12. Passive leg raise exam today did not improve blood pressure significantly. Metabolic: Replace and monitor electrolytes given his acute status. Alimentary: We will begin trophic feeds to allow for appropriate nutritional support and prevent bacterial overgrowth. Neurologic: Continue to keep sedate and tranquil with Precedex. Watch for seizures and alcohol withdrawal symptomatology. Sedation: Continue with Dexmedetomidine Lines/Tubes: Intubated, central line and arterial catheter 12-01-2019 Other: Updated family. 12.01.2019: Respiratory: Patient has acute hypoxic respiratory failure requiring intubation for mechanical ventilation. He has excessive secretions and this may be related to over cardiogenic heart failure. Will provide respiratory support and provide for adequate oxygenation. We will utilize low tidal volume strategy to protect lung parenchyma. Will check sputum studies to rule out microbiologic processes. There was excessive secretions noted during the intubation. Infectious: At this point no infectious process appears to be present. We will continue to monitor and screen accordingly. Patient is at risk for aspiration pneumonia. Cardiac: Patient has a history of left bundle branch block which is present on EKGs on admission here. Troponin has only slightly elevated raising the suspicion for alcohol withdrawal related cardiomyopathy. Have continue the patient on aspirin and statin therapy. His bedside basic critical care echo showed marked reduction in ejection fraction and will obtain a more formal echocardiogram. His ejection fraction is significantly altered that we placed him on milrinone. His mixed venous blood gas shows an oxygen saturation of 74% and we will re-check this for validity. Central venous pressure monitoring, although not used for exact static numbers will be used for dynamic hemodynamic evaluation. Patient does have some improvement with passive leg raise and have added colloid therapy. Will wean therapy as his clinical situation improves. Above all this appears to be a alcohol withdrawal related cardiac dysfunction leading to cardiogenic shock. There is no evidence to support that this is an acute myocardial infarction however we will monitor accordingly. Hematologic: Patient at risk for anemia and other hematologic processes. We will continue to monitor. Endocrine: Monitor glucose, thyroid and cortisol function Renal: Continue to monitor GFR and creatinine during shock process. Metabolic: Patient has expected hypomagnesemia and hypokalemia related to alcohol use. Replace accordingly. Alimentary: Will be vigilant to provide nutritional support and watch for ketoacidosis. Neurologic: Patient has delirium tremens from alcohol withdrawal which is quite significant. Mortality is quite high and his prognosis is guarded given his already altered cardiac function present prior to admission. Have discussed case with his and will continue to be in discussion with him. Continue Precedex for both tranquility effect and also to provide Lucitropic support to control heart rate. Sedation: Precedex Lines/Tubes: Central line and arterial catheter placed 12/01/2019 Other: Discussion with family over phone Critical Time Critical Time (minutes): 60 Level of Care: ICU Anticipated discharge: Acute Rehab -: 1. The care of a critical patient is a dynamic process. This note is a technical support representative synopsis but static in nature. The timeframe for treatments given in order is not necessarily the actual time these treatments may have been done. 2. This patient requires critical care secondary to ongoing requirements for therapy not offered or safe outside the critical care environment. Transfer to a lower level of care will result in altered life or limb morbidity and mortality. 3. Multidisciplinary rounds completed. 4. ABCDE bundle addressed.
[2019-12-03] MEDS: NORMAL SALINE 1000 ML 1,000 ML with POTASSIUM CHLORIDE 20 MEQ, MAGNESIUM SULFATE 8 MEQ,... IV SCH ×5 (18:08)
[2019-12-03] MEDS ORDERED: METOPROLOL TARTRATE PF/INJ 5 MG/5 ML SDV IV ONE (19:43)
[2019-12-03] MEDS: METOPROLOL TARTRATE PF/INJ 5 MG/5 ML SDV IV SCH ×2 (19:45→20:18)
[2019-12-03] MEDS ORDERED: ESMOLOL HCL/SOD CL 2,500 MG/250 ML RTUINJ IV ONE (19:59)
[2019-12-03] MEDS: ESMOLOL 2500 MG/NS 250 ML IV PRN (20:00)
[2019-12-03] MEDS: DEXTROSE 5%-WATER 250 ML with VASOPRESSIN 100 UNIT IV PRN ×2 (20:29)
[2019-12-03] MEDS: ATORVASTATIN CALCIUM 40 MG TABLET NG SCH (21:21)
[2019-12-03] MEDS ORDERED: LORAZEPAM INJ 2 MG/1 ML VIAL IV ONE (21:45)
[2019-12-03] MEDS ORDERED: DIGOXIN INJ 0.5 MG/2 ML AMPULE IV ONE (22:45)
[2019-12-04] MEDS: INSULIN REG, HUMAN 100 UNIT/ML 3 ML VIAL (PYX) SUBCUT SCH ×4 (00:19→17:49)
[2019-12-04] MEDS: ASCORBIC ACID 500 MG TABLET NG SCH ×4 (00:20→17:49)
[2019-12-04] MEDS: LORAZEPAM INJ 2 MG/1 ML VIAL IV PRN ×5 (00:20→16:42)
[2019-12-04] MEDS: ESMOLOL 2500 MG/NS 250 ML IV PRN ×4 (00:25→23:00)
[2019-12-04] MEDS: PIPERACILLIN SODIUM/TAZOBACTAM 4.5 GM in NORMAL SALINE 100 ML IV SCH ×4 (02:25→21:40)
[2019-12-04] MEDS: HYDROCORTISONE SOD SUCCINATE INJ/PF 100 MG/2 ML SDV IV SCH ×3 (02:25→17:49)
[2019-12-04] MEDS: MILRINONE LACTATE/D5W 20 MG/100 ML RTUINJ IV PRN (02:30)
[2019-12-04 04:13] LABS: ARTERIAL BLOOD BASE EXCESS -1.8 mmol/L; ARTERIAL BLOOD H2CO3 1.27 mmol/L (1.05-1.35); ARTERIAL BLOOD HCO3 23.6 mmol/L (20-24); ARTERIAL BLOOD O2 SATURATION 98.8 % (94-98); ARTERIAL BLOOD PCO2 42.3 mmHg (35-45); ARTERIAL BLOOD PH 7.36 (7.35-7.45); ARTERIAL BLOOD PO2 148.1 mmHg (80-100); ARTERIAL BLOOD TOTAL CO2 24.9 mmol/L (23-27)
[2019-12-04 04:14] LABS: ARTERIAL BLOOD FIO2 36%
[2019-12-04 04:18] LABS: ABSOLUTE LYMPHOCYTES (AUTO) 0.5 10^3/uL (0.5-4.7); ABSOLUTE MONOCYTES (AUTO) 0.5 10^3/uL (0.1-1.4); ABSOLUTE NEUT (AUTO) 5.3 10^3/uL (1.7-8.2); HEMATOCRIT 29.1 % (37.9-51.0); MEAN CORPUSCULAR HEMOGLOBIN 37.5 pg (27.0-33.4); MEAN CORPUSCULAR HGB CONC 34.2 g/dL (32.0-36.0); MEAN CORPUSCULAR VOLUME 110 fl (80-97); MONOCYTES % (AUTO) 7.5 % (3-13); PLATELET COUNT 118 10^3/uL (150-450); RED BLOOD COUNT 2.65 10^6/uL (4.35-5.55); RED CELL DISTRIBUTION WIDTH 16.5 % (11.5-14.0); SEGMENTED NEUTROPHILS % (AUTO) 84.5 % (42-78); TOTAL CELLS COUNTED % (AUTO) 100 %; WHITE BLOOD COUNT 6.3 10^3/uL (4.0-10.5)
[2019-12-04 04:25] LABS: ANION GAP 10 (5-19); BLOOD UREA NITROGEN 23 mg/dL (7-20); CALCIUM 7.8 mg/dL (8.4-10.2); CARBON DIOXIDE 23 mmol/L (22-30); CHLORIDE 106 mmol/L (98-107); GLUCOSE 178 mg/dL (75-110); PHOSPHORUS 2.9 mg/dL (2.5-4.5); POTASSIUM 4.1 mmol/L (3.6-5.0)
[2019-12-04] MEDS: HEPARIN SOD (PORCINE) 5,000 UNIT/ML 1 ML VIAL SUBCUT SCH ×3 (05:43→21:39)
--- NOTE | 2019-12-04 08:53 | PDOC CRITICAL CARE PROG REPORT ---
General Date:: 12/04/19 ICU Day:: 4 Hospital Day:: 4 Resuscitation Status: Full Code Medical Power of Sausage Linker: Bambi Events in the past 12 to 24 Hours:: Off levophed, coming down on vasopressin. More appropriate. Review of systems relevant to events:: CV, Pulmonary, Neurological. Reason for ICU Addmission:: Alcohol withdrawal, respiratory distress. Had been intubated. - Medications: Medications reviewed and adjusted accordingly: Yes Vasopressors:: Vasopressin. Sedation:: None. Physical Exam Vital Signs: Temp Pulse Resp BP Pulse Ox 98.6 F 126 H 29 H 101/76 99 12/04/19 08:00 12/03/19 20:00 12/04/19 08:00 12/03/19 20:00 12/04/19 08:00 Intake & Output 12/03/19 12/04/19 12/05/19 06:59 06:59 06:59 Intake Total 2382 1597 36 Output Total 540 645 60 Balance 1842 952 -24 Weight 104.9 kg 101.7 kg Weight/Height Weight 101.7 kg Height 5 ft 11 in General appearance: PRESENT: no acute distress, well-developed, well-nourished Head exam: PRESENT: atraumatic, normocephalic Eye exam: PRESENT: conjunctiva pink, EOMI, PERRLA. ABSENT: scleral icterus Ear exam: PRESENT: normal external ear exam Mouth exam: PRESENT: dry mucosa, moist, tongue midline Throat exam: PRESENT: other - Secretions heard in pharynx Respiratory exam: PRESENT: clear to auscultation nathaniel. ABSENT: rales, rhonchi, wheezes Cardiovascular exam: PRESENT: RRR. ABSENT: diastolic murmur, rubs, systolic murmur GI/Abdominal exam: PRESENT: normal bowel sounds, soft, other - Some nausea. ABSENT: distended, guarding, mass, organolmegaly, rebound, tenderness Rectal exam: PRESENT: deferred Gentrourinary exam: PRESENT: indwelling catheter Extremities exam: PRESENT: full ROM. ABSENT: calf tenderness, clubbing, pedal edema Musculoskeletal exam: PRESENT: normal inspection Neurological exam: PRESENT: alert, awake, oriented to person, oriented to place Skin exam: PRESENT: dry, intact, warm. ABSENT: cyanosis, rash Tubes/Lines: PRESENT: Arterial Catheter Laboratory/Radiographs Laboratory Results: 12/04/19 04:00 12/04/19 04:00 12/03/19 12/03/19 12/04/19 13:10 13:15 04:00 WBC RBC Hgb Hct MCV MCH MCHC RDW Plt Count Seg Neutrophils % Carbonic Acid 0.85 L 1.14 1.27 HCO3/H2CO3 Ratio 23:1 20:1 18:1 ABG pH 7.47 H 7.40 7.36 ABG pCO2 28.1 L 37.8 42.3 ABG pO2 123.8 H 29.2 L* 148.1 H ABG HCO3 19.8 L 22.9 23.6 ABG O2 Saturation 98.7 H 55.7 L 98.8 H ABG Base Excess -3.0 -1.6 -1.8 FiO2 30% 30% 36% Sodium Potassium Chloride Carbon Dioxide Anion Gap BUN Creatinine Est GFR ( Amer) Glucose Calcium Phosphorus Magnesium 12/04/19 12/04/19 04:00 04:00 WBC 6.3 RBC 2.65 L Hgb 10.0 L Hct 29.1 L MCV 110 H MCH 37.5 H MCHC 34.2 RDW 16.5 H Plt Count 118 L Seg Neutrophils % 84.5 H Carbonic Acid HCO3/H2CO3 Ratio ABG pH ABG pCO2 ABG pO2 ABG HCO3 ABG O2 Saturation ABG Base Excess FiO2 Sodium 139.0 Potassium 4.1 Chloride 106 Carbon Dioxide 23 Anion Gap 10 BUN 23 H Creatinine 0.62 Est GFR ( Amer) > 60 Glucose 178 H Calcium 7.8 L Phosphorus 2.9 Magnesium 2.5 H 12/01/19 13:55 Tracheal Aspirate Gram Stain - Final 12/01/19 13:55 Tracheal Aspirate Sputum Culture - Final Corynebacterium Striatum Normal Araceli 12/01/19 20:02 Hu Catheter Urine Culture - Final NO GROWTH 2 DAYS 11/30/19 12/01/19 12/01/19 14:16 03:58 07:00 Creatine Kinase 104 Troponin I 0.815 0.775 NT-Pro-B Natriuret Pep 12/01/19 12/03/19 11:44 21:02 Creatine Kinase 89 Troponin I NT-Pro-B Natriuret Pep 36918 H Impressions: Chest/Abdomen CTA 12/01/19 00:00 IMPRESSION: 1. No aortic aneurysm or dissection. 2. Cannot exclude thrombus in the right lower lobe pulmonary arteries. Evaluation is limited. 3. Bilateral pleural effusions with some associated atelectatic changes. Chest X-Ray 12/03/19 00:00 IMPRESSION: NO CHANGE IN APPEARANCE OF THE CHEST. KUB X-Ray 12/03/19 00:00 IMPRESSION: TIP OF THE NASOGASTRIC TUBE IS IN THE STOMACH. NO RADIOGRAPHIC EVIDENCE FOR ACUTE ABDOMINAL DISEASE. All labs, radiographs, diagnostic studies and EKGs were personally reviewed: Yes In addition, reports of radiographic and diagnostic studies were read: Yes Assessment and Plan - Diagnosis (1) Acute metabolic encephalopathy Is this a current diagnosis for this admission?: Yes Plan: Nearly resolved. Still on PRN ativan but responding appropriately. (2) Acute respiratory failure with hypoxemia Is this a current diagnosis for this admission?: Yes Plan: Resolved (3) Alcohol abuse Is this a current diagnosis for this admission?: Yes Plan: On going. Have not discussed rehab. (4) Alcohol withdrawal delirium, acute, hyperactive Is this a current diagnosis for this admission?: Yes Plan: Resolved (5) Cardiogenic shock Is this a current diagnosis for this admission?: Yes Plan: He is still on vasopressin which has been shut off this AM. (6) Cardiomyopathy, alcoholic Is this a current diagnosis for this admission?: Yes Plan: EF 20-25 % with alcohol the presumtive cause requiring milrinone. (7) Hypotension (arterial) Qualifiers: Hypotension type: hypotension due to drug Qualified Code(s): I95.2 - Hypotension due to drugs Is this a current diagnosis for this admission?: Yes Plan: He will be on vasopressin until MAP is comfortably above 65. (8) Hypoadrenalism Is this a current diagnosis for this admission?: Yes Plan: His level is only 14. Keep on stress dose steroids. Plan Summary: Even if he stays off vasopressin he should remain in the ICU for clearance of WD and need for Milrinone. Critical Time Critical Time (minutes): 35 Level of Care: ICU Anticipated discharge: Home Within: Other -: 1. The care of a critical patient is a dynamic process. This note is a technical account representative synopsis but static in nature. The timeframe for treatments given in order is not necessarily the actual time these treatments may have been done. 2. This patient requires critical care secondary to ongoing requirements for therapy not offered or safe outside the critical care environment. Transfer to a lower level of care will result in altered life or limb morbidity and mortality. 3. Multidisciplinary rounds completed. 4. ABCDE bundle addressed.
[2019-12-04] MEDS ORDERED: SCOPOLAMINE HYDROBROMIDE 1.5 MG PATCH.TD72 TD SCH (10:00)
[2019-12-04] MEDS: ASPIRIN 81 MG TABLET, CHEWABLE NG SCH (10:19)
[2019-12-04] MEDS: VITAMIN B COMPLEX TABLET PO SCH (10:19)
[2019-12-04] MEDS: CYANOCOBALAMIN (VITAMIN B-12) 1,000 MCG TABLET NG SCH ×2 (10:19→17:49)
[2019-12-04] MEDS: ALLOPURINOL 300 MG TABLET NG SCH (10:19)
[2019-12-04] MEDS: FOLIC ACID 1 MG TABLET NG SCH (10:19)
[2019-12-04] MEDS: ZINC SULFATE 220 MG CAPSULE NG SCH (10:19)
[2019-12-04] MEDS: FLUTICASONE/VILANTEROL 200-25 MCG/DOSE IH SCH (10:20)
[2019-12-04] MEDS: NORMAL SALINE 1000 ML 1,000 ML with POTASSIUM CHLORIDE 20 MEQ, MAGNESIUM SULFATE 8 MEQ,... IV SCH ×5 (17:51)
[2019-12-04] MEDS: PHARMACY COMMUNICATION ORDER MC SCH (19:21)
[2019-12-04] MEDS: ATORVASTATIN CALCIUM 40 MG TABLET NG SCH (21:39)
[2019-12-05] MEDS: ASCORBIC ACID 500 MG TABLET NG SCH ×5 (00:02→23:34)
[2019-12-05] MEDS: INSULIN REG, HUMAN 100 UNIT/ML 3 ML VIAL (PYX) SUBCUT SCH ×5 (00:02→23:35)
--- NOTE | 2019-12-05 01:13 | RADIOLOGY REPORT (SQ) ---
CLINICAL INDICATION: shortness of breath . TECHNIQUE: A single portable AP view was obtained of the chest at 0046 hours. COMPARISON: December 03, 2019. FINDINGS: The cardiomediastinal silhouette is enlarged but stable. The lungs demonstrate progressive bibasilar pleural and parenchymal disease.. No pneumothorax. Osteoarthritis. Right IJ central venous catheter tip remains in good position. IMPRESSION: Progressive bibasilar pleural and parenchymal disease. This includes both an airspace and interstitial component. Progressive small effusions.
[2019-12-05 01:23] LABS: ALBUMIN 3.1 g/dL (3.5-5.0); ALKALINE PHOSPHATASE 155 U/L (38-126); ANION GAP 5 (5-19); ASPARTATE AMINO TRANSFERASE 131 U/L (17-59); BILIRUBIN,DIRECT 0.2 mg/dL (0.0-0.4); BLOOD UREA NITROGEN 24 mg/dL (7-20); CALCIUM 8.4 mg/dL (8.4-10.2); CARBON DIOXIDE 26 mmol/L (22-30); CHLORIDE 109 mmol/L (98-107); GLUCOSE 189 mg/dL (75-110); PHOSPHORUS 2.6 mg/dL (2.5-4.5); POTASSIUM 4.6 mmol/L (3.6-5.0); TOTAL PROTEIN 5.8 g/dL (6.3-8.2)
[2019-12-05] MEDS ORDERED: FUROSEMIDE INJ/PF 40 MG/4 ML SDV IV ONE ×2 (01:24→23:26)
[2019-12-05 01:51] LABS: ARTERIAL BLOOD BASE EXCESS 0.2 mmol/L; ARTERIAL BLOOD H2CO3 1.42 mmol/L (1.05-1.35); ARTERIAL BLOOD O2 SATURATION 61.4 % (94-98); ARTERIAL BLOOD PCO2 47.2 mmHg (35-45); ARTERIAL BLOOD PH 7.36 (7.35-7.45); ARTERIAL BLOOD TOTAL CO2 27.5 mmol/L (23-27)
[2019-12-05 01:54] LABS: ARTERIAL BLOOD FIO2 30%
[2019-12-05 01:55] LABS: ARTERIAL BLOOD PO2 33.5 mmHg (80-100)
[2019-12-05] MEDS: HYDROCORTISONE SOD SUCCINATE INJ/PF 100 MG/2 ML SDV IV SCH ×3 (02:04→17:34)
[2019-12-05] MEDS: PIPERACILLIN SODIUM/TAZOBACTAM 4.5 GM in NORMAL SALINE 100 ML IV SCH ×4 (02:04→21:24)
[2019-12-05 02:16] LABS: HEMATOCRIT 29.5 % (37.9-51.0); HEMOGLOBIN 10.1 g/dL (13.5-17.0); MEAN CORPUSCULAR HEMOGLOBIN 37.9 pg (27.0-33.4); MEAN CORPUSCULAR HGB CONC 34.1 g/dL (32.0-36.0); PLATELET COUNT 138 10^3/uL (150-450); RED BLOOD COUNT 2.66 10^6/uL (4.35-5.55); RED CELL DISTRIBUTION WIDTH 16.8 % (11.5-14.0); WHITE BLOOD COUNT 6.5 10^3/uL (4.0-10.5)
[2019-12-05 02:24] LABS: MEAN CORPUSCULAR VOLUME 111 fl (80-97)
[2019-12-05 02:41] LABS: ABSOLUTE LYMPHOCYTES# (MANUAL) 0.2 10^3/uL (0.5-4.7); ABSOLUTE MONOCYTES # (MANUAL) 0.5 10^3/uL (0.1-1.4); BAND NEUTROPHILS % (MANUAL) 4 % (3-5); BASOPHILS % (MANUAL) 0 % (0-2); EOSINOPHILS % (MANUAL) 0 % (0-6); LYMPHOCYTES % (MANUAL) 3 % (13-45); MONOCYTES % (MANUAL) 7 % (3-13); SEGMENTED NEUTROPHILS % (MAN) 86 % (42-78); TOTAL CELLS COUNTED 100
[2019-12-05 02:42] LABS: ANISOCYTOSIS 1+; OVALOCYTES SLIGHT; PLATELET COMMENT ADEQUATE; POLYCHROMASIA 1+
[2019-12-05] MEDS ORDERED: METOPROLOL TARTRATE PF/INJ 5 MG/5 ML SDV IV PRN (05:08)
[2019-12-05] MEDS: HEPARIN SOD (PORCINE) 5,000 UNIT/ML 1 ML VIAL SUBCUT SCH ×3 (05:17→21:25)
[2019-12-05] MEDS: FLUTICASONE/VILANTEROL 200-25 MCG/DOSE IH SCH (10:16)
[2019-12-05] MEDS: ASPIRIN 81 MG TABLET, CHEWABLE NG SCH (11:27)
[2019-12-05] MEDS: CYANOCOBALAMIN (VITAMIN B-12) 1,000 MCG TABLET NG SCH ×2 (11:28→17:34)
[2019-12-05] MEDS: VITAMIN B COMPLEX TABLET PO SCH (11:28)
[2019-12-05] MEDS: ZINC SULFATE 220 MG CAPSULE NG SCH (11:28)
[2019-12-05] MEDS: FOLIC ACID 1 MG TABLET NG SCH (11:28)
[2019-12-05] MEDS: ALLOPURINOL 300 MG TABLET NG SCH (11:28)
--- NOTE | 2019-12-05 11:49 | RADIOLOGY REPORT (SQ) ---
EXAM DESCRIPTION: KUB/ABDOMEN (SINGLE VIEW) IMAGES COMPLETED DATE/TIME: 12/05/2019 11:05 am REASON FOR STUDY: NGT placement verification COMPARISON: 12/03/2019 NUMBER OF VIEWS: One view. TECHNIQUE: Supine radiographic image of the abdomen acquired. LIMITATIONS: None. FINDINGS: BOWEL GAS PATTERN: Exam optimized for tube placement verification. The bowel gas pattern is suboptimally evaluated no definite dilated loops of bowel are appreciated. CALCIFICATIONS: No suspicious calcifications. SOFT TISSUES: No gross mass or suggestion of organomegaly. HARDWARE: None in the abdomen. BONES: No acute fracture. No worrisome bone lesions. OTHER: There is an enteric tube present with the tip projecting over the expected region of the stoma ch and side port projecting just below the level of the diaphragm. IMPRESSION: Tip of enteric tube projects over the stomach with the side port projecting just below t he level of the diaphragm. TECHNICAL DOCUMENTATION: JOB ID: [id number] 2010 [employer]- All Rights Reserved Reading location - IP/workstation name: [email or web address]
[2019-12-05] MEDS ORDERED: LORAZEPAM 1 MG TABLET PO ONE (14:55)
[2019-12-05] MEDS ORDERED: FUROSEMIDE INJ/PF 20 MG/2 ML SDV IV ONE (17:00)
--- NOTE | 2019-12-05 17:29 | RADIOLOGY REPORT (SQ) ---
EXAM DESCRIPTION: KUB/ABDOMEN (SINGLE VIEW) IMAGES COMPLETED DATE/TIME: 12/05/2019 5:16 pm REASON FOR STUDY: NGT placement verification COMPARISON: 12/05/2019 NUMBER OF VIEWS: One view. TECHNIQUE: Supine radiographic image of the abdomen acquired. LIMITATIONS: None. FINDINGS: BOWEL GAS PATTERN: Normal bowel gas pattern. No dilated loops. CALCIFICATIONS: No suspicious calcifications. SOFT TISSUES: No gross mass or suggestion of organomegaly. HARDWARE: None in the abdomen. BONES: No acute fracture. No worrisome bone lesions. OTHER: Enteric tube with tip and side port projecting below the diaphragm over the expected region of the stomach. IMPRESSION: Enteric tube placement as above TECHNICAL DOCUMENTATION: JOB ID: [id number] 2010 [employer]- All Rights Reserved Reading location - IP/workstation name: [email or web address]
[2019-12-05] MEDS: PHARMACY COMMUNICATION ORDER MC SCH (17:34)
--- NOTE | 2019-12-05 17:53 | PDOC CRITICAL CARE PROG REPORT ---
General Date:: 12/05/19 ICU Day:: 5 Hospital Day:: 5 Resuscitation Status: Full Code Medical Power of Binding End Stitcher: Bambi Events in the past 12 to 24 Hours:: Failed swallow test. Off all pressors. Still on milrinone Review of systems relevant to events:: CV, neurological. Reason for ICU Addmission:: Alcohol withdrawal, respiratory distress. Had been intubated. - Medications: Medications reviewed and adjusted accordingly: Yes Vasopressors:: None Sedation:: None Physical Exam Vital Signs: Temp Pulse Resp BP Pulse Ox 99.0 F 83 24 H 116/81 100 12/05/19 14:00 12/05/19 08:20 12/05/19 14:00 12/04/19 19:53 12/05/19 14:00 Intake & Output 12/04/19 12/05/19 12/06/19 06:59 06:59 06:59 Intake Total 2720 1148 100 Output Total 645 2865 370 Balance 5155 -3988 -270 Weight 101.7 kg 101.8 kg Weight/Height Weight 101.8 kg Height 5 ft 11 in General appearance: PRESENT: no acute distress, obese Head exam: PRESENT: atraumatic, normocephalic Eye exam: PRESENT: conjunctiva pink, EOMI, PERRLA. ABSENT: scleral icterus Ear exam: PRESENT: normal external ear exam Mouth exam: PRESENT: moist, tongue midline Respiratory exam: PRESENT: clear to auscultation nathaniel. ABSENT: rales, rhonchi, wheezes Cardiovascular exam: PRESENT: tachycardia GI/Abdominal exam: PRESENT: normal bowel sounds, soft. ABSENT: distended, guarding, mass, organolmegaly, rebound, tenderness Rectal exam: PRESENT: deferred Gentrourinary exam: PRESENT: indwelling catheter Musculoskeletal exam: PRESENT: normal inspection Neurological exam: PRESENT: alert, altered, CN II-XII grossly intact, other - Confused at times Skin exam: PRESENT: dry, intact, warm. ABSENT: cyanosis, rash Tubes/Lines: PRESENT: Nasogastic Tube Laboratory/Radiographs Laboratory Results: 12/05/19 00:47 12/05/19 00:47 12/05/19 12/05/19 12/05/19 00:47 00:47 01:35 WBC 6.5 RBC 2.66 L Hgb 10.1 L Hct 29.5 L MCV 111 H MCH 37.9 H MCHC 34.1 RDW 16.8 H Plt Count 138 L Seg Neutrophils % Not Reportable Carbonic Acid 1.42 H HCO3/H2CO3 Ratio 18:1 ABG pH 7.36 ABG pCO2 47.2 H ABG pO2 33.5 L* ABG HCO3 26.0 H ABG O2 Saturation 61.4 L ABG Base Excess 0.2 FiO2 30% Sodium 140.3 Potassium 4.6 Chloride 109 H Carbon Dioxide 26 Anion Gap 5 BUN 24 H Creatinine 0.65 Est GFR ( Amer) > 60 Glucose 189 H Calcium 8.4 Phosphorus 2.6 Magnesium 2.7 H Total Bilirubin 1.0 AST 131 H Alkaline Phosphatase 155 H Total Protein 5.8 L Albumin 3.1 L 12/01/19 13:55 Tracheal Aspirate Gram Stain - Final 12/01/19 13:55 Tracheal Aspirate Sputum Culture - Final Corynebacterium Striatum Normal Araceli 11/30/19 12/01/19 12/01/19 14:16 03:58 07:00 Creatine Kinase 104 Troponin I 0.815 0.775 NT-Pro-B Natriuret Pep 12/01/19 12/03/19 12/05/19 11:44 21:02 00:47 Creatine Kinase 89 Troponin I NT-Pro-B Natriuret Pep 93355 H 53041 H Impressions: Chest/Abdomen CTA 12/01/19 00:00 IMPRESSION: 1. No aortic aneurysm or dissection. 2. Cannot exclude thrombus in the right lower lobe pulmonary arteries. Evaluation is limited. 3. Bilateral pleural effusions with some associated atelectatic changes. Chest X-Ray 12/05/19 00:00 IMPRESSION: Progressive bibasilar pleural and parenchymal disease. This includes both an airspace and interstitial component. Progressive small effusions. KUB X-Ray 12/05/19 00:00 IMPRESSION: Enteric tube placement as above All labs, radiographs, diagnostic studies and EKGs were personally reviewed: Yes In addition, reports of radiographic and diagnostic studies were read: Yes Assessment and Plan - Diagnosis (1) Acute metabolic encephalopathy Is this a current diagnosis for this admission?: Yes Plan: Still present but improved. Slight ETOH WD. Ativan still at times needed (2) Acute respiratory failure with hypoxemia Is this a current diagnosis for this admission?: Yes Plan: Resolved (3) Alcohol abuse Is this a current diagnosis for this admission?: Yes Plan: Ongoing. Not oriented enough to talk rehab (4) Alcohol withdrawal delirium, acute, hyperactive Is this a current diagnosis for this admission?: Yes (5) Cardiogenic shock Is this a current diagnosis for this admission?: Yes Plan: Resolved. Hope to stop milrinone today. (6) Cardiomyopathy, alcoholic Is this a current diagnosis for this admission?: Yes Plan: Quite reduced at 25% LVEF (7) Hypotension (arterial) Qualifiers: Hypotension type: hypotension due to drug Qualified Code(s): I95.2 - H ypotension due to drugs Is this a current diagnosis for this admission?: Yes Plan: Controled (8) Hypoadrenalism Is this a current diagnosis for this admission?: Yes Plan: Continue steroids for a few days. Plan Summary: He has failed his swallow test. NG in place and will start TF. Critical Time Critical Time (minutes): 35 Level of Care: ICU Anticipated discharge: SNF Within: Other -: 1. The care of a critical patient is a dynamic process. This note is a marketing development representative synopsis but static in nature. The timeframe for treatments given in order is not necessarily the actual time these treatments may have been done. 2. This patient requires critical care secondary to ongoing requirements for therapy not offered or safe outside the critical care environment. Transfer to a lower level of care will result in altered life or limb morbidity and mortality. 3. Multidisciplinary rounds completed. 4. ABCDE bundle addressed.
[2019-12-05] MEDS: LORAZEPAM INJ 2 MG/1 ML VIAL IV PRN ×2 (21:24→23:31)
[2019-12-05] MEDS: ATORVASTATIN CALCIUM 40 MG TABLET NG SCH (21:25)
[2019-12-05] MEDS ORDERED: FUROSEMIDE INJ/PF 40 MG/4 ML SDV ONE (23:30)
[2019-12-06 01:48] LABS: HEMATOCRIT 31.3 % (37.9-51.0); HEMOGLOBIN 10.8 g/dL (13.5-17.0); MEAN CORPUSCULAR HEMOGLOBIN 37.8 pg (27.0-33.4); MEAN CORPUSCULAR HGB CONC 34.5 g/dL (32.0-36.0); MEAN CORPUSCULAR VOLUME 110 fl (80-97); PLATELET COUNT 178 10^3/uL (150-450); RED BLOOD COUNT 2.85 10^6/uL (4.35-5.55); RED CELL DISTRIBUTION WIDTH 16.6 % (11.5-14.0)
[2019-12-06 02:52] LABS: ALBUMIN 3.3 g/dL (3.5-5.0); ANION GAP 6 (5-19); BLOOD UREA NITROGEN 23 mg/dL (7-20); CALCIUM 8.7 mg/dL (8.4-10.2); CARBON DIOXIDE 31 mmol/L (22-30); CHLORIDE 105 mmol/L (98-107); GLUCOSE 189 mg/dL (75-110); PHOSPHORUS 2.6 mg/dL (2.5-4.5)
[2019-12-06 02:54] LABS: POTASSIUM 2.8 mmol/L (3.6-5.0)
[2019-12-06] MEDS: HYDROCORTISONE SOD SUCCINATE INJ/PF 100 MG/2 ML SDV IV SCH ×3 (02:55→17:09)
[2019-12-06] MEDS: PIPERACILLIN SODIUM/TAZOBACTAM 4.5 GM in NORMAL SALINE 100 ML IV SCH ×2 (03:14→09:05)
[2019-12-06] MEDS: POTASSI CL 20 MEQ/50 ML RIDER 20 MEQ/50 ML RTUPB IV SCH ×2 (03:45→06:02)
[2019-12-06] MEDS: HEPARIN SOD (PORCINE) 5,000 UNIT/ML 1 ML VIAL SUBCUT SCH ×3 (05:34→21:11)
[2019-12-06] MEDS: ASCORBIC ACID 500 MG TABLET NG SCH ×3 (05:35→17:06)
[2019-12-06] MEDS: INSULIN REG, HUMAN 100 UNIT/ML 3 ML VIAL (PYX) SUBCUT SCH ×3 (05:35→17:02)
[2019-12-06] MEDS: VITAMIN B COMPLEX TABLET PO SCH (09:05)
[2019-12-06] MEDS: ZINC SULFATE 220 MG CAPSULE NG SCH (09:05)
[2019-12-06] MEDS: CYANOCOBALAMIN (VITAMIN B-12) 1,000 MCG TABLET NG SCH ×2 (09:05→17:05)
[2019-12-06] MEDS: FLUTICASONE/VILANTEROL 200-25 MCG/DOSE IH SCH (09:06)
[2019-12-06] MEDS: ASPIRIN 81 MG TABLET, CHEWABLE NG SCH (09:06)
[2019-12-06] MEDS: FOLIC ACID 1 MG TABLET NG SCH (09:06)
[2019-12-06] MEDS: ALLOPURINOL 300 MG TABLET NG SCH (09:06)
--- NOTE | 2019-12-06 09:56 | PDOC CRITICAL CARE PROG REPORT ---
General Date:: 12/06/19 ICU Day:: 6 Hospital Day:: 6 Resuscitation Status: Full Code Medical Power of Pick Up And Delivery Driver: Bambi Events in the past 12 to 24 Hours:: More oriented. Off milrinone Review of systems relevant to events:: Neurological. CV. Reason for ICU Addmission:: Alcohol withdrawal, respiratory distress. Had been intubated. - Medications: Medications reviewed and adjusted accordingly: Yes Vasopressors:: None Sedation:: None Physical Exam Vital Signs: Temp Pulse Resp BP Pulse Ox 98.6 F 98 22 H 138/92 H 100 12/06/19 07:45 12/06/19 08:00 12/06/19 07:45 12/05/19 20:00 12/06/19 08:34 Intake & Output 12/05/19 12/06/19 12/07/19 06:59 06:59 06:59 Intake Total 2166 1028 Output Total 2865 3505 Balance -906 -3885 Weight 101.8 kg 97.8 kg Weight/Height Weight 97.8 kg Height 5 ft 11 in General appearance: PRESENT: no acute distress, disheveled Head exam: PRESENT: atraumatic, normocephalic Eye exam: PRESENT: conjunctival injection Ear exam: PRESENT: normal external ear exam Mouth exam: PRESENT: moist, tongue midline Respiratory exam: PRESENT: clear to auscultation nathaniel. ABSENT: rales, rhonchi, wheezes Cardiovascular exam: PRESENT: RRR, tachycardia. ABSENT: diastolic murmur, rubs, systolic murmur GI/Abdominal exam: PRESENT: normal bowel sounds, soft. ABSENT: distended, guarding, mass, organolmegaly, rebound, tenderness Rectal exam: PRESENT: deferred Gentrourinary exam: PRESENT: indwelling catheter Extremities exam: PRESENT: full ROM. ABSENT: calf tenderness, clubbing, pedal edema Neurological exam: PRESENT: altered, awake, oriented to person Skin exam: PRESENT: dry, intact, warm. ABSENT: cyanosis, rash Laboratory/Radiographs Laboratory Results: 12/06/19 01:35 12/06/19 01:35 12/06/19 12/06/19 12/06/19 01:35 01:35 01:35 WBC 9.0 RBC 2.85 L Hgb 10.8 L Hct 31.3 L MCV 110 H MCH 37.8 H MCHC 34.5 RDW 16.6 H Plt Count 178 Sodium 141.9 Potassium 2.8 L* Chloride 105 Carbon Dioxide 31 H Anion Gap 6 BUN 23 H Creatinine 0.67 Est GFR ( Amer) > 60 Glucose 189 H Calcium 8.7 Phosphorus 2.6 Magnesium 2.1 Albumin 3.3 L 11/30/19 12/01/19 12/01/19 14:16 03:58 07:00 Creatine Kinase 104 Troponin I 0.815 0.775 NT-Pro-B Natriuret Pep 12/01/19 12/03/19 12/05/19 11:44 21:02 00:47 Creatine Kinase 89 Troponin I NT-Pro-B Natriuret Pep 57518 H 58881 H Impressions: Chest/Abdomen CTA 12/01/19 00:00 IMPRESSION: 1. No aortic aneurysm or dissection. 2. Cannot exclude thrombus in the right lower lobe pulmonary arteries. Evaluation is limited. 3. Bilateral pleural effusions with some associated atelectatic changes. Chest X-Ray 12/05/19 00:00 IMPRESSION: Progressive bibasilar pleural and parenchymal disease. This includes both an airspace and interstitial component. Progressive small effusions. KUB X-Ray 12/05/19 00:00 IMPRESSION: Enteric tube placement as above All labs, radiographs, diagnostic studies and EKGs were personally reviewed: Yes In addition, reports of radiographic and diagnostic studies were read: Yes Assessment and Plan - Diagnosis (1) Acute metabolic encephalopathy Is this a current diagnosis for this admission?: Yes Plan: Clearing. Mostly oriented but has episodes where he is not seeming to comprehend. (2) Acute respiratory failure with hypoxemia Is this a current diagnosis for this admission?: Yes Plan: This is resolved. (3) Alcohol abuse Is this a current diagnosis for this admission?: Yes Plan: On going and having mild WD symptoms. Much improved. (4) Alcohol withdrawal delirium, acute, hyperactive Is this a current diagnosis for this admission?: Yes Plan: Again mild. (5) Cardiogenic shock Is this a current diagnosis for this admission?: Yes Plan: Resolved (6) Cardiomyopathy, alcoholic Is this a current diagnosis for this admission?: Yes Plan: He is stable off milrinone (7) Hypotension (arterial) Qualifiers: Hypotension type: hypotension due to drug Qualified Code(s): I95.2 - Hypotension due to drugs Is this a current diagnosis for this admission?: Yes Plan: Resolved (8) Hypoadrenalism Is this a current diagnosis for this admission?: Yes Plan: Cut back on steroids further. Plan Summary: Able to downgrade to [facility] level. Critical Time Critical Time (minutes): 25 Level of Care: IMCU Anticipated discharge: SNF Within: Other -: 1. The care of a critical patient is a dynamic process. This note is a client support representative synopsis but static in nature. The timeframe for treatments given in order is not necessarily the actual time these treatments may have been done. 2. This patient requires critical care secondary to ongoing requirements for therapy not offered or safe outside the critical care environment. Transfer to a lower level of care will result in altered life or limb morbidity and mortality. 3. Multidisciplinary rounds completed. 4. ABCDE bundle addressed.
[2019-12-06 10:00] LABS: C DIFFICILE GDH POSITIVE (NEGATIVE)
--- NOTE | 2019-12-06 15:12 | RADIOLOGY REPORT (SQ) ---
EXAM DESCRIPTION: KUB/ABDOMEN (SINGLE VIEW) IMAGES COMPLETED DATE/TIME: 12/06/2019 2:55 pm REASON FOR STUDY: NGT placement verification COMPARISON: None. NUMBER OF VIEWS: One view. TECHNIQUE: Supine radiographic image of the abdomen acquired. LIMITATIONS: None. FINDINGS: BOWEL GAS PATTERN: Normal bowel gas pattern. No dilated loops. CALCIFICATIONS: No suspicious calcifications. SOFT TISSUES: No gross mass or suggestion of organomegaly. HARDWARE: Nasogastric tube tip in the body of the stomach. BONES: No acute fracture. No worrisome bone lesions. OTHER: No other significant finding. IMPRESSION: Nasogastric tube tip in the body of the stomach. TECHNICAL DOCUMENTATION: JOB ID: [id number] 2010 [employer]- All Rights Reserved Reading location - IP/workstation name: [email or web address]
[2019-12-06] MEDS: VANCOMYCIN HCL INJ 500 MG VIAL PO SCH ×2 (15:21→21:12)
--- NOTE | 2019-12-06 16:39 | Progress Note ---
Provider Note Provider Note: The patient is a 69-year-old male with a past medical history of combined systolic diastolic CHF, hypertension, COPD, Wernicke's encephalopathy, alcohol dependence with continuous use who was [facility] the [facility] 11/30/2019 with respiratory failure following alcohol withdrawal seizure. Intubated 12/01/2019 Pressor support with Levophed, milrinone. Precedex drip for alcohol withdrawal Extubated 12/04/2019 Development of C. difficile infection 12/06/2019 Failed multiple bedside swallow screens; NG tube in place for tube feeds and medications. Downgrade to IMCU on 12/06/2019. H&P, progress notes, overnight events, vital signs, laboratory and imaging results, and orders reviewed. Adjustments to plan of care as below. AM lab work: CBC, CMP, PT/INR, magnesium Restart home dose spironolactone. Start metoprolol 12.5 mg twice daily. Start Entresto 24/26 twice daily. Daily weights, strict I&O's Cardiology consultation; discussed patient with Dr. Valdez. PT/OT/ST consultations.
[2019-12-06] MEDS: PHARMACY COMMUNICATION ORDER MC SCH (17:03)
[2019-12-06] MEDS: LORAZEPAM 1 MG TABLET PO PRN ×2 (17:05→21:13)
[2019-12-06] MEDS: ALBUTEROL SULFATE 0.083% NEB 2.5 MG/3 ML AMPUL NEB PRN (17:19)
[2019-12-06] MEDS: SACUBITRIL/VALSARTAN 24 MG/26 MG TABLET NG SCH (17:52)
[2019-12-06] MEDS ORDERED: HYDROCORTISONE SOD SUCCINATE INJ/PF 100 MG/2 ML SDV IV SCH (18:00)
[2019-12-06] MEDS: LORAZEPAM INJ 2 MG/1 ML VIAL IV PRN (19:45)
[2019-12-06] MEDS: METOPROLOL TARTRATE 25 MG TABLET NG SCH (21:12)
[2019-12-06] MEDS: ATORVASTATIN CALCIUM 40 MG TABLET NG SCH (21:13)
[2019-12-07] MEDS: INSULIN REG, HUMAN 100 UNIT/ML 3 ML VIAL (PYX) SUBCUT SCH ×3 (00:28→13:35)
[2019-12-07] MEDS: ASCORBIC ACID 500 MG TABLET NG SCH ×3 (00:32→11:29)
[2019-12-07] MEDS: HYDROCORTISONE SOD SUCCINATE INJ/PF 100 MG/2 ML SDV IV SCH ×3 (03:17→18:48)
[2019-12-07] MEDS: VANCOMYCIN HCL INJ 500 MG VIAL PO SCH (03:18)
[2019-12-07] MEDS: LORAZEPAM INJ 2 MG/1 ML VIAL IV PRN ×2 (04:18→11:39)
[2019-12-07] MEDS: HEPARIN SOD (PORCINE) 5,000 UNIT/ML 1 ML VIAL SUBCUT SCH ×3 (06:58→21:03)
[2019-12-07] MEDS: ALBUTEROL SULFATE 0.083% NEB 2.5 MG/3 ML AMPUL NEB PRN (08:12)
[2019-12-07 08:15] LABS: HEMOGLOBIN 10.6 g/dL (13.5-17.0); MEAN CORPUSCULAR HEMOGLOBIN 37.7 pg (27.0-33.4); MEAN CORPUSCULAR HGB CONC 34.1 g/dL (32.0-36.0); MEAN CORPUSCULAR VOLUME 111 fl (80-97); PLATELET COUNT 220 10^3/uL (150-450); RED BLOOD COUNT 2.81 10^6/uL (4.35-5.55); RED CELL DISTRIBUTION WIDTH 16.6 % (11.5-14.0); WHITE BLOOD COUNT 8.1 10^3/uL (4.0-10.5)
[2019-12-07 08:19] LABS: INTERNATIONAL RATION (INR) 1.08; PROTHROMBIN TIME 14.1 SEC (11.4-15.4)
[2019-12-07 09:22] LABS: ALBUMIN 3.1 g/dL (3.5-5.0); ALKALINE PHOSPHATASE 91 U/L (38-126); ASPARTATE AMINO TRANSFERASE 37 U/L (17-59); BILIRUBIN,DIRECT 0.1 mg/dL (0.0-0.4); BILIRUBIN,TOTAL 0.9 mg/dL (0.2-1.3); BLOOD UREA NITROGEN 20 mg/dL (7-20); CALCIUM 8.7 mg/dL (8.4-10.2); CARBON DIOXIDE 33 mmol/L (22-30); GLUCOSE 103 mg/dL (75-110); POTASSIUM 3.1 mmol/L (3.6-5.0); TOTAL PROTEIN 5.6 g/dL (6.3-8.2)
[2019-12-07 09:27] LABS: CHLORIDE 106 mmol/L (98-107)
[2019-12-07 09:49] LABS: ANION GAP 4 (5-19)
--- NOTE | 2019-12-07 09:58 | PDOC CONSULTATION ---
Consultation Consult Date: 12/07/19 Attending physician:: EBONIE NYE Provider Consulted: DARCY SILVERIO Consult reason:: CHF History of Present Illness Admission Date/PCP: 11/30/19 20:53 LV PINEDA MD History of Present Illness: The current history of present illness is obtained from chart review as the patient is currently on BiPAP, sleepy and unable to answer any questions. The patient is a 69 year old male with history of chonic daily ETOH abuse with reported 2L daily drinking, heart failure with stenting in 05/2018, CHF, HTN, SAGAR and previous hx of withdrawal seizures who i initially presented to our emergency room requesting alcohol detox, of note, he had been previously admitted to the intensive care unit for similar reasons. He was admitted on 11/30/2019 to the intensive care unit where he decompensated with respiratory failure and was intubated on 12/01/2019. At that point he became hypotensive and was diagnosed with cardiogenic shock when a bedside cardiac ultrasound performed by the ICU physician demonstrated an ejection fraction of 15%. He was begun on Levophed and milrinone with clinical improvement. He was eventually extubated and was transferred out of the intensive care unit yesterday. Unfortunately there are no prior cardiovascular records to review. A repeat echocardiogram read by Dr. Cummings demonstrated an ejection fraction of at least 25% or less but it was a poor study. His fluid balance is +3.526 since 12/01/2019 and he has been diuresing well. His telemetry shows sinus tachycardia with PVCs. Physical exam on 12/07/2019: GENERAL: On BiPAP treatment, very sleepy but arousable. Cannot answer any q uestions due to somnolence and BiPAP treatment. He follows commands. HEENT: Normocephalic, atraumatic. Pupils equal. Sclerae anicteric. Oropharynx moist. NECK: Difficult to evaluate for JVD given his body habitus and presence of central line. No carotid bruits. LUNGS: Very coarse breath sounds bilaterally in all robbins. Normal respiratory effort without the use of accessory muscles or intercostal retractions. CARDIOVASCULAR: Tachycardic. Regular rate and rhythm, normal S1 and S2 without murmurs, rubs, or gallops. PMI not displaced. ABDOMEN: No masses or tenderness to palpation. No bruit. No splenomegaly or hepatomegaly. No abdominal aorta bruit noted. EXTREMITIES: 1+ pitting edema bilaterally, no cyanosis, no clubbing. +2 pulses femoral and pedal pulses bilaterally. SKIN: No lesions or rashes. MUSCULOSKELETAL: No chest tenderness to palpation. Past Medical History Cardiac Medical History: Reports: Congestive Heart Failure, Hypertension Pulmonary Medical History: Reports: Intubation, Pneumonia Psychiatric Medical History: Denies: Depression Hematology: Denies: Anemia, Sickle Cell Disease Past Surgical History Past Surgical History: Reports: Other - Remote history of tracheostomy tube placement at age 11. Social History Smoking Status: Current Every Day Smoker Cigarettes Packs Per Day: 1 Electronic Cigarette use?: No Frequency of Alcohol Use: Heavy Hx Recreational Drug Use: No Drugs: None Hx Prescription Drug Abuse: No - Advance Directive Resuscitation Status: Full Code Family History Family History: Reviewed & Not Pertinent Parental Family History Reviewed: Yes Children Family History Reviewed: Yes Sibling(s) Family History Reviewed.: Yes Medication/Allergy Home Medications: Albuterol Sulfate [Proair HFA Inhalation Aerosol 8.5 gm MDI] 2 puff IH Q6HP PRN 05/23/18 Atorvastatin Calcium [Lipitor 40 mg Tablet] 40 mg PO QHS 05/23/18 Furosemide [Lasix 40 mg Tablet] 40 mg PO QAM 05/23/18 Allopurinol [Zyloprim 300 mg Tablet] 300 mg PO DAILY 07/03/19 Aspirin [Ecotrin 81 mg EC Tablet] 81 mg PO DAILY 07/03/19 Cyanocobalamin (Vitamin B-12) [Vitamin B-12] 1,000 mcg PO BID 07/03/19 Ezetimibe 10 mg PO DAILY 07/03/19 Metoprolol Succinate [Toprol Xl 25 mg Tab.sr] 25 mg PO DAILY 07/03/19 Sacubitril/Valsartan [Entresto 24 mg/26 mg Tablet] 1 tab PO Q12 07/03/19 Spironolactone [Aldactone 25 mg Tablet] 25 mg PO DAILY 07/03/19 Thiamine HCl [Thiamine 100 mg Tablet] 100 mg PO DAILY tablet 07/21/19 Budesonide/Formoterol Fumarate [Symbicort HFA 160-4.5 mcg Inhaler 6 gm] 2 puff IH Q12 11/30/19 Allergies/Adverse Reactions: No Known Allergies Allergy (Verified 12/01/19 11:11) Physical Exam Vital Signs: Temp Pulse Resp BP Pulse Ox 98.2 F 91 16 132/88 H 97 12/07/19 03:17 12/07/19 03:17 12/07/19 04:26 12/07/19 03:17 12/07/19 04:26 Intake & Output 12/06/19 12/07/19 12/08/19 06:59 06:59 06:59 Intake Total 1028 150 Output Total 3505 1175 Balance -2477 -1025 Weight 97.8 kg Results Laboratory Results: 12/06/19 01:35 12/06/19 01:35 12/01/19 20:38 Blood Blood Culture - Final NO GROWTH IN 5 DAYS 12/01/19 20:04 Blood Blood Culture - Final NO GROWTH IN 5 DAYS 11/30/19 12/01/19 12/01/19 14:16 03:58 07:00 Creatine Kinase 104 Troponin I 0.815 0.775 NT-Pro-B Natriuret Pep 12/01/19 12/03/19 12/05/19 11:44 21:02 00:47 Creatine Kinase 89 Troponin I NT-Pro-B Natriuret Pep 05402 H 33875 H Impressions: Chest/Abdomen CTA 12/01/19 00:00 IMPRESSION: 1. No aortic aneurysm or dissection. 2. Cannot exclude thrombus in the right lower lobe pulmonary arteries. Evaluation is limited. 3. Bilateral pleural effusions with some associated atelectatic changes. Chest X-Ray 12/05/19 00:00 IMPRESSION: Progressive bibasilar pleural and parenchymal disease. This includes both an airspace and interstitial component. Progressive small effusions. KUB X-Ray 12/06/19 00:00 IMPRESSION: Nasogastric tube tip in the body of the stomach. 12/07/19 07:45 12/07/19 08:25 MCV 111 fl (80-97) H 12/07/19 07:45 MCH 37.7 pg (27.0-33.4) H 12/07/19 07:45 MCHC 34.1 g/dL (32.0-36.0) 12/07/19 07:45 RDW 16.6 % (11.5-14.0) H 12/07/19 07:45 Seg Neutrophils % Not Reportable 12/05/19 00:47 Carbonic Acid 1.42 mmol/L (1.05-1.35) H 12/05/19 01:35 HCO3/H2CO3 Ratio 18:1 12/05/19 01:35 ABG pH 7.36 (7.35-7.45) 12/05/19 01:35 ABG pCO2 47.2 mmHg (35-45) H 12/05/19 01:35 ABG pO2 33.5 mmHg (80-100) L* 12/05/19 01:35 ABG HCO3 26.0 mmol/L (20-24) H 12/05/19 01:35 ABG O2 Saturation 61.4 % (94-98) L 12/05/19 01:35 ABG Base Excess 0.2 mmol/L 12/05/19 01:35 FiO2 30% 12/05/19 01:35 Chloride 106 mmol/L (98-107) 12/07/19 08:25 Carbon Dioxide 33 mmol/L (22-30) H 12/07/19 08:25 Anion Gap 4 (5-19) L 12/07/19 08:25 Est GFR ( Amer) > 60 (>60) 12/07/19 08:25 Est GFR (Non-Af Amer) Cancelled 11/30/19 14:16 Glucose 103 mg/dL (75-110) 12/07/19 08:25 Lactic Acid 1.3 mmol/L (0.7-2.1) 12/01/19 12:56 Calcium 8.7 mg/dL (8.4-10.2) 12/07/19 08:25 Phosphorus 2.6 mg/dL (2.5-4.5) 12/06/19 01:35 Magnesium 2.1 mg/dL (1.6-2.3) 12/07/19 08:25 Total Bilirubin 0.9 mg/dL (0.2-1.3) 12/07/19 08:25 AST 37 U/L (17-59) 12/07/19 08:25 Alkaline Phosphatase 91 U/L (38-126) 12/07/19 08:25 Ammonia < 8.7 umol/L (9-33) L 12/02/19 04:08 Total Protein 5.6 g/dL (6.3-8.2) L 12/07/19 08:25 Albumin 3.1 g/dL (3.5-5.0) L 12/07/19 08:25 Triglycerides 79 mg/dL (<150) 12/01/19 07:00 Lipase 178.8 U/L (23-300) 11/30/19 14:16 TSH 4.28 uIU/mL (0.47-4.68) 12/01/19 12:56 Free T4 1.11 ng/dL (0.78-2.19) 12/01/19 12:56 Free T3 pg/mL 5.36 pg/mL (2.77-5.27) H 12/01/19 12:56 Urine Color JORY 11/30/19 04:28 Urine Appearance SLIGHTLY-CLOUDY 11/30/19 04:28 Urine pH 5.0 (5.0-9.0) 11/30/19 04:28 Ur Specific [employer] [place] 1.027 11/30/19 04:28 Urine Protein 100 mg/dL (NEGATIVE) H 11/30/19 04:28 Urine Glucose (UA) 150 mg/dL (NEGATIVE) H 11/30/19 04:28 Urine Ketones TRACE mg/dL (NEGATIVE) H 11/30/19 04:28 Urine Blood NEGATIVE (NEGATIVE) 11/30/19 04:28 Urine Nitrite NEGATIVE (NEGATIVE) 11/30/19 04:28 Ur Leukocyte Esterase NEGATIVE (NEGATIVE) 11/30/19 04:28 Urine WBC (Auto) 1 /HPF 11/30/19 04:28 Urine RBC (Auto) 1 /HPF 11/30/19 04:28 12/01/19 20:38 Blood Blood Culture - Final NO GROWTH IN 5 DAYS 12/01/19 20:04 Blood Blood Culture - Final NO GROWTH IN 5 DAYS 11/30/19 12/01/19 12/01/19 14:16 03:58 07:00 Creatine Kinase 104 Troponin I 0.815 0.775 NT-Pro-B Natriuret Pep 12/01/19 12/03/19 12/05/19 11:44 21:02 00:47 Creatine Kinase 89 Troponin I NT-Pro-B Natriuret Pep 93859 H 65176 H Current Medication List Generic Name Dose Route Start Last Admin Trade Name Freq PRN Reason Stop Dose Admin Albuterol 2.5 mg 12/05/19 09:12 12/07/19 08:12 Ventolin 0.083% Neb 2.5 Mg/3 Ml Ampul NEB 01/04/20 09:11 2.5 mg RTQ3HP PRN Administration SHORTNESS OF BREATH Allopurinol 300 mg 12/02/19 10:00 12/06/19 09:06 Zyloprim 300 Mg Tablet NG 12/31/19 09:59 300 mg DAILY RITU Administration Ascorbic Acid 2,000 mg 12/02/19 00:00 12/07/19 06:57 Vitamin C 500 Mg Tablet NG 12/31/19 17:59 2,000 mg Q6 RITU Administration Aspirin 81 mg 12/02/19 10:00 12/06/19 09:06 Aspirin 81 Mg Chewable Tablet NG 01/01/20 09:59 81 mg DAILY RITU Administration Atorvastatin Calcium 40 mg 12/01/19 22:00 12/06/19 21:13 Lipitor 40 Mg Tablet NG 12/31/19 21:59 40 mg QHS RITU Administration Cyanocobalamin 1,000 mcg 12/02/19 10:00 12/06/19 17:05 Vitamin B-12 1000 Mcg Tablet NG 12/31/19 09:59 1,000 mcg BID RITU Administration Dextrose 12.5 gm 12/02/19 00:12 Dextrose Inj 50% Syringe (25 Gm/50 Ml) IV 01/01/20 00:11 PRN PRN FOR BG 50-69 IN ALERT PATIENT Protocol Dextrose 25 gm 12/02/19 00:12 Dextrose Inj 50% Syringe (25 Gm/50 Ml) IV 01/01/20 00:11 PRN PRN PER PROTOCOL Protocol Fluticasone/Vilanterol 1 inh 12/01/19 10:00 12/06/19 09:06 Breo 200-25 Mcg Ellipta 14 Dose/Dpi IH 12/31/19 09:59 1 inhaler DAILY RITU Administration Folic Acid 1 mg 12/02/19 10:00 12/06/19 09:06 Folvite 1 Mg Tablet NG 12/31/19 09:59 1 mg DAILY RITU Administration Glucagon 1 mg 12/02/19 00:12 Glucagen Inj 1 Mg Vial IM 01/01/20 00:11 PRN PRN Evaluate for BG < 70 Protocol Glucose 15 gm 12/02/19 00:12 Glutose 40% Gel 15 Gm Tube PO 01/01/20 00:11 PRN PRN FOR BG 50-69 IN ALERT PATIENT Protocol Glucose 30 gm 12/02/19 00:12 Glutose 40% Gel 15 Gm Tube PO 01/01/20 00:11 PRN PRN FOR BG < 50 IN ALERT PATIENT Protocol Heparin Sodium (Porcine) 5,000 unit 11/30/19 22:00 12/07/19 06:58 Heparin Inj 5,000 Units/Ml 1 Ml Vial SUBCUT 12/30/19 21:59 5,000 unit Q8 RITU Administration Hydrocortisone Sodium Succinate 25 mg 12/06/19 18:00 12/07/19 03:17 Solu-Cortef Inj/Pf 100 Mg/ 2 Ml Sdv IV 01/05/20 17:59 25 mg Q8A RITU Administration Insulin Human Regular 0 - 12 unit 12/02/19 00:15 12/07/19 06:58 Humulin R (Pyxis) Insulin 100 Unit/Ml 3ml SUBCUT 01/01/20 00:14 Not Given Q6 RITU Protocol Lorazepam 2 mg 12/04/19 00:18 12/07/19 04:18 Ativan Inj 2 Mg/1 Ml Vial IV 12/11/19 00:17 2 mg Q2HP PRN Administration SEIZURES Lorazepam 2 mg 12/05/19 14:56 12/06/19 21:13 Ativan 1 Mg Tablet PO 12/12/19 14:55 2 mg Q4HP PRN Administration ANXIETY/AGITATION Metoprolol Tartrate 5 mg 12/05/19 05:08 12/06/19 17:45 Lopressor Inj/Pf 5 Mg/5 Ml Sdv IV 01/04/20 05:07 5 mg Q4HP PRN Administration HR > 120 Metoprolol Tartrate 12.5 mg 12/06/19 22:00 12/06/19 21:12 Lopressor 25 Mg Tablet NG 01/05/20 21:59 12.5 mg Q12 RITU Administration Pharmacy Profile Note 1 each 12/01/19 08:00 Medication Communication Order 12/31/19 07:59 .NOTICE NR Pharmacy Profile Note 1 each 12/04/19 18:00 12/06/19 17:03 Medication Communication Order 01/03/20 17:59 Not Given QPM RITU Sacubitril/Valsartan 1 tab 12/06/19 18:00 12/06/19 17:52 Entresto 24 Mg/26 Mg Tablet NG 01/05/20 17:59 1 tab BID RITU Administration Sodium Chloride 2.5 ml 11/30/19 22:00 12/07/19 06:57 Saline Flush 2.5 Ml Monoject Prefil Syrin IV 12/30/19 21:59 2.5 ml Q8 RITU Administration Sodium Chloride 10 ml 12/03/19 00:36 Nacl 0.9% Inj/Pf 10 Ml Sdv IV 01/02/20 00:35 .AFTER EACH USE PRN AFTER EACH INTERMITTENT USE Spironolactone 25 mg 12/07/19 10:00 Aldactone 25 Mg Tablet NG 01/06/20 09:59 DAILY RITU Vancomycin HCl 250 mg 12/06/19 15:00 12/07/19 03:18 Vancocin Inj 500 Mg Vial PO 12/13/19 14:59 250 mg Q6A RITU Administration Vitamin B Complex 1 tab 12/04/19 10:00 12/06/19 09:05 Vitamin B Complex Tablet PO 01/03/20 09:59 1 tab DAILY RITU Administration Zinc Sulfate 220 mg 12/02/19 10:00 12/06/19 09:05 Zinc-220 Capsule NG 12/31/19 09:59 220 mg DAILY RITU Administration Discontinued Medications Generic Name Dose Route Start Last Admin Trade Name Freq PRN Reason Stop Dose Admin Acetaminophen 650 mg 12/01/19 16:29 Tylenol 325 Mg Tablet PO 12/31/19 16:28 Q6HP PRN FEVER > 102 Acetaminophen 650 mg 12/01/19 17:03 12/01/19 17:32 Tylenol Soln 325 Mg/10.15 Ml Udcup PO 12/31/19 17:02 650 mg Q4HP PRN Administration FEVER > 102 Acetaminophen Confirm 12/01/19 17:27 12/01/19 17:33 Tylenol Soln 325 Mg/10.15 Ml Udcup Administered 12/01/19 17:28 Not Given Dose 325 mg .ROUTE .STK-MED ONE Acetaminophen 650 mg 12/01/19 20:00 12/02/19 11:23 Tylenol Soln 325 Mg/10.15 Ml Udcup NG 12/31/19 17:02 650 mg Q4HP PRN Administration FEVER > 102 Allopurinol 300 mg 12/01/19 10:00 12/01/19 11:25 Zyloprim 300 Mg Tablet PO 12/31/19 09:59 Not Given DAILY RITU Ascorbic Acid 2,000 mg 12/01/19 18:00 12/01/19 23:12 Vitamin C 500 Mg Tablet PO 12/31/19 17:59 Not Given Q6 RITU Aspirin 81 mg 12/01/19 10:00 12/01/19 11:25 Ecotrin 81 Mg Ec Tablet PO 12/31/19 09:59 Not Given DAILY RITU Atropine Sulfate Confirm 12/02/19 19:30 12/02/19 22:40 Atropine Sulfate Inj 1 Mg/10 Ml Disp.Syrin Administered 12/02/19 19:31 Not Given Dose 1 mg IV .STK-MED ONE Atropine Sulfate Confirm 12/02/19 19:31 12/02/19 22:40 Atropine Sulfate Inj 1 Mg/10 Ml Disp.Syrin Administered 12/02/19 19:32 Not Given Dose 1 mg IV .STK-MED ONE Cyanocobalamin 1,000 mcg 12/01/19 10:00 12/01/19 23:13 Vitamin B-12 1000 Mcg Tablet PO 12/31/19 09:59 Not Given BID [facility] Digoxin 0.125 mg 12/03/19 22:45 12/03/19 22:38 Lanoxin Inj 0.5 Mg/2 Ml Ampule IV 12/03/19 22:46 0.125 mg NOW ONE Administration Ezetimibe 10 mg 12/01/19 10:00 Zetia 10 Mg Tablet PO 12/31/19 09:59 DAILY [facility] Etomidate 25 mg 12/01/19 08:00 12/01/19 11:35 Amidate Inj/Pf 20 Mg/10 Ml Sdv IV 12/01/19 08:01 Not Given NOW ONE Etomidate Confirm 12/01/19 08:02 12/01/19 08:11 Amidate Inj/Pf 20 Mg/10 Ml Sdv Administered 12/01/19 08:03 20 mg Dose Administration 20 mg IV .STK-MED ONE Famotidine 20 mg 12/02/19 11:00 12/02/19 10:22 Pepcid Inj/Pf 20 Mg/2 Ml Sdv IV 01/01/20 10:59 20 mg Q12 RITU Administration Famotidine 20 mg 12/02/19 22:00 12/03/19 11:12 Pepcid 40 Mg/5 Ml Susp PO 01/01/20 21:59 20 mg Q12 RITU Administration Fentanyl Citrate 100 mcg 12/01/19 08:00 12/01/19 08:10 Sublimaze Inj/Pf 100 Mcg/2 Ml Ampule IV 12/01/19 08:01 100 mcg NOW ONE Administration Fentanyl Citrate Confirm 12/01/19 08:02 12/01/19 09:09 Sublimaze Inj/Pf 100 Mcg/2 Ml Ampule Administered 12/01/19 08:03 100 mcg Dose Administration 100 mcg .ROUTE .STK-MED ONE Fentanyl Citrate Confirm 12/02/19 22:44 12/02/19 22:55 Sublimaze Inj/Pf 100 Mcg/2 Ml Ampule Administered 12/02/19 22:45 50 mcg Dose Administration 100 mcg .ROUTE .STK-MED ONE Fentanyl Citrate 50 mcg 12/03/19 00:45 12/03/19 00:57 Sublimaze Inj/Pf 100 Mcg/2 Ml Ampule IV 12/03/19 00:46 Not Given NOW ONE Folic Acid 1 mg 12/01/19 10:00 12/01/19 12:18 Folvite 1 Mg Tablet PO 12/31/19 09:59 Not Given DAILY RITU Furosemide 40 mg 12/05/19 01:24 12/05/19 01:58 Lasix Inj/Pf 40 Mg/4 Ml Sdv IV 12/05/19 01:25 40 mg NOW ONE Administration Furosemide 20 mg 12/05/19 17:00 12/05/19 17:34 Lasix Inj/Pf 20 Mg/2 Ml Sdv IV 12/05/19 17:01 20 mg NOW ONE Administration Furosemide 40 mg 12/05/19 23:26 12/05/19 23:40 Lasix Inj/Pf 40 Mg/4 Ml Sdv IV 12/05/19 23:27 40 mg NOW ONE Administration Furosemide Confirm 12/05/19 23:30 12/05/19 23:40 Lasix Inj/Pf 40 Mg/4 Ml Sdv Administered 12/05/19 23:31 Not Given Dose 40 mg .ROUTE .STK-MED ONE Heparin Sodium (Porcine) 30 unit 12/03/19 06:00 12/03/19 14:16 Heparin Flush 10 Unit/Ml 5 Ml Disp.Syrg IV 01/02/20 05:59 Not Given Q8 RITU Heparin Sodium (Porcine) 30 unit 12/03/19 00:36 Heparin Flush 10 Unit/Ml 5 Ml Disp.Syrg IV 01/02/20 00:35 .AFTER EACH USE PRN AFTER EACH INTERMITTENT USE Hydrocortisone Sodium Succinate 100 mg 12/02/19 10:00 12/06/19 09:05 Solu-Cortef Inj/Pf 100 Mg/ 2 Ml Sdv IV 01/01/20 09:59 100 mg Q8A RITU Administration Hydrocortisone Sodium Succinate 50 mg 12/06/19 18:00 Solu-Cortef Inj/Pf 100 Mg/ 2 Ml Sdv IV 01/05/20 17:59 Q8A RITU Potassium Chloride 20 meq/ 1,023 mls @ 250 mls/hr 11/30/19 18:00 Magnesium Sulfate 8 meq/ IV 12/30/19 17:59 Thiamine HCl 100 mg/ QPM RITU Multivitamins/Minerals 10 ml/ Sodium Chloride Potassium Chloride 20 meq/ 1,023 mls @ 250 mls/hr 11/30/19 16:30 12/04/19 22:00 Magnesium Sulfate 8 meq/ IV 12/30/19 16:29 Infused Thiamine HCl 100 mg/ QPM RITU Infusion Multivitamins/Minerals 10 ml/ Sodium Chloride Lactated Ringer's 1,000 mls @ 100 mls/hr 11/30/19 23:21 11/30/19 23:50 Lactated Ringers 1000 Ml Iv Soln IV 12/30/19 23:20 100 mls/hr CONTINUOUS PRN Administration THIS MED IS NOT "PRN" Magnesium Sulfate 4 gm in 100 mls @ 25 mls/hr 12/01/19 04:16 12/01/19 23:12 Magnesium Sulfate Rtu 4 Gm/100 Ml Premix Bag IV 12/01/19 08:15 Infused NOW ONE Infusion Potassium Chloride/Water 20 meq in 50 mls @ 25 mls/hr 12/01/19 04:30 12/01/19 23:12 Potassium Chloride Samuel 20 Meq/50 Ml IV 12/01/19 08:29 Infused Q2H RITU Infusion Magnesium Sulfate Confirm 12/01/19 04:59 12/01/19 05:10 Magnesium Sulfate Rtu 4 Gm/100 Ml Premix Bag Administered 12/01/19 05:00 Not Given Dose 4 gm in 100 mls @ ud IV .STK-MED ONE Thiamine HCl 500 mg/ Sodium 255 mls @ 463.636 mls/hr 12/01/19 10:00 Chloride IV 12/02/19 22:32 Q12 RITU Propofol 1,000 mg in 100 mls @ 2.745 mls/hr 12/01/19 08:00 Diprivan Rtu 1000 Mg/100 Ml Inf.Bottle IV 12/31/19 07:59 CONTINUOUS PRN THIS MED IS NOT "PRN" Protocol 5 MCG/KG/MIN Norepinephrine Bitartrate 4 mg 254 mls @ 0 mls/hr 12/01/19 08:00 12/03/19 14:37 / Dextrose IV 12/31/19 07:59 0 mcg/min CONTINUOUS PRN 0 mls/hr THIS MED IS NOT "PRN" Titration Protocol Titrate Thiamine HCl 500 mg/ Sodium 105 mls @ 210 mls/hr 12/01/19 10:00 12/02/19 21:00 Chloride IV 12/02/19 22:29 210 mls/hr Q12 RITU Administration Propofol Confirm 12/01/19 08:07 12/01/19 10:00 Diprivan Rtu 1000 Mg/100 Ml Inf.Bottle Administered 12/01/19 08:08 0 mcg/kg/min Dose 0 mls/hr 1,000 mg in 100 mls @ ud Infusion IV .STK-MED ONE Milrinone Lactate/Dextrose 20 mg in 100 mls @ 0 mls/hr 12/01/19 09:26 12/01/19 13:45 Primacor Rtu 20 Mg-D5w 100 Ml Premix Bag IV 12/31/19 09:25 0.125 mcg/kg/min CONTINUOUS PRN 3.43 mls/hr THIS MED IS NOT "PRN" Titration Protocol Titrate Dexmedetomidine/Sodium Chloride 400 mcg in 100 mls @ 9.15 mls/hr 12/01/19 09:49 12/03/19 15:15 Precedex 400 Mcg/Ns 100 Ml Iv Premix IV 12/31/19 09:48 Infused CONTINUOUS PRN Titration THIS MED IS NOT "PRN" Protocol 0.4 MCG/KG/HR Dexmedetomidine/Sodium Chloride Confirm 12/01/19 09:51 12/01/19 12:17 Precedex 400 Mcg/Ns 100 Ml Iv Premix Administered 12/01/19 09:52 Not Given Dose 400 mcg in 100 mls @ ud IV .STK-MED ONE Albumin Human 12.5 gm in 50 mls @ 200 mls/hr 12/01/19 12:30 12/01/19 15:40 Albuminar-25 Rtu Inj 12.5 Gm/50 Ml Premix IV 12/01/19 15:44 Infused Q1H RITU Infusion Vasopressin 100 unit/ Dextrose 255 mls @ 0 mls/hr 12/01/19 12:41 12/04/19 18:07 IV 12/31/19 12:40 0 unit/min CONTINUOUS PRN 0 mls/hr THIS MED IS NOT "PRN" Titration Titrate Piperacillin Sod/Tazobactam 100 mls @ 200 mls/hr 12/01/19 21:00 12/06/19 09:05 Sod 4.5 gm/ Sodium Chloride IV 12/08/19 20:59 200 mls/hr Q6A RITU 200 mls/hr Administration Milrinone Lactate/Dextrose 20 mg in 100 mls @ 0 mls/hr 12/02/19 05:12 12/05/19 19:00 Primacor Rtu 20 Mg-D5w 100 Ml Premix Bag IV 01/01/20 05:11 Infused CONTINUOUS PRN Titration THIS MED IS NOT "PRN" Protocol Titrate Potassium Chloride/Water 20 meq in 50 mls @ 25 mls/hr 12/02/19 06:00 12/02/19 09:55 Potassium Chloride Samuel 20 Meq/50 Ml IV 12/02/19 09:59 Infused Q2H RITU Infusion Esmolol HCl 2,500 mg in 250 mls @ 0 mls/hr 12/03/19 20:00 12/05/19 05:15 Brevibloc Rtu 2500 Mg/250 Ml Nacl Premix Bag IV 01/02/20 19:59 Infused CONTINUOUS PRN Titration THIS MED IS NOT "PRN" Protocol Titrate Esmolol HCl Confirm 12/03/19 19:59 12/03/19 20:28 Brevibloc Rtu 2500 Mg/250 Ml Nacl Premix Bag Administered 12/03/19 20:00 Not Given Dose 2,500 mg in 250 mls @ ud IV .STK-MED ONE Potassium Chloride/Water 20 meq in 50 mls @ 25 mls/hr 12/06/19 03:00 12/06/19 06:02 Potassium Chloride Samuel 20 Meq/50 Ml IV 12/06/19 06:59 25 mls/hr Q2H RITU 25 mls/hr Administration Lorazepam 2 mg 11/30/19 15:33 11/30/19 15:46 Ativan Inj 2 Mg/1 Ml Vial IV 11/30/19 15:34 2 mg NOW ONE Administration Lorazepam 2 mg 11/30/19 16:27 11/30/19 16:33 Ativan Inj 2 Mg/1 Ml Vial IV 11/30/19 16:28 2 mg NOW ONE Administration Lorazepam 2 mg 11/30/19 17:07 11/30/19 17:14 Ativan Inj 2 Mg/1 Ml Vial IV 11/30/19 17:08 2 mg NOW ONE Administration Lorazepam 2 mg 11/30/19 19:41 11/30/19 20:39 Ativan Inj 2 Mg/1 Ml Vial IV 11/30/19 19:42 2 mg NOW ONE Administration Lorazepam 2 mg 11/30/19 21:26 11/30/19 21:49 Ativan Inj 2 Mg/1 Ml Vial IV 11/30/19 21:27 2 mg NOW ONE Administration Lorazepam 2 mg 11/30/19 21:48 11/30/19 23:40 Ativan Inj 2 Mg/1 Ml Vial IV 11/30/19 21:49 Not Given ONCE ONE Lorazepam 2 mg 11/30/19 23:19 12/03/19 18:07 Ativan Inj 2 Mg/1 Ml Vial IV 12/07/19 23:18 2 mg Q2HP PRN Administration SEIZURES Lorazepam 2 mg 12/03/19 21:45 12/03/19 21:37 Ativan Inj 2 Mg/1 Ml Vial IV 12/03/19 21:46 2 mg NOW ONE Administration Lorazepam 2 mg 12/05/19 14:55 12/05/19 15:32 Ativan 1 Mg Tablet PO 12/05/19 14:56 2 mg NOW ONE Administration Metoprolol Succinate 25 mg 12/01/19 10:00 Toprol Xl 25 Mg Tab.Sr PO 12/31/19 09:59 DAILY RITU Metoprolol Tartrate Confirm 12/01/19 06:04 12/01/19 06:10 Lopressor Inj/Pf 5 Mg/5 Ml Sdv Administered 12/01/19 06:05 5 mg Dose Administration 5 mg IV .STK-MED ONE Metoprolol Tartrate 5 mg 12/01/19 06:28 12/01/19 06:44 Lopressor Inj/Pf 5 Mg/5 Ml Sdv IV 12/01/19 06:29 Not Given NOW ONE Metoprolol Tartrate Confirm 12/03/19 19:43 12/03/19 20:17 Lopressor Inj/Pf 5 Mg/5 Ml Sdv Administered 12/03/19 19:44 Not Given Dose 5 mg IV .STK-MED ONE Metoprolol Tartrate 5 mg 12/03/19 20:15 12/03/19 20:18 Lopressor Inj/Pf 5 Mg/5 Ml Sdv IV 12/03/19 21:16 Not Given Q1H RITU Midazolam HCl 5 mg 12/01/19 08:26 12/01/19 08:25 Versed 2 Mg/2 Ml Inj IV 12/01/19 08:27 5 mg NOW ONE Administration Midazolam HCl Confirm 12/01/19 08:20 12/01/19 11:39 Versed 2 Mg/2 Ml Inj Administered 12/01/19 08:21 Not Given Dose 2 mg .ROUTE .STK-MED ONE Nicotine 1 each 12/03/19 16:45 12/03/19 16:50 Nicoderm 21 Mg/24 Hr Transderm Patch TD 12/03/19 16:46 1 each NOW ONE Administration Norepinephrine Bitartrate Confirm 12/01/19 08:07 12/01/19 12:17 Levophed Inj/Pf 4 Mg/4 Ml Sdv Administered 12/01/19 08:08 Not Given Dose 4 mg IV .STK-MED ONE Norepinephrine Bitartrate Confirm 12/01/19 18:12 12/01/19 18:47 Levophed Inj/Pf 4 Mg/4 Ml Sdv Administered 12/01/19 18:13 Not Given Dose 4 mg IV .STK-MED ONE Norepinephrine Bitartrate Confirm 12/01/19 20:23 12/01/19 20:29 Levophed Inj/Pf 4 Mg/4 Ml Sdv Administered 12/01/19 20:24 Not Given Dose 4 mg IV .STK-MED ONE Rocuronium [place] 100 mg 12/01/19 08:00 12/01/19 08:12 Zemuron Inj 50 Mg/5 Ml Vial IV 12/01/19 08:01 100 mg NOW ONE Administration Rocuronium [place] 100 mg 12/01/19 10:45 Zemuron Inj 50 Mg/5 Ml Vial IV 12/01/19 10:46 .STK-MED ONE Sacubitril/Valsartan 1 tab 12/01/19 10:00 Entresto 24 Mg/26 Mg Tablet PO 12/31/19 09:59 Q12 RITU Scopolamine HBr 1 each 12/04/19 10:00 12/04/19 10:20 Transderm-Scop 1.5 Mg Patch TD 01/03/20 09:59 1 each Q3DAYS RITU Administration Spironolactone 25 mg 12/01/19 10:00 Aldactone 25 Mg Tablet PO 12/31/19 09:59 DAILY RITU Vasopressin Confirm 12/01/19 12:43 12/01/19 13:03 Vasopressin Inj 20 Unit/1 Ml Vial Administered 12/01/19 12:44 Not Given Dose 20 unit .ROUTE .STK-MED ONE Zinc Sulfate 220 mg 12/01/19 10:00 12/01/19 11:25 Zinc-220 Capsule PO 12/31/19 09:59 Not Given DAILY RITU Assessment & Plan - Diagnosis (1) Cardiomyopathy Is this a current diagnosis for this admission?: Yes Plan: 69-year-old male with an ejection fraction of approximately 25%. This is likely secondary to both an ischemic and alcoholic cardiomyopathy. Although he is positive for any fluid balance, he is diuresing well. He is currently on GDMT. Whether or not he will require further ischemic assessment depends on the review of his prior cardiovascular records. Recommendations: -Continue with current medical management for now. -Obtain old cardiovascular records. -We will continue to follow-up with you. (2) Heart failure with reduced ejection fraction Plan: Secondary to both an ischemic and alcoholic cardiomyopathy. Although his fluid balance is positive, he is diuresing well and on GDMT. Recommendations: -Continue with current medical management for now. -Diuresis with 20 mg IV daily. -Restrict fluid intake to 1500 cc daily. -Low sodium diet, less than 1500 mg daily. -Strict intake and output. -Daily weights. -Minimize IV fluids. -Replace electrolytes as needed. -Plan to repeat echocardiogram once the patient is more stable. (3) Coronary artery disease Plan: The patient is currently on GDMT. Recommendations: -Continue with current medical management. -Obtain old cardiac records.
[2019-12-07] MEDS: ALLOPURINOL 300 MG TABLET NG SCH (11:27)
[2019-12-07] MEDS: ZINC SULFATE 220 MG CAPSULE NG SCH (11:28)
[2019-12-07] MEDS: METOPROLOL TARTRATE 25 MG TABLET NG SCH ×2 (11:28→21:03)
[2019-12-07] MEDS: CYANOCOBALAMIN (VITAMIN B-12) 1,000 MCG TABLET NG SCH ×2 (11:28→18:48)
[2019-12-07] MEDS: ASPIRIN 81 MG TABLET, CHEWABLE NG SCH (11:29)
[2019-12-07] MEDS ORDERED: POTASSIUM CHLORIDE 20 MEQ PACKET PO ONE ×2 (11:30→15:15)
[2019-12-07] MEDS: SPIRONOLACTONE 25 MG TABLET NG SCH (11:30)
[2019-12-07] MEDS: FLUTICASONE/VILANTEROL 200-25 MCG/DOSE IH SCH (11:31)
[2019-12-07] MEDS: SACUBITRIL/VALSARTAN 24 MG/26 MG TABLET NG SCH ×2 (11:35→18:48)
[2019-12-07] MEDS: FOLIC ACID 1 MG TABLET NG SCH (11:36)
--- NOTE | 2019-12-07 12:47 | PDOC PROGRESS REPORT ---
Subjective Progress Note for:: 12/07/19 Subjective:: The patient is a 69-year-old male with a past medical history of combined systolic diastolic CHF, hypertension, COPD, Wernicke's encephalopathy, alcohol dependence with continuous use who [facility] with respiratory failure following alcohol withdrawal seizure. Intubated 12/01/2019 Pressor support with Levophed, milrinone. Precedex drip for alcohol withdrawal Extubated 12/04/2019 Development of C. difficile infection 12/06/2019 Failed multiple bedside swallow screens; NG tube in place for tube feeds and medications. Downgrade to IMCU on 12/06/2019. Patient was seen on morning rounds. He is alert and orientated to self, place, and year. However, he continues to have intermittent confusion and agitation; removed additional lines and tubes this mroning. Currently he is in soft limb restraints with NG tube and BiPAP. He attempts to answer further questions, though incoherently. He does appear to be comfortable and is not noted to be in any acute distress. Reason For Visit: ALCOHOL WITHDRAWL, RESPIRATORY DISTRESS Physical Exam Vital Signs: Temp Pulse Resp BP Pulse Ox 98.2 F 108 H 22 H 132/88 H 98 12/07/19 03:17 12/07/19 08:12 12/07/19 08:12 12/07/19 03:17 12/07/19 08:12 Intake & Output 12/06/19 12/07/19 12/08/19 06:59 06:59 06:59 Intake Total 1028 150 Output Total 3505 1175 Balance -2477 -1025 Weight 97.8 kg 101.8 kg General appearance: PRESENT: no acute distress, disheveled, obese, well- developed, well-nourished Head exam: PRESENT: atraumatic, normocephalic Eye exam: PRESENT: conjunctiva pink, EOMI, PERRLA. ABSENT: scleral icterus Mouth exam: PRESENT: moist, tongue midline Teeth exam: PRESENT: poor dentation Respiratory exam: PRESENT: clear to auscultation nathaniel, symmetrical, unlabored. ABSENT: rales, rhonchi, wheezes Cardiovascular exam: PRESENT: RRR, +S1, +S2, tachycardia. ABSENT: diastolic murmur, rubs, systolic murmur Pulses: PRESENT: normal dorsalis pedis pul Vascular exam: PRESENT: normal capillary refill GI/Abdominal exam: PRESENT: normal bowel sounds, soft. ABSENT: distended, guarding, mass, organolmegaly, rebound, tenderness Rectal exam: PRESENT: deferred Gentrourinary exam: PRESENT: indwelling catheter Extremities exam: PRESENT: full ROM. ABSENT: calf tenderness, clubbing, pedal edema Neurological exam: PRESENT: alert, awake, oriented to person, oriented to place, oriented to time, CN II-XII grossly intact. ABSENT: motor sensory deficit Psychiatric exam: PRESENT: appropriate affect, normal mood. ABSENT: homicidal ideation, suicidal ideation Focused psych exam: PRESENT: restlessness Skin exam: PRESENT: dry, intact, warm. ABSENT: cyanosis, rash Results Laboratory Results: 12/07/19 07:45 12/07/19 08:25 12/07/19 12/07/19 07:45 08:25 WBC 8.1 RBC 2.81 L Hgb 10.6 L Hct 31.0 L MCV 111 H MCH 37.7 H MCHC 34.1 RDW 16.6 H Plt Count 220 Sodium 143.2 Potassium 3.1 L Chloride 106 Carbon Dioxide 33 H Anion Gap 4 L BUN 20 Creatinine 0.61 Est GFR ( Amer) > 60 Glucose 103 Calcium 8.7 Magnesium 2.1 Total Bilirubin 0.9 AST 37 Alkaline Phosphatase 91 Total Protein 5.6 L Albumin 3.1 L 12/01/19 20:38 Blood Blood Culture - Final NO GROWTH IN 5 DAYS 12/01/19 20:04 Blood Blood Culture - Final NO GROWTH IN 5 DAYS 11/30/19 12/01/19 12/01/19 14:16 03:58 07:00 Creatine Kinase 104 Troponin I 0.815 0.775 NT-Pro-B Natriuret Pep 12/01/19 12/03/19 12/05/19 11:44 21:02 00:47 Creatine Kinase 89 Troponin I NT-Pro-B Natriuret Pep 38915 H 97414 H Impressions: Chest/Abdomen CTA 12/01/19 00:00 IMPRESSION: 1. No aortic aneurysm or dissection. 2. Cannot exclude thrombus in the right lower lobe pulmonary arteries. Evaluation is limited. 3. Bilateral pleural effusions with some associated atelectatic changes. Chest X-Ray 12/05/19 00:00 IMPRESSION: Progressive bibasilar pleural and parenchymal disease. This includes both an airspace and interstitial component. Progressive small effusions. KUB X-Ray 12/06/19 00:00 IMPRESSION: Nasogastric tube tip in the body of the stomach. Assessment and Plan - Diagnosis (1) Acute metabolic encephalopathy Is this a current diagnosis for this admission?: Yes Plan: Improving; alert and oriented to person, place, year today. Unclear baseline; he does have a prior diagnosis of Warnicke's. He does continue to have periods of intermittent confusion/agitation. Supportive care. (2) Acute on chronic combined systolic and diastolic congestive heart failure Is this a current diagnosis for this admission?: Yes Plan: Patient is transferred to [facility] on continuous telemetry. Cardiology is consulted. Patient is placed on Lopressor 12.5 mg twice daily, low-dose Entresto, resumed spironolactone, and IV furosemide 20 mg daily. He is currently receiving tube feeds for nutrition. Fluid restrict free water to 1500 mL's daily. Daily weights, Strict I&Os (3) Cardiomyopathy, alcoholic Is this a current diagnosis for this admission?: Yes Plan: Off milrinone. Cardiology is consulted. (4) Alcohol withdrawal delirium, acute, hyperactive Is this a current diagnosis for this admission?: Yes Plan: Patient was initially in the ICU on Precedex drip. Now downgraded to IMCU. PRN p.o. Ativan as needed for anxiety and agitation. (5) Acute respiratory failure with hypoxemia Is this a current diagnosis for this admission?: Yes Plan: Acute exacerbation has resolved. He has been extubated and weaned to supplemental oxygen by nasal cannula during the day. Utilizes BiPAP at night. Patient tells me that he has a CPAP or BiPAP machine at home for nighttime use. We will continue to provide supplemental oxygen BiPAP as needed maintain saturations greater than 89%. Continue as needed nebulizer treatments. Encourage pulmonary toilet. (6) Hypoadrenalism Is this a current diagnosis for this admission?: Yes Plan: Continue weaning stress dose steroids. (7) Hypotension (arterial) Qualifiers: Hypotension type: hypotension due to drug Qualified Code(s): I95.2 - Hypotension due to drugs Is this a current diagnosis for this admission?: Yes Plan: Resolved Previously on pressor support while in the ICU. (8) Alcohol dependence Qualifiers: Substance use status: in withdrawal Complication of substance-induced condition: with unspecified complication Qualified Code(s): F10.239 - Alcohol dependence with withdrawal, unspecified Is this a current diagnosis for this admission?: Yes Plan: Continue folic acid and thiamine supplementation. Cessation encouraged. Patient's family members attempting to arrange for the patient to discharge to [facility]. However, I believe the patient will have rehab needs will prevent this; will require short-term stay prior to medical clearance for inpatient rehab. Discharge planning consulted. (9) Cardiogenic shock Is this a current diagnosis for this admission?: Yes Plan: Resolved (10) Debilitated Is this a current diagnosis for this admission?: Yes Plan: Following 6 day ICU stay. PT/OT/ST consultations are requested. Q2 turns. Discharge planning for rehab needs. - Time Time Spent with patient: 35 or more minutes Medications reviewed and adjusted accordingly: Yes Anticipated discharge: SNF
[2019-12-07] MEDS: FUROSEMIDE INJ/PF 20 MG/2 ML SDV IV SCH (14:58)
[2019-12-07] MEDS: VITAMIN B COMPLEX TABLET PO SCH (15:11)
[2019-12-07] MEDS: LORAZEPAM 1 MG TABLET PO PRN (15:13)
[2019-12-07] MEDS: VANCOMYCIN HCL INJ 500 MG VIAL NG SCH ×2 (15:16→20:56)
[2019-12-07 15:52] LABS: PATH REVIEW PATHOLOGIST REVIEWED
[2019-12-07] MEDS: ATORVASTATIN CALCIUM 40 MG TABLET NG SCH (21:03)
[2019-12-08] MEDS: INSULIN REG, HUMAN 100 UNIT/ML 3 ML VIAL (PYX) SUBCUT SCH ×4 (01:21→18:41)
[2019-12-08] MEDS: HYDROCORTISONE SOD SUCCINATE INJ/PF 100 MG/2 ML SDV IV SCH ×3 (02:07→18:24)
[2019-12-08] MEDS: VANCOMYCIN HCL INJ 500 MG VIAL NG SCH ×4 (02:09→20:21)
[2019-12-08] MEDS: LORAZEPAM 1 MG TABLET PO PRN ×2 (03:27→11:25)
[2019-12-08] MEDS: HEPARIN SOD (PORCINE) 5,000 UNIT/ML 1 ML VIAL SUBCUT SCH ×3 (05:34→22:28)
[2019-12-08 07:07] LABS: HEMATOCRIT 31.3 % (37.9-51.0); HEMOGLOBIN 10.5 g/dL (13.5-17.0); MEAN CORPUSCULAR HEMOGLOBIN 37.2 pg (27.0-33.4); MEAN CORPUSCULAR HGB CONC 33.7 g/dL (32.0-36.0); MEAN CORPUSCULAR VOLUME 110 fl (80-97); PLATELET COUNT 245 10^3/uL (150-450); RED BLOOD COUNT 2.83 10^6/uL (4.35-5.55); RED CELL DISTRIBUTION WIDTH 17.3 % (11.5-14.0); WHITE BLOOD COUNT 6.4 10^3/uL (4.0-10.5)
[2019-12-08 07:27] LABS: BLOOD UREA NITROGEN 17 mg/dL (7-20); CALCIUM 8.7 mg/dL (8.4-10.2); GLUCOSE 91 mg/dL (75-110); PHOSPHORUS 3.8 mg/dL (2.5-4.5); POTASSIUM 3.2 mmol/L (3.6-5.0)
[2019-12-08 07:32] LABS: ANION GAP 6 (5-19); CARBON DIOXIDE 34 mmol/L (22-30); CHLORIDE 103 mmol/L (98-107)
--- NOTE | 2019-12-08 09:52 | PDOC PROGRESS REPORT ---
Subjective Progress Note for:: 12/08/19 Subjective:: The current history of present illness is obtained from chart review as the patient is currently on BiPAP, sleepy and unable to answer any questions. The patient is a 69 year old male with history of chonic daily ETOH abuse with reported 2L daily drinking, heart failure with stenting in 05/2018, CHF, HTN, SAGAR and previous hx of withdrawal seizures who i initially presented to our emergency room requesting alcohol detox, of note, he had been previously admitted to the intensive care unit for similar reasons. He was admitted on 11/30/2019 to the intensive care unit where he decompensated with respiratory failure and was intubated on 12/01/2019. At that point he became hypotensive and was diagnosed with cardiogenic shock when a bedside cardiac ultrasound pe rformed by the ICU physician demonstrated an ejection fraction of 15%. He was begun on Levophed and milrinone with clinical improvement. He was eventually extubated and was transferred out of the intensive care unit yesterday. Unfortunately there are no prior cardiovascular records to review. A repeat echocardiogram read by Dr. Cummings demonstrated an ejection fraction of at least 25% or less but it was a poor study. His fluid balance is +3.526 since 12/01/2019 and he has been diuresing well. His telemetry shows sinus tachycardia with PVCs. 12/08/2019: The patient is more awake and interactive this morning. He is able to talk and answer questions. He did fail a swallow test and he appeared that he aspirated. He answers questions appropriately. His fluid balance since 12/01/2019 is only +1.75 L. His telemetry shows normal sinus rhythm with episodes of sinus tachycardia. He continues to diurese well. His blood pressure is improved. Physical exam on 12/08/2019: GENERAL: Fully awake this morning and answering questions. No acute distress. HEENT: Normocephalic, atraumatic. Pupils equal. Sclerae anicteric. Oropharynx moist. NECK: Difficult to evaluate for JVD given his body habitus and presence of central line. No carotid bruits. LUNGS: V coarse breath sounds bilaterally in all robbins. Normal respiratory effort without the use of accessory muscles or intercostal retractions. CARDIOVASCULAR: Regular rate and rhythm, normal S1 and S2 without murmurs, rubs, or gallops. PMI not displaced. ABDOMEN: No masses or tenderness to palpation. No bruit. No splenomegaly or hepatomegaly. No abdominal aorta bruit noted. EXTREMITIES: Trace pitting edema bilaterally, no cyanosis, no clubbing. +2 pulses femoral and pedal pulses bilaterally. SKIN: No lesions or rashes. MUSCULOSKELETAL: No chest tenderness to palpation. Reason For Visit: ALCOHOL WITHDRAWL, RESPIRATORY DISTRESS Physical Exam Vital Signs: Temp Pulse Resp BP Pulse Ox 98.3 F 107 H 20 139/83 H 97 12/08/19 03:51 12/08/19 03:51 12/08/19 03:51 12/08/19 03:51 12/08/19 03:51 Intake & Output 12/06/19 12/07/19 12/08/19 06:59 06:59 06:59 Intake Total 1028 150 0 Output Total 3505 1175 1775 Balance -1980 -9542 -3822 Weight 97.8 kg 101.8 kg 101.3 kg Results Laboratory Results: 12/07/19 07:45 12/07/19 08:25 12/07/19 12/07/19 07:45 08:25 WBC 8.1 RBC 2.81 L Hgb 10.6 L Hct 31.0 L MCV 111 H MCH 37.7 H MCHC 34.1 RDW 16.6 H Plt Count 220 Sodium 143.2 Potassium 3.1 L Chloride 106 Carbon Dioxide 33 H Anion Gap 4 L BUN 20 Creatinine 0.61 Est GFR ( Amer) > 60 Glucose 103 Calcium 8.7 Magnesium 2.1 Total Bilirubin 0.9 AST 37 Alkaline Phosphatase 91 Total Protein 5.6 L Albumin 3.1 L 11/30/19 12/01/19 12/01/19 14:16 03:58 07:00 Creatine Kinase 104 Troponin I 0.815 0.775 NT-Pro-B Natriuret Pep 12/01/19 12/03/19 12/05/19 11:44 21:02 00:47 Creatine Kinase 89 Troponin I NT-Pro-B Natriuret Pep 50389 H 04899 H Impressions: Chest/Abdomen CTA 12/01/19 00:00 IMPRESSION: 1. No aortic aneurysm or dissection. 2. Cannot exclude thrombus in the right lower lobe pulmonary arteries. Evaluation is limited. 3. Bilateral pleural effusions with some associated atelectatic changes. Chest X-Ray 12/05/19 00:00 IMPRESSION: Progressive bibasilar pleural and parenchymal disease. This includes both an airspace and interstitial component. Progressive small effusions. KUB X-Ray 12/06/19 00:00 IMPRESSION: Nasogastric tube tip in the body of the stomach. 12/07/19 07:45 12/07/19 08:25 MCV 111 fl (80-97) H 12/07/19 07:45 MCH 37.7 pg (27.0-33.4) H 12/07/19 07:45 MCHC 34.1 g/dL (32.0-36.0) 12/07/19 07:45 RDW 16.6 % (11.5-14.0) H 12/07/19 07:45 Seg Neutrophils % Not Reportable 12/05/19 00:47 Carbonic Acid 1.42 mmol/L (1.05-1.35) H 12/05/19 01:35 HCO3/H2CO3 Ratio 18:1 12/05/19 01:35 ABG pH 7.36 (7.35-7.45) 12/05/19 01:35 ABG pCO2 47.2 mmHg (35-45) H 12/05/19 01:35 ABG pO2 33.5 mmHg (80-100) L* 12/05/19 01:35 ABG HCO3 26.0 mmol/L (20-24) H 12/05/19 01:35 ABG O2 Saturation 61.4 % (94-98) L 12/05/19 01:35 ABG Base Excess 0.2 mmol/L 12/05/19 01:35 FiO2 30% 12/05/19 01:35 Chloride 106 mmol/L (98-107) 12/07/19 08:25 Carbon Dioxide 33 mmol/L (22-30) H 12/07/19 08:25 Anion Gap 4 (5-19) L 12/07/19 08:25 Est GFR ( Amer) > 60 (>60) 12/07/19 08:25 Est GFR (Non-Af Amer) Cancelled 11/30/19 14:16 Glucose 103 mg/dL (75-110) 12/07/19 08:25 Lactic Acid 1.3 mmol/L (0.7-2.1) 12/01/19 12:56 Calcium 8.7 mg/dL (8.4-10.2) 12/07/19 08:25 Phosphorus 2.6 mg/dL (2.5-4.5) 12/06/19 01:35 Magnesium 2.1 mg/dL (1.6-2.3) 12/07/19 08:25 Total Bilirubin 0.9 mg/dL (0.2-1.3) 12/07/19 08:25 AST 37 U/L (17-59) 12/07/19 08:25 Alkaline Phosphatase 91 U/L (38-126) 12/07/19 08:25 Ammonia < 8.7 umol/L (9-33) L 12/02/19 04:08 Total Protein 5.6 g/dL (6.3-8.2) L 12/07/19 08:25 Albumin 3.1 g/dL (3.5-5.0) L 12/07/19 08:25 Triglycerides 79 mg/dL (<150) 12/01/19 07:00 Lipase 178.8 U/L (23-300) 11/30/19 14:16 TSH 4.28 uIU/mL (0.47-4.68) 12/01/19 12:56 Free T4 1.11 ng/dL (0.78-2.19) 12/01/19 12:56 Free T3 pg/mL 5.36 pg/mL (2.77-5.27) H 12/01/19 12:56 Urine Color JORY 11/30/19 04:28 Urine Appearance SLIGHTLY-CLOUDY 11/30/19 04:28 Urine pH 5.0 (5.0-9.0) 11/30/19 04:28 Ur Specific [place] 1.027 11/30/19 04:28 Urine Protein 100 mg/dL (NEGATIVE) H 11/30/19 04:28 Urine Glucose (UA) 150 mg/dL (NEGATIVE) H 11/30/19 04:28 Urine Ketones TRACE mg/dL (NEGATIVE) H 11/30/19 04:28 Urine Blood NEGATIVE (NEGATIVE) 11/30/19 04:28 Urine Nitrite NEGATIVE (NEGATIVE) 11/30/19 04:28 Ur Leukocyte Esterase NEGATIVE (NEGATIVE) 11/30/19 04:28 Urine WBC (Auto) 1 /HPF 11/30/19 04:28 Urine RBC (Auto) 1 /HPF 11/30/19 04:28 11/30/19 12/01/19 12/01/19 14:16 03:58 07:00 Creatine Kinase 104 Troponin I 0.815 0.775 NT-Pro-B Natriuret Pep 12/01/19 12/03/19 12/05/19 11:44 21:02 00:47 Creatine Kinase 89 Troponin I NT-Pro-B Natriuret Pep 81539 H 00765 H Current Medication List Generic Name Dose Route Start Last Admin Trade Name Freq PRN Reason Stop Dose Admin Albuterol 2.5 mg 12/05/19 09:12 12/07/19 08:12 Ventolin 0.083% Neb 2.5 Mg/3 Ml Ampul NEB 01/04/20 09:11 2.5 mg RTQ3HP PRN Administration SHORTNESS OF BREATH Allopurinol 300 mg 12/02/19 10:00 12/07/19 11:27 Zyloprim 300 Mg Tablet NG 12/31/19 09:59 300 mg DAILY RITU Administration Aspirin 81 mg 12/02/19 10:00 12/07/19 11:29 Aspirin 81 Mg Chewable Tablet NG 01/01/20 09:59 81 mg DAILY RITU Administration Atorvastatin Calcium 40 mg 12/01/19 22:00 12/07/19 21:03 Lipitor 40 Mg Tablet NG 12/31/19 21:59 40 mg QHS RITU Administration Cyanocobalamin 1,000 mcg 12/02/19 10:00 12/07/19 18:48 Vitamin B-12 1000 Mcg Tablet NG 12/31/19 09:59 1,000 mcg BID RITU Administration Dextrose 12.5 gm 12/02/19 00:12 Dextrose Inj 50% Syringe (25 Gm/50 Ml) IV 01/01/20 00:11 PRN PRN FOR BG 50-69 IN ALERT PATIENT Protocol Dextrose 25 gm 12/02/19 00:12 Dextrose Inj 50% Syringe (25 Gm/50 Ml) IV 01/01/20 00:11 PRN PRN PER PROTOCOL Protocol Fluticasone/Vilanterol 1 inh 12/01/19 10:00 12/07/19 11:31 Breo 200-25 Mcg Ellipta 14 Dose/Dpi IH 12/31/19 09:59 Not Given DAILY RITU Folic Acid 1 mg 12/02/19 10:00 12/07/19 11:36 Folvite 1 Mg Tablet NG 12/31/19 09:59 1 mg DAILY RITU Administration Furosemide 20 mg 12/07/19 11:00 12/07/19 14:58 Lasix Inj/Pf 20 Mg/2 Ml Sdv IV 01/06/20 10:59 20 mg DAILY RITU Administration Glucagon 1 mg 12/02/19 00:12 Glucagen Inj 1 Mg Vial IM 01/01/20 00:11 PRN PRN Evaluate for BG < 70 Protocol Glucose 15 gm 12/02/19 00:12 Glutose 40% Gel 15 Gm Tube PO 01/01/20 00:11 PRN PRN FOR BG 50-69 IN ALERT PATIENT Protocol Glucose 30 gm 12/02/19 00:12 Glutose 40% Gel 15 Gm Tube PO 01/01/20 00:11 PRN PRN FOR BG < 50 IN ALERT PATIENT Protocol Heparin Sodium (Porcine) 5,000 unit 11/30/19 22:00 12/08/19 05:34 Heparin Inj 5,000 Units/Ml 1 Ml Vial SUBCUT 12/30/19 21:59 5,000 unit Q8 RITU Administration Hydrocortisone Sodium Succinate 25 mg 12/06/19 18:00 12/08/19 02:07 Solu-Cortef Inj/Pf 100 Mg/ 2 Ml Sdv IV 01/05/20 17:59 25 mg Q8A RITU Administration Insulin Human Regular 0 - 12 unit 12/02/19 00:15 12/08/19 01:21 Humulin R (Pyxis) Insulin 100 Unit/Ml 3ml SUBCUT 01/01/20 00:14 Not Given Q6 RITU Protocol Lorazepam 2 mg 12/05/19 14:56 12/08/19 03:27 Ativan 1 Mg Tablet PO 12/12/19 14:55 2 mg Q4HP PRN Administration ANXIETY/AGITATION Metoprolol Tartrate 5 mg 12/05/19 05:08 12/06/19 17:45 Lopressor Inj/Pf 5 Mg/5 Ml Sdv IV 01/04/20 05:07 5 mg Q4HP PRN Administration HR > 120 Metoprolol Tartrate 12.5 mg 12/06/19 22:00 12/07/19 21:03 Lopressor 25 Mg Tablet NG 01/05/20 21:59 12.5 mg Q12 RITU Administration Pharmacy Profile Note 1 each 12/01/19 08:00 Medication Communication Order 12/31/19 07:59 .NOTICE NR Sacubitril/Valsartan 1 tab 12/06/19 18:00 12/07/19 18:48 Entresto 24 Mg/26 Mg Tablet NG 01/05/20 17:59 1 tab BID RITU Administration Sodium Chloride 2.5 ml 11/30/19 22:00 12/08/19 05:34 Saline Flush 2.5 Ml Monoject Prefil Syrin IV 12/30/19 21:59 2.5 ml Q8 RITU Administration Sodium Chloride 10 ml 12/03/19 00:36 Nacl 0.9% Inj/Pf 10 Ml Sdv IV 01/02/20 00:35 .AFTER EACH USE PRN AFTER EACH INTERMITTENT USE Spironolactone 25 mg 12/07/19 10:00 12/07/19 11:30 Aldactone 25 Mg Tablet NG 01/06/20 09:59 25 mg DAILY RITU Administration Vancomycin HCl 250 mg 12/07/19 15:00 12/08/19 02:09 Vancocin Inj 500 Mg Vial NG 12/13/19 14:59 250 mg Q6A RITU Administration Vitamin B Complex 1 tab 12/04/19 10:00 12/07/19 15:11 Vitamin B Complex Tablet PO 01/03/20 09:59 Not Given DAILY RITU Discontinued Medications Generic Name Dose Route Start Last Admin Trade Name Freq PRN Reason Stop Dose Admin Acetaminophen 650 mg 12/01/19 16:29 Tylenol 325 Mg Tablet PO 12/31/19 16:28 Q6HP PRN FEVER > 102 Acetaminophen 650 mg 12/01/19 17:03 12/01/19 17:32 Tylenol Soln 325 Mg/10.15 Ml Udcup PO 12/31/19 17:02 650 mg Q4HP PRN Administration FEVER > 102 Acetaminophen Confirm 12/01/19 17:27 12/01/19 17:33 Tylenol Soln 325 Mg/10.15 Ml Udcup Administered 12/01/19 17:28 Not Given Dose 325 mg .ROUTE .STK-MED ONE Acetaminophen 650 mg 12/01/19 20:00 12/02/19 11:23 Tylenol Soln 325 Mg/10.15 Ml Udcup NG 12/31/19 17:02 650 mg Q4HP PRN Administration FEVER > 102 Allopurinol 300 mg 12/01/19 10:00 12/01/19 11:25 Zyloprim 300 Mg Tablet PO 12/31/19 09:59 Not Given DAILY RITU Ascorbic Acid 2,000 mg 12/01/19 18:00 12/01/19 23:12 Vitamin C 500 Mg Tablet PO 12/31/19 17:59 Not Given Q6 RITU Ascorbic Acid 2,000 mg 12/02/19 00:00 12/07/19 11:29 Vitamin C 500 Mg Tablet NG 12/31/19 17:59 2,000 mg Q6 RITU Administration Aspirin 81 mg 12/01/19 10:00 12/01/19 11:25 Ecotrin 81 Mg Ec Tablet PO 12/31/19 09:59 Not Given DAILY COUNT INCLUDES THE [facility] Atropine Sulfate Confirm 12/02/19 19:30 12/02/19 22:40 Atropine Sulfate Inj 1 Mg/10 Ml Disp.Syrin Administered 12/02/19 19:31 Not Given Dose 1 mg IV .STK-MED ONE Atropine Sulfate Confirm 12/02/19 19:31 12/02/19 22:40 Atropine Sulfate Inj 1 Mg/10 Ml Disp.Syrin Administered 12/02/19 19:32 Not Given Dose 1 mg IV .STK-MED ONE Cyanocobalamin 1,000 mcg 12/01/19 10:00 12/01/19 23:13 Vitamin B-12 1000 Mcg Tablet PO 12/31/19 09:59 Not Given BID COUNT INCLUDES THE [facility] Digoxin 0.125 mg 12/03/19 22:45 12/03/19 22:38 Lanoxin Inj 0.5 Mg/2 Ml Ampule IV 12/03/19 22:46 0.125 mg NOW ONE Administration Ezetimibe 10 mg 12/01/19 10:00 Zetia 10 Mg Tablet PO 12/31/19 09:59 DAILY COUNT INCLUDES THE [facility] Etomidate 25 mg 12/01/19 08:00 12/01/19 11:35 Amidate Inj/Pf 20 Mg/10 Ml Sdv IV 12/01/19 08:01 Not Given NOW ONE Etomidate Confirm 12/01/19 08:02 12/01/19 08:11 Amidate Inj/Pf 20 Mg/10 Ml Sdv Administered 12/01/19 08:03 20 mg Dose Administration 20 mg IV .STK-MED ONE Famotidine 20 mg 12/02/19 11:00 12/02/19 10:22 Pepcid Inj/Pf 20 Mg/2 Ml Sdv IV 01/01/20 10:59 20 mg Q12 RITU Administration Famotidine 20 mg 12/02/19 22:00 12/03/19 11:12 Pepcid 40 Mg/5 Ml Susp PO 01/01/20 21:59 20 mg Q12 RITU Administration Fentanyl Citrate 100 mcg 12/01/19 08:00 12/01/19 08:10 Sublimaze Inj/Pf 100 Mcg/2 Ml Ampule IV 12/01/19 08:01 100 mcg NOW ONE Administration Fentanyl Citrate Confirm 12/01/19 08:02 12/01/19 09:09 Sublimaze Inj/Pf 100 Mcg/2 Ml Ampule Administered 12/01/19 08:03 100 mcg Dose Administration 100 mcg .ROUTE .STK-MED ONE Fentanyl Citrate Confirm 12/02/19 22:44 12/02/19 22:55 Sublimaze Inj/Pf 100 Mcg/2 Ml Ampule Administered 12/02/19 22:45 50 mcg Dose Administration 100 mcg .ROUTE .STK-MED ONE Fentanyl Citrate 50 mcg 12/03/19 00:45 12/03/19 00:57 Sublimaze Inj/Pf 100 Mcg/2 Ml Ampule IV 12/03/19 00:46 Not Given NOW ONE Folic Acid 1 mg 12/01/19 10:00 12/01/19 12:18 Folvite 1 Mg Tablet PO 12/31/19 09:59 Not Given DAILY RITU Furosemide 40 mg 12/05/19 01:24 12/05/19 01:58 Lasix Inj/Pf 40 Mg/4 Ml Sdv IV 12/05/19 01:25 40 mg NOW ONE Administration Furosemide 20 mg 12/05/19 17:00 12/05/19 17:34 Lasix Inj/Pf 20 Mg/2 Ml Sdv IV 12/05/19 17:01 20 mg NOW ONE Administration Furosemide 40 mg 12/05/19 23:26 12/05/19 23:40 Lasix Inj/Pf 40 Mg/4 Ml Sdv IV 12/05/19 23:27 40 mg NOW ONE Administration Furosemide Confirm 12/05/19 23:30 12/05/19 23:40 Lasix Inj/Pf 40 Mg/4 Ml Sdv Administered 12/05/19 23:31 Not Given Dose 40 mg .ROUTE .STK-MED ONE Heparin Sodium (Porcine) 30 unit 12/03/19 06:00 12/03/19 14:16 Heparin Flush 10 Unit/Ml 5 Ml Disp.Syrg IV 01/02/20 05:59 Not Given Q8 RITU Heparin Sodium (Porcine) 30 unit 12/03/19 00:36 Heparin Flush 10 Unit/Ml 5 Ml Disp.Syrg IV 01/02/20 00:35 .AFTER EACH USE PRN AFTER EACH INTERMITTENT USE Hydrocortisone Sodium Succinate 100 mg 12/02/19 10:00 12/06/19 09:05 Solu-Cortef Inj/Pf 100 Mg/ 2 Ml Sdv IV 01/01/20 09:59 100 mg Q8A RITU Administration Hydrocortisone Sodium Succinate 50 mg 12/06/19 18:00 Solu-Cortef Inj/Pf 100 Mg/ 2 Ml Sdv IV 01/05/20 17:59 Q8A RITU Potassium Chloride 20 meq/ 1,023 mls @ 250 mls/hr 11/30/19 18:00 Magnesium Sulfate 8 meq/ IV 12/30/19 17:59 Thiamine HCl 100 mg/ QPM RITU Multivitamins/Minerals 10 ml/ Sodium Chloride Potassium Chloride 20 meq/ 1,023 mls @ 250 mls/hr 11/30/19 16:30 12/04/19 22:00 Magnesium Sulfate 8 meq/ IV 12/30/19 16:29 Infused Thiamine HCl 100 mg/ QPM RITU Infusion Multivitamins/Minerals 10 ml/ Sodium Chloride Lactated Ringer's 1,000 mls @ 100 mls/hr 11/30/19 23:21 11/30/19 23:50 Lactated Ringers 1000 Ml Iv Soln IV 12/30/19 23:20 100 mls/hr CONTINUOUS PRN Administration THIS MED IS NOT "PRN" Magnesium Sulfate 4 gm in 100 mls @ 25 mls/hr 12/01/19 04:16 12/01/19 23:12 Magnesium Sulfate Rtu 4 Gm/100 Ml Premix Bag IV 12/01/19 08:15 Infused NOW ONE Infusion Potassium Chloride/Water 20 meq in 50 mls @ 25 mls/hr 12/01/19 04:30 12/01/19 23:12 Potassium Chloride Samuel 20 Meq/50 Ml IV 12/01/19 08:29 Infused Q2H RITU Infusion Magnesium Sulfate Confirm 12/01/19 04:59 12/01/19 05:10 Magnesium Sulfate Rtu 4 Gm/100 Ml Premix Bag Administered 12/01/19 05:00 Not Given Dose 4 gm in 100 mls @ ud IV .STK-MED ONE Thiamine HCl 500 mg/ Sodium 255 mls @ 463.636 mls/hr 12/01/19 10:00 Chloride IV 12/02/19 22:32 Q12 RITU Propofol 1,000 mg in 100 mls @ 2.745 mls/hr 12/01/19 08:00 Diprivan Rtu 1000 Mg/100 Ml Inf.Bottle IV 12/31/19 07:59 CONTINUOUS PRN THIS MED IS NOT "PRN" Protocol 5 MCG/KG/MIN Norepinephrine Bitartrate 4 mg 254 mls @ 0 mls/hr 12/01/19 08:00 12/03/19 14:37 / Dextrose IV 12/31/19 07:59 0 mcg/min CONTINUOUS PRN 0 mls/hr THIS MED IS NOT "PRN" Titration Protocol Titrate Thiamine HCl 500 mg/ Sodium 105 mls @ 210 mls/hr 12/01/19 10:00 12/02/19 21:00 Chloride IV 12/02/19 22:29 210 mls/hr Q12 RITU Administration Propofol Confirm 12/01/19 08:07 12/01/19 10:00 Diprivan Rtu 1000 Mg/100 Ml Inf.Bottle Administered 12/01/19 08:08 0 mcg/kg/min Dose 0 mls/hr 1,000 mg in 100 mls @ ud Infusion IV .STK-MED ONE Milrinone Lactate/Dextrose 20 mg in 100 mls @ 0 mls/hr 12/01/19 09:26 12/01/19 13:45 Primacor Rtu 20 Mg-D5w 100 Ml Premix Bag IV 12/31/19 09:25 0.125 mcg/kg/min CONTINUOUS PRN 3.43 mls/hr THIS MED IS NOT "PRN" Titration Protocol Titrate Dexmedetomidine/Sodium Chloride 400 mcg in 100 mls @ 9.15 mls/hr 12/01/19 09:49 12/03/19 15:15 Precedex 400 Mcg/Ns 100 Ml Iv Premix IV 12/31/19 09:48 Infused CONTINUOUS PRN Titration THIS MED IS NOT "PRN" Protocol 0.4 MCG/KG/HR Dexmedetomidine/Sodium Chloride Confirm 12/01/19 09:51 12/01/19 12:17 Precedex 400 Mcg/Ns 100 Ml Iv Premix Administered 12/01/19 09:52 Not Given Dose 400 mcg in 100 mls @ ud IV .STK-MED ONE Albumin Human 12.5 gm in 50 mls @ 200 mls/hr 12/01/19 12:30 12/01/19 15:40 Albuminar-25 Rtu Inj 12.5 Gm/50 Ml Premix IV 12/01/19 15:44 Infused Q1H RITU Infusion Vasopressin 100 unit/ Dextrose 255 mls @ 0 mls/hr 12/01/19 12:41 12/04/19 18:07 IV 12/31/19 12:40 0 unit/min CONTINUOUS PRN 0 mls/hr THIS MED IS NOT "PRN" Titration Titrate Piperacillin Sod/Tazobactam 100 mls @ 200 mls/hr 12/01/19 21:00 12/06/19 09:05 Sod 4.5 gm/ Sodium Chloride IV 12/08/19 20:59 200 mls/hr Q6A RITU 200 mls/hr Administration Milrinone Lactate/Dextrose 20 mg in 100 mls @ 0 mls/hr 12/02/19 05:12 12/05/19 19:00 Primacor Rtu 20 Mg-D5w 100 Ml Premix Bag IV 01/01/20 05:11 Infused CONTINUOUS PRN Titration THIS MED IS NOT "PRN" Protocol Titrate Potassium Chloride/Water 20 meq in 50 mls @ 25 mls/hr 12/02/19 06:00 12/02/19 09:55 Potassium Chloride Samuel 20 Meq/50 Ml IV 12/02/19 09:59 Infused Q2H RITU Infusion Esmolol HCl 2,500 mg in 250 mls @ 0 mls/hr 12/03/19 20:00 12/05/19 05:15 Brevibloc Rtu 2500 Mg/250 Ml Nacl Premix Bag IV 01/02/20 19:59 Infused CONTINUOUS PRN Titration THIS MED IS NOT "PRN" Protocol Titrate Esmolol HCl Confirm 12/03/19 19:59 12/03/19 20:28 Brevibloc Rtu 2500 Mg/250 Ml Nacl Premix Bag Administered 12/03/19 20:00 Not Given Dose 2,500 mg in 250 mls @ ud IV .STK-MED ONE Potassium Chloride/Water 20 meq in 50 mls @ 25 mls/hr 12/06/19 03:00 12/06/19 06:02 Potassium Chloride Samuel 20 Meq/50 Ml IV 12/06/19 06:59 25 mls/hr Q2H RITU 25 mls/hr Administration Lorazepam 2 mg 11/30/19 15:33 11/30/19 15:46 Ativan Inj 2 Mg/1 Ml Vial IV 11/30/19 15:34 2 mg NOW ONE Administration Lorazepam 2 mg 11/30/19 16:27 11/30/19 16:33 Ativan Inj 2 Mg/1 Ml Vial IV 11/30/19 16:28 2 mg NOW ONE Administration Lorazepam 2 mg 11/30/19 17:07 11/30/19 17:14 Ativan Inj 2 Mg/1 Ml Vial IV 11/30/19 17:08 2 mg NOW ONE Administration Lorazepam 2 mg 11/30/19 19:41 11/30/19 20:39 Ativan Inj 2 Mg/1 Ml Vial IV 11/30/19 19:42 2 mg NOW ONE Administration Lorazepam 2 mg 11/30/19 21:26 11/30/19 21:49 Ativan Inj 2 Mg/1 Ml Vial IV 11/30/19 21:27 2 mg NOW ONE Administration Lorazepam 2 mg 11/30/19 21:48 11/30/19 23:40 Ativan Inj 2 Mg/1 Ml Vial IV 11/30/19 21:49 Not Given ONCE ONE Lorazepam 2 mg 11/30/19 23:19 12/03/19 18:07 Ativan Inj 2 Mg/1 Ml Vial IV 12/07/19 23:18 2 mg Q2HP PRN Administration SEIZURES Lorazepam 2 mg 12/03/19 21:45 12/03/19 21:37 Ativan Inj 2 Mg/1 Ml Vial IV 12/03/19 21:46 2 mg NOW ONE Administration Lorazepam 2 mg 12/04/19 00:18 12/07/19 11:39 Ativan Inj 2 Mg/1 Ml Vial IV 12/11/19 00:17 2 mg Q2HP PRN Administration SEIZURES Lorazepam 2 mg 12/05/19 14:55 12/05/19 15:32 Ativan 1 Mg Tablet PO 12/05/19 14:56 2 mg NOW ONE Administration Metoprolol Succinate 25 mg 12/01/19 10:00 Toprol Xl 25 Mg Tab.Sr PO 12/31/19 09:59 DAILY RITU Metoprolol Tartrate Confirm 12/01/19 06:04 12/01/19 06:10 Lopressor Inj/Pf 5 Mg/5 Ml Sdv Administered 12/01/19 06:05 5 mg Dose Administration 5 mg IV .STK-MED ONE Metoprolol Tartrate 5 mg 12/01/19 06:28 12/01/19 06:44 Lopressor Inj/Pf 5 Mg/5 Ml Sdv IV 12/01/19 06:29 Not Given NOW ONE Metoprolol Tartrate Confirm 12/03/19 19:43 12/03/19 20:17 Lopressor Inj/Pf 5 Mg/5 Ml Sdv Administered 12/03/19 19:44 Not Given Dose 5 mg IV .STK-MED ONE Metoprolol Tartrate 5 mg 12/03/19 20:15 12/03/19 20:18 Lopressor Inj/Pf 5 Mg/5 Ml Sdv IV 12/03/19 21:16 Not Given Q1H RITU Midazolam HCl 5 mg 12/01/19 08:26 12/01/19 08:25 Versed 2 Mg/2 Ml Inj IV 12/01/19 08:27 5 mg NOW ONE Administration Midazolam HCl Confirm 12/01/19 08:20 12/01/19 11:39 Versed 2 Mg/2 Ml Inj Administered 12/01/19 08:21 Not Given Dose 2 mg .ROUTE .STK-MED ONE Nicotine 1 each 12/03/19 16:45 12/03/19 16:50 Nicoderm 21 Mg/24 Hr Transderm Patch TD 12/03/19 16:46 1 each NOW ONE Administration Norepinephrine Bitartrate Confirm 12/01/19 08:07 12/01/19 12:17 Levophed Inj/Pf 4 Mg/4 Ml Sdv Administered 12/01/19 08:08 Not Given Dose 4 mg IV .STK-MED ONE Norepinephrine Bitartrate Confirm 12/01/19 18:12 12/01/19 18:47 Levophed Inj/Pf 4 Mg/4 Ml Sdv Administered 12/01/19 18:13 Not Given Dose 4 mg IV .STK-MED ONE Norepinephrine Bitartrate Confirm 12/01/19 20:23 12/01/19 20:29 Levophed Inj/Pf 4 Mg/4 Ml Sdv Administered 12/01/19 20:24 Not Given Dose 4 mg IV .STK-MED ONE Pharmacy Profile Note 1 each 12/04/19 18:00 12/06/19 17:03 Medication Communication Order 01/03/20 17:59 Not Given QPM RITU Potassium Chloride 40 meq 12/07/19 11:30 12/07/19 18:44 Potassium Chloride 20 Meq Packet PO 12/07/19 11:31 Not Given NOW ONE Potassium Chloride 40 meq 12/07/19 15:15 12/07/19 15:19 Potassium Chloride 20 Meq Packet PO 12/07/19 15:16 40 meq NOW ONE Administration Rocuronium [place] 100 mg 12/01/19 08:00 12/01/19 08:12 Zemuron Inj 50 Mg/5 Ml Vial IV 12/01/19 08:01 100 mg NOW ONE Administration Rocuronium [place] 100 mg 12/01/19 10:45 Zemuron Inj 50 Mg/5 Ml Vial IV 12/01/19 10:46 .STK-MED ONE Sacubitril/Valsartan 1 tab 12/01/19 10:00 Entresto 24 Mg/26 Mg Tablet PO 12/31/19 09:59 Q12 RITU Scopolamine HBr 1 each 12/04/19 10:00 12/04/19 10:20 Transderm-Scop 1.5 Mg Patch TD 01/03/20 09:59 1 each Q3DAYS RITU Administration Spironolactone 25 mg 12/01/19 10:00 Aldactone 25 Mg Tablet PO 12/31/19 09:59 DAILY RITU Vancomycin HCl 250 mg 12/06/19 15:00 12/07/19 03:18 Vancocin Inj 500 Mg Vial PO 12/13/19 14:59 250 mg Q6A RITU Administration Vasopressin Confirm 12/01/19 12:43 12/01/19 13:03 Vasopressin Inj 20 Unit/1 Ml Vial Administered 12/01/19 12:44 Not Given Dose 20 unit .ROUTE .STK-MED ONE Zinc Sulfate 220 mg 12/01/19 10:00 12/01/19 11:25 Zinc-220 Capsule PO 12/31/19 09:59 Not Given DAILY RITU Zinc Sulfate 220 mg 12/02/19 10:00 12/07/19 11:28 Zinc-220 Capsule NG 12/31/19 09:59 220 mg DAILY RITU Administration Assessment & Plan - Diagnosis (1) Cardiomyopathy Is this a current diagnosis for this admission?: Yes Plan: 69-year-old male with an ejection fraction of approximately 25%. This is likely secondary to both an ischemic and alcoholic cardiomyopathy. Although he is positive for any fluid balance, he is diuresing well and he is only +1.75 L. He is currently on GDMT. Whether or not he will require further ischemic assessment depends on the review of his prior cardiovascular records. Per current guidelines, he will need an ICD if his cardiomyopathy does not improve with medical management however, given his history of alcoholism he may not be a candidate for invasive cardiovascular procedures. Recommendations: -Increase Entresto to 49 mg / 51 mg twice daily. -Replace electrolytes. -Obtain old cardiovascular records. -We will continue to follow-up with you. (2) Heart failure with reduced ejection fraction Plan: Secondary to both an ischemic and alcoholic cardiomyopathy. Although his fluid balance is positive, he is diuresing well and on GDMT. Recommendations: -Increase Entresto to 49 mg / 51 mg twice daily. -Continue diuresis with 20 mg IV daily. -Restrict fluid intake to 1500 cc daily. -Low sodium diet, less than 1500 mg daily. -Strict intake and output. -Daily weights. -Minimize IV fluids. -Replace electrolytes as needed. -Plan to repeat echocardiogram once the patient is more stable. (3) Coronary artery disease Is this a current diagnosis for this admission?: Yes Plan: The patient is currently on GDMT. Recommendations: -Continue with current medical management. -Obtain old cardiac records.
[2019-12-08] MEDS: SACUBITRIL/VALSARTAN 24 MG/26 MG TABLET NG SCH (11:22)
[2019-12-08] MEDS: FOLIC ACID 1 MG TABLET NG SCH (11:23)
[2019-12-08] MEDS: METOPROLOL TARTRATE 25 MG TABLET NG SCH (11:23)
[2019-12-08] MEDS: ALLOPURINOL 300 MG TABLET NG SCH (11:24)
[2019-12-08] MEDS: FUROSEMIDE INJ/PF 20 MG/2 ML SDV IV SCH (11:24)
[2019-12-08] MEDS: SPIRONOLACTONE 25 MG TABLET NG SCH (11:25)
[2019-12-08] MEDS: VITAMIN B COMPLEX TABLET PO SCH (11:25)
[2019-12-08] MEDS: CYANOCOBALAMIN (VITAMIN B-12) 1,000 MCG TABLET NG SCH ×2 (11:25→18:24)
[2019-12-08] MEDS: ASPIRIN 81 MG TABLET, CHEWABLE NG SCH (11:26)
[2019-12-08] MEDS: FLUTICASONE/VILANTEROL 200-25 MCG/DOSE IH SCH (11:27)
[2019-12-08] MEDS: ALBUTEROL SULFATE 0.083% NEB 2.5 MG/3 ML AMPUL NEB PRN (12:12)
--- NOTE | 2019-12-08 13:03 | PDOC PROGRESS REPORT ---
Subjective Progress Note for:: 12/08/19 Subjective:: 12/08/2019. No acute events overnight. Mild constipation is in no apparent distress and following commands, he is alert and oriented to self and place, he is answering questions appropriately, denies any fever, chills, nausea, vomiting. Denies any auditory or visual hallucinations. Patient has unfortunately failed all his swallow evaluations and as per speech therapy he may not cooperate with modified barium swallow and he has not cooperated the past, patient will have a modified barium swallow once he is more cooperative with it. Reason For Visit: ALCOHOL WITHDRAWL, RESPIRATORY DISTRESS Physical Exam Vital Signs: Temp Pulse Resp BP Pulse Ox 97.6 F 114 H 20 146/94 H 96 12/08/19 11:59 12/08/19 12:12 12/08/19 12:12 12/08/19 11:59 12/08/19 12:12 Intake & Output 12/07/19 12/08/19 12/09/19 06:59 06:59 06:59 Intake Total 150 0 0 Output Total 1175 1775 Balance -1025 -1775 0 Weight 101.8 kg 101.3 kg General appearance: PRESENT: no acute distress, cooperative, well-developed, well-nourished, other - NG tube in place. Head exam: PRESENT: atraumatic, normocephalic Neck exam: ABSENT: carotid bruit, JVD, lymphadenopathy, thyromegaly Respiratory exam: PRESENT: clear to auscultation nathaniel. ABSENT: rales, rhonchi, wheezes GI/Abdominal exam: PRESENT: normal bowel sounds, soft. ABSENT: distended, gua rding, mass, organolmegaly, rebound, tenderness Neurological exam: PRESENT: alert, awake, oriented to person, oriented to place, oriented to time, oriented to situation, CN II-XII grossly intact. ABSENT: motor sensory deficit Results Laboratory Results: 12/08/19 05:40 12/08/19 05:40 12/08/19 12/08/19 05:40 05:40 WBC 6.4 RBC 2.83 L Hgb 10.5 L Hct 31.3 L MCV 110 H MCH 37.2 H MCHC 33.7 RDW 17.3 H Plt Count 245 Sodium 142.7 Potassium 3.2 L Chloride 103 Carbon Dioxide 34 H Anion Gap 6 BUN 17 Creatinine 0.59 Est GFR ( Amer) > 60 Glucose 91 Calcium 8.7 Phosphorus 3.8 Magnesium 2.0 11/30/19 12/01/19 12/01/19 14:16 03:58 07:00 Creatine Kinase 104 Troponin I 0.815 0.775 NT-Pro-B Natriuret Pep 12/01/19 12/03/19 12/05/19 11:44 21:02 00:47 Creatine Kinase 89 Troponin I NT-Pro-B Natriuret Pep 51180 H 43628 H Impressions: Chest/Abdomen CTA 12/01/19 00:00 IMPRESSION: 1. No aortic aneurysm or dissection. 2. Cannot exclude thrombus in the right lower lobe pulmonary arteries. Evaluation is limited. 3. Bilateral pleural effusions with some associated atelectatic changes. Chest X-Ray 12/05/19 00:00 IMPRESSION: Progressive bibasilar pleural and parenchymal disease. This includes both an airspace and interstitial component. Progressive small effusions. KUB X-Ray 12/06/19 00:00 IMPRESSION: Nasogastric tube tip in the body of the stomach. Assessment and Plan - Diagnosis (1) Alcohol withdrawal delirium, acute, hyperactive Is this a current diagnosis for this admission?: Yes Plan: Patient was initially in the ICU on Precedex drip. Now downgraded to IMCU. PRN p.o. Ativan as needed for anxiety and agitation. (2) Acute metabolic encephalopathy Is this a current diagnosis for this admission?: Yes Plan: Improving; alert and oriented to person, place, year today. Unclear baseline; he does have a prior diagnosis of Warnicke's. He does continue to have periods of intermittent confusion/agitation. Supportive care. (3) Acute on chronic combined systolic and diastolic congestive heart failure Is this a current diagnosis for this admission?: Yes Plan: Patient is transferred to [facility] on continuous telemetry. Cardiology is consulted. Patient is placed on Lopressor 12.5 mg twice daily, low-dose Entresto, resumed spironolactone, and IV furosemide 20 mg daily. He is currently receiving tube feeds for nutrition. Fluid restrict free water to 1500 mL's daily. Daily weights, Strict I&Os (4) Acute respiratory failure with hypoxemia Is this a current diagnosis for this admission?: Yes Plan: Acute exacerbation has resolved. He has been extubated and weaned to supplemental oxygen by nasal cannula during the day. Utilizes BiPAP at night. Patient tells me that he has a CPAP or BiPAP machine at home for nighttime use. We will continue to provide supplemental oxygen BiPAP as needed maintain saturations greater than 89%. Continue as needed nebulizer treatments. Encourage pulmonary toilet. (5) Alcohol dependence Qualifiers: Substance use status: in withdrawal Complication of substance-induced condition: with unspecified complication Qualified Code(s): F10.239 - Alcohol dependence with withdrawal, unspecified Is this a current diagnosis for this admission?: Yes Plan: Continue folic acid and thiamine supplementation. Cessation encouraged. Patient's family members attempting to arrange for the patient to discharge to [facility]. However, I believe the patient will have rehab needs will prevent this; will require short-term stay prior to medical clearance for inpatient rehab. Discharge planning consulted. (6) Cardiogenic shock Is this a current diagnosis for this admission?: Yes Plan: Resolved (7) Cardiomyopathy, alcoholic Is this a current diagnosis for this admission?: Yes Plan: Off milrinone. Cardiology is consulted. (8) Debilitated Is this a current diagnosis for this admission?: Yes Plan: Following 6 day ICU stay. PT/OT/ST consultations are requested. Q2 turns. Discharge planning for rehab needs.
[2019-12-08] MEDS ORDERED: QUETIAPINE FUMARATE 25 MG TABLET PO ONE (13:59)
[2019-12-08] MEDS: SACUBITRIL/VALSARTAN 49 MG/51 MG TABLET PO SCH (18:24)
[2019-12-08] MEDS: QUETIAPINE FUMARATE 100 MG TABLET PO SCH (22:26)
[2019-12-08] MEDS: ATORVASTATIN CALCIUM 40 MG TABLET NG SCH (22:28)
[2019-12-08] MEDS: METOPROLOL SUCCINATE 25 MG TAB.SR.24H PO SCH (22:28)
[2019-12-09] MEDS: INSULIN REG, HUMAN 100 UNIT/ML 3 ML VIAL (PYX) SUBCUT SCH ×3 (01:00→17:59)
[2019-12-09] MEDS: HYDROCORTISONE SOD SUCCINATE INJ/PF 100 MG/2 ML SDV IV SCH ×3 (01:06→18:03)
[2019-12-09] MEDS: VANCOMYCIN HCL INJ 500 MG VIAL NG SCH ×4 (02:00→22:00)
[2019-12-09] MEDS: HEPARIN SOD (PORCINE) 5,000 UNIT/ML 1 ML VIAL SUBCUT SCH ×3 (05:16→22:04)
[2019-12-09 06:27] LABS: HEMATOCRIT 31.8 % (37.9-51.0); HEMOGLOBIN 10.8 g/dL (13.5-17.0); MEAN CORPUSCULAR HEMOGLOBIN 37.1 pg (27.0-33.4); MEAN CORPUSCULAR HGB CONC 33.8 g/dL (32.0-36.0); MEAN CORPUSCULAR VOLUME 110 fl (80-97); PLATELET COUNT 267 10^3/uL (150-450); RED CELL DISTRIBUTION WIDTH 16.6 % (11.5-14.0); WHITE BLOOD COUNT 6.4 10^3/uL (4.0-10.5)
[2019-12-09 06:36] LABS: ALBUMIN 3.1 g/dL (3.5-5.0); ALKALINE PHOSPHATASE 70 U/L (38-126); ANION GAP 8 (5-19); ASPARTATE AMINO TRANSFERASE 28 U/L (17-59); BILIRUBIN,DIRECT 0.1 mg/dL (0.0-0.4); BLOOD UREA NITROGEN 17 mg/dL (7-20); CALCIUM 8.7 mg/dL (8.4-10.2); CARBON DIOXIDE 34 mmol/L (22-30); CHLORIDE 101 mmol/L (98-107); GLUCOSE 103 mg/dL (75-110); POTASSIUM 3.2 mmol/L (3.6-5.0); TOTAL PROTEIN 5.7 g/dL (6.3-8.2)
[2019-12-09] MEDS: ALBUTEROL SULFATE 0.083% NEB 2.5 MG/3 ML AMPUL NEB PRN (08:55)
--- NOTE | 2019-12-09 09:13 | PDOC PROGRESS REPORT ---
Subjective Progress Note for:: 12/09/19 Subjective:: The current history of present illness is obtained from chart review as the patient is currently on BiPAP, sleepy and unable to answer any questions. The patient is a 69 year old male with history of chonic daily ETOH abuse with reported 2L daily drinking, heart failure with stenting in 05/2018, CHF, HTN, SAGAR and previous hx of withdrawal seizures who i initially presented to our emergency room requesting alcohol detox, of note, he had been previously admitted to the intensive care unit for similar reasons. He was admitted on 11/30/2019 to the intensive care unit where he decompensated with respiratory failure and was intubated on 12/01/2019. At that point he became hypotensive and was diagnosed with cardiogenic shock when a bedside cardiac ultrasound pe rformed by the ICU physician demonstrated an ejection fraction of 15%. He was begun on Levophed and milrinone with clinical improvement. He was eventually extubated and was transferred out of the intensive care unit yesterday. Unfortunately there are no prior cardiovascular records to review. A repeat echocardiogram read by Dr. Cummings demonstrated an ejection fraction of at least 25% or less but it was a poor study. His fluid balance is +3.526 since 12/01/2019 and he has been diuresing well. His telemetry shows sinus tachycardia with PVCs. 12/09/2019: The patient is fully awake and interactive this morning. He is able to talk and answer questions. Although he does not appear to be in respiratory distress, he is overtly wheezing. He did fail a swallow test and appears that he aspirated. He answers questions appropriately. His fluid balance since 12/01/2019 is only + 301 cc. His telemetry shows normal sinus rhythm with episodes of sinus tachycardia. He continues to diurese well. His blood pressure is essentially at goal. He denies cardiovascular symptoms Physical exam on 12/09/2019: GENERAL: Fully awake this morning and answering questions. No acute distress but he is overtly wheezing. HEENT: Normocephalic, atraumatic. Pupils equal. Sclerae anicteric. Michelle pharynx moist. NECK: Difficult to evaluate for JVD given his body habitus. No carotid bruits. LUNGS: Significant rhonchi and both inspiratory and expiratory wheezing bilaterally in all robbins. Normal respiratory effort without the use of accessory muscles or intercostal retractions. CARDIOVASCULAR: Regular rate and rhythm, normal S1 and S2 without murmurs, rubs, or gallops. PMI not displaced. EXTREMITIES: No pitting edema bilaterally, no cyanosis, no clubbing. +2 pulses femoral and pedal pulses bilaterally. SKIN: No lesions or rashes. MUSCULOSKELETAL: No chest tenderness to palpation. Reason For Visit: ALCOHOL WITHDRAWL, RESPIRATORY DISTRESS Physical Exam Vital Signs: Temp Pulse Resp BP Pulse Ox 97.8 F 91 20 134/94 H 98 12/09/19 03:55 12/09/19 03:55 12/09/19 03:55 12/09/19 03:55 12/09/19 03:55 Intake & Output 12/08/19 12/09/19 12/10/19 06:59 06:59 06:59 Intake Total 0 0 Output Total 1775 1450 Balance -1775 -1450 Weight 101.3 kg 96.7 kg Results Laboratory Results: 12/09/19 05:25 12/09/19 05:25 12/08/19 12/09/19 12/09/19 05:40 05:25 05:25 WBC 6.4 6.4 RBC 2.83 L 2.90 L Hgb 10.5 L 10.8 L Hct 31.3 L 31.8 L MCV 110 H 110 H MCH 37.2 H 37.1 H MCHC 33.7 33.8 RDW 17.3 H 16.6 H Plt Count 245 267 Sodium 142.9 Potassium 3.2 L Chloride 101 Carbon Dioxide 34 H Anion Gap 8 BUN 17 Creatinine 0.55 Est GFR ( Amer) > 60 Glucose 103 Calcium 8.7 Magnesium 2.0 Total Bilirubin 1.0 AST 28 Alkaline Phosphatase 70 Total Protein 5.7 L Albumin 3.1 L 11/30/19 12/01/19 12/01/19 14:16 03:58 07:00 Creatine Kinase 104 Troponin I 0.815 0.775 NT-Pro-B Natriuret Pep 12/01/19 12/03/19 12/05/19 11:44 21:02 00:47 Creatine Kinase 89 Troponin I NT-Pro-B Natriuret Pep 17891 H 09720 H Impressions: Chest/Abdomen CTA 12/01/19 00:00 IMPRESSION: 1. No aortic aneurysm or dissection. 2. Cannot exclude thrombus in the right lower lobe pulmonary arteries. Evaluation is limited. 3. Bilateral pleural effusions with some associated atelectatic changes. Chest X-Ray 12/05/19 00:00 IMPRESSION: Progressive bibasilar pleural and parenchymal disease. This includes both an airspace and interstitial component. Progressive small effusions. KUB X-Ray 12/06/19 00:00 IMPRESSION: Nasogastric tube tip in the body of the stomach. 12/09/19 05:25 12/09/19 05:25 MCV 110 fl (80-97) H 12/09/19 05:25 MCH 37.1 pg (27.0-33.4) H 12/09/19 05:25 MCHC 33.8 g/dL (32.0-36.0) 12/09/19 05:25 RDW 16.6 % (11.5-14.0) H 12/09/19 05:25 Seg Neutrophils % Not Reportable 12/05/19 00:47 Carbonic Acid 1.42 mmol/L (1.05-1.35) H 12/05/19 01:35 HCO3/H2CO3 Ratio 18:1 12/05/19 01:35 ABG pH 7.36 (7.35-7.45) 12/05/19 01:35 ABG pCO2 47.2 mmHg (35-45) H 12/05/19 01:35 ABG pO2 33.5 mmHg (80-100) L* 12/05/19 01:35 ABG HCO3 26.0 mmol/L (20-24) H 12/05/19 01:35 ABG O2 Saturation 61.4 % (94-98) L 12/05/19 01:35 ABG Base Excess 0.2 mmol/L 12/05/19 01:35 FiO2 30% 12/05/19 01:35 Chloride 101 mmol/L (98-107) 12/09/19 05:25 Carbon Dioxide 34 mmol/L (22-30) H 12/09/19 05:25 Anion Gap 8 (5-19) 12/09/19 05:25 Est GFR ( Amer) > 60 (>60) 12/09/19 05:25 Est GFR (Non-Af Amer) Cancelled 11/30/19 14:16 Glucose 103 mg/dL (75-110) 12/09/19 05:25 Lactic Acid 1.3 mmol/L (0.7-2.1) 12/01/19 12:56 Calcium 8.7 mg/dL (8.4-10.2) 12/09/19 05:25 Phosphorus 3.8 mg/dL (2.5-4.5) 12/08/19 05:40 Magnesium 2.0 mg/dL (1.6-2.3) 12/09/19 05:25 Total Bilirubin 1.0 mg/dL (0.2-1.3) 12/09/19 05:25 AST 28 U/L (17-59) 12/09/19 05:25 Alkaline Phosphatase 70 U/L (38-126) 12/09/19 05:25 Ammonia < 8.7 umol/L (9-33) L 12/02/19 04:08 Total Protein 5.7 g/dL (6.3-8.2) L 12/09/19 05:25 Albumin 3.1 g/dL (3.5-5.0) L 12/09/19 05:25 Triglycerides 79 mg/dL (<150) 12/01/19 07:00 Lipase 178.8 U/L (23-300) 11/30/19 14:16 TSH 4.28 uIU/mL (0.47-4.68) 12/01/19 12:56 Free T4 1.11 ng/dL (0.78-2.19) 12/01/19 12:56 Free T3 pg/mL 5.36 pg/mL (2.77-5.27) H 12/01/19 12:56 Urine Color JORY 11/30/19 04:28 Urine Appearance SLIGHTLY-CLOUDY 11/30/19 04:28 Urine pH 5.0 (5.0-9.0) 11/30/19 04:28 Ur Specific [place] 1.027 11/30/19 04:28 Urine Protein 100 mg/dL (NEGATIVE) H 11/30/19 04:28 Urine Glucose (UA) 150 mg/dL (NEGATIVE) H 11/30/19 04:28 Urine Ketones TRACE mg/dL (NEGATIVE) H 11/30/19 04:28 Urine Blood NEGATIVE (NEGATIVE) 11/30/19 04:28 Urine Nitrite NEGATIVE (NEGATIVE) 11/30/19 04:28 Ur Leukocyte Esterase NEGATIVE (NEGATIVE) 11/30/19 04:28 Urine WBC (Auto) 1 /HPF 11/30/19 04:28 Urine RBC (Auto) 1 /HPF 11/30/19 04:28 11/30/19 12/01/19 12/01/19 14:16 03:58 07:00 Creatine Kinase 104 Troponin I 0.815 0.775 NT-Pro-B Natriuret Pep 12/01/19 12/03/19 12/05/19 11:44 21:02 00:47 Creatine Kinase 89 Troponin I NT-Pro-B Natriuret Pep 19663 H 83323 H Current Medication List Generic Name Dose Route Start Last Admin Trade Name Freq PRN Reason Stop Dose Admin Albuterol 2.5 mg 12/05/19 09:12 12/08/19 12:12 Ventolin 0.083% Neb 2.5 Mg/3 Ml Ampul NEB 01/04/20 09:11 2.5 mg RTQ3HP PRN Administration SHORTNESS OF BREATH Allopurinol 300 mg 12/02/19 10:00 12/08/19 11:24 Zyloprim 300 Mg Tablet NG 12/31/19 09:59 300 mg DAILY RITU Administration Aspirin 81 mg 12/02/19 10:00 12/08/19 11:26 Aspirin 81 Mg Chewable Tablet NG 01/01/20 09:59 81 mg DAILY RITU Administration Atorvastatin Calcium 40 mg 12/01/19 22:00 12/08/19 22:28 Lipitor 40 Mg Tablet NG 12/31/19 21:59 40 mg QHS RITU Administration Cyanocobalamin 1,000 mcg 12/02/19 10:00 12/08/19 18:24 Vitamin B-12 1000 Mcg Tablet NG 12/31/19 09:59 1,000 mcg BID RITU Administration Dextrose 12.5 gm 12/02/19 00:12 Dextrose Inj 50% Syringe (25 Gm/50 Ml) IV 01/01/20 00:11 PRN PRN FOR BG 50-69 IN ALERT PATIENT Protocol Dextrose 25 gm 12/02/19 00:12 Dextrose Inj 50% Syringe (25 Gm/50 Ml) IV 01/01/20 00:11 PRN PRN PER PROTOCOL Protocol Fluticasone/Vilanterol 1 inh 12/01/19 10:00 12/08/19 11:27 Breo 200-25 Mcg Ellipta 14 Dose/Dpi IH 12/31/19 09:59 Not Given DAILY RITU Folic Acid 1 mg 12/02/19 10:00 12/08/19 11:23 Folvite 1 Mg Tablet NG 12/31/19 09:59 1 mg DAILY RITU Administration Furosemide 20 mg 12/07/19 11:00 12/08/19 11:24 Lasix Inj/Pf 20 Mg/2 Ml Sdv IV 01/06/20 10:59 20 mg DAILY RITU Administration Glucagon 1 mg 12/02/19 00:12 Glucagen Inj 1 Mg Vial IM 01/01/20 00:11 PRN PRN Evaluate for BG < 70 Protocol Glucose 15 gm 12/02/19 00:12 Glutose 40% Gel 15 Gm Tube PO 01/01/20 00:11 PRN PRN FOR BG 50-69 IN ALERT PATIENT Protocol Glucose 30 gm 12/02/19 00:12 Glutose 40% Gel 15 Gm Tube PO 01/01/20 00:11 PRN PRN FOR BG < 50 IN ALERT PATIENT Protocol Heparin Sodium (Porcine) 5,000 unit 11/30/19 22:00 12/09/19 05:16 Heparin Inj 5,000 Units/Ml 1 Ml Vial SUBCUT 12/30/19 21:59 5,000 unit Q8 RITU Administration Hydrocortisone Sodium Succinate 25 mg 12/06/19 18:00 12/09/19 01:06 Solu-Cortef Inj/Pf 100 Mg/ 2 Ml Sdv IV 01/05/20 17:59 25 mg Q8A RITU Administration Insulin Human Regular 0 - 12 unit 12/02/19 00:15 12/09/19 01:00 Humulin R (Pyxis) Insulin 100 Unit/Ml 3ml SUBCUT 01/01/20 00:14 Not Given Q6 RITU Protocol Lorazepam 2 mg 12/05/19 14:56 12/08/19 11:25 Ativan 1 Mg Tablet PO 12/12/19 14:55 2 mg Q4HP PRN Administration ANXIETY/AGITATION Metoprolol Succinate 25 mg 12/08/19 22:00 12/08/19 22:28 Toprol Xl 25 Mg Tab.Sr PO 01/07/20 21:59 25 mg Q12 RITU Administration Metoprolol Tartrate 5 mg 12/05/19 05:08 12/06/19 17:45 Lopressor Inj/Pf 5 Mg/5 Ml Sdv IV 01/04/20 05:07 5 mg Q4HP PRN Administration HR > 120 Pharmacy Profile Note 1 each 12/01/19 08:00 Medication Communication Order 12/31/19 07:59 .NOTICE NR Quetiapine Fumarate 50 mg 12/08/19 22:00 12/08/19 22:26 Seroquel 100 Mg Tablet PO 01/07/20 21:59 50 mg QHS RITU Administration Quetiapine Fumarate 25 mg 12/09/19 08:00 Seroquel 25 Mg Tablet PO 01/08/20 07:59 QAM RITU Sacubitril/Valsartan 1 tab 12/08/19 18:00 12/08/19 18:24 Entresto 49 Mg/51 Mg Tablet PO 01/07/20 17:59 1 tab BID RITU Administration Sodium Chloride 2.5 ml 11/30/19 22:00 12/09/19 05:17 Saline Flush 2.5 Ml Monoject Prefil Syrin IV 12/30/19 21:59 Not Given Q8 RITU Sodium Chloride 10 ml 12/03/19 00:36 Nacl 0.9% Inj/Pf 10 Ml Sdv IV 01/02/20 00:35 .AFTER EACH USE PRN AFTER EACH INTERMITTENT USE Spironolactone 25 mg 12/07/19 10:00 12/08/19 11:25 Aldactone 25 Mg Tablet NG 01/06/20 09:59 25 mg DAILY RITU Administration Vancomycin HCl 250 mg 12/07/19 15:00 12/09/19 02:00 Vancocin Inj 500 Mg Vial NG 12/13/19 14:59 250 mg Q6A RITU Administration Vitamin B Complex 1 tab 12/04/19 10:00 12/08/19 11:25 Vitamin B Complex Tablet PO 01/03/20 09:59 1 tab DAILY RITU Administration Discontinued Medications Generic Name Dose Route Start Last Admin Trade Name Freq PRN Reason Stop Dose Admin Acetaminophen 650 mg 12/01/19 16:29 Tylenol 325 Mg Tablet PO 12/31/19 16:28 Q6HP PRN FEVER > 102 Acetaminophen 650 mg 12/01/19 17:03 12/01/19 17:32 Tylenol Soln 325 Mg/10.15 Ml Udcup PO 12/31/19 17:02 650 mg Q4HP PRN Administration FEVER > 102 Acetaminophen Confirm 12/01/19 17:27 12/01/19 17:33 Tylenol Soln 325 Mg/10.15 Ml Udcup Administered 12/01/19 17:28 Not Given Dose 325 mg .ROUTE .STK-MED ONE Acetaminophen 650 mg 12/01/19 20:00 12/02/19 11:23 Tylenol Soln 325 Mg/10.15 Ml Udcup NG 12/31/19 17:02 650 mg Q4HP PRN Administration FEVER > 102 Allopurinol 300 mg 12/01/19 10:00 12/01/19 11:25 Zyloprim 300 Mg Tablet PO 12/31/19 09:59 Not Given DAILY RITU Ascorbic Acid 2,000 mg 12/01/19 18:00 12/01/19 23:12 Vitamin C 500 Mg Tablet PO 12/31/19 17:59 Not Given Q6 RITU Ascorbic Acid 2,000 mg 12/02/19 00:00 12/07/19 11:29 Vitamin C 500 Mg Tablet NG 12/31/19 17:59 2,000 mg Q6 RITU Administration Aspirin 81 mg 12/01/19 10:00 12/01/19 11:25 Ecotrin 81 Mg Ec Tablet PO 12/31/19 09:59 Not Given DAILY RITU Atropine Sulfate Confirm 12/02/19 19:30 12/02/19 22:40 Atropine Sulfate Inj 1 Mg/10 Ml Disp.Syrin Administered 12/02/19 19:31 Not Given Dose 1 mg IV .STK-MED ONE Atropine Sulfate Confirm 12/02/19 19:31 12/02/19 22:40 Atropine Sulfate Inj 1 Mg/10 Ml Disp.Syrin Administered 12/02/19 19:32 Not Given Dose 1 mg IV .STK-MED ONE Cyanocobalamin 1,000 mcg 12/01/19 10:00 12/01/19 23:13 Vitamin B-12 1000 Mcg Tablet PO 12/31/19 09:59 Not Given BID RITU Digoxin 0.125 mg 12/03/19 22:45 12/03/19 22:38 Lanoxin Inj 0.5 Mg/2 Ml Ampule IV 12/03/19 22:46 0.125 mg NOW ONE Administration Ezetimibe 10 mg 12/01/19 10:00 Zetia 10 Mg Tablet PO 12/31/19 09:59 DAILY RITU Etomidate 25 mg 12/01/19 08:00 12/01/19 11:35 Amidate Inj/Pf 20 Mg/10 Ml Sdv IV 12/01/19 08:01 Not Given NOW ONE Etomidate Confirm 12/01/19 08:02 12/01/19 08:11 Amidate Inj/Pf 20 Mg/10 Ml Sdv Administered 12/01/19 08:03 20 mg Dose Administration 20 mg IV .STK-MED ONE Famotidine 20 mg 12/02/19 11:00 12/02/19 10:22 Pepcid Inj/Pf 20 Mg/2 Ml Sdv IV 01/01/20 10:59 20 mg Q12 RITU Administration Famotidine 20 mg 12/02/19 22:00 12/03/19 11:12 Pepcid 40 Mg/5 Ml Susp PO 01/01/20 21:59 20 mg Q12 RITU Administration Fentanyl Citrate 100 mcg 12/01/19 08:00 12/01/19 08:10 Sublimaze Inj/Pf 100 Mcg/2 Ml Ampule IV 12/01/19 08:01 100 mcg NOW ONE Administration Fentanyl Citrate Confirm 12/01/19 08:02 12/01/19 09:09 Sublimaze Inj/Pf 100 Mcg/2 Ml Ampule Administered 12/01/19 08:03 100 mcg Dose Administration 100 mcg .ROUTE .STK-MED ONE Fentanyl Citrate Confirm 12/02/19 22:44 12/02/19 22:55 Sublimaze Inj/Pf 100 Mcg/2 Ml Ampule Administered 12/02/19 22:45 50 mcg Dose Administration 100 mcg .ROUTE .STK-MED ONE Fentanyl Citrate 50 mcg 12/03/19 00:45 12/03/19 00:57 Sublimaze Inj/Pf 100 Mcg/2 Ml Ampule IV 12/03/19 00:46 Not Given NOW ONE Folic Acid 1 mg 12/01/19 10:00 12/01/19 12:18 Folvite 1 Mg Tablet PO 12/31/19 09:59 Not Given DAILY RITU Furosemide 40 mg 12/05/19 01:24 12/05/19 01:58 Lasix Inj/Pf 40 Mg/4 Ml Sdv IV 12/05/19 01:25 40 mg NOW ONE Administration Furosemide 20 mg 12/05/19 17:00 06/20/20 17:34 Lasix Inj/Pf 20 Mg/2 Ml Sdv IV 12/05/19 17:01 20 mg NOW ONE Administration Furosemide 40 mg 12/05/19 23:26 12/05/19 23:40 Lasix Inj/Pf 40 Mg/4 Ml Sdv IV 12/05/19 23:27 40 mg NOW ONE Administration Furosemide Confirm 12/05/19 23:30 12/05/19 23:40 Lasix Inj/Pf 40 Mg/4 Ml Sdv Administered 12/05/19 23:31 Not Given Dose 40 mg .ROUTE .STK-MED ONE Heparin Sodium (Porcine) 30 unit 12/03/19 06:00 12/03/19 14:16 Heparin Flush 10 Unit/Ml 5 Ml Disp.Syrg IV 01/02/20 05:59 Not Given Q8 RITU Heparin Sodium (Porcine) 30 unit 12/03/19 00:36 Heparin Flush 10 Unit/Ml 5 Ml Disp.Syrg IV 01/02/20 00:35 .AFTER EACH USE PRN AFTER EACH INTERMITTENT USE Hydrocortisone Sodium Succinate 100 mg 12/02/19 10:00 12/06/19 09:05 Solu-Cortef Inj/Pf 100 Mg/ 2 Ml Sdv IV 01/01/20 09:59 100 mg Q8A RITU Administration Hydrocortisone Sodium Succinate 50 mg 12/06/19 18:00 Solu-Cortef Inj/Pf 100 Mg/ 2 Ml Sdv IV 01/05/20 17:59 Q8A RITU Potassium Chloride 20 meq/ 1,023 mls @ 250 mls/hr 11/30/19 18:00 Magnesium Sulfate 8 meq/ IV 12/30/19 17:59 Thiamine HCl 100 mg/ QPM RITU Multivitamins/Minerals 10 ml/ Sodium Chloride Potassium Chloride 20 meq/ 1,023 mls @ 250 mls/hr 11/30/19 16:30 12/04/19 22:00 Magnesium Sulfate 8 meq/ IV 12/30/19 16:29 Infused Thiamine HCl 100 mg/ QPM RITU Infusion Multivitamins/Minerals 10 ml/ Sodium Chloride Lactated Ringer's 1,000 mls @ 100 mls/hr 11/30/19 23:21 11/30/19 23:50 Lactated Ringers 1000 Ml Iv Soln IV 12/30/19 23:20 100 mls/hr CONTINUOUS PRN Administration THIS MED IS NOT "PRN" Magnesium Sulfate 4 gm in 100 mls @ 25 mls/hr 12/01/19 04:16 12/01/19 23:12 Magnesium Sulfate Rtu 4 Gm/100 Ml Premix Bag IV 12/01/19 08:15 Infused NOW ONE Infusion Potassium Chloride/Water 20 meq in 50 mls @ 25 mls/hr 12/01/19 04:30 12/01/19 23:12 Potassium Chloride Samuel 20 Meq/50 Ml IV 12/01/19 08:29 Infused Q2H RITU Infusion Magnesium Sulfate Confirm 12/01/19 04:59 12/01/19 05:10 Magnesium Sulfate Rtu 4 Gm/100 Ml Premix Bag Administered 12/01/19 05:00 Not Given Dose 4 gm in 100 mls @ ud IV .STK-MED ONE Thiamine HCl 500 mg/ Sodium 255 mls @ 463.636 mls/hr 12/01/19 10:00 Chloride IV 12/02/19 22:32 Q12 RITU Propofol 1,000 mg in 100 mls @ 2.745 mls/hr 12/01/19 08:00 Diprivan Rtu 1000 Mg/100 Ml Inf.Bottle IV 12/31/19 07:59 CONTINUOUS PRN THIS MED IS NOT "PRN" Protocol 5 MCG/KG/MIN Norepinephrine Bitartrate 4 mg 254 mls @ 0 mls/hr 12/01/19 08:00 12/03/19 14:37 / Dextrose IV 12/31/19 07:59 0 mcg/min CONTINUOUS PRN 0 mls/hr THIS MED IS NOT "PRN" Titration Protocol Titrate Thiamine HCl 500 mg/ Sodium 105 mls @ 210 mls/hr 12/01/19 10:00 12/02/19 21:00 Chloride IV 12/02/19 22:29 210 mls/hr Q12 RITU Administration Propofol Confirm 12/01/19 08:07 12/01/19 10:00 Diprivan Rtu 1000 Mg/100 Ml Inf.Bottle Administered 12/01/19 08:08 0 mcg/kg/min Dose 0 mls/hr 1,000 mg in 100 mls @ ud Infusion IV .STK-MED ONE Milrinone Lactate/Dextrose 20 mg in 100 mls @ 0 mls/hr 12/01/19 09:26 12/01/19 13:45 Primacor Rtu 20 Mg-D5w 100 Ml Premix Bag IV 12/31/19 09:25 0.125 mcg/kg/min CONTINUOUS PRN 3.43 mls/hr THIS MED IS NOT "PRN" Titration Protocol Titrate Dexmedetomidine/Sodium Chloride 400 mcg in 100 mls @ 9.15 mls/hr 12/01/19 09:49 12/03/19 15:15 Precedex 400 Mcg/Ns 100 Ml Iv Premix IV 12/31/19 09:48 Infused CONTINUOUS PRN Titration THIS MED IS NOT "PRN" Protocol 0.4 MCG/KG/HR Dexmedetomidine/Sodium Chloride Confirm 12/01/19 09:51 12/01/19 12:17 Precedex 400 Mcg/Ns 100 Ml Iv Premix Administered 12/01/19 09:52 Not Given Dose 400 mcg in 100 mls @ ud IV .STK-MED ONE Albumin Human 12.5 gm in 50 mls @ 200 mls/hr 12/01/19 12:30 12/01/19 15:40 Albuminar-25 Rtu Inj 12.5 Gm/50 Ml Premix IV 12/01/19 15:44 Infused Q1H RITU Infusion Vasopressin 100 unit/ Dextrose 255 mls @ 0 mls/hr 12/01/19 12:41 12/04/19 18:07 IV 12/31/19 12:40 0 unit/min CONTINUOUS PRN 0 mls/hr THIS MED IS NOT "PRN" Titration Titrate Piperacillin Sod/Tazobactam 100 mls @ 200 mls/hr 12/01/19 21:00 12/06/19 09:05 Sod 4.5 gm/ Sodium Chloride IV 12/08/19 20:59 200 mls/hr Q6A RITU 200 mls/hr Administration Milrinone Lactate/Dextrose 20 mg in 100 mls @ 0 mls/hr 12/02/19 05:12 12/05/19 19:00 Primacor Rtu 20 Mg-D5w 100 Ml Premix Bag IV 01/01/20 05:11 Infused CONTINUOUS PRN Titration THIS MED IS NOT "PRN" Protocol Titrate Potassium Chloride/Water 20 meq in 50 mls @ 25 mls/hr 12/02/19 06:00 12/02/19 09:55 Potassium Chloride Samuel 20 Meq/50 Ml IV 12/02/19 09:59 Infused Q2H RITU Infusion Esmolol HCl 2,500 mg in 250 mls @ 0 mls/hr 12/03/19 20:00 12/05/19 05:15 Brevibloc Rtu 2500 Mg/250 Ml Nacl Premix Bag IV 01/02/20 19:59 Infused CONTINUOUS PRN Titration THIS MED IS NOT "PRN" Protocol Titrate Esmolol HCl Confirm 12/03/19 19:59 12/03/19 20:28 Brevibloc Rtu 2500 Mg/250 Ml Nacl Premix Bag Administered 12/03/19 20:00 Not Given Dose 2,500 mg in 250 mls @ ud IV .STK-MED ONE Potassium Chloride/Water 20 meq in 50 mls @ 25 mls/hr 12/06/19 03:00 12/06/19 06:02 Potassium Chloride Samuel 20 Meq/50 Ml IV 12/06/19 06:59 25 mls/hr Q2H RITU 25 mls/hr Administration Lorazepam 2 mg 11/30/19 15:33 11/30/19 15:46 Ativan Inj 2 Mg/1 Ml Vial IV 11/30/19 15:34 2 mg NOW ONE Administration Lorazepam 2 mg 11/30/19 16:27 11/30/19 16:33 Ativan Inj 2 Mg/1 Ml Vial IV 11/30/19 16:28 2 mg NOW ONE Administration Lorazepam 2 mg 11/30/19 17:07 11/30/19 17:14 Ativan Inj 2 Mg/1 Ml Vial IV 11/30/19 17:08 2 mg NOW ONE Administration Lorazepam 2 mg 11/30/19 19:41 11/30/19 20:39 Ativan Inj 2 Mg/1 Ml Vial IV 11/30/19 19:42 2 mg NOW ONE Administration Lorazepam 2 mg 11/30/19 21:26 11/30/19 21:49 Ativan Inj 2 Mg/1 Ml Vial IV 11/30/19 21:27 2 mg NOW ONE Administration Lorazepam 2 mg 11/30/19 21:48 11/30/19 23:40 Ativan Inj 2 Mg/1 Ml Vial IV 11/30/19 21:49 Not Given ONCE ONE Lorazepam 2 mg 11/30/19 23:19 12/03/19 18:07 Ativan Inj 2 Mg/1 Ml Vial IV 12/07/19 23:18 2 mg Q2HP PRN Administration SEIZURES Lorazepam 2 mg 12/03/19 21:45 12/03/19 21:37 Ativan Inj 2 Mg/1 Ml Vial IV 12/03/19 21:46 2 mg NOW ONE Administration Lorazepam 2 mg 12/04/19 00:18 12/07/19 11:39 Ativan Inj 2 Mg/1 Ml Vial IV 12/11/19 00:17 2 mg Q2HP PRN Administration SEIZURES Lorazepam 2 mg 12/05/19 14:55 12/05/19 15:32 Ativan 1 Mg Tablet PO 12/05/19 14:56 2 mg NOW ONE Administration Metoprolol Succinate 25 mg 12/01/19 10:00 Toprol Xl 25 Mg Tab.Sr PO 12/31/19 09:59 DAILY RITU Metoprolol Tartrate Confirm 12/01/19 06:04 12/01/19 06:10 Lopressor Inj/Pf 5 Mg/5 Ml Sdv Administered 12/01/19 06:05 5 mg Dose Administration 5 mg IV .STK-MED ONE Metoprolol Tartrate 5 mg 12/01/19 06:28 12/01/19 06:44 Lopressor Inj/Pf 5 Mg/5 Ml Sdv IV 12/01/19 06:29 Not Given NOW ONE Metoprolol Tartrate Confirm 12/03/19 19:43 12/03/19 20:17 Lopressor Inj/Pf 5 Mg/5 Ml Sdv Administered 12/03/19 19:44 Not Given Dose 5 mg IV .STK-MED ONE Metoprolol Tartrate 5 mg 12/03/19 20:15 12/03/19 20:18 Lopressor Inj/Pf 5 Mg/5 Ml Sdv IV 12/03/19 21:16 Not Given Q1H RITU Metoprolol Tartrate 12.5 mg 12/06/19 22:00 12/08/19 11:23 Lopressor 25 Mg Tablet NG 01/05/20 21:59 12.5 mg Q12 RITU Administration Midazolam HCl 5 mg 12/01/19 08:26 12/01/19 08:25 Versed 2 Mg/2 Ml Inj IV 12/01/19 08:27 5 mg NOW ONE Administration Midazolam HCl Confirm 12/01/19 08:20 12/01/19 11:39 Versed 2 Mg/2 Ml Inj Administered 12/01/19 08:21 Not Given Dose 2 mg .ROUTE .STK-MED ONE Nicotine 1 each 12/03/19 16:45 12/03/19 16:50 Nicoderm 21 Mg/24 Hr Transderm Patch TD 12/03/19 16:46 1 each NOW ONE Administration Norepinephrine Bitartrate Confirm 12/01/19 08:07 12/01/19 12:17 Levophed Inj/Pf 4 Mg/4 Ml Sdv Administered 12/01/19 08:08 Not Given Dose 4 mg IV .STK-MED ONE Norepinephrine Bitartrate Confirm 12/01/19 18:12 12/01/19 18:47 Levophed Inj/Pf 4 Mg/4 Ml Sdv Administered 12/01/19 18:13 Not Given Dose 4 mg IV .STK-MED ONE Norepinephrine Bitartrate Confirm 12/01/19 20:23 12/01/19 20:29 Levophed Inj/Pf 4 Mg/4 Ml Sdv Administered 12/01/19 20:24 Not Given Dose 4 mg IV .STK-MED ONE Pharmacy Profile Note 1 each 12/04/19 18:00 12/06/19 17:03 Medication Communication Order 01/03/20 17:59 Not Given QPM RITU Potassium Chloride 40 meq 12/07/19 11:30 12/07/19 18:44 Potassium Chloride 20 Meq Packet PO 12/07/19 11:31 Not Given NOW ONE Potassium Chloride 40 meq 12/07/19 15:15 12/07/19 15:19 Potassium Chloride 20 Meq Packet PO 12/07/19 15:16 40 meq NOW ONE Administration Quetiapine Fumarate 25 mg 12/08/19 13:59 12/08/19 14:43 Seroquel 25 Mg Tablet PO 12/08/19 14:00 25 mg NOW ONE Administration Rocuronium [place] 100 mg 12/01/19 08:00 12/01/19 08:12 Zemuron Inj 50 Mg/5 Ml Vial IV 12/01/19 08:01 100 mg NOW ONE Administration Rocuronium [place] 100 mg 12/01/19 10:45 Zemuron Inj 50 Mg/5 Ml Vial IV 12/01/19 10:46 .STK-MED ONE Sacubitril/Valsartan 1 tab 12/01/19 10:00 Entresto 24 Mg/26 Mg Tablet PO 12/31/19 09:59 Q12 RITU Sacubitril/Valsartan 1 tab 12/06/19 18:00 12/08/19 11:22 Entresto 24 Mg/26 Mg Tablet NG 01/05/20 17:59 1 tab BID RITU Administration Scopolamine HBr 1 each 12/04/19 10:00 12/04/19 10:20 Transderm-Scop 1.5 Mg Patch TD 01/03/20 09:59 1 each Q3DAYS RITU Administration Spironolactone 25 mg 12/01/19 10:00 Aldactone 25 Mg Tablet PO 12/31/19 09:59 DAILY RITU Vancomycin HCl 250 mg 12/06/19 15:00 12/07/19 03:18 Vancocin Inj 500 Mg Vial PO 12/13/19 14:59 250 mg Q6A RITU Administration Vasopressin Confirm 12/01/19 12:43 12/01/19 13:03 Vasopressin Inj 20 Unit/1 Ml Vial Administered 12/01/19 12:44 Not Given Dose 20 unit .ROUTE .STK-MED ONE Zinc Sulfate 220 mg 12/01/19 10:00 12/01/19 11:25 Zinc-220 Capsule PO 12/31/19 09:59 Not Given DAILY RITU Zinc Sulfate 220 mg 12/02/19 10:00 12/07/19 11:28 Zinc-220 Capsule NG 12/31/19 09:59 220 mg DAILY RITU Administration Assessment & Plan - Diagnosis (1) Cardiomyopathy Is this a current diagnosis for this admission?: Yes Plan: 69-year-old male with an ejection fraction of approximately 25%. This is likely secondary to both an ischemic and alcoholic cardiomyopathy. He is currently on GDMT and denies ischemic symptoms. He is actually improved from a cardiovascular standpoint. Whether or not he will require further ischemic assessment depends on the review of his prior cardiovascular records. Per current guidelines, he will need an ICD if his cardiomyopathy does not improve with medical management however, given his history of alcoholism he may not be a candidate for invasive cardiovascular procedures. Recommendations: -Continue with current medical management. -Replace electrolytes particularly potassium. -Obtain old cardiovascular records. -Stat chest x-ray this morning given his significant wheezing and rhonchi on exam today. -We will continue to follow-up with you. (2) Heart failure with reduced ejection fraction Plan: Secondary to both an ischemic and alcoholic cardiomyopathy. He is diuresing very well and his fluid balance since admission is only 301 cc. He is on GDMT. Recommendations: -Continue with current medical management. -Continue diuresis with 20 mg IV daily for now. -Restrict fluid intake to 1500 cc daily. -Low sodium diet, less than 1500 mg daily. -Strict intake and output. -Daily weights. -Minimize IV fluids. -Replace electrolytes as needed particularly potassium. -Plan to repeat echocardiogram once the patient is more stable. (3) Coronary artery disease Is this a current diagnosis for this admission?: Yes Plan: The patient is currently on GDMT. His telemetry shows normal sinus rhythm and sinus tachycardia without sustained complex ventricular dysrhythmias. Recommendations: -Continue with current medical management. -Obtain old cardiac records.
[2019-12-09] MEDS: FUROSEMIDE INJ/PF 20 MG/2 ML SDV IV SCH (09:15)
[2019-12-09] MEDS: FLUTICASONE/VILANTEROL 200-25 MCG/DOSE IH SCH (09:15)
[2019-12-09] MEDS: ALLOPURINOL 300 MG TABLET NG SCH (09:16)
[2019-12-09] MEDS: SACUBITRIL/VALSARTAN 49 MG/51 MG TABLET PO SCH ×2 (09:16→18:03)
[2019-12-09] MEDS: CYANOCOBALAMIN (VITAMIN B-12) 1,000 MCG TABLET NG SCH ×2 (09:17→18:03)
[2019-12-09] MEDS: FOLIC ACID 1 MG TABLET NG SCH (09:17)
[2019-12-09] MEDS: ASPIRIN 81 MG TABLET, CHEWABLE NG SCH (09:17)
[2019-12-09] MEDS: METOPROLOL SUCCINATE 25 MG TAB.SR.24H PO SCH ×2 (09:17→22:00)
[2019-12-09] MEDS: SPIRONOLACTONE 25 MG TABLET NG SCH (09:18)
[2019-12-09] MEDS: VITAMIN B COMPLEX TABLET PO SCH (09:18)
[2019-12-09] MEDS: QUETIAPINE FUMARATE 25 MG TABLET PO SCH (09:18)
--- NOTE | 2019-12-09 10:38 | RADIOLOGY REPORT (SQ) ---
EXAM DESCRIPTION: CHEST SINGLE VIEW IMAGES COMPLETED DATE/TIME: 12/09/2019 10:20 am REASON FOR STUDY: SOB COMPARISON: 12/05/2019 EXAM PARAMETERS: NUMBER OF VIEWS: One view. TECHNIQUE: Single frontal radiographic view of the chest acquired. RADIATION DOSE: NA LIMITATIONS: None. FINDINGS: LUNGS AND PLEURA: Small left pleural effusion and left lung base atelectasis, unchanged. The right lung is clear. No pneumothorax. MEDIASTINUM AND HILAR STRUCTURES: No masses. Contour normal. HEART AND VASCULAR STRUCTURES: Cardiomegaly, unchanged finding. Pulmonary vascular congestion has re solved. . BONES: No acute findings. HARDWARE: Stable. OTHER: No other significant finding. IMPRESSION: 1. Since the previous examination dated 12/05/2019, interval resolution of the pulmonary vascular congestion. Cardiomegaly again noted. 2. Small left pleural effusion and left lung base atelectasis, unchanged findings. TECHNICAL DOCUMENTATION: JOB ID: [id number] 2010 [email or web address]- All Rights Reserved Reading location - IP/workstation name: [email or web address]
--- NOTE | 2019-12-09 10:50 | PDOC PROGRESS REPORT ---
Subjective Progress Note for:: 12/09/19 Subjective:: 12/08/2019. No acute events overnight. Mild constipation is in no apparent distress and following commands, he is alert and oriented to self and place, he is answering questions appropriately, denies any fever, chills, nausea, vomiting. Denies any auditory or visual hallucinations. Patient has unfortunately failed all his swallow evaluations and as per speech therapy he may not cooperate with modified barium swallow and he has not cooperated the past, patient will have a modified barium swallow once he is more cooperative with it. 12/09/2019. No acute events overnight. Patient has been more cooperative and calm overnight, bilateral lower extremity restraint has been removed yesterday, patient is communicating and answering question properly, patient wants to go home, noted to be wheezing today, complaining of back pain, denies any fever, chills, chest pain, nausea, vomiting, diarrhea, constipation. Reason For Visit: ALCOHOL WITHDRAWL, RESPIRATORY DISTRESS Physical Exam Vital Signs: Temp Pulse Resp BP Pulse Ox 98.2 F 100 20 138/88 H 97 12/09/19 07:06 12/09/19 08:55 12/09/19 08:55 12/09/19 07:06 12/09/19 08:55 Intake & Output 12/08/19 12/09/19 12/10/19 06:59 06:59 06:59 Intake Total 0 0 Output Total 1775 1450 Balance -1775 -1450 Weight 101.3 kg 96.7 kg General appearance: PRESENT: no acute distress, obese, well-developed, well- nourished Respiratory exam: PRESENT: crackles, wheezes. ABSENT: rales, rhonchi Cardiovascular exam: PRESENT: RRR. ABSENT: diastolic murmur, rubs, systolic murmur GI/Abdominal exam: PRESENT: normal bowel sounds, soft. ABSENT: distended, guarding, mass, organolmegaly, rebound, tenderness Neurological exam: PRESENT: alert, awake, oriented to person, oriented to place, CN II-XII grossly intact. ABSENT: motor sensory deficit Results Laboratory Results: 12/09/19 05:25 12/09/19 05:25 12/09/19 12/09/19 05:25 05:25 WBC 6.4 RBC 2.90 L Hgb 10.8 L Hct 31.8 L MCV 110 H MCH 37.1 H MCHC 33.8 RDW 16.6 H Plt Count 267 Sodium 142.9 Potassium 3.2 L Chloride 101 Carbon Dioxide 34 H Anion Gap 8 BUN 17 Creatinine 0.55 Est GFR ( Amer) > 60 Glucose 103 Calcium 8.7 Magnesium 2.0 Total Bilirubin 1.0 AST 28 Alkaline Phosphatase 70 Total Protein 5.7 L Albumin 3.1 L 11/30/19 12/01/19 12/01/19 14:16 03:58 07:00 Creatine Kinase 104 Troponin I 0.815 0.775 NT-Pro-B Natriuret Pep 12/01/19 12/03/19 12/05/19 11:44 21:02 00:47 Creatine Kinase 89 Troponin I NT-Pro-B Natriuret Pep 64749 H 93804 H Impressions: Chest/Abdomen CTA 12/01/19 00:00 IMPRESSION: 1. No aortic aneurysm or dissection. 2. Cannot exclude thrombus in the right lower lobe pulmonary arteries. Evaluation is limited. 3. Bilateral pleural effusions with some associated atelectatic changes. KUB X-Ray 12/06/19 00:00 IMPRESSION: Nasogastric tube tip in the body of the stomach. Chest X-Ray 12/09/19 00:00 IMPRESSION: 1. Since the previous examination dated 12/05/2019, interval resolution of the pulmonary vascular congestion. Cardiomegaly again noted. 2. Small left pleural effusion and left lung base atelectasis, unchanged findings. Assessment and Plan - Diagnosis (1) Alcohol withdrawal delirium, acute, hyperactive Is this a current diagnosis for this admission?: Yes Plan: No sign of acute withdrawal. Alert and oriented x2. Interactive and cooperative with physical examination. Patient was initially in the ICU on Precedex drip. PRN p.o. Ativan as needed for anxiety and agitation. (2) C. difficile colitis Is this a current diagnosis for this admission?: Yes Plan: Diarrhea has resolved. Afebrile. WBC WNL. Continue p.o. vancomycin. (3) Acute metabolic encephalopathy Is this a current diagnosis for this admission?: Yes Plan: Improving; alert and oriented to person, place today. Unclear baseline; he does have a prior diagnosis of Warnicke's. He does continue to have periods of intermittent confusion/agitation. Supportive care. (4) Acute on chronic combined systolic and diastolic congestive heart failure Is this a current diagnosis for this admission?: Yes Plan: Compensated. Continue beta-blockers, Entresto, Aldactone, diuretics. Fluid restrict free water to 1500 mL's daily. Daily weights, Strict I&Os Cardiology consulted. Recommendations noted. (5) Acute respiratory failure with hypoxemia Is this a current diagnosis for this admission?: Yes Plan: Wheezing and crackles on physical examination however SPO2 is WNL on 2 L. Continue duo nebs, PRN BiPAP, supplemental oxygen, LABA, LABA, IV steroids. Aggressive pulmonary toileting. We will obtain chest x-ray today. (6) Alcohol dependence Qualifiers: Substance use status: in withdrawal Complication of substance-induced condition: with unspecified complication Qualified Code(s): F10.239 - Alcohol dependence with withdrawal, unspecified Is this a current diagnosis for this admission?: Yes Plan: Continue folic acid and thiamine supplementation. Cessation encouraged. Patient's family members attempting to arrange for the patient to discharge to [facility]. However, I believe the patient will have rehab needs will prevent this; will require short-term stay prior to medical clearance for inpatient rehab. Discharge planning consulted. (7) Cardiogenic shock Is this a current diagnosis for this admission?: Yes Plan: Resolved (8) Cardiomyopathy, alcoholic Is this a current diagnosis for this admission?: Yes Plan: Off milrinone. Cardiology is consulted. (9) Debilitated Is this a current diagnosis for this admission?: Yes Plan: Following 6 day ICU stay. PT/OT/ST consultations are requested. Discharge planning for rehab needs.
[2019-12-09] MEDS: IPRATROPIUM/ALBUTEROL 0.5-2.5 MG/3 ML AMPUL NEB SCH ×2 (14:04→19:42)
[2019-12-09] MEDS: MULTIVITS W-MIN/IRON SOLN 60 ML PO SCH (16:12)
[2019-12-09] MEDS: QUETIAPINE FUMARATE 100 MG TABLET PO SCH (22:00)
[2019-12-09] MEDS: ATORVASTATIN CALCIUM 40 MG TABLET NG SCH (22:00)
[2019-12-10] MEDS: INSULIN REG, HUMAN 100 UNIT/ML 3 ML VIAL (PYX) SUBCUT SCH ×4 (01:00→18:04)
[2019-12-10] MEDS: HYDROCORTISONE SOD SUCCINATE INJ/PF 100 MG/2 ML SDV IV SCH ×3 (01:59→18:06)
[2019-12-10] MEDS: VANCOMYCIN HCL INJ 500 MG VIAL NG SCH ×4 (02:10→22:00)
[2019-12-10] MEDS: HEPARIN SOD (PORCINE) 5,000 UNIT/ML 1 ML VIAL SUBCUT SCH ×3 (05:19→22:19)
[2019-12-10] MEDS: LORAZEPAM 1 MG TABLET PO PRN ×2 (05:25→18:06)
[2019-12-10 07:28] LABS: ABSOLUTE EOSINOPHILS # (AUTO) 0.1 10^3/uL (0.0-0.6); ABSOLUTE LYMPHOCYTES (AUTO) 0.7 10^3/uL (0.5-4.7); ABSOLUTE MONOCYTES (AUTO) 0.8 10^3/uL (0.1-1.4); ABSOLUTE NEUT (AUTO) 5.3 10^3/uL (1.7-8.2); BASOPHILS % (AUTO) 0.1 % (0-2); EOSINOPHILS % (AUTO) 1.1 % (0-6); HEMATOCRIT 35.7 % (37.9-51.0); LYMPHOCYTES % (AUTO) 10.4 % (13-45); MEAN CORPUSCULAR HEMOGLOBIN 36.7 pg (27.0-33.4); MEAN CORPUSCULAR HGB CONC 33.7 g/dL (32.0-36.0); MEAN CORPUSCULAR VOLUME 109 fl (80-97); MONOCYTES % (AUTO) 11.3 % (3-13); PLATELET COUNT 312 10^3/uL (150-450); RED BLOOD COUNT 3.27 10^6/uL (4.35-5.55); RED CELL DISTRIBUTION WIDTH 16.9 % (11.5-14.0); SEGMENTED NEUTROPHILS % (AUTO) 77.1 % (42-78); TOTAL CELLS COUNTED % (AUTO) 100 %; WHITE BLOOD COUNT 6.9 10^3/uL (4.0-10.5)
[2019-12-10 07:50] LABS: ALBUMIN 3.2 g/dL (3.5-5.0); ALKALINE PHOSPHATASE 70 U/L (38-126); ANION GAP 5 (5-19); ASPARTATE AMINO TRANSFERASE 38 U/L (17-59); BILIRUBIN,TOTAL 1.2 mg/dL (0.2-1.3); BLOOD UREA NITROGEN 18 mg/dL (7-20); CALCIUM 9.2 mg/dL (8.4-10.2); CARBON DIOXIDE 39 mmol/L (22-30); CHLORIDE 98 mmol/L (98-107); GLUCOSE 152 mg/dL (75-110); TOTAL PROTEIN 5.9 g/dL (6.3-8.2)
[2019-12-10] MEDS: IPRATROPIUM/ALBUTEROL 0.5-2.5 MG/3 ML AMPUL NEB SCH ×3 (08:22→19:55)
--- NOTE | 2019-12-10 09:13 | RADIOLOGY REPORT (SQ) ---
EXAM DESCRIPTION: KUB/ABDOMEN (SINGLE VIEW) IMAGES COMPLETED DATE/TIME: 12/10/2019 8:59 am REASON FOR STUDY: NG tube placement COMPARISON: 12/06/2019 NUMBER OF VIEWS: Soft TECHNIQUE: Supine radiographic image of the abdomen acquired. LIMITATIONS: Limited field of view. FINDINGS: BOWEL GAS PATTERN: Normal bowel gas pattern. No dilated loops. CALCIFICATIONS: No suspicious calcifications. SOFT TISSUES: No gross mass or suggestion of organomegaly. HARDWARE: Enteric tube terminates subdiaphragmatically with the tip and proximal port seen within the left upper quadrant. Right IJ terminates in the region of the superior vena cava. BONES: No acute fracture. No worrisome bone lesions. OTHER: No other significant finding. IMPRESSION: Enteric tube tip and proximal port projects subdiaphragmatically within the left upper q uadrant. Right IJ catheter terminates in the region of the superior vena cava. TECHNICAL DOCUMENTATION: JOB ID: [id number] 2010 [employer]- All Rights Reserved Reading location - IP/workstation name: [email or web address]
--- NOTE | 2019-12-10 09:31 | ST Inp Modified Barium Swallow ---
Medical Diagnosis - Medical Diagnoses Medical Diagnosis Description & ICD-10 Code(s): acute metabolic encephalopathy, acute respiratory failure with hypoxemia - ICD-10 Tx Diagnosis Coding (1) Acute metabolic encephalopathy ICD-10 Code(s): G93.41 - METABOLIC ENCEPHALOPATHY (2) Acute respiratory failure with hypoxemia ICD-10 Code(s): J96.01 - ACUTE RESPIRATORY FAILURE WITH HYPOXIA (3) Debilitated ICD-10 Code(s): R53.81 - OTHER MALAISE (4) Alcohol withdrawal ICD-10 Code(s): F10.239 - ALCOHOL DEPENDENCE WITH WITHDRAWAL, UNSPECIFIED (5) Aspiration into airway ICD-10 Code(s): T17.908A - UNSP FB IN RESP TRACT, PART UNSP CAUSING OTH INJURY, INIT ST Inpatient MBS - General Date: 12/10/19 Date of Onset: 12/04/19 - History -: Medical - per EMR: patient initially admitted 11/29 with alcohol withdrawal and respiratory distress. Patient was subsequently intubated from 11/30-12/03. Swallow evaluation ordered on 12/05 after the patient failed 2 nursing swallow screens (12/04, 12/05). Patient has been NPO since extubation with NG tube in place. Patient has pulled tube repeatedly. At bedside clinical assessment, patient did not demonstrate any overt signs of aspiration with PO trials, however, patient has such a significant baseline cough that MBSS was recommended to ensure no further airway compromise. Medications: Medications Reviewed Allergies: No known allergies - Subjective Current Nutritional Means: NG Current PO Diet: N/A (NPO) Current Symptoms: Coughing, other - respiratory distress/failure Pain: Patient reports, 0/5 - Objective Assessment: Upright, Left Lateral - Food Trials Food Trials Used: Thin liquids, Pureed, Regular The Patient: Required Assist - Assessment Labial Function: Within Normal Limits Lingual Function: Within Normal Limits Mandibular Function: Impaired - reduced strength, difficulty biting through cracker trial, mildly reduced chew pattern seen. Dentition: Partial Velo-Pharyngeal Function: Unremarkable Laryngeal Function: weak voicing, breathy voice - very weak voice quality, near aphonic - Pharyngeal Stage Initiation of Pharyngeal Stage: Normal Decreased Laryngeal Elevation: No Reduced Velo-Pharyngeal Closure: no Reduced Pressure Generation: No Reduced Tongue Base Retraction: No Pre-Swallowing Pooling in Valleculae: None Pre-Swallowing Pooling in Pyriforms: None Reduced Thyro-Hyiod Approximation: No Reduced Epiglottic Excursion: No Reduced Pharyngeal Peristalsis: No Multiple Swallows With: Cleared w/ Dry Swallow Post Swallow Residuals in Valleculae: Mild Post Swallow Residuals in Pyriforms: None - Impression/Summary Laryngeal Penetration: No Tracheal Aspiration: no Patient Presents With: Oral stage dysphagia - mild Risk of Aspiration: Mild Risk Due To: underlying weakness and respiratory compromise - Recommendations Solid Diet Recommendations: Mechanical Soft, Chopped Meat Liquid Diet Recommendations: Thin Strict Aspitarion Precautions: Yes Dysphagia Therapy with BURRER HAND: No Recommended Techniques: Fully Upright During Meal, Small Bites and Sips Supervision: requires assistance Other Recommendations: Recommend medications be crushed, this may be advanced as tolerated. Recommend aspiration precautions due to underlying respiratory condition. Discussed findings and diet recommendations with physician and nursing. Physician in agreement with diet and requested therapist place order. - Time Total Time: 30 Total Timed Minutes: 30
--- NOTE | 2019-12-10 09:37 | RADIOLOGY REPORT (SQ) ---
EXAM DESCRIPTION: COOKIE SWALLOW IMAGES COMPLETED DATE/TIME: 12/10/2019 9:21 am REASON FOR STUDY: Aspiration alcohol withdrawal, status postextubation with hoarseness and cough COMPARISON: None. TECHNIQUE: Videofluoroscopic swallowing examination was performed in conjunction with speech patholo gy. Videofluoroscopic imaging was obtained and reviewed and these are the findings: RADIATION DOSE: 2 minutes 1 second of fluoroscopy was used. 1 images saved to PACS. LIMITATIONS: None FINDINGS: The patient was brought into the fluoro room and placed upright on a modified barium swall ow chair. The patient was then given multiple consistencies mixed with barium to swallow under live fluoroscopic video guidance. According to the Speech Pathologist there was no penetration or aspirat ion. IMPRESSION: NO EVIDENCE OF PENETRATION OR ASPIRATION. PLEASE SEE SPEECH PATHOLOGIST REPORT FOR OTHER FINDINGS AND RECOMMENDATIONS. COMMENT: Quality ID [id number]: Final reports for procedures using fluoroscopy that document radiation exp osure indices, or exposure time and number of fluorographic images (if radiation exposure indices are not available) TECHNICAL DOCUMENTATION: JOB ID: [id number] 2010 [employer]- All Rights Reserved Reading location - IP/workstation name: [email or web address]
[2019-12-10] MEDS: SACUBITRIL/VALSARTAN 49 MG/51 MG TABLET PO SCH ×2 (10:41→18:06)
[2019-12-10] MEDS: METOPROLOL SUCCINATE 25 MG TAB.SR.24H PO SCH ×2 (10:42→22:58)
[2019-12-10] MEDS: QUETIAPINE FUMARATE 25 MG TABLET PO SCH (10:42)
[2019-12-10] MEDS: ASPIRIN 81 MG TABLET, CHEWABLE NG SCH (10:42)
[2019-12-10] MEDS: VITAMIN B COMPLEX TABLET PO SCH (10:42)
[2019-12-10] MEDS: SPIRONOLACTONE 25 MG TABLET NG SCH (10:42)
[2019-12-10] MEDS: FOLIC ACID 1 MG TABLET NG SCH (10:42)
[2019-12-10] MEDS: CYANOCOBALAMIN (VITAMIN B-12) 1,000 MCG TABLET NG SCH ×2 (10:42→18:06)
[2019-12-10] MEDS: ALLOPURINOL 300 MG TABLET NG SCH (10:42)
[2019-12-10] MEDS: MULTIVITS W-MIN/IRON SOLN 60 ML PO SCH (10:45)
[2019-12-10] MEDS: FLUTICASONE/VILANTEROL 200-25 MCG/DOSE IH SCH (10:46)
[2019-12-10] MEDS: POTASSIUM CHLORIDE 20 MEQ/50 ML RTU IV SCH ×2 (12:10→14:02)
[2019-12-10] MEDS: FUROSEMIDE INJ/PF 20 MG/2 ML SDV IV SCH (12:10)
--- NOTE | 2019-12-10 14:20 | PDOC PROGRESS REPORT ---
Subjective Progress Note for:: 12/10/19 Subjective:: 12/08/2019. No acute events overnight. Mild constipation is in no apparent distress and following commands, he is alert and oriented to self and place, he is answering questions appropriately, denies any fever, chills, nausea, vomiting. Denies any auditory or visual hallucinations. Patient has unfortunately failed all his swallow evaluations and as per speech therapy he may not cooperate with modified barium swallow and he has not cooperated the past, patient will have a modified barium swallow once he is more cooperative with it. 12/09/2019. No acute events overnight. Patient has been more cooperative and calm overnight, bilateral lower extremity restraint has been removed yesterday, patient is communicating and answering question properly, patient wants to go home, noted to be wheezing today, complaining of back pain, denies any fever, chills, chest pain, nausea, vomiting, diarrhea, constipation. 12/10/2019. No acute events overnight. Patient complains of an apparent distress, so patient just came back from undergoing modified barium swallow p atient alert and oriented, stating that he passed the swallow eval. Denies any fever, chills, nausea, vomiting, diarrhea, constipation or any urinary symptoms. Alert and oriented. Answering question properly, cooperative with physical examination. Reason For Visit: ALCOHOL WITHDRAWL, RESPIRATORY DISTRESS Physical Exam Vital Signs: Temp Pulse Resp BP Pulse Ox 97.6 F 96 18 117/82 99 12/10/19 12:20 12/10/19 13:48 12/10/19 13:48 12/10/19 12:20 12/10/19 13:48 Intake & Output 12/09/19 12/10/19 12/11/19 06:59 06:59 06:59 Intake Total 0 0 197 Output Total 1450 1520 200 Balance -1450 -1520 -3 Weight 96.7 kg 91.1 kg General appearance: PRESENT: no acute distress, well-developed, well-nourished Head exam: PRESENT: atraumatic, normocephalic Respiratory exam: PRESENT: crackles, decreased breath sounds, wheezes. ABSENT: rales, rhonchi Cardiovascular exam: PRESENT: RRR. ABSENT: diastolic murmur, rubs, systolic murmur GI/Abdominal exam: PRESENT: normal bowel sounds, soft. ABSENT: distended, guarding, mass, organolmegaly, rebound, tenderness Extremities exam: PRESENT: full ROM. ABSENT: calf tenderness, clubbing, pedal edema Neurological exam: PRESENT: alert, awake, oriented to person, oriented to place, CN II-XII grossly intact. ABSENT: motor sensory deficit Results Laboratory Results: 12/10/19 06:30 12/10/19 06:30 12/10/19 12/10/19 06:30 06:30 WBC 6.9 RBC 3.27 L Hgb 12.0 L Hct 35.7 L MCV 109 H MCH 36.7 H MCHC 33.7 RDW 16.9 H Plt Count 312 Seg Neutrophils % 77.1 Sodium 142.2 Potassium 3.0 L* Chloride 98 Carbon Dioxide 39 H Anion Gap 5 BUN 18 Creatinine 0.59 Est GFR ( Amer) > 60 Glucose 152 H Calcium 9.2 Magnesium 2.0 Total Bilirubin 1.2 AST 38 Alkaline Phosphatase 70 Total Protein 5.9 L Albumin 3.2 L 11/30/19 12/01/19 12/01/19 14:16 03:58 07:00 Creatine Kinase 104 Troponin I 0.815 0.775 NT-Pro-B Natriuret Pep 12/01/19 12/03/19 12/05/19 11:44 21:02 00:47 Creatine Kinase 89 Troponin I NT-Pro-B Natriuret Pep 72933 H 60588 H Impressions: Chest/Abdomen CTA 12/01/19 00:00 IMPRESSION: 1. No aortic aneurysm or dissection. 2. Cannot exclude thrombus in the right lower lobe pulmonary arteries. Evaluation is limited. 3. Bilateral pleural effusions with some associated atelectatic changes. Chest X-Ray 12/09/19 00:00 IMPRESSION: 1. Since the previous examination dated 12/05/2019, interval resolution of the pulmonary vascular congestion. Cardiomegaly again noted. 2. Small left pleural effusion and left lung base atelectasis, unchanged findings. KUB X-Ray 12/10/19 00:00 IMPRESSION: Enteric tube tip and proximal port projects subdiaphragmatically within the left upper quadrant. Right IJ catheter terminates in the region of the superior vena cava. Modified Barium Swallow 12/10/19 00:00 IMPRESSION: NO EVIDENCE OF PENETRATION OR ASPIRATION. PLEASE SEE SPEECH PATHOLOGIST REPORT FOR OTHER FINDINGS AND RECOMMENDATIONS. Assessment and Plan - Diagnosis (1) Agitation Is this a current diagnosis for this admission?: Yes Plan: Much improved since being started on low-dose Seroquel. DC soft restraints. Continue one-to-one. DC NG tube. Continue low-dose Seroquel. Monitor for QT prolongation or dystonias. (2) Alcohol withdrawal delirium, acute, hyperactive Is this a current diagnosis for this admission?: Yes Plan: No sign of acute withdrawal. Alert and oriented x3. Interactive and cooperative with physical examination. Patient was initially in the ICU on Precedex drip. PRN p.o. Ativan as needed for anxiety and agitation. (3) C. difficile colitis Is this a current diagnosis for this admission?: Yes Plan: Diarrhea has resolved. Afebrile. WBC WNL. Continue p.o. vancomycin. (4) Acute metabolic encephalopathy Is this a current diagnosis for this admission?: Yes Plan: Resolved. Alert and oriented x3. Unclear baseline; he does have a prior diagnosis of Warnicke's. He does continue to have periods of intermittent confusion/agitation. Supportive care. (5) Acute on chronic combined systolic and diastolic congestive heart failure Is this a current diagnosis for this admission?: Yes Plan: Compensated. Continue beta-blockers, Entresto, Aldactone, diuretics. Fluid restrict free water to 1500 mL's daily. Daily weights, Strict I&Os Cardiology consulted. Recommendations noted. (6) Acute respiratory failure with hypoxemia Is this a current diagnosis for this admission?: Yes Plan: Wheezing and crackles on physical examination however SPO2 is WNL on 2 L. Continue duo nebs, PRN BiPAP, supplemental oxygen, LABA, LABA, IV steroids. Aggressive pulmonary toileting. We will obtain chest x-ray today. (7) Alcohol dependence Qualifiers: Substance use status: in withdrawal Complication of substance-induced condition: with unspecified complication Qualified Code(s): F10.239 - Alcohol dependence with withdrawal, unspecified Is this a current diagnosis for this admission?: Yes Plan: Continue folic acid and thiamine supplementation. Cessation encouraged. Patient's family members attempting to arrange for the patient to discharge to [facility]. However, I believe the patient will have rehab needs will prevent this; will require short-term stay prior to medical clearance for inpatient rehab. Discharge planning consulted. (8) Cardiogenic shock Is this a current diagnosis for this admission?: Yes Plan: Resolved (9) Cardiomyopathy, alcoholic Is this a current diagnosis for this admission?: Yes Plan: Off milrinone. Cardiology is consulted. (10) Debilitated Is this a current diagnosis for this admission?: Yes Plan: Following 6 day ICU stay. PT/OT/ST consultations are requested. Discharge planning for rehab needs.
--- NOTE | 2019-12-10 16:27 | PDOC PROGRESS REPORT ---
Subjective Progress Note for:: 12/10/19 Subjective:: Patient seen. Resting comfortably. No distress noted. Nurse report occasional agitated behavior Reason For Visit: ALCOHOL WITHDRAWL, RESPIRATORY DISTRESS Physical Exam Vital Signs: Temp Pulse Resp BP Pulse Ox 97.6 F 97 18 117/82 99 12/10/19 12:20 12/10/19 14:00 12/10/19 13:48 12/10/19 12:20 12/10/19 13:48 Intake & Output 12/09/19 12/10/19 12/11/19 06:59 06:59 06:59 Intake Total 0 0 197 Output Total 1450 1520 200 Balance -1450 -1520 -3 Weight 96.7 kg 91.1 kg General appearance: PRESENT: no acute distress, well-developed, well-nourished Eye exam: PRESENT: EOMI Mouth exam: PRESENT: moist Respiratory exam: PRESENT: symmetrical, unlabored Cardiovascular exam: PRESENT: +S1, +S2 Rectal exam: PRESENT: deferred Neurological exam: PRESENT: other - Seems a bit confused and withdrawn. Skin exam: PRESENT: dry, intact, normal color Results Laboratory Results: 12/10/19 06:30 12/10/19 06:30 12/10/19 12/10/19 06:30 06:30 WBC 6.9 RBC 3.27 L Hgb 12.0 L Hct 35.7 L MCV 109 H MCH 36.7 H MCHC 33.7 RDW 16.9 H Plt Count 312 Seg Neutrophils % 77.1 Sodium 142.2 Potassium 3.0 L* Chloride 98 Carbon Dioxide 39 H Anion Gap 5 BUN 18 Creatinine 0.59 Est GFR ( Amer) > 60 Glucose 152 H Calcium 9.2 Magnesium 2.0 Total Bilirubin 1.2 AST 38 Alkaline Phosphatase 70 Total Protein 5.9 L Albumin 3.2 L 11/30/19 12/01/19 12/01/19 14:16 03:58 07:00 Creatine Kinase 104 Troponin I 0.815 0.775 NT-Pro-B Natriuret Pep 12/01/19 12/03/19 12/05/19 11:44 21:02 00:47 Creatine Kinase 89 Troponin I NT-Pro-B Natriuret Pep 90911 H 73677 H Impressions: Chest/Abdomen CTA 12/01/19 00:00 IMPRESSION: 1. No aortic aneurysm or dissection. 2. Cannot exclude thrombus in the right lower lobe pulmonary arteries. Evaluation is limited. 3. Bilateral pleural effusions with some associated atelectatic changes. Chest X-Ray 12/09/19 00:00 IMPRESSION: 1. Since the previous examination dated 12/05/2019, interval resolution of the pulmonary vascular congestion. Cardiomegaly again noted. 2. Small left pleural effusion and left lung base atelectasis, unchanged findings. KUB X-Ray 12/10/19 00:00 IMPRESSION: Enteric tube tip and proximal port projects subdiaphragmatically within the left upper quadrant. Right IJ catheter terminates in the region of the superior vena cava. Modified Barium Swallow 12/10/19 00:00 IMPRESSION: NO EVIDENCE OF PENETRATION OR ASPIRATION. PLEASE SEE SPEECH PATHOLOGIST REPORT FOR OTHER FINDINGS AND RECOMMENDATIONS. Assessment & Plan - Diagnosis (1) Alcohol withdrawal seizure with delirium Is this a current diagnosis for this admission?: Yes Plan: Continue to watch for delirium. Supportive care. Watch electrolytes specifically magnesium and potassium levels. (2) Cardiogenic shock Is this a current diagnosis for this admission?: Yes Plan: Improved. Off pressors. (3) Cardiomyopathy, alcoholic Is this a current diagnosis for this admission?: Yes Plan: Dilated cardiomyopathy likely secondary to heavy alcohol abuse. Supportive care Continue sacubitril/valsartan at current dose Continue metoprolol Continue to watch fluid status
[2019-12-10] MEDS: ATORVASTATIN CALCIUM 40 MG TABLET NG SCH (22:20)
[2019-12-10] MEDS: QUETIAPINE FUMARATE 100 MG TABLET PO SCH (22:20)
[2019-12-11] MEDS: VANCOMYCIN HCL INJ 500 MG VIAL NG SCH ×3 (02:03→15:01)
[2019-12-11] MEDS: HEPARIN SOD (PORCINE) 5,000 UNIT/ML 1 ML VIAL SUBCUT SCH ×2 (05:32→15:00)
[2019-12-11 05:48] LABS: HEMATOCRIT 33.8 % (37.9-51.0); HEMOGLOBIN 11.5 g/dL (13.5-17.0); MEAN CORPUSCULAR HEMOGLOBIN 37.2 pg (27.0-33.4); MEAN CORPUSCULAR HGB CONC 34.1 g/dL (32.0-36.0); MEAN CORPUSCULAR VOLUME 109 fl (80-97); PLATELET COUNT 300 10^3/uL (150-450); RED CELL DISTRIBUTION WIDTH 16.5 % (11.5-14.0); WHITE BLOOD COUNT 6.8 10^3/uL (4.0-10.5)
[2019-12-11 06:10] LABS: ALKALINE PHOSPHATASE 61 U/L (38-126); ASPARTATE AMINO TRANSFERASE 36 U/L (17-59); BILIRUBIN,TOTAL 1.1 mg/dL (0.2-1.3); BLOOD UREA NITROGEN 13 mg/dL (7-20); CALCIUM 8.8 mg/dL (8.4-10.2); CARBON DIOXIDE 39 mmol/L (22-30); CHLORIDE 98 mmol/L (98-107); GLUCOSE 92 mg/dL (75-110); TOTAL PROTEIN 5.6 g/dL (6.3-8.2)
[2019-12-11 06:16] LABS: ANION GAP 1 (5-19)
[2019-12-11 06:24] LABS: POTASSIUM 2.8 mmol/L (3.6-5.0)
[2019-12-11] MEDS ORDERED: POTASSIUM CHLORIDE 20 MEQ/50 ML RTU IV SCH (07:00)
[2019-12-11] MEDS: IPRATROPIUM/ALBUTEROL 0.5-2.5 MG/3 ML AMPUL NEB SCH ×2 (08:01→13:48)
[2019-12-11] MEDS ORDERED: POTASSIUM CHLORIDE 10 MEQ TABLET.ER PO ONE ×2 (08:30→12:00)
[2019-12-11] MEDS ORDERED: MAGNESIUM OXIDE 400 MG TABLET PO SCH (10:00)
[2019-12-11] MEDS: SPIRONOLACTONE 25 MG TABLET NG SCH (10:36)
[2019-12-11] MEDS: ASPIRIN 81 MG TABLET, CHEWABLE NG SCH (10:36)
[2019-12-11] MEDS: POTASSIUM CHLORIDE 20 MEQ PACKET PO SCH ×3 (10:36→16:58)
[2019-12-11] MEDS: FOLIC ACID 1 MG TABLET NG SCH (10:36)
[2019-12-11] MEDS: FUROSEMIDE INJ/PF 20 MG/2 ML SDV IV SCH (10:36)
[2019-12-11] MEDS: VITAMIN B COMPLEX TABLET PO SCH (10:37)
[2019-12-11] MEDS: CYANOCOBALAMIN (VITAMIN B-12) 1,000 MCG TABLET NG SCH ×2 (10:37→17:00)
[2019-12-11] MEDS: METOPROLOL SUCCINATE 25 MG TAB.SR.24H PO SCH (10:37)
[2019-12-11] MEDS: SACUBITRIL/VALSARTAN 49 MG/51 MG TABLET PO SCH ×2 (10:38→17:00)
[2019-12-11] MEDS: QUETIAPINE FUMARATE 25 MG TABLET PO SCH (10:38)
[2019-12-11] MEDS: FLUTICASONE/VILANTEROL 200-25 MCG/DOSE IH SCH (10:38)
[2019-12-11] MEDS: MULTIVITS W-MIN/IRON SOLN 60 ML PO SCH (10:38)
[2019-12-11] MEDS: ALLOPURINOL 300 MG TABLET NG SCH (10:57)
--- NOTE | 2019-12-11 14:46 | PDOC TRANSFER SUMMARY ---
Impression - Admit/DC Date/PCP Admission Date/Primary Care Provider: 11/30/19 20:53 LV PINEDA MD Discharge Date: 12/11/19 - Discharge Diagnosis (1) Agitation Is this a current diagnosis for this admission?: Yes (2) Alcohol withdrawal delirium, acute, hyperactive Is this a current diagnosis for this admission?: Yes (3) C. difficile colitis Is this a current diagnosis for this admission?: Yes (4) Acute metabolic encephalopathy Is this a current diagnosis for this admission?: Yes (5) Acute on chronic combined systolic and diastolic congestive heart failure Is this a current diagnosis for this admission?: Yes (6) Acute respiratory failure with hypoxemia Is this a current diagnosis for this admission?: Yes (7) Alcohol dependence Is this a current diagnosis for this admission?: Yes (8) Cardiogenic shock Is this a current diagnosis for this admission?: Yes (9) Cardiomyopathy, alcoholic Is this a current diagnosis for this admission?: Yes (10) Debilitated Is this a current diagnosis for this admission?: Yes - Additional Information Resuscitation Status: Full Code Discharge Activity: Activity As Tolerated, Balance Activity w/Rest, Weigh Daily Referrals: LV PINEDA MD [Primary Care Provider] - 12/23/19 10:45 am DARCY VALDEZ MD [ACTIVE PROVISIONAL STAFF] - Prescriptions: Sacubitril/Valsartan [Entresto 49 mg/51 mg Tablet] 1 tab PO BID 30 Days #60 tablet Quetiapine Fumarate [Seroquel 100 mg Tablet] 50 mg PO QHS 30 Days #15 tablet Quetiapine Fumarate [Seroquel 25 mg Tablet] 25 mg PO QAM 30 Days #30 tablet Metoprolol Succinate [Toprol Xl 25 mg Tab.sr] 25 mg PO Q12 30 Days #60 tab.sr.24h Vancomycin HCl 125 mg PO Q6 6 Days #24 capsule Home Medications: Albuterol Sulfate [Proair HFA Inhalation Aerosol 8.5 gm MDI] 2 puff IH Q6HP PRN 05/23/18 Atorvastatin Calcium [Lipitor 40 mg Tablet] 40 mg PO QHS 05/23/18 Furosemide [Lasix 40 mg Tablet] 40 mg PO QAM 05/23/18 Allopurinol [Zyloprim 300 mg Tablet] 300 mg PO DAILY 07/03/19 Aspirin [Ecotrin 81 mg EC Tablet] 81 mg PO DAILY 07/03/19 Cyanocobalamin (Vitamin B-12) [Vitamin B-12] 1,000 mcg PO BID 07/03/19 Ezetimibe 10 mg PO DAILY 07/03/19 Spironolactone [Aldactone 25 mg Tablet] 25 mg PO DAILY 07/03/19 Thiamine HCl [Thiamine 100 mg Tablet] 100 mg PO DAILY tablet 07/21/19 Budesonide/Formoterol Fumarate [Symbicort HFA 160-4.5 mcg Inhaler 6 gm] 2 puff IH Q12 11/30/19 Metoprolol Succinate [Toprol Xl 25 mg Tab.sr] 25 mg PO Q12 30 Days #60 tab.sr.24h 12/11/19 Quetiapine Fumarate [Seroquel 100 mg Tablet] 50 mg PO QHS 30 Days #15 tablet 12/11/19 Quetiapine Fumarate [Seroquel 25 mg Tablet] 25 mg PO QAM 30 Days #30 tablet 12/11/19 Sacubitril/Valsartan [Entresto 49 mg/51 mg Tablet] 1 tab PO BID 30 Days #60 tablet 12/11/19 Vancomycin HCl 125 mg PO Q6 6 Days #24 capsule 12/11/19 History of Present Illiness History of Present Illness: As per admitting physician notes ROBIN REHMAN is a 69 year old male with history of CHF, HTN and chronic EtOH abuse. Patient was recently admitted in July of this year for alcohol withdrawal seizures and required intubation for respiratory failure. By patient's account, he stopped drinking at 1 AM this morning and had 2 episodes of seizures prior to presenting in the emergency department. Patient also complains of nausea and a dull headache. Since being seen in the emergency department, he has required multiple doses of Ativan and has been confused with a reported CIWA score of 23. Upon my evaluation in the emergency room, I found Mr. Rehman to be mildly confused however his visual, auditory and tactile disturbances were minimal. He was calm but had significant tremors. I did find him to be short of breath with bilateral rhonchi worse on the right. We have decided to admit him to the intensive care unit for observation given his history of respiratory failure in similar settings and recent seizure activity in the setting of alcohol withdrawal. Given the patient's standing history of hypertension, he is also relatively hypotensive and mildly tachycardic. Hospital Course Hospital Course: (1) Agitation Much improved since being started on low-dose Seroquel. Off of soft restraints. Continue one-to-one. Off of NG tube. Continue low-dose short-term Seroquel. Monitor for QT prolongation or dystonias. Seroquel can be DC'd once patient is not agitated anymore. Of note patient had NG tube placed in ICU and post extubation he was having dysphagia and aspiration. Patient continued his feeds through NG tube and speech therapy was consulted. Initially patient failed swallow eval, but after passing his third swallow eval under modified barium swallow NG tube was removed. Patient does not have any aspiration problem and is p.o. tolerant at the moment. (2) Alcohol withdrawal delirium, acute, hyperactive No sign of acute withdrawal. Alert and oriented x3. Interactive and cooperative with physical examination. Patient was initially in the ICU on Precedex drip. PRN p.o. Ativan as needed for anxiety and agitation. (3) C. difficile colitis Diarrhea has resolved. Afebrile. WBC WNL. Day 09/24 p.o. vancomycin. Continue vancomycin p.o. 125 mg every 6 for another 6 days. (4) Acute metabolic encephalopathy Resolved. Alert and oriented x3. Unclear baseline; he does have a prior diagnosis of Warnicke's. He does continue to have periods of intermittent confusion/agitation. Supportive care. Low-dose short-term Seroquel. (5) Acute on chronic combined systolic and diastolic congestive heart failure Compensated. Continue beta-blockers, Entresto, Aldactone, diuretics. Fluid restrict free water to 1500 mL's daily. Daily weights, Strict I&Os Was seen here in the hospital by Dr. Darcy Valdez and Brendan Ramirez. Patient is to follow-up with either Dr. Darcy Valdez or WILMER Ramirez as per outpatient. (6) Acute respiratory failure with hypoxemia Much improved. SPO2 WNL on 2 to 3 L. Mild expiratory wheezing. Continue duo nebs, PRN BiPAP, supplemental oxygen, LABA, LABA. Deceived IV steroids while inpatient. Aggressive pulmonary toileting. (7) Alcohol dependence Continue folic acid and thiamine supplementation. Cessation encouraged. Patient's family members attempting to arrange for the patient to discharge to [facility]. (8) Cardiogenic shock Initially taken to ICU and intubated. Plan as per #5. Resolved (9) Cardiomyopathy, alcoholic Initially placed on milrinone. Off milrinone. Cardiology is consulted. Plan is #5. (10) Debilitated Following 6 day ICU stay. PT OT ST while inpatient. Continue PT OT. Of note patient had NG tube placed in ICU and post extubation he was having dysphagia and aspiration. Patient continued his feeds through NG tube and speech therapy was consulted. Initially patient failed swallow eval, but after passing his third swallow eval under modified barium swallow NG tube was removed. Patient does not have any aspiration problem and is p.o. tolerant at the moment. Physical Exam Vital Signs: Temp Pulse Resp BP Pulse Ox 98.4 F 88 14 120/76 96 12/11/19 11:17 12/11/19 13:50 12/11/19 13:50 12/11/19 11:17 12/11/19 13:50 Intake & Output 12/10/19 12/11/19 12/12/19 06:59 06:59 06:59 Intake Total 0 397 Output Total 1520 1750 900 Balance -1520 -1353 -900 Weight 91.1 kg 93.7 kg General appearance: PRESENT: obese Head exam: PRESENT: atraumatic, normocephalic Neck exam: ABSENT: carotid bruit, JVD, lymphadenopathy, thyromegaly Respiratory exam: PRESENT: clear to auscultation nathaniel, prolonged expiratory phas. ABSENT: rales, rhonchi Cardiovascular exam: PRESENT: RRR. ABSENT: diastolic murmur, rubs, systolic murmur GI/Abdominal exam: PRESENT: normal bowel sounds, soft. ABSENT: distended, guarding, mass, organolmegaly, rebound, tenderness Neurological exam: PRESENT: alert, awake, oriented to person, oriented to place, oriented to time, CN II-XII grossly intact. ABSENT: motor sensory deficit Skin exam: PRESENT: dry, intact, warm. ABSENT: cyanosis, rash Results Laboratory Results: WBC 6.8 10^3/uL (4.0-10.5) 12/11/19 05:00 RBC 3.10 10^6/uL (4.35-5.55) L 12/11/19 05:00 Hgb 11.5 g/dL (13.5-17.0) L 12/11/19 05:00 Hct 33.8 % (37.9-51.0) L 12/11/19 05:00 MCV 109 fl (80-97) H 12/11/19 05:00 MCH 37.2 pg (27.0-33.4) H 12/11/19 05:00 MCHC 34.1 g/dL (32.0-36.0) 12/11/19 05:00 RDW 16.5 % (11.5-14.0) H 12/11/19 05:00 Plt Count 300 10^3/uL (150-450) 12/11/19 05:00 Lymph % (Auto) 10.4 % (13-45) L 12/10/19 06:30 [place] % (Auto) 11.3 % (3-13) 12/10/19 06:30 Eos % (Auto) 1.1 % (0-6) 12/10/19 06:30 Baso % (Auto) 0.1 % (0-2) 12/10/19 06:30 Absolute Neuts (auto) 5.3 10^3/uL (1.7-8.2) 12/10/19 06:30 Absolute Lymphs (auto) 0.7 10^3/uL (0.5-4.7) 12/10/19 06:30 Absolute Monos (auto) 0.8 10^3/uL (0.1-1.4) 12/10/19 06:30 Absolute Eos (auto) 0.1 10^3/uL (0.0-0.6) 12/10/19 06:30 Absolute Basos (auto) 0.0 10^3/uL (0.0-0.2) 12/10/19 06:30 Total Counted 100 12/05/19 00:47 Seg Neutrophils % 77.1 % (42-78) 12/10/19 06:30 Seg Neuts % (Manual) 86 % (42-78) H 12/05/19 00:47 Band Neutrophils % 4 % (3-5) 12/05/19 00:47 Lymphocytes % (Manual) 3 % (13-45) L 12/05/19 00:47 Monocytes % (Manual) 7 % (3-13) 12/05/19 00:47 Eosinophils % (Manual) 0 % (0-6) 12/05/19 00:47 Basophils % (Manual) 0 % (0-2) 12/05/19 00:47 Abs Neuts (Manual) 5.9 10^3/uL (1.7-8.2) 12/05/19 00:47 Abs Lymphs (Manual) 0.2 10^3/uL (0.5-4.7) L 12/05/19 00:47 Abs Monocytes (Manual) 0.5 10^3/uL (0.1-1.4) 12/05/19 00:47 Absolute Eos (Manual) 0.0 10^3/uL (0.0-0.6) 12/05/19 00:47 Abs Basophils (Manual) 0.0 10^3/uL (0.0-0.2) 12/05/19 00:47 Platelet Comment ADEQUATE 12/05/19 00:47 Polychromasia 1+ 12/05/19 00:47 Anisocytosis 1+ 12/05/19 00:47 Macrocytosis 1+ 12/05/19 00:47 Ovalocytes SLIGHT 12/05/19 00:47 PT 14.1 SEC (11.4-15.4) 12/07/19 07:45 INR 1.08 12/07/19 07:45 APTT 34.7 SEC (23.5-35.8) 12/02/19 04:08 Carbonic Acid 1.42 mmol/L (1.05-1.35) H 12/05/19 01:35 HCO3/H2CO3 Ratio 18:1 12/05/19 01:35 ABG pH 7.36 (7.35-7.45) 12/05/19 01:35 ABG pCO2 47.2 mmHg (35-45) H 12/05/19 01:35 ABG pO2 33.5 mmHg (80-100) L* 12/05/19 01:35 ABG HCO3 26.0 mmol/L (20-24) H 12/05/19 01:35 ABG Total CO2 27.5 mmol/L (23-27) H 12/05/19 01:35 ABG O2 Saturation 61.4 % (94-98) L 12/05/19 01:35 ABG Base Excess 0.2 mmol/L 12/05/19 01:35 FiO2 30% 12/05/19 01:35 Sodium 138.2 mmol/L (137-145) 12/11/19 05:00 Potassium 2.8 mmol/L (3.6-5.0) L* 12/11/19 05:00 Chloride 98 mmol/L (98-107) 12/11/19 05:00 Carbon Dioxide 39 mmol/L (22-30) H 12/11/19 05:00 Anion Gap 1 (5-19) L 12/11/19 05:00 BUN 13 mg/dL (7-20) 12/11/19 05:00 Creatinine 0.55 mg/dL (0.52-1.25) 12/11/19 05:00 Est GFR ( Amer) > 60 (>60) 12/11/19 05:00 Est GFR (Non-Af Amer) Cancelled 11/30/19 14:16 Est GFR (MDRD) Non-Af > 60 (>60) 12/11/19 05:00 Glucose 92 mg/dL (75-110) 12/11/19 05:00 POC Glucose 193 mg/dL (70-110) H 12/10/19 05:16 Lactic Acid 1.3 mmol/L (0.7-2.1) 12/01/19 12:56 Calcium 8.8 mg/dL (8.4-10.2) 12/11/19 05:00 Phosphorus 3.8 mg/dL (2.5-4.5) 12/08/19 05:40 Magnesium 2.0 mg/dL (1.6-2.3) 12/10/19 06:30 Total Bilirubin 1.1 mg/dL (0.2-1.3) 12/11/19 05:00 Direct Bilirubin 0.0 mg/dL (0.0-0.4) 12/11/19 05:00 Neonat Total Bilirubin Not Reportable 12/11/19 05:00 Neonat Direct Bilirubin Not Reportable 12/11/19 05:00 Neonat Indirect Bili Not Reportable 12/11/19 05:00 AST 36 U/L (17-59) 12/11/19 05:00 ALT 36 U/L (<50) 12/11/19 05:00 Alkaline Phosphatase 61 U/L (38-126) 12/11/19 05:00 Ammonia < 8.7 umol/L (9-33) L 12/02/19 04:08 Creatine Kinase 89 U/L (55-170) 12/01/19 11:44 Troponin I 0.775 ng/mL 12/01/19 07:00 NT-Pro-B Natriuret Pep 06740 pg/mL (<125) H 12/05/19 00:47 Total Protein 5.6 g/dL (6.3-8.2) L 12/11/19 05:00 Albumin 3.0 g/dL (3.5-5.0) L 12/11/19 05:00 Triglycerides 79 mg/dL (<150) 12/01/19 07:00 Lipase 178.8 U/L (23-300) 11/30/19 14:16 EGFR Cancelled 11/30/19 14:16 TSH 4.28 uIU/mL (0.47-4.68) 12/01/19 12:56 Free T4 1.11 ng/dL (0.78-2.19) 12/01/19 12:56 Free T3 pg/mL 5.36 pg/mL (2.77-5.27) H 12/01/19 12:56 Random Cortisol 14.20 ug/dL (None Established) 12/01/19 12:56 Urine Color JORY 11/30/19 04:28 Urine Appearance SLIGHTLY-CLOUDY 11/30/19 04:28 Urine pH 5.0 (5.0-9.0) 11/30/19 04:28 Ur Specific [place] 1.027 11/30/19 04:28 Urine Protein 100 mg/dL (NEGATIVE) H 11/30/19 04:28 Urine Glucose (UA) 150 mg/dL (NEGATIVE) H 11/30/19 04:28 Urine Ketones TRACE mg/dL (NEGATIVE) H 11/30/19 04:28 Urine Blood NEGATIVE (NEGATIVE) 11/30/19 04:28 Urine Nitrite NEGATIVE (NEGATIVE) 11/30/19 04:28 Urine Bilirubin NEGATIVE (NEGATIVE) 11/30/19 04:28 Urine Urobilinogen 2.0 mg/dL (<2.0) H 11/30/19 04:28 Ur Leukocyte Esterase NEGATIVE (NEGATIVE) 11/30/19 04:28 Urine WBC (Auto) 1 /HPF 11/30/19 04:28 Urine RBC (Auto) 1 /HPF 11/30/19 04:28 U Hyaline Cast (Auto) 5 /LPF 11/30/19 04:28 Squamous Epi Cells Auto <1 /HPF 11/30/19 04:28 Urine Mucus (Auto) MANY /LPF 11/30/19 04:28 Urine Ascorbic Acid NEGATIVE (NEGATIVE) 11/30/19 04:28 Stl C. Difficile GDH Ag POSITIVE (NEGATIVE) 12/06/19 07:40 Stl C.difficile Tox A&B POSITIVE (NEGATIVE) 12/06/19 07:40 Salicylates < 1.0 mg/dL (2.0-20.0) L 11/30/19 14:16 Urine Opiates Screen NEGATIVE 11/30/19 04:28 Urine Methadone Screen NEGATIVE 11/30/19 04:28 Acetaminophen < 10 ug/mL (10-30) L 11/30/19 14:16 Ur Barbiturates Screen NEGATIVE 11/30/19 04:28 Ur Phencyclidine Scrn NEGATIVE 11/30/19 04:28 Ur Amphetamines Screen NEGATIVE 11/30/19 04:28 U Benzodiazepines Scrn NEGATIVE 11/30/19 04:28 Urine Cocaine Screen NEGATIVE 11/30/19 04:28 U Marijuana (THC) Screen NEGATIVE 11/30/19 04:28 Serum Alcohol < 10 mg/dL (NONE DETECTED) 11/30/19 14:16 SARS-CoV-2 (PCR) NEGATIVE (NEGATIVE) 12/11/19 11:38 Slides for Path Review PATHOLOGIST REVIEWED 12/05/19 00:47 12/01/19 12/01/19 12/03/19 03:58 07:00 21:02 Troponin I 0.815 0.775 NT-Pro-B Natriuret Pep 14846 H 12/05/19 00:47 Troponin I NT-Pro-B Natriuret Pep 70205 H Impressions: Chest X-Ray 11/30/19 15:37 IMPRESSION: 1. NO ACUTE RADIOGRAPHIC FINDING IN THE CHEST. Chest X-Ray 12/01/19 00:00 IMPRESSION: NO ACUTE RADIOGRAPHIC FINDING IN THE CHEST. Chest X-Ray 12/01/19 00:00 IMPRESSION: Grossly stable pulmonary examination. Endotracheal tube terminates approximately 9 cm cranial to the isaac; consider repositioning. Enteric tube and right IJ without evidence of complication. Chest X-Ray 12/01/19 00:00 IMPRESSION: Endotracheal tube tip is located within the trachea, approximately 4.8 cm above the isaac. Persistent patchy bibasilar airspace disease, somewhat improved about the right lung base. copyright 2010 [employer]- All Rights Reserved Chest/Abdomen CTA 12/01/19 00:00 IMPRESSION: 1. No aortic aneurysm or dissection. 2. Cannot exclude thrombus in the right lower lobe pulmonary arteries. Evaluation is limited. 3. Bilateral pleural effusions with some associated atelectatic changes. Chest X-Ray 12/02/19 06:00 IMPRESSION: Tubes and lines in good positioning. No focal infiltrates Chest X-Ray 12/03/19 00:00 IMPRESSION: NO CHANGE IN APPEARANCE OF THE CHEST. KUB X-Ray 12/03/19 00:00 IMPRESSION: TIP OF THE NASOGASTRIC TUBE IS IN THE STOMACH. NO RADIOGRAPHIC EVIDENCE FOR ACUTE ABDOMINAL DISEASE. Chest X-Ray 12/05/19 00:00 IMPRESSION: Progressive bibasilar pleural and parenchymal disease. This includes both an airspace and interstitial component. Progressive small effusions. KUB X-Ray 12/05/19 00:00 IMPRESSION: Tip of enteric tube projects over the stomach with the side port projecting just below the level of the diaphragm. KUB X-Ray 12/05/19 00:00 IMPRESSION: Enteric tube placement as above KUB X-Ray 12/06/19 00:00 IMPRESSION: Nasogastric tube tip in the body of the stomach. Chest X-Ray 12/09/19 00:00 IMPRESSION: 1. Since the previous examination dated 12/05/2019, interval resolution of the pulmonary vascular congestion. Cardiomegaly again noted. 2. Small left pleural effusion and left lung base atelectasis, unchanged findings. KUB X-Ray 12/10/19 00:00 IMPRESSION: Enteric tube tip and proximal port projects subdiaphragmatically within the left upper quadrant. Right IJ catheter terminates in the region of the superior vena cava. Modified Barium Swallow 12/10/19 00:00 IMPRESSION: NO EVIDENCE OF PENETRATION OR ASPIRATION. PLEASE SEE SPEECH PATHOLOGIST REPORT FOR OTHER FINDINGS AND RECOMMENDATIONS. Stroke Is this a Stroke Patient?: No Acute Heart Failure - Is this a Heart Failure Patient?: No LVEF: LVEF Less Than or Equal to 35% Anticoagulant Therapy: Yes
[2019-12-11 15:11] LABS: BLOOD UREA NITROGEN 12 mg/dL (7-20); CALCIUM 9.3 mg/dL (8.4-10.2); CARBON DIOXIDE 37 mmol/L (22-30); CHLORIDE 96 mmol/L (98-107); GLUCOSE 124 mg/dL (75-110)
[2019-12-11 15:18] LABS: ANION GAP 4 (5-19); POTASSIUM 3.8 mmol/L (3.6-5.0)
[2019-12-11 17:36] VITALS: BP 101/63
== END 2019-12-11 19:42 | DRG 896 ==
LOC: ER 13:57 → EH 20:53 → ICU 22:18 → 5 12-06 19:00
PROVIDERS: ADMIT Internal Medicine Critical Care Medicine; ATTEND Internal Medicine
PROC: HZ2ZZZZ Detoxification Services for Substance Abuse Treatment (ICD-10-PCS; principal; 2019-11-30)
PROC: 02HV33Z Insertion of Infusion Device into Superior Vena Cava, Percutaneous Approach (ICD-10-PCS; 2019-12-01)
PROC: 5A1945Z Respiratory Ventilation, 24-96 Consecutive Hours (ICD-10-PCS; 2019-12-01)
PROC: 0BH17EZ Insertion of Endotracheal Airway into Trachea, Via Natural or Artificial Opening (ICD-10-PCS; 2019-12-01)
PROC: 03HY32Z Insertion of Monitoring Device into Upper Artery, Percutaneous Approach (ICD-10-PCS; 2019-12-01)
PROC: B24BZZ4 Ultrasonography of Heart with Aorta, Transesophageal (ICD-10-PCS; 2019-12-01)
PROC: 5A09557 Assistance with Respiratory Ventilation, Greater than 96 Consecutive Hours, Continuous Positive Airway Pressure (ICD-10-PCS; 2019-12-05)
DX: F10.231 Alcohol dependence with withdrawal delirium (principal); G93.41 Metabolic encephalopathy; I50.43 Acute on chronic combined systolic (congestive) and diastolic (congestive) heart failure; J96.01 Acute respiratory failure with hypoxia; R57.0 Cardiogenic shock; A04.72 Enterocolitis due to Clostridium difficile, not specified as recurrent; I42.6 Alcoholic cardiomyopathy; E27.40 Unspecified adrenocortical insufficiency; I11.0 Hypertensive heart disease with heart failure; G47.33 Obstructive sleep apnea (adult) (pediatric); I49.3 Ventricular premature depolarization; F17.210 Nicotine dependence, cigarettes, uncomplicated; I25.5 Ischemic cardiomyopathy; Z20.828 Contact with and (suspected) exposure to other viral communicable diseases; I45.10 Unspecified right bundle-branch block; F10.20 Alcohol dependence, uncomplicated; E83.42 Hypomagnesemia; E87.6 Hypokalemia; E66.01 Morbid (severe) obesity due to excess calories; R13.11 Dysphagia, oral phase; I25.10 Atherosclerotic heart disease of native coronary artery without angina pectoris; I95.2 Hypotension due to drugs; R27.8 Other lack of coordination; Z79.899 Other long term (current) drug therapy; Z79.82 Long term (current) use of aspirin; Z79.51 Long term (current) use of inhaled steroids; Z95.5 Presence of coronary angioplasty implant and graft; Z78.1 Physical restraint status
CPT/HCPCS: 31500; 36415; 36556; 36620; 71045; 71275; 74018; 74230; 80048; 80053; 80069; 80307; 81001; 82140; 82533; 82550; 82803; 82962; 83605; 83690; 83735; 83880; 84100; 84439; 84443; 84478; 84481; 84484; 85025; 85027; 85610; 85730; 87040; 87070; 87077; 87086; 87205; 87324; 87449; 87635; 93005; 93010; 93306; 94002; 94003; 94660; 96374; 96376; 99221; 99291; 99292; C9803; J1160; J1644; J1720; J1815; J1940; J2060; J2250; J2260; J2543; J2704; J3010; J3370; J3411; J3475; J3480; J3490; J7030; J7050; J7060; J7120; J7620; P9047; S0028

== ENCOUNTER 2020-03-09 15:04 | Emergency (ER) | payer MEDICARE, OTHER ==
--- NOTE | 2020-03-09 16:11 | ER Document Report ---
ED General - General Chief Complaint: Fall Stated Complaint: FALL/HEAD INJURY Time Seen by Provider: 03/09/20 15:22 Primary Care Provider: GOOD SINGER MD [Primary Care Provider] - Follow up as needed Mode of Arrival: Ambulatory Information source: Patient Notes: Patient is a 70-year-old male coming in today after a fall down 4 steps at home. He has multiple abrasions noted to his body. Most notably he has right occipital scalp laceration. Patient admits to drinking today and he admits to falling frequently as a result of his drinking. On today's occasion he fell and hit his head. Did not lose consciousness. Did not start vomiting. Stood up immediately right away and was not having any other symptoms. His last tetanus shot was 3 years ago. Multiple areas of abrasions but does not seem to be suffering from any bony pain in any of these areas. He takes aspirin but does not take any dedicated other anticoagulant medications. TRAVEL OUTSIDE OF THE [place] IN LAST 30 DAYS: No - Related Data Allergies/Adverse Reactions: No Known Allergies Allergy (Verified 12/01/19 11:11) Past Medical History - General Information source: Patient - Social History Smoking Status: Current Every Day Smoker Chew tobacco use (# tins/day): No Frequency of alcohol use: Heavy Drug Abuse: None Family History: Reviewed & Not Pertinent - Past Medical History Cardiac Medical History: Reports: Hx Congestive Heart Failure, Hx Hypertension Pulmonary Medical History: Reports: Hx Pneumonia, Hx Intubation Renal/ Medical History: Denies: Hx Peritoneal Dialysis Psychiatric Medical History: Denies: Hx Depression Past Surgical History: Reports: Other - Remote history of tracheostomy tube placement at age 11. - Immunizations Hx Diphtheria, Pertussis, Tetanus Vaccination: No Review of Systems - Review of Systems Notes: Constitutional: No fevers. No chills. EENT: No eye redness. No eye pain. No ear pain. No sore throat. Positive head laceration Cardiovascular: No chest pain. No palpitations. Respiratory: No cough. No shortness of breath. No respiratory distress. Gastrointestinal: No abdominal pain. No nausea, vomiting, or diarrhea. Genitourinary: Atraumatic. No lesions. No pain. No discharge. Musculoskeletal: Atraumatic. No swelling. No deformities. Skin: No rash or lesions. Multiple skin abrasions Lymphatic: No swollen lymph nodes. Neurologic: No headache. No syncope. Psychiatric: No suicidal or homicidal ideation. Physical Exam - Vital signs Vitals: Temp 98.4 F 03/09/20 15:30 - Notes Notes: General: Well-developed, well-nourished. In no acute distress. Non-toxic appearing. Cardiac: Well-perfused. Regular rate and rhythm. No murmurs, rubs, or gallops. Pulmonary: No respiratory distress. No cyanosis. Bilateral lung robbins are clear to auscultation. Abdominal: Non-distended. Non-rigid. Bowels sounds are present in all four quadrants. No guarding or rebound. HEENT: 2 cm right parieto-occipital laceration. No active bleeding. Conjunctivae not reddened. No tearing. PERRL. EOMI. Orbits atraumatic. No periorbital swelling or erythema. Oropharynx is without erythema, swelling, or exudates. Neck: Supple. No adenopathy. No meningismus. Dermatologic: Warm with good turgor. No rash. Atraumatic. Abrasions to the top of the right foot, left elbow, right scapular region, left humeral head region, bruising to the left parathoracic region. Chest: Atraumatic. No chest wall tenderness to palpation. Musculoskeletal: Moves all extremities well. No range of motion deficits. no muscular or joint tenderness. No paraspinal muscle tenderness. no midline spinal tenderness or step-off. Musculoskeletal survey reveals no deformities and no bony tenderness. Patient has full range of motion in all joints. He is ambulatory. Genitourinary: Examination deferred Neurologic: No gross neurologic deficits. Psychiatric: Normal mood. Course - Re-evaluation Re-evalutation: 03/09/20 16:10 Despite multiple areas of abrasions, patient does not have any bony deformities or point tenderness anywhere. He has good range of motion of all the affected areas. Given his drinking history and age and aspirin usage, will scan his head and C-spine. His tetanus booster is up-to-date. Wound closure as noted. - Vital Signs Vital signs: Temp Pulse Resp BP Pulse Ox 98.4 F 03/09/20 15:30 - Diagnostic Test Radiology reviewed: Reports reviewed Procedures - Laceration/Wound Repair Right Posterior Head Time completed: 16:00 Wound length (cm): 2 Wound's Depth, Shape: Linear Laceration pre-procedure: Sterile PPE donned, Betadine prep applied Anesthetic type: Other - none Wound explored: Clean, No foreign body removed Wound Repaired With: Lanre Number of Sutures: 2 Layer Closure?: No Post-procedure NV exam normal: Yes Complications: No Discharge - Discharge Clinical Impression: Multiple abrasions Blunt head trauma Qualifiers: Encounter type: initial encounter Qualified Code(s): S09.8XXA - Other specified injuries of head, initial encounter Scalp laceration Qualifiers: Encounter type: initial encounter Qualified Code(s): S01.01XA - Laceration without foreign body of scalp, initial encounter Condition: Good Disposition: HOME, SELF-CARE Instructions: Antibiotic Ointment Protection (OM), Laceration Care ([facility]), Soap Cleansing ([facility]) Referrals: GOOD SINGER MD [Primary Care Provider] - 03/11/20
--- NOTE | 2020-03-09 16:39 | RADIOLOGY REPORT (SQ) ---
EXAM DESCRIPTION: CT HEAD WITHOUT IMAGES COMPLETED DATE/TIME: 03/09/2020 4:28 pm REASON FOR STUDY: trauma COMPARISON: 07/08/2019 TECHNIQUE: Axial images acquired through the brain without intravenous contrast. Images reviewed wi th bone, brain and subdural windows. Additional sagittal and coronal reconstructions were generated. Images stored on PACS. All CT scanners at this facility use dose modulation, iterative reconstruction, and/or weight based d osing when appropriate to reduce radiation dose to as low as reasonably achievable (ALARA). [facility]: Dose Right [facility]: CareDose [facility]: Dose Right [facility]: Teradose 4D [facility]: YOOSE RADIATION DOSE: mGy. LIMITATIONS: None. FINDINGS: VENTRICLES: Prominent. CEREBRUM: No masses. No hemorrhage. No midline shift. Areas of low density in the white matter mos t likely due to chronic micro-vascular ischemic change. No evidence for acute infarction. CEREBELLUM: No masses. No hemorrhage. No alteration of density. No evidence for acute infarction. EXTRAAXIAL SPACES: Mild age-related involutional change. No fluid collections. No masses. ORBITS AND GLOBE: No intra- or extraconal masses. Normal contour of globe without masses. CALVARIUM: No fracture. PARANASAL SINUSES: No fluid or mucosal thickening. SOFT TISSUES: No mass or hematoma. OTHER: No other significant finding. IMPRESSION: MILD CHRONIC CHANGES OF ATROPHY AND MICROVASCULAR ISCHEMIA. NO ACUTE PROCESS. EVIDENCE OF ACUTE STROKE: NO. TECHNICAL DOCUMENTATION: JOB ID: [id number] Quality ID # [id number]: Final reports with documentation of one or more dose reduction techniques (e.g., Au tomated exposure control, adjustment of the mA and/or kV according to patient size, use of iterative reconstruction technique) 2010 [employer]- All Rights Reserved Reading location - IP/workstation name: [email or web address]
--- NOTE | 2020-03-09 16:40 | RADIOLOGY REPORT (SQ) ---
EXAM DESCRIPTION: CT CERVICAL SPINE WITHOUT IMAGES COMPLETED DATE/TIME: 03/09/2020 4:28 pm REASON FOR STUDY: trauma COMPARISON: None. TECHNIQUE: Axial images acquired through the cervical spine without intravenous contrast. Images re viewed with lung, soft tissue and bone windows. Reconstructed coronal and sagittal MPR images review ed. Images stored on PACS. All CT scanners at this facility use dose modulation, iterative reconstruction, and/or weight based d osing when appropriate to reduce radiation dose to as low as reasonably achievable (ALARA). [facility]: Dose Right [facility]: CareDose [facility]: Dose Right [facility]: Teradose 4D [facility]: Business Engine RADIATION DOSE: CT Rad equipment meets quality standard of care and radiation dose reduction techniq ues were employed. CTDIvol: 23.3 - 53.2 mGy. DLP: 1565 mGy-cm. mGy. LIMITATIONS: None. FINDINGS: ALIGNMENT: Anatomic. MINERALIZATION: Normal. VERTEBRAL BODIES: No fractures or dislocation. DISCS: Mild multilevel disc space narrowing. FACETS, LATERAL MASSES, POSTERIOR ELEMENTS: Multilevel facet arthropathy. HARDWARE: None in the spine. VISUALIZED RIBS: No fractures. LUNG APICES AND SOFT TISSUES: No significant or acute findings. OTHER: No other significant finding. IMPRESSION: Degenerative changes. No acute fracture or dislocation. TECHNICAL DOCUMENTATION: JOB ID: [id number] Quality ID # [id number]: Final reports with documentation of one or more dose reduction techniques (e.g., Au tomated exposure control, adjustment of the mA and/or kV according to patient size, use of iterative reconstruction technique) 2010 [employer]- All Rights Reserved Reading location - IP/workstation name: [email or web address]
== END 2020-03-09 17:31 | disposition home or self-care (01) ==
LOC: ER 15:04
DX: S01.01XA Laceration without foreign body of scalp, initial encounter (principal); S20.20XA Contusion of thorax, unspecified, initial encounter; S90.811A Abrasion, right foot, initial encounter; S50.312A Abrasion of left elbow, initial encounter; S40.211A Abrasion of right shoulder, initial encounter; S40.812A Abrasion of left upper arm, initial encounter; W10.9XXA Fall (on) (from) unspecified stairs and steps, initial encounter; Y92.009 Unspecified place in unspecified non-institutional (private) residence as the place of occurrence of the external cause; M47.812 Spondylosis without myelopathy or radiculopathy, cervical region; F17.200 Nicotine dependence, unspecified, uncomplicated
CPT/HCPCS: 70450; 72125; 99284